=== PATIENT | male | born 1930 | race Asian ===

== ENCOUNTER 2016-09-06 10:06 | Emergency (ER) | payer OTHER ==
[2016-09-06 10:11] VITALS: TEMP 98.5; BMI 25.4
[2016-09-06] MEDS ORDERED: FAMOTIDINE 20 MG/50 ML IVPB 20 MG in PREMIX 50 IVPB ONE (11:30)
--- NOTE | 2016-09-06 11:37 | PDOC ---
History of Present Illness - General Chief Complaint: Pain Stated Complaint: STOMACH PAIN Time Seen by Provider: 09/06/16 10:47 History Source: Patient Exam Limitations: No Limitations - History of Present Illness Travel History: No Initial Comments: 09/06/16 11:35 85-year-old male presents the ED with intermittent right upper quadrant pain he describes as an aching sensation with cramping worsened after meals and relieved with time. Patient states has taken Pepto-Bismol minutes minimal relief and has seen his PCP who stated if pain continues to go to the nearest emergency room. Patient denies history of gallstones, GERD, abdominal distention , diarrhea, fever, chest pain, shortness of breath, dysuria, or radiation of pain. Patient does have history of diabetes, dyslipidemia and hypertension and is followed by Dr. Hirsch Timing/Duration: reports: intermittent Quality: reports: mild, cramping Abdominal Pain Onset Location: reports: RUQ Pain Radiation: reports: no radiation Activities at Onset: reports: eating Aggravating Factors: improves with: Eating Alleviating Factors: improves with: None Past History - Past Medical History Allergies/Adverse Reactions: Allergies Allergy/AdvReac Type Severity Reaction Status Date / Time No Known Allergies Allergy Verified 09/06/16 10:11 Home Medications: Ambulatory Orders Unobtainable [Unobtainable] 09/06/16 Diabetes: Yes HTN: Yes Hypercholesterolemia: Yes - Psycho/Social/Smoking Cessation Hx Suicidal Ideation: No Smoking History: Never smoked Information on smoking cessation initiated: No Hx Alcohol Use: No Drug/Substance Use Hx: No Patient Lives Alone: No Lives with/in: son Abd/GI Specific PMHX - Complaint Specific PMHX Gall Bladder Disease: No GERD: No Review of Systems - Review of Systems Able to Perform ROS?: Yes Constitutional: No: Symptoms Reported HEENTM: No: Symptoms Reported Respiratory: No: Symptoms reported Cardiac (ROS): No: Symptoms Reported ABD/GI: Yes: Abdominal cramping : No: Symptoms Reported Musculoskeletal: No: Symptoms Reported Integumentary: No: Symptoms Reported Neurological: No: Symptoms reported Endocrine: No: Symptoms Reported *Physical Exam - Vital Signs Last Vital Signs Temp Pulse Resp BP Pulse Ox 98.5 F 94 H 18 153/70 97 09/06/16 10:08 09/06/16 10:08 09/06/16 10:08 09/06/16 10:08 09/06/16 10:08 - Physical Exam General Appearance: Yes: Nourished, Appropriately Dressed. No: Apparent Distress Neck: positive: Supple Respiratory/Chest: positive: Lungs Clear, Normal Breath Sounds. negative: Respiratory Distress, Accessory Muscle Use Cardiovascular: positive: Regular Rhythm, Regular Rate. negative: Murmur Gastrointestinal/Abdominal: positive: Normal Bowel Sounds, Soft, Tenderness ( ruq rt epigastric, mild epigastric). negative: Distended, Guarding, Rebound, Hernia, Mass Musculoskeletal: negative: CVA Tenderness Integumentary: positive: Normal Color, Dry, Warm Neurologic: positive: Motor Strength 5/5 (ambulatory) ED Treatment Course - LABORATORY CBC & Chemistry Diagram: 09/06/16 12:00 09/06/16 12:00 - RADIOLOGY Radiology Studies Ordered: Category Date Time Status CHEST X-RAY PORTABLE* [RAD] Stat Radiology 09/06/16 11:30 Ordered GALLBLADDER US [US] Stat Ultrasound 09/06/16 11:30 Ordered Medical Decision Making - Medical Decision Making 09/06/16 11:36 Patient with right upper quadrant right epigastric pain for the past month intermittently worsened with meals. Patient had point tenderness to the right upper quadrant but negative for Carreon's. Patient also had tenderness in the right epigastric. Patient ordered for CBC, comp, lipase, urine urine culture, EKG, gallbladder ultrasound, chest x-ray, and we will reevaluate shortly 09/06/16 13:11 Laboratory Tests 09/06/16 09/06/16 09/06/16 12:00 12:00 12:08 WBC 9.1 Hgb 14.0 Hct 42.7 Plt Count 178 Neutrophils % 71.2 Sodium 130 L Potassium 4.9 Chloride 96 L Carbon Dioxide 27 Anion Gap 7 L BUN 32 H Creatinine 2.6 H Creat Clearance w eGFR 23.69 Random Glucose 449 H* Calcium 9.9 Total Bilirubin 0.5 AST 11 L ALT 21 Albumin 3.3 L Lipase 930 H Urine Glucose (UA) 3+ H Urine Nitrite Negative Ur Leukocyte Esterase Negative Laboratory Tests 09/06/16 12:59 Acetone, Qual Negative Patient ordered for second bag of IV fluid. Patient with elevated lipase. Patient currently in ultrasound for gallbladder. If ultrasound is negative will send for CT to rule out pancreatitis which is very likely secondary to elevated glucose. 09/06/16 14:33 Gallbladder ultrasound shows adequately distended gallbladder without intraluminal stones or thickening of its wall. There is no pericholecystic fluid seen. There is no ensure extrahepatic bile duct dilatation. The right kidney measures 7.5 with a couple cysts in the largest measuring 3 cm without evidence of hydronephrosis. Visualized portion of the pancreas is within normal limits in size with normal dilatation of the pancreatic duct measuring 3 mm. due to patient's elevated glucose and lipase patient will be added for CT of the abdomen to rule out pancreatic etiology. 09/06/16 16:44 CT shows no evidence of pancreatic masses no evidence of peripancreatic inflammatory changes or fluid collection suggesting acute or chronic pancreatitis. The liver spleen and adrenal glands and left kidney demonstrate no significant abnormality right kidney is moderately atrophic this present in few small calcifications. There is no evidence of hydronephrosis there is no evidence of intra-abdominal retroperitoneal lymphadenopathy or fluid collections. There is no evidence of acute appendicitis or diverticulitis. Patient will be discharged home for follow-up with Dr. Hirsch. awaiting repeat BGM. courtesy call placed to Dr. Hirsch. 09/06/16 16:51 *DC/Admit/Observation/Transfer Diagnosis at time of Disposition: Elevated lipase, Right upper quadrant abdominal pain - Discharge Dispostion Disposition: HOME Condition at time of disposition: Good - Referrals Referrals: Boris Hirsch MD [Primary Care Provider] - - Patient Instructions Printed Discharge Instructions: DI for Abdominal Pain-Adult Additional Instructions: At this point, I see no acute findings for admission or further workup. I do want to follow-up with your PCP Dr. Hirsch to discuss today's visit and take copies of the ultrasound and CAT scan with you. Please also take blood work with you.
[2016-09-06] MEDS ORDERED: FAMOTIDINE 20 MG/50 ML IVPB 50 ML IVPB ONE (12:12)
[2016-09-06 12:13] LABS: BASOPHIL 0.7 % (0-2.0); EOSINOPHIL 6.9 % (0-4.5); MCH 25.1 pg (25.7-33.7); MCHC 32.8 g/dl (32.0-35.9); MEAN CELL VOLUME 76.5 fl (80-96); MEAN PLT VOLUME 7.8 fl (7.5-11.1); NEUTROPHILS 71.2 % (42.8-82.8); PLATELET COUNT 178 K/MM3 (134-434); RDW 14.8 % (11.9-15.9); WHITE BLOOD COUNT 9.1 K/mm3 (4.0-10.0)
[2016-09-06 12:32] LABS: URINE APPEARANCE CLEAR; URINE BILIRUBIN NEGATIVE (NEGATIVE); URINE BLOOD NEGATIVE (NEGATIVE); URINE COLOR STRAW; URINE GLUCOSE (UA) 3+ (NEGATIVE); URINE KETONE NEGATIVE (NEGATIVE); URINE LEUK ESTERASE NEGATIVE (NEGATIVE); URINE NITRITE NEGATIVE (NEGATIVE); URINE PROTEIN 2+ (NEGATIVE); URINE UROBILINOGEN NEGATIVE E.U./dl (0.2-1.0)
[2016-09-06 12:43] LABS: ALBUMIN 3.3 g/dl (3.4-5.0); BILIRUBIN,TOTAL 0.5 mg/dL (0.2-1.0); CALCIUM 9.9 mg/dL (8.5-10.1); CREATININE 2.6 mg/dL (0.7-1.3); TOT PROT 7.8 g/dl (6.4-8.2)
[2016-09-06] MEDS ORDERED: SODIUM CHLORIDE 1,000 ML IV STA (12:59)
--- NOTE | 2016-09-06 16:37 | EKG ---
Test Reason : Blood Pressure : / mmHG Vent. Rate : 078 BPM Atrial Rate : 078 BPM P-R Int : 144 ms QRS Dur : 076 ms QT Int : 378 ms P-R-T Axes : 053 012 105 degrees QTc Int : 430 ms POOR DATA QUALITY, INTERPRETATION MAY BE ADVERSELY AFFECTED NORMAL SINUS RHYTHM NONSPECIFIC T WAVE ABNORMALITY ABNORMAL ECG NO PREVIOUS ECGS AVAILABLE Confirmed by MARCELLA VILCHIS MD ([id number]) on 09/06/2016 4:37:05 PM Referred By: Confirmed By:MARCELLA VILCHIS MD
--- NOTE | 2016-09-06 16:44 | PDOC ---
*Physical Exam - Vital Signs Last Vital Signs Temp Pulse Resp BP Pulse Ox 98.5 F 94 H 18 153/70 97 09/06/16 10:08 09/06/16 10:08 09/06/16 10:08 09/06/16 10:08 09/06/16 10:08 ED Treatment Course - LABORATORY CBC & Chemistry Diagram: 09/06/16 12:00 09/06/16 12:00 - ADDITIONAL ORDERS Additional order review: Laboratory Results 09/06/16 09/06/16 09/06/16 12:59 12:08 12:00 Sodium 130 L Potassium 4.9 Chloride 96 L Carbon Dioxide 27 Anion Gap 7 L BUN 32 H Creatinine 2.6 H Creat Clearance w eGFR 23.69 Random Glucose 449 H* Calcium 9.9 Total Bilirubin 0.5 AST 11 L ALT 21 Alkaline Phosphatase 85 Total Protein 7.8 Albumin 3.3 L Lipase 930 H Urine Color Straw Urine Appearance Clear Urine pH 7.0 Ur Specific [place] 1.020 Urine Protein 2+ H Urine Glucose (UA) 3+ H Urine Ketones Negative Urine Blood Negative Urine Nitrite Negative Urine Bilirubin Negative Urine Urobilinogen Negative Ur Leukocyte Esterase Negative Urine RBC None Urine WBC None Acetone, Qual Negative 09/06/16 12:00 RBC 5.58 MCV 76.5 L MCHC 32.8 RDW 14.8 MPV 7.8 Neutrophils % 71.2 Lymphocytes % 14.9 Monocytes % 6.3 Eosinophils % 6.9 H Basophils % 0.7 - Medications Given in the ED: ED Medications Discontinued Medications Generic Name Dose Route Start Last Admin Trade Name Freq PRN Reason Stop Dose Admin Famotidine/Sodium Chloride 20 50 mls @ 100 mls/hr 09/06/16 11:30 09/06/16 12:22 mg/ Miscellaneous IVPB 09/06/16 11:59 100 mls/hr ONCE ONE Administration Sodium Chloride 1,000 mls @ 1,000 mls/hr 09/06/16 12:59 09/06/16 13:30 Normal Saline - IV 09/06/16 13:58 1,000 mls/hr ASDIR STA Administration Medical Decision Making - Medical Decision Making 09/06/16 16:43 Pt seen by Midlevel Provider under my direct supervision Ancillary studies reviewed I agree with plan as outlined by Midlevel Provider 09/07/16 09:52 *DC/Admit/Observation/Transfer Diagnosis at time of Disposition: Elevated lipase, Right upper quadrant abdominal pain - Discharge Dispostion Disposition: HOME Condition at time of disposition: Good - Referrals Referrals: Boris Hirsch MD [Primary Care Provider] - - Patient Instructions Printed Discharge Instructions: DI for Abdominal Pain-Adult Additional Instructions: At this point, I see no acute findings for admission or further workup. I do want to follow-up with your PCP Dr. Hirsch to discuss today's visit and take copies of the ultrasound and CAT scan with you. Please also take blood work with you.
[2016-09-06 17:16] VITALS: BP 141/78; PULSE 72
== END 2016-09-06 17:22 | disposition home or self-care (01) ==
LOC: JER 10:06
PROC: 3E0337Z Introduction of Electrolytic and Water Balance Substance into Peripheral Vein, Percutaneous Approach (ICD-10-PCS; principal; 2016-09-06)
PROC: 3E033GC Introduction of Other Therapeutic Substance into Peripheral Vein, Percutaneous Approach (ICD-10-PCS; 2016-09-06)
DX: R10.11 Right upper quadrant pain (principal); R74.8 Abnormal levels of other serum enzymes; E11.9 Type 2 diabetes mellitus without complications; I10 Essential (primary) hypertension; E78.5 Hyperlipidemia, unspecified
CPT/HCPCS: 36415; 71010-TC; 74176-TC; 76705-TC; 80053; 81003; 81015; 82009; 83690; 85025; 87086; 93005; 93010; 99284-25

== ENCOUNTER 2017-08-09 01:05 | Inpatient (IN) | payer OTHER ==
--- NOTE | 2017-08-09 01:31 | PDOC ---
History of Present Illness - General Exam Limitations: No Limitations - History of Present Illness Initial Comments: 08/09/17 02:04 Patient is a 86 year old male with a significant past medical history of HTN, Diabetes (diet controlled), Hypercholesterolemia who presents to the ED with complaints of abdominal pain that began yesterday morning. Patient reports abdominal pain began yesterday morning after having breakfast. He reports last meal was yesterday afternoon to which he states was only a small amount. Patient reports forcing himself to vomiting tno high level of discomfort from abdominal pain. Denies chest pain, SOB. Denies fever, chills. Denies sweating, coughing. Denies contact with sick individuals, out of state travel. Allergies: None Social history: No smoking. No alcohol. No illicit drugs. Surgical history: None PMD: Dr. Boris Hirsch <Aayush Lynch - Last Filed: 08/09/17 02:43> - General History Source: Patient, Family <Jluis Martin - Last Filed: 08/09/17 05:36> - General Stated Complaint: ABD PAIN Time Seen by Provider: 08/09/17 01:25 Past History <Aayush Lynch - Last Filed: 08/09/17 02:43> - Past Medical History Diabetes: Yes HTN: Yes Hypercholesterolemia: Yes - Suicide/Smoking/Psychosocial Hx Smoking History: Never smoked Hx Alcohol Use: No Drug/Substance Use Hx: No <Jluis Martin - Last Filed: 08/09/17 05:36> - Past Medical History Allergies/Adverse Reactions: Allergies Allergy/AdvReac Type Severity Reaction Status Date / Time No Known Allergies Allergy Verified 09/06/16 10:11 Home Medications: Ambulatory Orders Unobtainable [Unobtainable] 09/06/16 Review of Systems - Review of Systems Able to Perform ROS?: Yes Comments:: 08/09/17 02:04 CONSTITUTIONAL: Absent: fever, chills, diaphoresis, generalized weakness, malaise, loss of appetite HEENT: Absent: rhinorrhea, nasal congestion, throat pain, throat swelling, difficulty swallowing, mouth swelling, ear pain, eye pain, visual Changes CARDIOVASCULAR: Absent: chest pain, syncope, palpitations, irregular heart rate, lightheadedness , peripheral edema RESPIRATORY: Absent: cough, shortness of breath, dyspnea with exertion, orthopnea, wheezing, stridor, hemoptysis GASTROINTESTINAL: +Abdominal pain. +vomiting. Absent: abdominal distension, nausea, diarrhea, constipation, melena, hematochezia GENITOURINARY: Absent: dysuria, frequency, urgency, hesitancy, hematuria, flank pain, genital pain MUSCULOSKELETAL: Absent: myalgia, arthralgia, joint swelling SKIN: Absent: rash, itching, pallor HEMATOLOGIC/IMMUNOLOGIC: Absent: easy bleeding, easy bruising, lymphadenopathy, frequent infections ENDOCRINE: Absent: unexplained weight gain, unexplained weight loss, heat intolerance, cold intolerance NEUROLOGIC: Absent: headache, focal weakness or paresthesias, dizziness, unsteady gait, seizure, mental status changes, bladder or bowel incontinence PSYCHIATRIC: Absent: anxiety, depression, suicidal or homicidal ideation, hallucinations. All Other Systems: Reviewed and Negative <Aayush Lynch - Last Filed: 08/09/17 02:43> *Physical Exam - Vital Signs Last Vital Signs Temp Pulse Resp BP Pulse Ox 98.7 F 100 H 18 135/59 100 08/09/17 01:25 08/09/17 01:25 08/09/17 01:25 08/09/17 01:25 08/09/17 01:25 - Physical Exam Comments: 08/09/17 02:04 GENERAL: +Mild stressed. Well developed, well nourished. Awake and alert. In no acute distress. HEENT: Normocephalic, atraumatic. PERRLA, EOMI. No conjunctival pallor. Sclerae are non -icteric. Moist mucous membranes. Oropharynx is clear. NECK: Supple. Full ROM. No JVD. Carotid pulses 2+ and symmetric, without bruits. No thyromegaly. No lymphadenopathy. CARDIOVASCULAR: Regular rate and rhythm. No murmurs, rubs, or gallops. Distal pulses are 2+ and symmetric. PULMONARY: No evidence of respiratory distress. Lungs clear to auscultation bilaterally. No wheezing, rales or rhonchi. ABDOMINAL: +Appears to be distended. +Moderate RUQ tenderness. +Carreon sign Soft. No rebound or guarding. No organomegaly. Normoactive bowel sounds. MUSCULOSKELETAL Normal range of motion at all joints. No bony deformities or tenderness. No CVA tenderness. EXTREMITIES: No cyanosis. No clubbing. No edema. No calf tenderness. SKIN: Warm and dry. Normal capillary refill. No rashes. No jaundice. NEUROLOGICAL: Alert, awake, appropriate. Cranial nerves 2-12 intact. No deficits to light touch and temperature in face, upper extremities and lower extremities. No motor deficits in the in face, upper extremities and lower extremities. Normoreflexic in the upper and lower extremities. Normal speech. Toes are downgoing bilaterally. Gait is normal without ataxia. PSYCHIATRIC: Cooperative. Good eye contact. Appropriate mood and affect. <Aayush Lynch - Last Filed: 08/09/17 02:43> ED Treatment Course - RADIOLOGY Radiograph Interpretation: 08/09/17 02:43 Exam: US Abdomen Limited, right upper quadrant and limited abdominal DUPLEX Impression: No evidence of acute pathology <Aayush Lynch - Last Filed: 08/09/17 02:43> - LABORATORY CBC & Chemistry Diagram: 08/09/17 01:51 08/09/17 01:51 <Jluis Martin - Last Filed: 08/09/17 05:36> *DC/Admit/Observation/Transfer - Attestations Scribe Attestion: 08/09/17 02:04 Documentation prepared by Aayush Lynch, acting as veterinary medical officer for Jluis Martin MD/DO. <Aayush Lynch - Last Filed: 08/09/17 02:43> - Discharge Dispostion Admit: Yes <Jluis Martin - Last Filed: 08/09/17 05:36> Diagnosis at time of Disposition: Anemia, Electrolyte abnormality - Discharge Dispostion Condition at time of disposition: Stable - Referrals Referrals: Boris Hirsch MD [Primary Care Provider] - - Patient Instructions - Post Discharge Activity
[2017-08-09 01:39] VITALS: BMI 25.5
[2017-08-09 02:50] LABS: BASOPHIL 0.4 % (0-2.0); MCHC 31.1 g/dl (32.0-35.9); MEAN CELL VOLUME 70.8 fl (80-96); MEAN PLT VOLUME 8.9 fl (7.5-11.1); NEUTROPHILS 85.6 % (42.8-82.8); PLATELET COUNT 182 K/MM3 (134-434); RDW 18.5 % (11.9-15.9); WHITE BLOOD COUNT 14.3 K/mm3 (4.0-10.0)
[2017-08-09 03:07] LABS: URINE APPEARANCE CLEAR; URINE BILIRUBIN NEGATIVE (NEGATIVE); URINE BLOOD NEGATIVE (NEGATIVE); URINE COLOR STRAW; URINE GLUCOSE (UA) 3+ (NEGATIVE); URINE KETONE NEGATIVE (NEGATIVE); URINE LEUK ESTERASE NEGATIVE (NEGATIVE); URINE NITRITE NEGATIVE (NEGATIVE); URINE UROBILINOGEN NEGATIVE mg/dL (0.2-1.0)
[2017-08-09 03:10] LABS: URINE PROTEIN 2+ (NEGATIVE)
[2017-08-09 03:13] LABS: URINE RBC <1 /hpf (0-3); URINE WBC <1 /hpf (3-5)
[2017-08-09 03:15] LABS: ANION GAP 16 (8-16); BILIRUBIN,TOTAL 0.2 mg/dL (0.2-1.0); CALCIUM 9.4 mg/dL (8.5-10.1); CO2 25 mmol/L (21-32); CREATININE 5.8 mg/dL (0.7-1.3); SGOT/AST 7 U/L (15-37); SGPT/ALT 15 U/L (12-78); TOT PROT 6.8 g/dl (6.4-8.2)
[2017-08-09] MEDS ORDERED: morphine CARPU-JECT 2 MG/1 ML DISP.SYRIN IVPUSH ONE (03:16)
[2017-08-09] MEDS ORDERED: ONDANSETRON 4 MG/2 ML VIAL IVPUSH STA (03:16)
[2017-08-09 03:18] LABS: ALK PHOS 50 U/L (45-117); CPK 64 IU/L (39-308); TROPONIN I 0.02 ng/ml (0.00-0.05)
[2017-08-09] MEDS ORDERED: ONDANSETRON 4 MG/2 ML VIAL ONE (03:21)
[2017-08-09] MEDS ORDERED: morphine SULFATE 4 MG/ML VIAL ONE (03:21)
[2017-08-09 03:35] LABS: GLUCOSE,RANDOM 588 mg/dL (74-106)
[2017-08-09] MEDS ORDERED: INSULIN REGULAR HUMAN 100 UNITS/ML *VIAL SQ ONE (03:45)
[2017-08-09] MEDS ORDERED: INSULIN REGULAR HUMAN 100 UNITS/ML *VIAL ONE (04:11)
[2017-08-09] MEDS: SODIUM CHLORIDE 1,000 ML IV SCH (04:15)
[2017-08-09] MEDS ORDERED: PANTOPRAZOLE 40 MG TABLET (FP) PO ONE (05:31)
--- NOTE | 2017-08-09 06:53 | HP ---
CHIEF COMPLAINT: Epigastric pain PCP: Dr. Hirsch HISTORY OF PRESENT ILLNESS: 86yo M with history of DM (only diet controlled), HTN, HLD and diverticulosis who presented to the ED due to burning epigastric pain rated at a 6 in intensity without any radiation. Pt speaks only Malayalam and translation provided by nurse who speaks fluently. Pt states he ate breakfast yesterday and developed his pain afterwards. Pt reports he ate dinner last night , however experienced nonbilious/nonbloody vomiting x1 and only ate a small amount compared to his normal. He reports how his pain decreased as soon as he vomited. Pt also reports a BM yesterday without any bloody or black tarry colour to it. Pt denies any constipation/diarrhea/n, weight changes, CP/ discomfort, SOB, fever/chills, and sick contacts. Allergies: None Social history: No smoking. No alcohol. No illicit drugs. Surgical history: None PMD: Dr. Boris Hirsch ER course was notable for: (1) Abdominal U/S reported as normal (2) Oral contrast only CT (no IV due to CATARINA) which was only reported as "esophagitis" (3) CMP showing glucose 566, Cr increased to 5.6 (BUN 118) (4) CBC showing Hgb 6.7 with most recent lab showing 14 (5) Insulin 6 units administered (6) Morphine given for pain control, Zofran administered for nausea control Recent Travel: Denies PAST MEDICAL HISTORY: DM (diet only; uncontrolled) HTN HLD Diverticulosis PAST SURGICAL HISTORY: None Social History: Smoking: Denies Alcohol: Denies Drugs: Denies Family History: Deferred Allergies No Known Allergies Allergy (Verified 09/06/16 10:11) HOME MEDICATIONS: Home Medications Medication Instructions Recorded Unobtainable [Unobtainable] 09/06/16 REVIEW OF SYSTEMS CONSTITUTIONAL: Absent: fever, chills, diaphoresis, generalized weakness, no weight changes HEENT: Absent: rhinorrhea, nasal congestion, throat pain, CARDIOVASCULAR: Absent: chest pain, syncope, palpitations, lightheadedness, peripheral edema RESPIRATORY: Absent: cough, shortness of breath, dyspnea with exertion, orthopnea, wheezing, stridor, hemoptysis GASTROINTESTINAL: Present: Abd pain, vomiting Absent: abdominal distension, nausea, diarrhea, constipation, melena, hematochezia GENITOURINARY: Absent: dysuria, frequency, urgency, hesitancy, hematuria, flank pain, genital pain HEMATOLOGIC/IMMUNOLOGIC: Absent: easy bleeding, easy bruising ENDOCRINE: Absent: unexplained weight gain, unexplained weight loss PSYCHIATRIC: Absent: anxiety, depression PHYSICAL EXAMINATION Vital Signs - 24 hr 08/09/17 08/09/17 08/09/17 01:25 04:20 05:50 Temperature 98.7 F 98.7 F Pulse Rate 100 H Pulse Rate [ 104 H 92 H Left Radial] Respiratory 18 18 Rate Blood Pressure 135/59 Blood Pressure 173/78 148/68 [Left Arm] O2 Sat by Pulse 100 98 Oximetry (%) GENERAL: NAD lying comfortably in bed, alert HEENT: EOMI, HOW[place], No JVD appreciated, ROM intact LUNGS: CTA bilaterally. No wheezes, rhonchi, rales. No accessory muscle use. HEART: RRR, normal S1 and S2 without murmur ABDOMEN: Soft, nontender, not distended, normoactive bowel sounds, no guarding, no rebound, mass palpated around 9-10cm palpated in the R periumbilical area cystic in consistency nontender to palpation and appearing to be intrabdominal. No scars/rashes/lesions appreciated. MUSCULOSKELETAL: No CVA tenderness. EXTREMITIES: 2+ DP pulses, no edema appreciated in lower extremities. NEUROLOGICAL: nonfocal, normal speech, gait not observed PSYCHIATRIC: Cooperative. Good eye contact. Appropriate mood and affect. SKIN: Warm, no rashes or lesions noted, <2sec cap refill Laboratory Results - last 24 hr 08/09/17 08/09/17 08/09/17 01:51 01:51 01:51 WBC 14.3 H D RBC 2.83 L D Hgb 6.2 L* D Hct 20.0 L D MCV 70.8 L MCH 22.0 L MCHC 31.1 L RDW 18.5 H D Plt Count 182 MPV 8.9 D Neutrophils % 85.6 H D Lymphocytes % 9.4 D Monocytes % 3.6 L Eosinophils % 1.0 D Basophils % 0.4 Sodium 129 L Potassium 4.6 Chloride 88 L Carbon Dioxide 25 Anion Gap 16 BUN 116 H* D Creatinine 5.8 H D Creat Clearance w eGFR 9.36 Random Glucose 588 H* D Calcium 9.4 Magnesium 2.0 Total Bilirubin 0.2 D AST 7 L D ALT 15 D Alkaline Phosphatase 50 D Creatine Kinase 64 Troponin I 0.02 Total Protein 6.8 Albumin 3.0 L Lipase 491 H Urine Color Urine Appearance Urine pH Ur Specific [place] Urine Protein Urine Glucose (UA) Urine Ketones Urine Blood Urine Nitrite Urine Bilirubin Urine Urobilinogen Urine WBC (Auto) Urine RBC (Auto) Blood Type B POSITIVE Antibody Screen Negative Crossmatch 08/09/17 08/09/17 02:51 05:15 WBC RBC Hgb Hct MCV MCH MCHC RDW Plt Count MPV Neutrophils % Lymphocytes % Monocytes % Eosinophils % Basophils % Sodium Potassium Chloride Carbon Dioxide Anion Gap BUN Creatinine Creat Clearance w eGFR Random Glucose Calcium Magnesium Total Bilirubin AST ALT Alkaline Phosphatase Creatine Kinase Troponin I Total Protein Albumin Lipase Urine Color Straw Urine Appearance Clear Urine pH 8.0 Ur Specific [place] 1.012 Urine Protein 2+ H Urine Glucose (UA) 3+ H Urine Ketones Negative Urine Blood Negative Urine Nitrite Negative Urine Bilirubin Negative Urine Urobilinogen Negative Urine WBC (Auto) <1 Urine RBC (Auto) <1 Blood Type B POSITIVE Antibody Screen Crossmatch See Detail ASSESSMENT/PLAN: 86yo M with history of DM (only diet controlled), HTN, HLD and diverticulosis who presented to the ED due to burning epigastric pain noted to hvae decrease in Hgb down to 6.8, CATARINA on CMP, and hyperglycemia to 566. Abdominal US and CT scan performed 1) Epigastric pain --esophagitis vs. gastritis vs. PUD --Lipase noted to be 486 --Zantac 150mg BID --Zofran for nausea to continue --NS@100cc/hr --Morphine 2mg q8h for pain control --Dr. Valdes consulted 2) Hyperglycemia --BGM ACHS --ISS --Hgb A1c ordered --Insulin 6 U given in ED -Recheck fingerstick 3) CATARINA --Most likely intrinsic, however cannot r/o post-obstructive --Renal US --Renal lytes, osm and cr ordered --Dr. Looney consulted --Bladder scan performed after noticing CT scan --125cc per scan 4) Abdominal lump --Mass palpated around 9-10cm in the R periumbilical area cystic in consistency nontender to palpation and appearing to be intrabdominal --Upon CT image review, massively distended bladder shown; unknown if cystic vs. urinary retention --Bladder scan showing 125cc --blackmon catheter inserted to differentiate between cystic mass/lump vs. bladder distention --If unable to catheterize will consult urology due to obstructive process 5) Anemia --Microcytic in nature --2UPRBC ordered to be transfused --Maintain transfusion threshold as 7 --Stool occult ordered --GI consult as above 6) HTN --currently controlled --Monitor BP --Will need to reconcile medications 7) HLD --Lipid panel ordered --Need for medication reconcilation FEN: Fluids: NS@100c/hr Electrolyte abnormalities: Hyponatremia; when corrected for glucose level Na is NORMAL Nutrition: NPO for now PPX: DVT - SCDs applied both legs; no heparin given to acute blood loss GI - Zantac 150mg BID Dispo: Admit to inpatient services; specific placement to be discussed with Dr. Good Case to be discussed with Dr. Florentino Dumont, DO - Internal Medicine PGY-1 Visit type - Emergency Visit Emergency Visit: No - New Patient This patient is new to me today: Yes Date on this admission: 08/09/17 - Critical Care Critical Care patient: No
[2017-08-09] MEDS ORDERED: INSULIN SLIDING SCALE (NOVOLOG) 1 VIAL SQ SCH (07:00)
[2017-08-09] MEDS ORDERED: morphine SULFATE 4 MG/ML VIAL IVPUSH PRN (07:25)
[2017-08-09] MEDS ORDERED: ONDANSETRON 4 MG/2 ML VIAL IVPUSH PRN (07:25)
--- NOTE | 2017-08-09 08:06 | PN ---
Teaching Attending Note Name of Resident: Sang Valle ATTENDING PHYSICIAN STATEMENT I saw and evaluated the patient. I reviewed the resident's note and discussed the case with the resident. I agree with the resident's findings and plan as documented. SUBJECTIVE: RR was called for patient having high blood sugar of 588. Patient was found to have difficulty urinating. OBJECTIVE: Vital Signs Temperature 98.7 F 08/09/17 04:20 Pulse Rate 92 H 08/09/17 05:50 Respiratory Rate 18 08/09/17 04:20 Blood Pressure 148/68 08/09/17 05:50 O2 Sat by Pulse Oximetry (%) 98 08/09/17 04:20 CBCD WBC 14.3 K/mm3 (4.0-10.0) H D 08/09/17 01:51 RBC 2.83 M/mm3 (4.00-5.60) L D 08/09/17 01:51 Hgb 6.2 GM/dL (11.7-16.9) L* D 08/09/17 01:51 Hct 20.0 % (35.4-49) L D 08/09/17 01:51 MCV 70.8 fl (80-96) L 08/09/17 01:51 MCHC 31.1 g/dl (32.0-35.9) L 08/09/17 01:51 RDW 18.5 % (11.9-15.9) H D 08/09/17 01:51 Plt Count 182 K/MM3 (134-434) 08/09/17 01:51 MPV 8.9 fl (7.5-11.1) D 08/09/17 01:51 CMP Sodium 129 mmol/L (136-145) L 08/09/17 01:51 Potassium 4.6 mmol/L (3.5-5.1) 08/09/17 01:51 Chloride 88 mmol/L (98-107) L 08/09/17 01:51 Carbon Dioxide 25 mmol/L (21-32) 08/09/17 01:51 Anion Gap 16 (8-16) 08/09/17 01:51 BUN 116 mg/dL (7-18) H* D 08/09/17 01:51 Creatinine 5.8 mg/dL (0.7-1.3) H D 08/09/17 01:51 Creat Clearance w eGFR 9.36 (>60) 08/09/17 01:51 Random Glucose 588 mg/dL (74-106) H* D 08/09/17 01:51 Calcium 9.4 mg/dL (8.5-10.1) 08/09/17 01:51 Total Bilirubin 0.2 mg/dL (0.2-1.0) D 08/09/17 01:51 AST 7 U/L (15-37) L D 08/09/17 01:51 ALT 15 U/L (12-78) D 08/09/17 01:51 Alkaline Phosphatase 50 U/L (45-117) D 08/09/17 01:51 Total Protein 6.8 g/dl (6.4-8.2) 08/09/17 01:51 Albumin 3.0 g/dl (3.4-5.0) L 08/09/17 01:51 CARDIAC ENZYMES Creatine Kinase 64 IU/L (39-308) 08/09/17 01:51 Troponin I 0.02 ng/ml (0.00-0.05) 08/09/17 01:51 Current Medications Generic Name Dose Route Start Last Admin Trade Name Freq PRN Reason Stop Dose Admin Sodium Chloride 1,000 mls @ 75 mls/hr 08/09/17 03:45 08/09/17 04:15 Normal Saline - IV 75 mls/hr ASDIR REHANA Administration Insulin Aspart 1 vial 08/09/17 07:00 Novolog Vial Sliding Scale - SQ ACHS [facility] Protocol Morphine Sulfate 2 mg 08/09/17 07:25 Morphine Injection - IVPUSH Q8H PRN PAIN Ondansetron HCl 4 mg 08/09/17 07:25 Zofran Injection IVPUSH Q6H PRN NAUSEA AND/OR VOMITING Ranitidine HCl 150 mg 08/09/17 10:00 Zantac - PO BID [facility] Home Medications Medication Instructions Recorded Unobtainable [Unobtainable] 09/06/16 CT - dilated PD ASSESSMENT AND PLAN: Patient is an 86 yo male with uncontrolled DM, urinary retention, significant anemia, mildly elevated lipse, epigastric pain with dark stools. No reports of melena, hematochezia, hematemesis. # Acute obstructive uropathy urology and surgery was consulted , will Tx patient to telemetry. #Acute renal failure due to Obstructive uropathy. Sen catheter to be placed by urologist /surgery. # Severe Anemia h/h , transfuse 2 units ,keep Hemoblobin above 8.0, PPI IVP BID , GI consult possible EGD per GI. Iron profile. EGD to evaluate for upper GI sources of blood loss, MRCP. # DM control on SS with coverage #acute psuedohyponatremia will repeat in am dvt px: Hemoglobin of 6.0 will hold of anticoagulation for now.
[2017-08-09] MEDS ORDERED: INSULIN (NOVOLOG) ASPART 100 UNITS/ML 10ML VIAL ONE ×2 (08:41→20:33)
[2017-08-09] MEDS: INSULIN SLIDING SCALE (NOVOLOG) 1 VIAL SQ SCH ×4 (08:46→20:34)
--- NOTE | 2017-08-09 08:55 | RAPID ---
Physical Examination Vital Signs: Vital Signs Temperature 98 F 08/09/17 08:29 Pulse Rate 94 H 08/09/17 08:29 Respiratory Rate 20 08/09/17 08:29 Blood Pressure 122/60 08/09/17 08:29 O2 Sat by Pulse Oximetry (%) 98 08/09/17 04:20 Constitutional: Yes: Calm, Thin Eyes: Yes: WNL, Conjunctiva Clear HENT: Yes: Atraumatic, Normocephalic Neck: Yes: Supple Cardiovascular: Yes: Regular Rate and Rhythm Respiratory: Yes: Other (Decreased lung sounds at bases) Gastrointestinal: Yes: Normal Bowel Sounds, Palpable Mass (Large abdominal herniated mass palpable in RLQ. Dull to percussion. Non-tender. Normal overlying skin. Likely bladder), Other (Mild hepatosplenomegaly) ...Rectal Exam: Yes: Deferred Renal/: Yes: WNL Peripheral Pulses: Left Radial: 2+, Right Radial: 2+, Left Doralis Pedis: 2+, Right Dorsalis Pedis: 2+, Left Femoral: 2+, Right Femoral: 2+ Integumentary: Yes: WNL, Jaundice (Mild jaundice noted) Neurological: Yes: Alert, Oriented, Cran Nerves II-XII Intact ...Motor Strength: WNL Labs: CBC, BMP 08/09/17 01:51 08/09/17 01:51 Rapid Response - Rapid Response Assessment: RR called by nurse for elevated BG 588 and increased somnolence per nursing staff. Pt lying in bed in NAD, A&Ox3. Vitals 122/61, RR 20, Pulse 93, satting 99 %. BG 559. Pt responsive, conversant, appears slightly lethargic. Non-spanish speaking. Nurse at bedside translating. Endorses mild abdominal pain, no change since admission, mild lightheadness/fatigue. Denies dizziness, CP, SOB, palpitations, CASTILLO, diplopia, focal neurologic symptoms. Denies any hematemesis, hemoptysis, hematochezia, melena, hematuria or any other bleeding sources. No LOC, seziure active or traumatic fall noted. PE as noted in template, notable for large abdominal herniated mass in RLQ. Pt appears mildly jaundiced. Cor, pulm exams normal. 5/5 strength in all extremities. Sensation to light touch preserved globally. CN II-XII intact. 2+ radial, DP, PT pulses BL. CBC, BMP 08/09/17 01:51 08/09/17 01:51 Recommendations: BGM q4h Insulin Sliding Scale Renal consult Consider Vascular consult for access Type and Screen CBC, BMP Transfer to telemetry
--- NOTE | 2017-08-09 09:16 | MSN ---
Progress Note (short form) - Note Progress Note: CBC, BMP Last Vital Signs Temp Pulse Resp BP Pulse Ox 98 F 94 H 20 122/60 99 08/09/17 08:29 08/09/17 08:29 08/09/17 08:29 08/09/17 08:29 08/09/17 09:05 08/09/17 01:51 08/09/17 01:51 Abnormal Lab Results 08/09/17 08/09/17 08/09/17 01:51 01:51 02:51 WBC 14.3 H D RBC 2.83 L D Hgb 6.2 L* D Hct 20.0 L D MCV 70.8 L MCH 22.0 L MCHC 31.1 L RDW 18.5 H D Neutrophils % 85.6 H D Monocytes % 3.6 L Sodium 129 L Chloride 88 L BUN 116 H* D Creatinine 5.8 H D Random Glucose 588 H* D AST 7 L D Albumin 3.0 L Triglycerides HDL Cholesterol Lipase 491 H Urine Protein 2+ H Urine Glucose (UA) 3+ H Crossmatch 08/09/17 08/09/17 05:15 07:50 WBC RBC Hgb Hct MCV MCH MCHC RDW Neutrophils % Monocytes % Sodium Chloride BUN Creatinine Random Glucose AST Albumin Triglycerides 235 H HDL Cholesterol 25 L Lipase Urine Protein Urine Glucose (UA) Crossmatch See Detail Urine Test Results Urine Color Straw 08/09/17 02:51 Urine Appearance Clear 08/09/17 02:51 Urine pH 8.0 (5.0-8.0) 08/09/17 02:51 Ur Specific [place] 1.012 (1.001-1.035) 08/09/17 02:51 Urine Protein 2+ (NEGATIVE) H 08/09/17 02:51 Urine Glucose (UA) 3+ (NEGATIVE) H 08/09/17 02:51 Urine Ketones Negative (NEGATIVE) 08/09/17 02:51 Urine Blood Negative (NEGATIVE) 08/09/17 02:51 Urine Nitrite Negative (NEGATIVE) 08/09/17 02:51 Urine Bilirubin Negative (NEGATIVE) 08/09/17 02:51
[2017-08-09] MEDS ORDERED: RANITIDINE HCL 150 MG TABLET (FP) PO SCH (10:00)
--- NOTE | 2017-08-09 10:21 | EKG ---
Test Reason : Blood Pressure : / mmHG Vent. Rate : 101 BPM Atrial Rate : 101 BPM P-R Int : 164 ms QRS Dur : 078 ms QT Int : 346 ms P-R-T Axes : 050 014 090 degrees QTc Int : 448 ms SINUS TACHYCARDIA OTHERWISE NORMAL ECG WHEN COMPARED WITH ECG OF 06-SEP-2016 12:37, NO SIGNIFICANT CHANGE WAS FOUND Confirmed by MD QUINTON, JAXON ([id number]) on 08/09/2017 10:21:14 AM Referred By: Confirmed By:JAXON ALCANTARA MD
--- NOTE | 2017-08-09 10:46 | CON.NEP ---
Consult Consult Specialty:: Nephrology Referred by:: Dr. Good Reason for Consultation:: Acute on Chronic renal insuffiency - History of Present Illness Chief Complaint: ABd pain History of Present Illness: This is a 86 year old gentleman with PMhx of Hypertension, DM Type 2 (diet controlled), Hyperlipidemia, CKD (? baseline), ABd hernia who presented to the ED with 1 day history of abdominal pain and found to have large hiatial hernia and CATARINA with BUN/Cr of 116/5.8. History obtained from the son who was at the bedside. He reported that he has been told that his renal function was not normal as of yet. Pt reports that he could not urinate and continues to have abd /pelvic pain. No fever, chills, N/V/D. NO sob, chest pain. + periodic nsaid use. No recent Abx use. Pt was unable to have blackmon passed on the medical floor by the nursing staff. - History Source History Provided By: Patient, Family Member Limitations to Obtaining History: Language Barrier - Alcohol/Substance Use Hx Alcohol Use: No - Smoking History Smoking history: Never smoked Have you smoked in the past 12 months: No Home Medications - Allergies Allergies/Adverse Reactions: Allergies Allergy/AdvReac Type Severity Reaction Status Date / Time No Known Allergies Allergy Verified 09/06/16 10:11 - Home Medications Home Medications: Ambulatory Orders Unobtainable [Unobtainable] 09/06/16 Family Disease History - Family Disease History Family History: Unremarkable Review of Systems - Review of Systems Constitutional: reports: Loss of Appetite. denies: Chills, Diaphoresis, Fever, Lethargy Eyes: reports: No Symptoms HENT: reports: No Symptoms Neck: reports: No Symptoms Cardiovascular: denies: Chest Pain, Edema, Palpitations, Shortness of Breath Respiratory: denies: Cough, Hemoptysis, Orthopnea, PND, SOB, SOB on Exertion Gastrointestinal: reports: Abdominal Pain. denies: Diarrhea, Nausea, Vomiting Genitourinary: reports: Pain. denies: Burning, Discharge, Dysuria, Flank Pain Musculoskeletal: reports: No Symptoms Integumentary: reports: No Symptoms Neurological: reports: No Symptoms Nephrology Consult - Height Height: 5 ft 7 in - Weight Weight: 73.936 kg - BMI Body Mass Index (BMI): 25.5 - Lab Results CBC,BMP: CBC, BMP 08/09/17 01:51 08/09/17 01:51 Anion Gap: Anion Gap Anion Gap 16 (8-16) 08/09/17 01:51 - Imaging Chest X-ray: Report Reviewed Cat Scan: Report Reviewed - Physical Examination Vital Signs: Vital Signs Temperature 98 F 08/09/17 08:29 Pulse Rate 94 H 08/09/17 08:29 Respiratory Rate 20 08/09/17 08:29 Blood Pressure 122/60 08/09/17 08:29 O2 Sat by Pulse Oximetry (%) 99 08/09/17 09:05 Constitutional: Yes: No Distress, Calm Eyes: Yes: Conjunctiva Clear HENT: Yes: Atraumatic, Normocephalic Neck: Yes: Supple Cardiovascular: Yes: Regular Rate and Rhythm, S1, S2. No: Murmur, Rub Respiratory: Yes: Regular, CTA Bilaterally. No: Rales, Rhonchi, Wheezes Gastrointestinal: Yes: Distention, Tenderness Renal/: Yes: Bladder Distention. No: CVA Tenderness - Left, CVA Tenderness - Right, Blackmon Present Edema: No Neurological: Yes: Alert, Oriented Assessment/Plan 86 year old gentleman with PMhx of Hypertension, DM Type 2 (diet controlled), Hyperlipidemia, CKD (? baseline), ABd hernia who presented to the ED with 1 day history of abdominal pain and found to have large hiatial hernia and CATARINA with BUN/Cr of 116/5.8. 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 Blackmon unable to be passed by nursing staff Urology consult for Blackmon placement and management of enlarged prostate Start Flomax 0.4mg Daily Check urine studies when urine is aviliable continue isotonic saline as pt with signs of mild volume depletion no acute indication for [employer] (no acidosis, hyperkalemia, uremia, volume overload) expect renal function to improve s/p Blackmon placement Dose all meds for CrCl less then 10 no KATELYNN/ARB/NSAIDs/IV contrast Strict I and O #Large Abd Hernia Surgical Eval #Hypertension obtain home meds records goal BP < 150/90 no KATELYNN/ARB given renal failure start Amlodipine 5mg Daily #Acute Anemia Transfuse PRBC as needed for goal Hgb > 8 check iron studies Thank you Steven Carvajal DO
[2017-08-09] MEDS: TAMSULOSIN HCL 0.4 MG CAP.ER.24H (FP) PO SCH (11:17)
[2017-08-09] MEDS: PANTOPRAZOLE SODIUM 40 MG VIAL IVPUSH SCH ×2 (11:17→22:11)
--- NOTE | 2017-08-09 11:34 | PN ---
Progress Note (short form) - Note Progress Note: General surgery called for umbilical hernia and found the patient to have distended bladder. 18 persian coude catheter placed after injecting 1cc of lidocaine sterile lubrication from the blackmon kit. The blackmon was inserted using a sterile technique. 1500 ml clear yellow urine returned and the blackmon was clamped. Ordered written to unclamp the catheter at 12:30 and let the bladder fully drain and record the outpt. Prior to blackmon his abd was disended with a right/firm mas periumbilical. Post blackmon abd soft and non-ditended. Consult to be completed by the urology service. The patient has been started on flomax. His son is at bedside but unaware if he has seen a urologist in the past. D/w Dr. Lee.
[2017-08-09 12:26] LABS: MCH 21.9 pg (25.7-33.7); MCHC 31.4 g/dl (32.0-35.9); MEAN CELL VOLUME 69.7 fl (80-96); MEAN PLT VOLUME 8.1 fl (7.5-11.1); PLATELET COUNT 179 K/MM3 (134-434); RDW 18.4 % (11.9-15.9); WHITE BLOOD COUNT 13.7 K/mm3 (4.0-10.0)
[2017-08-09 12:54] LABS: ANION GAP 11 (8-16); CALCIUM 8.3 mg/dL (8.5-10.1); CO2 26 mmol/L (21-32); CREATININE 5.6 mg/dL (0.7-1.3); GLUCOSE,RANDOM 198 mg/dL (74-106)
--- NOTE | 2017-08-09 12:59 | CON.GI ---
Consult Consult Specialty:: GI - History of Present Illness History of Present Illness: History from medical records and with help of pt's nurse who speaks his language. See on 4w. 86yo M with history of DM, HTN, HLD and diverticulosis who presented to the ED with burning epigastric pain 02/09 without any radiation. Pt states he ate breakfast yesterday and developed the afterwards. Pt reports he ate dinner last night, however experienced nonbilious/nonbloody vomiting x1 and only ate a small amount compared to his normal. He reports how his pain decreased as soon as he vomited. Pt also reports a BM yesterday without any bloody or black tarry colour to it. Pt denies any constipation/diarrhea/n, weight changes, CP/discomfort, SOB, fever/chills, and sick contacts. - History Source History Provided By: Patient, Medical Record, Caregiver - Alcohol/Substance Use Hx Alcohol Use: No - Smoking History Smoking history: Never smoked Have you smoked in the past 12 months: No Home Medications - Allergies Allergies/Adverse Reactions: Allergies Allergy/AdvReac Type Severity Reaction Status Date / Time No Known Allergies Allergy Verified 09/06/16 10:11 - Home Medications Home Medications: Ambulatory Orders Unobtainable [Unobtainable] 09/06/16 Family Disease History - Family Disease History Family History: Unremarkable Review of Systems Findings/Remarks: please refer to H&P Physical Exam-GI Vital Signs: Vital Signs Temperature 98 F 08/09/17 08:29 Pulse Rate 94 H 08/09/17 08:29 Respiratory Rate 20 08/09/17 08:29 Blood Pressure 122/60 08/09/17 08:29 O2 Sat by Pulse Oximetry (%) 99 08/09/17 09:05 Constitutional: Yes: No Distress, Calm Eyes: Yes: Conjunctiva Clear HENT: Yes: Atraumatic Neck: Yes: Supple Cardiovascular: Yes: Regular Rate and Rhythm Respiratory: Yes: Regular ...Palpate: Yes: Soft. No: Tenderness, Tenderness, Epigastium, Tenderness, Rebound ...Rectal Exam: Yes: Sphincter Tone Normal, Other (dark stools). No: Hemorrhoids/External, Inflammation, Mass Neurological: Yes: Alert Labs: CBC, BMP 08/09/17 12:10 08/09/17 12:10 Abnormal Lab Results 1208/09/17 08/09/17 01:51 01:51 02:51 WBC 14.3 H D RBC 2.83 L D Hgb 6.2 L* D Hct 20.0 L D MCV 70.8 L MCH 22.0 L MCHC 31.1 L RDW 18.5 H D Neutrophils % 85.6 H D Monocytes % 3.6 L Sodium 129 L Chloride 88 L BUN 116 H* D Creatinine 5.8 H D Random Glucose 588 H* D Hemoglobin A1c % Serum Osmolality AST 7 L D Albumin 3.0 L Triglycerides HDL Cholesterol Lipase 491 H Urine Protein 2+ H Urine Glucose (UA) 3+ H Crossmatch 08/09/17 08/09/17 08/09/17 05:15 07:50 07:50 WBC RBC Hgb Hct MCV MCH MCHC RDW Neutrophils % Monocytes % Sodium Chloride BUN Creatinine Random Glucose Hemoglobin A1c % 14.0 H Serum Osmolality 332 H AST Albumin Triglycerides HDL Cholesterol Lipase Urine Protein Urine Glucose (UA) Crossmatch See Detail 08/09/17 08/09/17 08/09/17 07:50 12:10 12:10 WBC 13.7 H RBC 2.48 L Hgb 5.4 L* D Hct 17.3 L MCV 69.7 L MCH 21.9 L MCHC 31.4 L RDW 18.4 H Neutrophils % Monocytes % Sodium 134 L Chloride 97 L D BUN Creatinine Random Glucose Hemoglobin A1c % Serum Osmolality AST Albumin Triglycerides 235 H HDL Cholesterol 25 L Lipase Urine Protein Urine Glucose (UA) Crossmatch Imaging - Results Cat Scan: Report Reviewed (Prominent PD) Ultrasound: Report Reviewed (normal biliary tree, GB) Problem List - Problems (1) Anemia Code(s): D64.9 - ANEMIA, UNSPECIFIED (2) Elevated lipase Code(s): R74.8 - ABNORMAL LEVELS OF OTHER SERUM ENZYMES Assessment/Plan An 86 yom with uncontrolled DM, urinary retention, significant anemia, mildly elevated lipse, epigastric pain with dark stools. No reports of melena, hematochezia, hematemesis. CT - dilated PD DM control and urinary retention as per primary team Transfuse to Hgb >8 g/dl Iron profile PPI IVP BID NPO/IVF EGD to evaluate for upper GI sources of blood loss. Monitor VS, for signs of bleeding MRCP
[2017-08-09 13:53] LABS: FERRITIN 16.789 ng/ml (16.4-293.9)
[2017-08-09 14:46] LABS: URINE LEUK ESTERASE Negative (NEGATIVE)
[2017-08-09] MEDS ORDERED: PROPOFOL 20 ML ONE ×2 (15:47)
[2017-08-09] MEDS ORDERED: LIDOCAINE HCL 2% 100 MG/5 ML DISP.SYRIN ONE (15:48)
--- NOTE | 2017-08-09 16:18 | PROC ---
Endoscopy Procedure Endoscopy procedure completed. Please see scanned procedure report. s/p EGD Duodenitis, gastritis, esophagitis. Duodenal, gastric, esophageal biopsies taken 1 cm gastric ulcer with visible vessel was found in antrum. It was biopsied, injected with epinephrine and clipped with 2 resolution clips. PPI, Carafate Clear liquid diet
--- NOTE | 2017-08-09 16:38 | PN ---
Progress Note (short form) - Note Progress Note: MRCP cancelled due to newly placed clips in the gastric body. Problem List - Problems (1) Anemia Code(s): D64.9 - ANEMIA, UNSPECIFIED (2) Elevated lipase Code(s): R74.8 - ABNORMAL LEVELS OF OTHER SERUM ENZYMES
[2017-08-09] MEDS: SUCRALFATE 1 GM/10 ML UNIT DOSE CUPS PO SCH ×2 (17:49→22:10)
[2017-08-09 23:54] LABS: MCH 26.1 pg (25.7-33.7); MCHC 33.9 g/dl (32.0-35.9); MEAN CELL VOLUME 76.9 fl (80-96); MEAN PLT VOLUME 8.2 fl (7.5-11.1); PLATELET COUNT 141 K/MM3 (134-434); RDW 20.9 % (11.9-15.9); WHITE BLOOD COUNT 12.2 K/mm3 (4.0-10.0)
[2017-08-10] MEDS: INSULIN SLIDING SCALE (NOVOLOG) 1 VIAL SQ SCH ×6 (00:09→21:10)
[2017-08-10] MEDS: SODIUM CHLORIDE 1,000 ML IV SCH (03:45)
[2017-08-10 07:53] LABS: BASOPHIL 0.3 % (0-2.0); EOSINOPHIL 5.9 % (0-4.5); MCH 25.9 pg (25.7-33.7); MEAN CELL VOLUME 76.1 fl (80-96); NEUTROPHILS 72.7 % (42.8-82.8); PLATELET COUNT 128 K/MM3 (134-434); RDW 19.8 % (11.9-15.9); WHITE BLOOD COUNT 9.3 K/mm3 (4.0-10.0)
[2017-08-10 08:10] LABS: SERUM IRON 21 ug/dL (38-169); TOTAL IRON BINDING CAPACITY 300 ug/dL (250-450); UIBC 279 ug/dL (111-343)
--- NOTE | 2017-08-10 08:30 | CON.GU ---
Consult - History of Present Illness History of Present Illness: 86 yo male admitted with abdominal pain, distended bladder, elevated creatinine and difficulty voiding. CT shows distended bladder and enlarged prostate. Sen inserted by surgical PA and approx 1500cc urine retrieved. No prior h/o BPH - Alcohol/Substance Use Hx Alcohol Use: No - Smoking History Smoking history: Never smoked Have you smoked in the past 12 months: No Home Medications - Allergies Allergies/Adverse Reactions: Allergies Allergy/AdvReac Type Severity Reaction Status Date / Time No Known Allergies Allergy Verified 09/06/16 10:11 - Home Medications Home Medications: Ambulatory Orders Amlodipine Besylate [Norvasc -] 2.5 mg PO DAILY 08/09/17 Glipizide 5 mg PO DAILY 08/09/17 Glipizide 10 mg PO DAILY 08/09/17 Losartan Potassium [Cozaar -] 50 mg PO DAILY 08/09/17 Metoprolol Tartrate [Lopressor -] 50 mg PO DAILY 08/09/17 Simvastatin [Zocor -] 20 mg PO DAILY 08/09/17 Physical Exam- Vital Signs: Vital Signs Temperature 98.1 F 08/10/17 05:38 Pulse Rate 85 08/10/17 05:38 Respiratory Rate 20 08/10/17 05:38 Blood Pressure 135/65 08/10/17 05:38 O2 Sat by Pulse Oximetry (%) 100 08/09/17 21:00 Renal/: Yes: Sen Present Labs: CBC, BMP 08/10/17 05:45 Imaging - Results Cat Scan: Report Reviewed Problem List - Problems (1) Urinary retention due to benign prostatic hyperplasia Assessment/Plan: agree with starting flomax. may give voiding trial once creatinine has stabilized Code(s): N40.1 - BENIGN PROSTATIC HYPERPLASIA WITH LOWER URINARY TRACT SYMP; R33.8 - OTHER RETENTION OF URINE
[2017-08-10] MEDS ORDERED: oxyCODONE HCL 5 MG TABLET PO PRN (08:35)
[2017-08-10 08:50] LABS: ALBUMIN 2.6 g/dl (3.4-5.0); ALK PHOS 43 U/L (45-117); ANION GAP 11 (8-16); BILIRUBIN,TOTAL 0.4 mg/dL (0.2-1.0); CALCIUM 8.5 mg/dL (8.5-10.1); CO2 25 mmol/L (21-32); CREATININE 5.5 mg/dL (0.7-1.3); GLUCOSE,RANDOM 124 mg/dL (74-106); MAGNESIUM 2.2 mg/dL (1.8-2.4); PHOSPHOROUS 3.6 mg/dL (2.5-4.9); SGOT/AST 12 U/L (15-37); SGPT/ALT 13 U/L (12-78); TOT PROT 5.6 g/dl (6.4-8.2)
[2017-08-10] MEDS ORDERED: INSULIN (NOVOLOG) ASPART 100 UNITS/ML 10ML VIAL ONE (09:07)
[2017-08-10] MEDS: SUCRALFATE 1 GM/10 ML UNIT DOSE CUPS PO SCH ×4 (09:12→21:10)
[2017-08-10] MEDS: TAMSULOSIN HCL 0.4 MG CAP.ER.24H (FP) PO SCH (09:12)
[2017-08-10] MEDS: PANTOPRAZOLE SODIUM 40 MG VIAL IVPUSH SCH (09:12)
[2017-08-10] MEDS: ACETAMINOPHEN 325 MG TABLET (FP) PO PRN ×3 (09:58→21:58)
--- NOTE | 2017-08-10 10:36 | PN ---
Physical Exam: SUBJECTIVE: Patient seen and examined Patient is feeling better with no acute distress, no shortness of breath. OBJECTIVE: Vital Signs Temperature 98.1 F 08/10/17 05:38 Pulse Rate 85 08/10/17 05:38 Respiratory Rate 20 08/10/17 05:38 Blood Pressure 135/65 08/10/17 05:38 O2 Sat by Pulse Oximetry (%) 100 08/09/17 21:00 GENERAL: The patient is awake, alert, and fully oriented, in no acute distress. HEAD: Normal with no signs of trauma. EYES: PERRL, extraocular movements intact, sclera anicteric, conjunctiva clear. ENT: Ears normal, oropharynx clear without exudates, moist mucous membranes. NECK: Trachea midline, full range of motion, supple. LUNGS: Breath sounds equal, clear to auscultation bilaterally, no wheezes, no crackles, no accessory muscle use. HEART: Regular rate and rhythm, S1, S2 without murmur, rub or gallop. ABDOMEN: Soft, nontender, nondistended now post blackmon catheter, normoactive bowel sounds, no guarding, no rebound, no hepatosplenomegaly, no masses appreciated. EXTREMITIES: 2+ pulses, warm, well-perfused, no edema. NEUROLOGICAL: Cranial nerves II through XII grossly intact. Normal speech, gait not observed. PSYCH: Normal mood, normal affect. SKIN: Warm, dry, normal turgor, no rashes or lesions noted : positive for blackmon CBCD WBC 9.3 K/mm3 (4.0-10.0) 08/10/17 05:45 RBC 3.59 M/mm3 (4.00-5.60) L 08/10/17 05:45 Hgb 9.3 GM/dL (11.7-16.9) L 08/10/17 05:45 Hct 27.3 % (35.4-49) L 08/10/17 05:45 MCV 76.1 fl (80-96) L 08/10/17 05:45 MCHC 34.0 g/dl (32.0-35.9) 08/10/17 05:45 RDW 19.8 % (11.9-15.9) H 08/10/17 05:45 Plt Count 128 K/MM3 (134-434) L 08/10/17 05:45 MPV 8.0 fl (7.5-11.1) 08/10/17 05:45 CMP Sodium 141 mmol/L (136-145) 08/10/17 05:45 Potassium 4.7 mmol/L (3.5-5.1) D 08/10/17 05:45 Chloride 105 mmol/L (98-107) 08/10/17 05:45 Carbon Dioxide 25 mmol/L (21-32) 08/10/17 05:45 Anion Gap 11 (8-16) 08/10/17 05:45 BUN 107 mg/dL (7-18) H* 08/10/17 05:45 Creatinine 5.5 mg/dL (0.7-1.3) H 08/10/17 05:45 Creat Clearance w eGFR 9.95 (>60) 08/10/17 05:45 Random Glucose 124 mg/dL (74-106) H D 08/10/17 05:45 Calcium 8.5 mg/dL (8.5-10.1) 08/10/17 05:45 Total Bilirubin 0.4 mg/dL (0.2-1.0) D 08/10/17 05:45 AST 12 U/L (15-37) L D 08/10/17 05:45 ALT 13 U/L (12-78) 08/10/17 05:45 Alkaline Phosphatase 43 U/L (45-117) L 08/10/17 05:45 Total Protein 5.6 g/dl (6.4-8.2) L 08/10/17 05:45 Albumin 2.6 g/dl (3.4-5.0) L 08/10/17 05:45 CARDIAC ENZYMES Creatine Kinase 64 IU/L (39-308) 08/09/17 01:51 Troponin I 0.02 ng/ml (0.00-0.05) 08/09/17 01:51 Active Medications Generic Name Dose Route Start Last Admin Trade Name Freq PRN Reason Stop Dose Admin Acetaminophen 650 mg 08/10/17 08:35 08/10/17 09:58 Tylenol - PO 650 mg Q4H PRN Administration FEVER OR PAIN Sodium Chloride 1,000 mls @ 75 mls/hr 08/09/17 03:45 08/10/17 03:45 Normal Saline - IV Not Given ASDIR REHANA Insulin Aspart 1 vial 08/09/17 08:15 08/10/17 09:12 Novolog Vial Sliding Scale - SQ 2 units Q4H REHANA Administration Protocol Ondansetron HCl 4 mg 08/09/17 07:25 Zofran Injection IVPUSH Q6H PRN NAUSEA AND/OR VOMITING Oxycodone HCl 5 mg 08/10/17 08:35 Roxicodone - PO Q6H PRN PAIN Pantoprazole Sodium 40 mg 08/09/17 10:00 08/10/17 09:12 Protonix Iv IVPUSH 40 mg BID REHANA Administration Sucralfate 1 gm 08/09/17 18:00 08/10/17 09:12 Carafate Oral Suspension - PO 1 gm QID REHANA Administration Tamsulosin HCl 0.4 mg 08/09/17 10:45 08/10/17 09:12 Flomax - PO 0.4 mg DAILY@0830 REHANA Administration Home Medications Medication Instructions Recorded Amlodipine Besylate [Norvasc -] 2.5 mg PO DAILY 08/09/17 Glipizide 5 mg PO DAILY 08/09/17 Glipizide 10 mg PO DAILY 08/09/17 Losartan Potassium [Cozaar -] 50 mg PO DAILY 08/09/17 Metoprolol Tartrate [Lopressor -] 50 mg PO DAILY 08/09/17 Simvastatin [Zocor -] 20 mg PO DAILY 08/09/17 ASSESSMENT AND PLAN: Patient is an 86 yo male with uncontrolled DM, urinary retention, significant anemia, mildly elevated lipse, epigastric pain with dark stools. No reports of melena, hematochezia, hematemesis. # Acute obstructive uropathy continue blackmon catheter which was placed by surgery drained around 1500ml urine . On Flomax continue , IVF continue. #Acute renal failure due to Obstructive uropathy. on IVF continue; ordered 1/2 NS at 75cc/hr. improving. BUN/CR 107/5.5. trend bun/cr, Nephro on the case. # Severe Anemia s/p 2 units of transfusion. on Protonix 40mg IV BID continue, GI consult , Iron profile. EGD to evaluate for upper GI sources of blood loss as per GI. hemoglobin 9.3 now, will monitor. # DM control on SS with coverage #s/p psuedohyponatremia improved now. dvt px: Ac is on hold since low Hemoglobin s/p transfusions of 2 units . Visit type - Emergency Visit Emergency Visit: Yes ED Registration Date: 08/09/17 Care time: The patient presented to the Emergency Department on the above date and was hospitalized for further evaluation of their emergent condition. - New Patient This patient is new to me today: No - Critical Care Critical Care patient: No
--- NOTE | 2017-08-10 10:58 | PN ---
Progress Note (short form) - Note Progress Note: Renal follow up for CATARINA on CKD Pt seen and examined at the bedside reports pain in bladder blackmon in place with good urine output no hematuria no flank pain no sob, chest pain N/V/D Vital Signs Temperature 98.1 F 08/10/17 05:38 Pulse Rate 85 08/10/17 05:38 Respiratory Rate 20 08/10/17 05:38 Blood Pressure 135/65 08/10/17 05:38 O2 Sat by Pulse Oximetry (%) 100 08/09/17 21:00 Intake & Output 08/07/17 08/08/17 08/09/17 08/10/17 23:59 23:59 23:59 23:59 Intake Total 900 600 Output Total 3600 700 Balance -2700 -100 Weight 73.936 kg NAD RRR CTA soft NT/ND Blackmon in place with yellow urine No LE edema CBC, BMP 08/10/17 05:45 08/10/17 05:45 Current Medications Acetaminophen (Tylenol -) 650 mg PO Q4H PRN PRN Reason: FEVER OR PAIN Last Admin: 08/10/17 09:58 Dose: 650 mg Sodium Chloride (Normal Saline -) 1,000 mls @ 75 mls/hr IV ASDIR [facility] Last Admin: 08/10/17 03:45 Dose: Not Given Insulin Aspart (Novolog Vial Sliding Scale -) 1 vial SQ Q4H [facility] PRN Reason: Protocol Last Admin: 08/10/17 09:12 Dose: 2 units Ondansetron HCl (Zofran Injection) 4 mg IVPUSH Q6H PRN PRN Reason: NAUSEA AND/OR VOMITING Oxycodone HCl (Roxicodone -) 5 mg PO Q6H PRN PRN Reason: PAIN Pantoprazole Sodium (Protonix Iv) 40 mg IVPUSH BID [facility] Last Admin: 08/10/17 09:12 Dose: 40 mg Sucralfate (Carafate Oral Suspension -) 1 gm PO QID [facility] Last Admin: 08/10/17 09:12 Dose: 1 gm Tamsulosin HCl (Flomax -) 0.4 mg PO DAILY@0830 [facility] Last Admin: 08/10/17 09:12 Dose: 0.4 mg 86 year old gentleman with PMhx of Hypertension, DM Type 2 (diet controlled), Hyperlipidemia, CKD (? baseline), ABd hernia who presented to the ED with 1 day history of abdominal pain and found to have large hiatial hernia and CATARINA with BUN/Cr of 116/5.8. 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
--- NOTE | 2017-08-10 14:19 | PN ---
GI Progress Note Subjective: GI NOte ( covering Dr Valdes): Tolerating liquids. No vomiting. Hungry for solid food. Had small volume melena but Hb stable . Sons at bedside served as interpreters - Objective Vital Signs: Vital Signs Temperature 97.5 F L 08/10/17 10:00 Pulse Rate 74 08/10/17 10:00 Respiratory Rate 20 08/10/17 10:00 Blood Pressure 137/64 08/10/17 10:00 O2 Sat by Pulse Oximetry (%) 98 08/10/17 09:00 Laboratory Tests 08/09/17 08/09/17 08/09/17 01:51 12:10 23:40 Hgb 6.2 L* D 5.4 L* D 9.5 L D 08/10/17 05:45 Hgb 9.3 L Constitutional: Calm ...Auscultate: Yes: Normoactive Bowel Sounds ...Palpate: Yes: Soft, Other (nontender) Labs: CBC, BMP 08/10/17 05:45 08/10/17 05:45 Problem List - Problems (1) Gastric ulcer with hemorrhage Assessment/Plan: Resolved gastric ulcer bleed following endoscopic intervention by Dr. Valdes with clips and epinephrine injection. Will advance diet. Code(s): K25.4 - CHRONIC OR UNSPECIFIED GASTRIC ULCER WITH HEMORRHAGE
[2017-08-10] MEDS: PANTOPRAZOLE 40 MG TABLET (FP) PO SCH (21:09)
[2017-08-10] MEDS ORDERED: INSULIN SLIDING SCALE (NOVOLOG) 1 VIAL SQ SCH (23:30)
[2017-08-11] MEDS: INSULIN SLIDING SCALE (NOVOLOG) 1 VIAL SQ SCH ×4 (06:37→22:30)
--- NOTE | 2017-08-11 07:14 | PN ---
Physical Exam: SUBJECTIVE: Patient seen and examined by me this AM - No major overnight events. Pt only complaining of mild dysuria. Good UOP yesterday 2149. No hematuria noted. - Pt hemodynamically stable, afebrile. Hgb 9.2 today. - Denies any CASTILLO, fevers, cough, CP, abdominal pain, N/V - PSA elevated 6.00 OBJECTIVE: Vital Signs Intake & Output 08/08/17 08/09/17 08/10/17 08/11/17 23:59 23:59 23:59 23:59 Intake Total 900 1400 20 Output Total 3600 2150 700 Balance -2700 -750 -680 Weight 73.936 kg Period Temp Pulse Resp BP Sys/Bernstein Pulse Ox Last 24 Hr 97.5 F-98.8 F 72-96 20-20 134-161/64-89 96-98 GENERAL: The patient is A&Ox3, in no acute distress. HEAD: Normal with no signs of trauma. EYES: PERRL, extraocular movements intact, sclera anicteric, conjunctiva clear. No ptosis. ENT: Ears normal, nares patent, oropharynx clear without exudates, moist mucous membranes. Poor dentition. No oral lesions. NECK: Trachea midline, full range of motion, supple. No JVD noted. LUNGS: Breath sounds equal, clear to auscultation bilaterally, no wheezes, no crackles, no accessory muscle use. HEART: Regular rate and rhythm, S1, S2 without murmur, rub or gallop. ABDOMEN: Soft, nontender, nondistended, hypoactive bowel sounds, no guarding, no rebound, no hepatosplenomegaly. RLQ abdominal mass is no longer present to palpation. Negative murphys. Negative cullens sign Upper EXTREMITIES: 2+ pulses, warm, well-perfused, no edema. 2+ biceps reflex BL. 5/5 motor strength grossly, sensation to light touch intact Upper EXTREMITIES: 2+ pulses, wwp, no edema. 1+ patellar reflex BL. 5/5 motor strength grossly, sensation to light touch intact NEUROLOGICAL: Cranial nerves II through XII grossly intact. Normal speech, gait not observed. PSYCH: Normal mood, normal affect. SKIN: Warm, dry, normal turgor, no rashes or lesions noted. <2 second capillary refill. Laboratory Results - last 24 hr CBC, BMP CBC, BMP 08/11/17 05:48 08/10/17 05:45 08/10/17 05:45 08/09/17 08/10/17 08/10/17 07:50 05:45 05:45 WBC 9.3 RBC 3.59 L Hgb 9.3 L Hct 27.3 L MCV 76.1 L MCH 25.9 MCHC 34.0 RDW 19.8 H Plt Count 128 L MPV 8.0 Neutrophils % 72.7 Lymphocytes % 14.4 D Monocytes % 6.7 D Eosinophils % 5.9 H D Basophils % 0.3 Sodium Potassium Chloride Carbon Dioxide Anion Gap BUN Creatinine Creat Clearance w eGFR POC Glucometer Random Glucose Calcium Phosphorus Magnesium Iron 21 L TIBC 300 Iron Saturation 7 L Total Bilirubin AST ALT Alkaline Phosphatase Total Protein Albumin Prostate Specific Ag 6.00 H 08/10/17 08/10/17 08/10/17 05:45 08:50 12:27 WBC RBC Hgb Hct MCV MCH MCHC RDW Plt Count MPV Neutrophils % Lymphocytes % Monocytes % Eosinophils % Basophils % Sodium 141 Potassium 4.7 D Chloride 105 Carbon Dioxide 25 Anion Gap 11 BUN 107 H* Creatinine 5.5 H Creat Clearance w eGFR 9.95 POC Glucometer 184 258 Random Glucose 124 H D Calcium 8.5 Phosphorus 3.6 Magnesium 2.2 Iron TIBC Iron Saturation Total Bilirubin 0.4 D AST 12 L D ALT 13 Alkaline Phosphatase 43 L Total Protein 5.6 L Albumin 2.6 L Prostate Specific Ag 08/10/17 08/10/17 08/11/17 17:09 20:56 06:35 WBC RBC Hgb Hct MCV MCH MCHC RDW Plt Count MPV Neutrophils % Lymphocytes % Monocytes % Eosinophils % Basophils % Sodium Potassium Chloride Carbon Dioxide Anion Gap BUN Creatinine Creat Clearance w eGFR POC Glucometer 105 229 128 Random Glucose Calcium Phosphorus Magnesium Iron TIBC Iron Saturation Total Bilirubin AST ALT Alkaline Phosphatase Total Protein Albumin Prostate Specific Ag Active Medications Generic Name Dose Route Start Last Admin Trade Name Freq PRN Reason Stop Dose Admin Acetaminophen 650 mg 08/10/17 08:35 08/10/17 21:58 Tylenol - PO 650 mg Q4H PRN Administration FEVER OR PAIN Insulin Aspart 1 vial 08/11/17 07:00 08/11/17 06:37 Novolog Vial Sliding Scale - SQ Not Given ACHS [facility] Protocol Ondansetron HCl 4 mg 08/09/17 07:25 Zofran Injection IVPUSH Q6H PRN NAUSEA AND/OR VOMITING Oxycodone HCl 5 mg 08/10/17 08:35 Roxicodone - PO Q6H PRN PAIN Pantoprazole Sodium 40 mg 08/10/17 22:00 08/10/17 21:09 Protonix - PO 40 mg BID [facility] Administration Sucralfate 1 gm 08/09/17 18:00 08/10/17 21:10 Carafate Oral Suspension - PO 1 gm QID [facility] Administration Tamsulosin HCl 0.4 mg 08/09/17 10:45 08/10/17 09:12 Flomax - PO 0.4 mg DAILY@0830 [facility] Administration No recent micro EKG 08/09 - Sinus tachy rate 100s, NAD, QTc 448, no twi or st abnormalities. Imaging: RUQ US 08/09 - 1. Normal gallbladder and biliary tree. 2. Probable diffuse fatty infiltration of the liver. 3. Suspected chronic medical renal disease with no evidence of hydronephrosis or acute pathology. cXR 08/09 - No evidence of active pulmonary disease. Hiatal hernia. Ab/pelvis CT 08/09 - 1. Paraesophageal hiatal hernia. 2. Prominent main pancreatic duct. MRCP follow-up recommended. 3. Distended urinary bladder with mild prostatic enlargement. 4. No evidence of bowel obstruction or acute pathology within the abdomen or pelvis. Recent above discussion. Renal U/S 08/10 - No hydronephrosis is seen. Bilateral renal atrophy. There is possible mildly altered right renal cortical echogenicity suggestive of medical renal disease. ASSESSMENT/PLAN: 86 yo man w/ pmh of DM, HTN, diverticulosis, chronic urinary retension secondary to BPH who presented in the setting of burning epigastric pain, elevated lipase/glucose and anemia, now s/p GI clips for bleeding gastric ulcer. Pt is hemodynamically stable with no change in Hgb overnight, still with elevated BUN/cr (78/5.2). Pt with copious urinary production after blackmon placed , draining 1500ml on 08/09. Now with 2150ml UOP overnight. Much improved with no major complaints. Will f/u with urology as outpt for BPH management #Obstructive uropathy - Drained 1500ml after placement w/ coude cath 08/09. 2150 overnight. No hematuria. PSA 6 - Maintain blackmon - Urology following. Recs appreciated - Monitor UOP - Will require outpt f/u -Continue flomax 0.4 mg - Tylenol 650 for pain/fever q4h prn #ARF - BUN Cr 107-> 78, 5.5 -> 5.2 (08/11), renal u/s notable for atrophic kidneys, no hydro. FeNa 5%. Cr 2.6 on 09/2016 - Renal consulted. Recs appreciated - Trend BUN/Cr - IVFs - F/u with outpt PCP for baseline Cr. #Anemia/GI bleed - Hgb stable 9.3 -> 9.2. - Gastric ulcer clipped. One small BM w/ melena yesterday - Monitor for hematochezia, melena - Trend H/H - Tranfuse at <7 - H. pylori stool AG - Iron sucrose injections - GI following. Recs appreciated - Protonix 40 mg BID #DM - BG well controlled now. A1C 14.0 on 08/09 - BGM q4h - ISS - A1C 14 - Will require outpt f/u for insulin regimen. Aggressive counseling regarding diet, blood sugar control #FEN Fluids: 75cc 1/2ns Electrolytes: Daily BMP, Monitor Cr Nutrition: Soft diet PPX: DVT - SCDs PPI Plan discussed with attending, Dr. Florentino Valle, PGY1 Visit type - Emergency Visit Emergency Visit: Yes ED Registration Date: 08/09/17 Care time: The patient presented to the Emergency Department on the above date and was hospitalized for further evaluation of their emergent condition. - New Patient This patient is new to me today: No - Critical Care Critical Care patient: No
[2017-08-11 07:38] LABS: BASOPHIL 0.7 % (0-2.0); EOSINOPHIL 7.4 % (0-4.5); MCH 25.8 pg (25.7-33.7); MCHC 33.6 g/dl (32.0-35.9); MEAN CELL VOLUME 76.6 fl (80-96); MEAN PLT VOLUME 7.8 fl (7.5-11.1); NEUTROPHILS 70.8 % (42.8-82.8); PLATELET COUNT 130 K/MM3 (134-434); RDW 20.4 % (11.9-15.9); WHITE BLOOD COUNT 7.2 K/mm3 (4.0-10.0)
[2017-08-11 08:20] LABS: ALBUMIN 2.4 g/dl (3.4-5.0); ALK PHOS 49 U/L (45-117); ANION GAP 9 (8-16); BILIRUBIN,TOTAL 0.4 mg/dL (0.2-1.0); CALCIUM 7.4 mg/dL (8.5-10.1); CO2 23 mmol/L (21-32); CREATININE 5.2 mg/dL (0.7-1.3); GLUCOSE,RANDOM 105 mg/dL (74-106); MAGNESIUM 2.1 mg/dL (1.8-2.4); PHOSPHOROUS 3.6 mg/dL (2.5-4.9); SGOT/AST 11 U/L (15-37); SGPT/ALT 12 U/L (12-78); TOT PROT 5.8 g/dl (6.4-8.2)
[2017-08-11] MEDS: PANTOPRAZOLE 40 MG TABLET (FP) PO SCH ×2 (09:10→22:28)
[2017-08-11] MEDS: SUCRALFATE 1 GM/10 ML UNIT DOSE CUPS PO SCH ×4 (09:10→22:28)
[2017-08-11] MEDS: TAMSULOSIN HCL 0.4 MG CAP.ER.24H (FP) PO SCH (09:10)
--- NOTE | 2017-08-11 10:34 | PN ---
Progress Note (short form) - Note Progress Note: Renal follow up for CATARINA on CKD Pt seen and examined at the bedside awake and alert reports feeling much better no pain today good urine output via blackmon no sob, chest pain, fever, chills Vital Signs Temperature 98.8 F 08/11/17 06:00 Pulse Rate 96 H 08/11/17 06:00 Respiratory Rate 20 08/11/17 06:00 Blood Pressure 161/83 08/11/17 06:00 O2 Sat by Pulse Oximetry (%) 96 08/10/17 21:00 Intake & Output 08/08/17 08/09/17 08/10/17 08/11/17 23:59 23:59 23:59 23:59 Intake Total 900 1400 20 Output Total 3600 2150 700 Balance -2700 -750 -680 Weight 73.936 kg NAD RRR CTA soft NT/ND Blackmon in place with yellow urine No LE edema CBC, BMP 08/11/17 05:48 08/11/17 05:48 Current Medications Acetaminophen (Tylenol -) 650 mg PO Q4H PRN PRN Reason: FEVER OR PAIN Last Admin: 08/10/17 21:58 Dose: 650 mg Sodium Chloride (1/2 Normal Saline) 1,000 mls @ 60 mls/hr IV ASDIR [facility] Insulin Aspart (Novolog Vial Sliding Scale -) 1 vial SQ ACHS [facility] PRN Reason: Protocol Last Admin: 08/11/17 06:37 Dose: Not Given Ondansetron HCl (Zofran Injection) 4 mg IVPUSH Q6H PRN PRN Reason: NAUSEA AND/OR VOMITING Oxycodone HCl (Roxicodone -) 5 mg PO Q6H PRN PRN Reason: PAIN Pantoprazole Sodium (Protonix -) 40 mg PO BID [facility] Last Admin: 08/11/17 09:10 Dose: 40 mg Sucralfate (Carafate Oral Suspension -) 1 gm PO QID [facility] Last Admin: 08/11/17 09:10 Dose: 1 gm Tamsulosin HCl (Flomax -) 0.4 mg PO DAILY@0830 [facility] Last Admin: 08/11/17 09:10 Dose: 0.4 mg 86 year old gentleman with PMhx of Hypertension, DM Type 2 (diet controlled), Hyperlipidemia, CKD (? baseline), ABd hernia who presented to the ED with 1 day history of abdominal pain and found to have large hiatial hernia and CATARINA with BUN/Cr of 116/5.8. 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 Pt with good urine output via blackmon BUN/Cr with mild improvement, rate of improvement may be slowed by duration of obstruction and existence of signficant CKD prior to injury start 1/2 ns at 60cc per hour as to prevent volume depletion in setting of post obstructive diuresis trend bun/cr and electrolytes daily dose all meds for CrCl less then 15 continue flomax #Hypertension trend BP no KATELYNN/ARB #Acute Anemia/GI bleed s/p PRBC transfusion iron saturation 7% and ferritin low will given Venofer 100mg iv x 1 will need to be on oral iron on discharge s/p endoscopic intervention by GI Thank you Steven Carvajal DO
[2017-08-11] MEDS ORDERED: IRON SUCROSE INJECTION 100 MG in SODIUM CHLORIDE 95 ML IVPB ONE (10:35)
[2017-08-11] MEDS ORDERED: INSULIN (NOVOLOG) ASPART 100 UNITS/ML 10ML VIAL ONE (11:52)
[2017-08-11] MEDS: SODIUM CHLORIDE 0.45% 1,000 ML IV SCH (12:23)
--- NOTE | 2017-08-11 13:45 | PN ---
Teaching Attending Note Name of Resident: Sang Valle ATTENDING PHYSICIAN STATEMENT I saw and evaluated the patient. I reviewed the resident's note and discussed the case with the resident. I agree with the resident's findings and plan as documented. SUBJECTIVE: Patient is feeling better, with no acute distress, no nausea or vomiting, no headache. no chest pain. OBJECTIVE: Vital Signs Temperature 98.8 F 08/11/17 06:00 Pulse Rate 96 H 08/11/17 06:00 Respiratory Rate 20 08/11/17 06:00 Blood Pressure 161/83 08/11/17 06:00 O2 Sat by Pulse Oximetry (%) 96 08/10/17 21:00 CBCD WBC 7.2 K/mm3 (4.0-10.0) 08/11/17 05:48 RBC 3.58 M/mm3 (4.00-5.60) L 08/11/17 05:48 Hgb 9.2 GM/dL (11.7-16.9) L 08/11/17 05:48 Hct 27.4 % (35.4-49) L 08/11/17 05:48 MCV 76.6 fl (80-96) L 08/11/17 05:48 MCHC 33.6 g/dl (32.0-35.9) 08/11/17 05:48 RDW 20.4 % (11.9-15.9) H 08/11/17 05:48 Plt Count 130 K/MM3 (134-434) L 08/11/17 05:48 MPV 7.8 fl (7.5-11.1) 08/11/17 05:48 CMP Sodium 140 mmol/L (136-145) 08/11/17 05:48 Potassium 3.8 mmol/L (3.5-5.1) 08/11/17 05:48 Chloride 108 mmol/L (98-107) H 08/11/17 05:48 Carbon Dioxide 23 mmol/L (21-32) 08/11/17 05:48 Anion Gap 9 (8-16) 08/11/17 05:48 BUN 78 mg/dL (7-18) H D 08/11/17 05:48 Creatinine 5.2 mg/dL (0.7-1.3) H 08/11/17 05:48 Creat Clearance w eGFR 10.62 (>60) 08/11/17 05:48 Random Glucose 105 mg/dL (74-106) 08/11/17 05:48 Calcium 7.4 mg/dL (8.5-10.1) L 08/11/17 05:48 Total Bilirubin 0.4 mg/dL (0.2-1.0) 08/11/17 05:48 AST 11 U/L (15-37) L 08/11/17 05:48 ALT 12 U/L (12-78) 08/11/17 05:48 Alkaline Phosphatase 49 U/L (45-117) 08/11/17 05:48 Total Protein 5.8 g/dl (6.4-8.2) L 08/11/17 05:48 Albumin 2.4 g/dl (3.4-5.0) L 08/11/17 05:48 CARDIAC ENZYMES Creatine Kinase 64 IU/L (39-308) 08/09/17 01:51 Troponin I 0.02 ng/ml (0.00-0.05) 08/09/17 01:51 Current Medications Generic Name Dose Route Start Last Admin Trade Name Freq PRN Reason Stop Dose Admin Acetaminophen 650 mg 08/10/17 08:35 08/10/17 21:58 Tylenol - PO 650 mg Q4H PRN Administration FEVER OR PAIN Sodium Chloride 1,000 mls @ 60 mls/hr 08/11/17 10:30 08/11/17 12:23 1/2 Normal Saline IV 60 mls/hr ASDIR [facility] Administration Insulin Aspart 1 vial 08/11/17 07:00 08/11/17 12:23 Novolog Vial Sliding Scale - SQ 12 units ACHS [facility] Administration Protocol Ondansetron HCl 4 mg 08/09/17 07:25 Zofran Injection IVPUSH Q6H PRN NAUSEA AND/OR VOMITING Oxycodone HCl 5 mg 08/10/17 08:35 Roxicodone - PO Q6H PRN PAIN Pantoprazole Sodium 40 mg 08/10/17 22:00 08/11/17 09:10 Protonix - PO 40 mg BID [facility] Administration Sucralfate 1 gm 08/09/17 18:00 08/11/17 09:10 Carafate Oral Suspension - PO 1 gm QID [facility] Administration Tamsulosin HCl 0.4 mg 08/09/17 10:45 08/11/17 09:10 Flomax - PO 0.4 mg DAILY@0830 [facility] Administration Home Medications Medication Instructions Recorded Amlodipine Besylate [Norvasc -] 2.5 mg PO DAILY 08/09/17 Glipizide 5 mg PO DAILY 08/09/17 Glipizide 10 mg PO DAILY 08/09/17 Losartan Potassium [Cozaar -] 50 mg PO DAILY 08/09/17 Metoprolol Tartrate [Lopressor -] 50 mg PO DAILY 08/09/17 Simvastatin [Zocor -] 20 mg PO DAILY 08/09/17 PE: per resident's note ASSESSMENT AND PLAN: Patient is an 86 yo male with uncontrolled DM, urinary retention, significant anemia, mildly elevated lipase, epigastric pain with dark stools. No reports of melena, hematochezia, hematemesis. # Acute obstructive uropathy continue blackmon catheter in place continue which was placed by surgery (drained around 1500ml urine) . On Flomax continue , IVF continue. Urology consult appreciated. PSA level 6.0, as per urologist; voiding trial once creatinine has stabilized #Acute renal failure due to Obstructive uropathy. on IVF continue; ordered 1/2 NS at 75cc/hr. improving. BUN/CR 107/5.5. trend bun/cr, Nephro on the case. # Severe Anemia s/p 2 units of transfusion. on Protonix 40mg IV BID continue, GI consult , Iron profile. EGD to evaluate for upper GI sources of blood loss as per GI. hemoglobin 9.3 now, will monitor. # DM control on SS with coverage #s/p psuedohyponatremia improved now. dvt px: Ac is on hold since low Hemoglobin s/p transfusions of 2 units .
[2017-08-11] MEDS: amLODIPine BESYLATE 5 MG TABLET (FP) PO SCH (14:58)
--- NOTE | 2017-08-11 17:34 | PN ---
GI Progress Note Subjective: GI Note ( covering Dr Valdes) : No pain. Hb stable. Tolerating diet. Has dysuria - Objective Vital Signs: Vital Signs Temperature 98.6 F 08/11/17 14:10 Pulse Rate 102 H 08/11/17 14:10 Respiratory Rate 20 08/11/17 14:10 Blood Pressure 166/87 08/11/17 14:10 O2 Sat by Pulse Oximetry (%) 96 08/11/17 09:00 Laboratory Tests 08/09/17 08/10/17 08/11/17 23:40 05:45 05:48 Hgb 9.5 L D 9.3 L 9.2 L Constitutional: No Distress ...Auscultate: Yes: Normoactive Bowel Sounds ...Palpate: Yes: Other (nontender) Labs: CBC, BMP 08/11/17 05:48 08/11/17 05:48 Problem List - Problems (1) Gastric ulcer with hemorrhage Assessment/Plan: Resolved gastric ulcer bleed. Will advance diet. Code(s): K25.4 - CHRONIC OR UNSPECIFIED GASTRIC ULCER WITH HEMORRHAGE
[2017-08-11] MEDS: ACETAMINOPHEN 325 MG TABLET (FP) PO PRN (17:53)
--- NOTE | 2017-08-11 18:50 | HOSP ---
Subjective - Review of Symptoms Events since last encounter: Notified by nursing, pt with tachycardia to 102, BP 166/87. Pt has not been given his home Metoprolol 50mg daily since admission. Home dose restarted and pt ordered for evening dose Per nursing, pt with pink-tinge to urine this PM. Examined pt at bedside. Pt complaining of mild pain with urination w/ no significant change since this AM. Sen bag with very mild pink-tinged urine, no brit blood or clots. Informed nursing staff to monitor for any brit hematuria or worsening of dysuria and notify covering team overnight. Physical Examination Vital Signs: Vital Signs Temperature 98.6 F 08/11/17 14:10 Pulse Rate 102 H 08/11/17 14:10 Respiratory Rate 20 08/11/17 14:10 Blood Pressure 166/87 08/11/17 14:10 O2 Sat by Pulse Oximetry (%) 96 08/11/17 09:00 Labs: CBC, BMP 08/11/17 05:48 08/11/17 05:48
[2017-08-11] MEDS: METOPROLOL TARTRATE 50 MG TABLET (FP) PO SCH (22:28)
[2017-08-12] MEDS: INSULIN SLIDING SCALE (NOVOLOG) 1 VIAL SQ SCH ×4 (06:28→22:02)
[2017-08-12 07:15] LABS: MCH 26.1 pg (25.7-33.7); MCHC 33.9 g/dl (32.0-35.9); MEAN CELL VOLUME 76.9 fl (80-96); MEAN PLT VOLUME 7.9 fl (7.5-11.1); PLATELET COUNT 132 K/MM3 (134-434); RDW 21.2 % (11.9-15.9); WHITE BLOOD COUNT 6.7 K/mm3 (4.0-10.0)
[2017-08-12 08:09] LABS: ALBUMIN 2.5 g/dl (3.4-5.0); ALK PHOS 53 U/L (45-117); ANION GAP 10 (8-16); BILIRUBIN,TOTAL 0.3 mg/dL (0.2-1.0); CALCIUM 7.7 mg/dL (8.5-10.1); CO2 22 mmol/L (21-32); GLUCOSE,RANDOM 147 mg/dL (74-106); SGOT/AST 12 U/L (15-37); SGPT/ALT 14 U/L (12-78)
--- NOTE | 2017-08-12 08:30 | PN ---
Teaching Attending Note Name of Resident: Sang Valle ATTENDING PHYSICIAN STATEMENT I saw and evaluated the patient. I reviewed the resident's note and discussed the case with the resident. I agree with the resident's findings and plan as documented. SUBJECTIVE: OBJECTIVE: Vital Signs Temperature 97.8 F 08/12/17 06:00 Pulse Rate 90 08/12/17 06:00 Respiratory Rate 20 08/12/17 06:00 Blood Pressure 160/78 08/12/17 06:00 O2 Sat by Pulse Oximetry (%) 96 08/11/17 20:49 Home Medication List Medication Instructions Recorded Confirmed Type Amlodipine Besylate [Norvasc -] 2.5 mg PO DAILY 08/09/17 08/09/17 History Glipizide 5 mg PO DAILY 08/09/17 08/09/17 History Glipizide 10 mg PO DAILY 08/09/17 08/09/17 History Losartan Potassium [Cozaar -] 50 mg PO DAILY 08/09/17 08/09/17 History Metoprolol Tartrate [Lopressor -] 50 mg PO DAILY 08/09/17 08/09/17 History Simvastatin [Zocor -] 20 mg PO DAILY 08/09/17 08/09/17 History Active Medications Generic Name Dose Route Start Last Admin Trade Name Freq PRN Reason Stop Dose Admin Acetaminophen 650 mg 08/10/17 08:35 08/11/17 17:53 Tylenol - PO 650 mg Q4H PRN Administration FEVER OR PAIN Amlodipine Besylate 5 mg 08/11/17 13:45 08/11/17 14:58 Norvasc - PO 5 mg DAILY [facility] Administration Sodium Chloride 1,000 mls @ 60 mls/hr 08/11/17 10:30 08/11/17 12:23 1/2 Normal Saline IV 60 mls/hr ASDIR [facility] Administration Insulin Aspart 1 vial 08/11/17 07:00 08/12/17 06:28 Novolog Vial Sliding Scale - SQ 2 units ACHS [facility] Administration Protocol Metoprolol Tartrate 50 mg 08/11/17 18:30 08/11/17 22:28 Lopressor - PO 50 mg DAILY [facility] Administration Ondansetron HCl 4 mg 08/09/17 07:25 Zofran Injection IVPUSH Q6H PRN NAUSEA AND/OR VOMITING Pantoprazole Sodium 40 mg 08/10/17 22:00 08/11/17 22:28 Protonix - PO 40 mg BID [facility] Administration Sucralfate 1 gm 08/09/17 18:00 08/11/17 22:28 Carafate Oral Suspension - PO 1 gm QID [facility] Administration Tamsulosin HCl 0.4 mg 08/09/17 10:45 08/11/17 09:10 Flomax - PO 0.4 mg DAILY@0830 [facility] Administration CBCD WBC 6.7 K/mm3 (4.0-10.0) 08/12/17 05:28 RBC 3.53 M/mm3 (4.00-5.60) L 08/12/17 05:28 Hgb 9.2 GM/dL (11.7-16.9) L 08/12/17 05:28 Hct 27.1 % (35.4-49) L 08/12/17 05:28 MCV 76.9 fl (80-96) L 08/12/17 05:28 MCHC 33.9 g/dl (32.0-35.9) 08/12/17 05:28 RDW 21.2 % (11.9-15.9) H 08/12/17 05:28 Plt Count 132 K/MM3 (134-434) L 08/12/17 05:28 MPV 7.9 fl (7.5-11.1) 08/12/17 05:28 CMP Sodium 140 mmol/L (136-145) 08/12/17 05:28 Potassium 3.7 mmol/L (3.5-5.1) 08/12/17 05:28 Chloride 108 mmol/L (98-107) H 08/12/17 05:28 Carbon Dioxide 22 mmol/L (21-32) 08/12/17 05:28 Anion Gap 10 (8-16) 08/12/17 05:28 BUN 67 mg/dL (7-18) H 08/12/17 05:28 Creatinine 5.0 mg/dL (0.7-1.3) H 08/12/17 05:28 Creat Clearance w eGFR 11.11 (>60) 08/12/17 05:28 Random Glucose 147 mg/dL (74-106) H D 08/12/17 05:28 Calcium 7.7 mg/dL (8.5-10.1) L 08/12/17 05:28 Total Bilirubin 0.3 mg/dL (0.2-1.0) D 08/12/17 05:28 AST 12 U/L (15-37) L 08/12/17 05:28 ALT 14 U/L (12-78) 08/12/17 05:28 Alkaline Phosphatase 53 U/L (45-117) 08/12/17 05:28 Total Protein 6.0 g/dl (6.4-8.2) L 08/12/17 05:28 Albumin 2.5 g/dl (3.4-5.0) L 08/12/17 05:28 CARDIAC ENZYMES Creatine Kinase 64 IU/L (39-308) 08/09/17 01:51 Troponin I 0.02 ng/ml (0.00-0.05) 08/09/17 01:51 PE: per resident's note ASSESSMENT AND PLAN: Patient is an 86 yo male with uncontrolled DM, urinary retention, significant anemia, mildly elevated lipase, epigastric pain with dark stools. No reports of melena, hematochezia, hematemesis. # Acute obstructive uropathy continue blackmon catheter which was placed by surgery (drained around 1500ml urine) . On Flomax increased the dose continue , IVF continue. Urology consult appreciated. PSA level 6.0, as per urologist; voiding trial once creatinine has stabilized. #Acute renal failure due to Obstructive uropathy. on IVF continue; ordered 1/2 NS at 75cc/hr. improving. BUN/CR 107/5.5-->67/5.0 trend bun/cr, Nephro on the case. # Severe Anemia s/p 2 units of transfusion. on Protonix 40mg IV BID continue, GI consult , Iron profile. EGD to evaluate for upper GI sources of blood loss as per GI. hemoglobin 9.2now, will monitor. # DM control on SS with coverage #s/p psuedohyponatremia improved now. dvt px: Ac is on hold since low Hemoglobin s/p transfusions of 2 units .
[2017-08-12] MEDS: TAMSULOSIN HCL 0.4 MG CAP.ER.24H (FP) PO SCH (09:14)
[2017-08-12] MEDS: SUCRALFATE 1 GM/10 ML UNIT DOSE CUPS PO SCH ×4 (09:14→22:02)
[2017-08-12] MEDS: METOPROLOL TARTRATE 50 MG TABLET (FP) PO SCH (09:14)
[2017-08-12] MEDS: PANTOPRAZOLE 40 MG TABLET (FP) PO SCH ×2 (09:15→22:03)
[2017-08-12] MEDS: amLODIPine BESYLATE 5 MG TABLET (FP) PO SCH (09:16)
[2017-08-12] MEDS ORDERED: METOPROLOL TARTRATE 50 MG TABLET (FP) PO SCH (10:09)
--- NOTE | 2017-08-12 10:11 | PN ---
Physical Exam: SUBJECTIVE: Patient seen and examined by me this AM - No major overnight events. Complaining only of mild dysuria, blackmon still in place. Still with pinkish-tinged urine this AM, light-colored. No brit blood or clots noted. Denies any fever/chills, CASTILLO/dizziness, CP, sob, cough, n/v, abdominal pain, new neuro symptoms. - Pt defecated in bed, requiring change of sheets. Possibly unable to alert nursing for assistance to bathroom either due to language barrier or mild CD. - Hgb stable at 9.2. No other active bleeds. OBJECTIVE: Vital Signs Intake & Output 08/09/17 08/10/17 08/11/17 08/12/17 23:59 23:59 23:59 23:59 Intake Total 900 1400 220 720 Output Total 3600 2150 3000 1300 Balance -2700 -750 -2780 -580 Weight 73.936 kg Period Temp Pulse Resp BP Sys/Bernstein Pulse Ox Last 24 Hr 97.8 F-98.6 F 84-102 18-20 131-178/70-87 96 GENERAL: The patient is A&Ox3, in no acute distress. HEAD: Normal with no signs of trauma. EYES: PERRL, extraocular movements intact, sclera anicteric, conjunctiva clear. No ptosis. ENT: Ears normal, nares patent, oropharynx clear without exudates, moist mucous membranes. Poor dentition. No oral lesions. NECK: Trachea midline, supple. No JVD noted. LUNGS: Trace bibasilar crackles. No wheezes, no accessory muscle use. HEART: Regular rate and rhythm, S1, S2 without murmur, rub or gallop. ABDOMEN: Soft, nontender, nondistended, hypoactive bowel sounds, no guarding, no rebound, no hepatosplenomegaly. No masses palpable. Negative murphys. Negative cullens sign Upper EXTREMITIES: 2+ pulses, warm, well-perfused, no edema. 2+ biceps reflex BL. 5/5 motor strength grossly, sensation to light touch intact Upper EXTREMITIES: 2+ pulses, wwp, no edema. 1+ patellar reflex BL. 5/5 motor strength grossly, sensation to light touch intact NEUROLOGICAL: Cranial nerves II through XII grossly intact. Normal speech, gait not observed. PSYCH: Normal mood, normal affect. SKIN: Warm, dry, normal turgor, no rashes or lesions noted. <2 second capillary refill. Laboratory Results - last 24 hr CBC, BMP 08/12/17 05:28 08/12/17 05:28 08/11/17 08/11/17 08/11/17 11:42 16:38 22:29 WBC RBC Hgb Hct MCV MCH MCHC RDW Plt Count MPV Sodium Potassium Chloride Carbon Dioxide Anion Gap BUN Creatinine Creat Clearance w eGFR POC Glucometer 412 188 192 Random Glucose Calcium Total Bilirubin AST ALT Alkaline Phosphatase Total Protein Albumin 08/12/17 08/12/17 08/12/17 05:28 05:28 05:41 WBC 6.7 RBC 3.53 L Hgb 9.2 L Hct 27.1 L MCV 76.9 L MCH 26.1 MCHC 33.9 RDW 21.2 H Plt Count 132 L MPV 7.9 Sodium 140 Potassium 3.7 Chloride 108 H Carbon Dioxide 22 Anion Gap 10 BUN 67 H Creatinine 5.0 H Creat Clearance w eGFR 11.11 POC Glucometer 176 Random Glucose 147 H D Calcium 7.7 L Total Bilirubin 0.3 D AST 12 L ALT 14 Alkaline Phosphatase 53 Total Protein 6.0 L Albumin 2.5 L Active Medications Generic Name Dose Route Start Last Admin Trade Name Freq PRN Reason Stop Dose Admin Acetaminophen 650 mg 08/10/17 08:35 08/11/17 17:53 Tylenol - PO 650 mg Q4H PRN Administration FEVER OR PAIN Amlodipine Besylate 5 mg 08/11/17 13:45 08/12/17 09:16 Norvasc - PO 5 mg DAILY REHANA Administration Sodium Chloride 1,000 mls @ 60 mls/hr 08/11/17 10:30 08/11/17 12:23 1/2 Normal Saline IV 60 mls/hr ASDIR REHANA Administration Insulin Aspart 1 vial 08/11/17 07:00 08/12/17 06:28 Novolog Vial Sliding Scale - SQ 2 units ACHS REHANA Administration Protocol Metoprolol Tartrate 50 mg 08/11/17 18:30 08/12/17 09:14 Lopressor - PO 50 mg DAILY REHANA Administration Ondansetron HCl 4 mg 08/09/17 07:25 Zofran Injection IVPUSH Q6H PRN NAUSEA AND/OR VOMITING Pantoprazole Sodium 40 mg 08/10/17 22:00 08/12/17 09:15 Protonix - PO 40 mg BID REHANA Administration Sucralfate 1 gm 08/09/17 18:00 08/12/17 09:14 Carafate Oral Suspension - PO 1 gm QID REHANA Administration Tamsulosin HCl 0.4 mg 08/09/17 10:45 08/12/17 09:14 Flomax - PO 0.4 mg DAILY@0830 REHANA Administration No recent micro EKG 08/09 - Sinus tachy rate 100s, NAD, QTc 448, no twi or st abnormalities. Imaging: RUQ US 08/09 - 1. Normal gallbladder and biliary tree. 2. Probable diffuse fatty infiltration of the liver. 3. Suspected chronic medical renal disease with no evidence of hydronephrosis or acute pathology. cXR 08/09 - No evidence of active pulmonary disease. Hiatal hernia. Ab/pelvis CT 08/09 - 1. Paraesophageal hiatal hernia. 2. Prominent main pancreatic duct. MRCP follow-up recommended. 3. Distended urinary bladder with mild prostatic enlargement. 4. No evidence of bowel obstruction or acute pathology within the abdomen or pelvis. Recent above discussion. Renal U/S 08/10 - No hydronephrosis is seen. Bilateral renal atrophy. There is possible mildly altered right renal cortical echogenicity suggestive of medical renal disease. ASSESSMENT/PLAN: 86 yo man w/ pmh of DM, HTN, diverticulosis, chronic urinary retension secondary to BPH who presented in the setting of burning epigastric pain, elevated lipase/glucose and anemia, now s/p GI clips for bleeding gastric ulcer. Pt remains hemodynamically stable (Hgb 9.2 - 9.2), mildly hypertensive overnight requiring increase in Lopressor. [place]-tinged urine overnight and mild dysuria still, however urine still light and good UOP (3L). Will require outpt follow-up. #Obstructive uropathy - Drained 1500ml after placement w/ coude cath 08/09. UOP 3L overnight. Mild pink hue to urine overnight as well. PSA 6 - Maintain blackmon. Monitor for hematuria, clots or continued pink urine. - Urology following. Recs appreciated - Monitor UOP - Will require outpt f/u - Continue flomax 0.4 mg - Tylenol 650 for pain/fever q4h prn #ARF - BUN Cr 78-> 67 , 5.2 -> 5.0 (08/12), renal u/s notable for atrophic kidneys, no hydro. FeNa 5%. Cr 2.6 on 09/2016 - Renal consulted. Recs appreciated - Trend BUN/Cr - IVFs #Anemia/GI bleed - Hgb stable 9.2-> 9.2 - Gastric ulcer clipped 08/09. - Monitor for hematochezia, melena - Trend H/H - Tranfuse at <7 - H. pylori stool AG - Iron sucrose injections - GI following. Recs appreciated - Protonix 40 mg BID #HTN - Systolics up to 170s overnight. - Metroprolol increased to 75mg daily - Monitor BP #DM - BG well controlled now. A1C 14.0 on 08/09 - BGM q4h - ISS - A1C 14 - Will require outpt f/u for insulin regimen. Aggressive counseling regarding diet, blood sugar control #FEN Fluids: 60cc 1/2ns Electrolytes: Daily BMP, Monitor Cr Nutrition: Soft diet PPX: DVT - SCDs PPI Plan discussed with attending, Dr. Florentino Valle, PGY1 Visit type - Emergency Visit Emergency Visit: Yes ED Registration Date: 08/09/17 Care time: The patient presented to the Emergency Department on the above date and was hospitalized for further evaluation of their emergent condition. - New Patient This patient is new to me today: No - Critical Care Critical Care patient: No
--- NOTE | 2017-08-12 11:13 | PN ---
Progress Note, Physician History of Present Illness: No events. Appears comfortable. - Current Medication List Current Medications: Active Medications Acetaminophen (Tylenol -) 650 mg PO Q4H PRN PRN Reason: FEVER OR PAIN Last Admin: 08/11/17 17:53 Dose: 650 mg Amlodipine Besylate (Norvasc -) 5 mg PO DAILY [facility] Last Admin: 08/12/17 09:16 Dose: 5 mg Sodium Chloride (1/2 Normal Saline) 1,000 mls @ 60 mls/hr IV ASDIR [facility] Last Admin: 08/11/17 12:23 Dose: 60 mls/hr Insulin Aspart (Novolog Vial Sliding Scale -) 1 vial SQ ACHS [facility] PRN Reason: Protocol Last Admin: 08/12/17 06:28 Dose: 2 units Metoprolol Tartrate (Lopressor -) 75 mg PO DAILY [facility] Ondansetron HCl (Zofran Injection) 4 mg IVPUSH Q6H PRN PRN Reason: NAUSEA AND/OR VOMITING Pantoprazole Sodium (Protonix -) 40 mg PO BID [facility] Last Admin: 08/12/17 09:15 Dose: 40 mg Sucralfate (Carafate Oral Suspension -) 1 gm PO QID [facility] Last Admin: 08/12/17 09:14 Dose: 1 gm Tamsulosin HCl (Flomax -) 0.4 mg PO DAILY@0830 [facility] Last Admin: 08/12/17 09:14 Dose: 0.4 mg - Objective Vital Signs: Vital Signs Temperature 98 F 08/12/17 09:57 Pulse Rate 98 H 08/12/17 09:57 Respiratory Rate 18 08/12/17 09:57 Blood Pressure 178/80 08/12/17 09:57 O2 Sat by Pulse Oximetry (%) 96 08/11/17 20:49 Constitutional: Yes: No Distress, Calm Eyes: Yes: Conjunctiva Clear Cardiovascular: Yes: Regular Rate and Rhythm Respiratory: Yes: Regular Gastrointestinal: Yes: Soft. No: Melena, Rectal Bleeding, Tenderness Labs: CBC, BMP 08/12/17 05:28 08/12/17 05:28 Laboratory Results - last 24 hr 08/11/17 08/11/17 08/11/17 11:42 16:38 22:29 WBC RBC Hgb Hct MCV MCH MCHC RDW Plt Count MPV Sodium Potassium Chloride Carbon Dioxide Anion Gap BUN Creatinine Creat Clearance w eGFR POC Glucometer 412 188 192 Random Glucose Calcium Total Bilirubin AST ALT Alkaline Phosphatase Total Protein Albumin 08/12/17 08/12/17 08/12/17 05:28 05:28 05:41 WBC 6.7 RBC 3.53 L Hgb 9.2 L Hct 27.1 L MCV 76.9 L MCH 26.1 MCHC 33.9 RDW 21.2 H Plt Count 132 L MPV 7.9 Sodium 140 Potassium 3.7 Chloride 108 H Carbon Dioxide 22 Anion Gap 10 BUN 67 H Creatinine 5.0 H Creat Clearance w eGFR 11.11 POC Glucometer 176 Random Glucose 147 H D Calcium 7.7 L Total Bilirubin 0.3 D AST 12 L ALT 14 Alkaline Phosphatase 53 Total Protein 6.0 L Albumin 2.5 L Problem List - Problems (1) Anemia Code(s): D64.9 - ANEMIA, UNSPECIFIED (2) Elevated lipase Code(s): R74.8 - ABNORMAL LEVELS OF OTHER SERUM ENZYMES Assessment/Plan No signs of bleeding. No pain. change PPI to PO BID Carafe Diet as tolerated No NSAIDs Follow biopsy results
[2017-08-12] MEDS: SODIUM CHLORIDE 0.45% 1,000 ML IV SCH (11:59)
--- NOTE | 2017-08-12 17:45 | PN ---
Progress Note (short form) - Note Progress Note: Renal follow up for CATARINA on CKD Pt seen and examined at the bedside no acute complaints Vital Signs Temperature 98.2 F 08/12/17 14:25 Pulse Rate 89 08/12/17 14:25 Respiratory Rate 18 08/12/17 14:25 Blood Pressure 147/71 08/12/17 14:25 O2 Sat by Pulse Oximetry (%) 98 08/12/17 09:00 Intake & Output 08/09/17 08/10/17 08/11/17 08/12/17 23:59 23:59 23:59 23:59 Intake Total 900 1400 220 720 Output Total 3600 2150 3000 2000 Balance -8919 -212 -9979 -1280 Weight 73.936 kg NAD RRR CTA soft NT/ND Sen in place with yellow urine No LE edema CBC, BMP 08/12/17 05:28 08/12/17 05:28 Current Medications Acetaminophen (Tylenol -) 650 mg PO Q4H PRN PRN Reason: FEVER OR PAIN Last Admin: 08/11/17 17:53 Dose: 650 mg Amlodipine Besylate (Norvasc -) 5 mg PO DAILY [facility] Last Admin: 08/12/17 09:16 Dose: 5 mg Sodium Chloride (1/2 Normal Saline) 1,000 mls @ 60 mls/hr IV ASDIR [facility] Last Admin: 08/12/17 11:59 Dose: 60 mls/hr Insulin Aspart (Novolog Vial Sliding Scale -) 1 vial SQ ACHS REHANA PRN Reason: Protocol Last Admin: 08/12/17 16:58 Dose: 6 units Metoprolol Tartrate (Lopressor -) 75 mg PO DAILY [facility] Ondansetron HCl (Zofran Injection) 4 mg IVPUSH Q6H PRN PRN Reason: NAUSEA AND/OR VOMITING Pantoprazole Sodium (Protonix -) 40 mg PO BID [facility] Last Admin: 08/12/17 09:15 Dose: 40 mg Sucralfate (Carafate Oral Suspension -) 1 gm PO QID [facility] Last Admin: 08/12/17 17:00 Dose: 1 gm Tamsulosin HCl (Flomax -) 0.4 mg PO DAILY@0830 [facility] Last Admin: 08/12/17 09:14 Dose: 0.4 mg 86 year old gentleman with PMhx of Hypertension, DM Type 2 (diet controlled), Hyperlipidemia, CKD (? baseline), ABd hernia who presented to the ED with 1 day history of abdominal pain and found to have large hiatial hernia and CATARINA with BUN/Cr of 116/5.8. 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
[2017-08-12 23:22] LABS: MCH 27.2 pg (25.7-33.7); MCHC 34.8 g/dl (32.0-35.9); MEAN CELL VOLUME 78.1 fl (80-96); MEAN PLT VOLUME 8.6 fl (7.5-11.1); PLATELET COUNT 139 K/MM3 (134-434); RDW 21.6 % (11.9-15.9); WHITE BLOOD COUNT 7.1 K/mm3 (4.0-10.0)
[2017-08-13] MEDS ORDERED: INSULIN (NOVOLOG) ASPART 100 UNITS/ML 10ML VIAL ONE ×2 (06:21→21:33)
[2017-08-13] MEDS: INSULIN SLIDING SCALE (NOVOLOG) 1 VIAL SQ SCH ×4 (06:22→21:34)
--- NOTE | 2017-08-13 06:31 | PN ---
Physical Exam: SUBJECTIVE: Patient seen and examined by me this AM - Trace hematuria noted overnight. Yesterday PM Hgb 9.2 -> 8.7. No change today (8.7). Pt with no complaints overnight. More somnolent today. Still w/ blackmon. No hematuria noted on rounds this AM - Denies any CASTILLO/lightheadness, fever/chills, CP, sob, N/V, abdominal pena, dysuria, diarrhea/constipation, new neuro symptoms. - Cr continues to downtrend 5.-> 4.6 OBJECTIVE: Vital Signs Intake & Output 08/10/17 08/11/17 08/12/17 08/13/17 23:59 23:59 23:59 23:59 Intake Total 1400 220 720 480 Output Total 2150 3000 2850 Balance -750 -2780 -2130 480 Period Temp Pulse Resp BP Sys/Bernstein Pulse Ox Last 24 Hr 97.9 F-98.2 F 86-98 18-20 138-178/69-83 96-98 GENERAL: The patient is A&Ox3, in no acute distress. HEAD: Normal with no signs of trauma. EYES: PERRL, extraocular movements intact, sclera anicteric, conjunctiva clear. No ptosis. ENT: Ears normal, nares patent, oropharynx clear without exudates, moist mucous membranes. Poor dentition. No oral lesions. NECK: Trachea midline, supple. No JVD noted. LUNGS: Trace bibasilar crackles. No wheezes, no accessory muscle use. HEART: Regular rate and rhythm, S1, S2 without murmur, rub or gallop. ABDOMEN: Soft, nontender, nondistended, normoactive bowel sounds, no guarding, no rebound, no hepatosplenomegaly. No masses palpable. Negative murphys. Negative rodriguez, davis sykes sign Upper EXTREMITIES: 2+ pulses, warm, well-perfused, no edema. 2+ biceps reflex BL. 5/5 motor strength grossly, sensation to light touch intact Upper EXTREMITIES: 2+ pulses DP, PT pulses. No LE edema. 1+ patellar reflex BL. 5/5 motor strength grossly, sensation to light touch intact NEUROLOGICAL: Cranial nerves II through XII grossly intact. Normal speech, gait not observed. PSYCH: Normal mood, normal affect. SKIN: Warm, dry, normal turgor, no rashes or lesions noted Laboratory Results - last 24 hr CBC, BMP 08/13/17 08:00 08/13/17 08:00 08/09/17 08/11/17 08/12/17 05:15 11:42 05:28 WBC 6.7 RBC 3.53 L Hgb 9.2 L Hct 27.1 L MCV 76.9 L MCH 26.1 MCHC 33.9 RDW 21.2 H Plt Count 132 L MPV 7.9 Sodium Potassium Chloride Carbon Dioxide Anion Gap BUN Creatinine Creat Clearance w eGFR POC Glucometer 412 Random Glucose Calcium Total Bilirubin AST ALT Alkaline Phosphatase Total Protein Albumin Blood Type B POSITIVE Crossmatch See Detail 08/12/17 08/12/17 08/12/17 05:28 11:44 16:51 WBC RBC Hgb Hct MCV MCH MCHC RDW Plt Count MPV Sodium 140 Potassium 3.7 Chloride 108 H Carbon Dioxide 22 Anion Gap 10 BUN 67 H Creatinine 5.0 H Creat Clearance w eGFR 11.11 POC Glucometer 235 274 Random Glucose 147 H D Calcium 7.7 L Total Bilirubin 0.3 D AST 12 L ALT 14 Alkaline Phosphatase 53 Total Protein 6.0 L Albumin 2.5 L Blood Type Crossmatch 08/12/17 08/12/17 08/13/17 21:59 23:10 05:31 WBC 7.1 RBC 3.19 L Hgb 8.7 L Hct 24.9 L MCV 78.1 L MCH 27.2 MCHC 34.8 RDW 21.6 H Plt Count 139 MPV 8.6 Sodium Potassium Chloride Carbon Dioxide Anion Gap BUN Creatinine Creat Clearance w eGFR POC Glucometer 331 225 Random Glucose Calcium Total Bilirubin AST ALT Alkaline Phosphatase Total Protein Albumin Blood Type Crossmatch Active Medications Generic Name Dose Route Start Last Admin Trade Name Freq PRN Reason Stop Dose Admin Acetaminophen 650 mg 08/10/17 08:35 08/11/17 17:53 Tylenol - PO 650 mg Q4H PRN Administration FEVER OR PAIN Amlodipine Besylate 5 mg 08/11/17 13:45 08/12/17 09:16 Norvasc - PO 5 mg DAILY REHANA Administration Sodium Chloride 1,000 mls @ 60 mls/hr 08/11/17 10:30 08/12/17 11:59 1/2 Normal Saline IV 60 mls/hr ASDIR REHANA Administration Insulin Aspart 1 vial 08/11/17 07:00 08/13/17 06:22 Novolog Vial Sliding Scale - SQ 4 units ACHS REHANA Administration Protocol Metoprolol Tartrate 75 mg 08/12/17 10:09 Lopressor - PO DAILY REHANA Ondansetron HCl 4 mg 08/09/17 07:25 Zofran Injection IVPUSH Q6H PRN NAUSEA AND/OR VOMITING Pantoprazole Sodium 40 mg 08/10/17 22:00 08/12/17 22:03 Protonix - PO 40 mg BID REHANA Administration Sucralfate 1 gm 08/09/17 18:00 08/12/17 22:02 Carafate Oral Suspension - PO 1 gm QID REHANA Administration Tamsulosin HCl 0.4 mg 08/09/17 10:45 08/12/17 09:14 Flomax - PO 0.4 mg DAILY@0830 REHANA Administration No micro EKG 08/09 - Sinus tachy rate 100s, NAD, QTc 448, no twi or st abnormalities. Imaging: RUQ US 08/09 - 1. Normal gallbladder and biliary tree. 2. Probable diffuse fatty infiltration of the liver. 3. Suspected chronic medical renal disease with no evidence of hydronephrosis or acute pathology. CXR 08/09 - No evidence of active pulmonary disease. Hiatal hernia. Ab/pelvis CT 08/09 - 1. Paraesophageal hiatal hernia. 2. Prominent main pancreatic duct. MRCP follow-up recommended. 3. Distended urinary bladder with mild prostatic enlargement. 4. No evidence of bowel obstruction or acute pathology within the abdomen or pelvis. Recent above discussion. Renal U/S 08/10 - No hydronephrosis is seen. Bilateral renal atrophy. There is possible mildly altered right renal cortical echogenicity suggestive of medical renal disease. ASSESSMENT/PLAN: 86 yo man w/ pmh of DM, HTN, diverticulosis, chronic urinary retension secondary to BPH who presented in the setting of burning epigastric pain, elevated lipase/glucose and anemia, now s/p GI clips for bleeding gastric ulcer. Pt remains hemodynamically stable (Hgb 8.7), started on Toprol XL 75mg for tachycardia/hypertension. Still w/ trace hematuria overnight, no brit blood or clots. Good UOP overnight 2850ml. Will require outpt follow-up for further management of urinary retension. #Obstructive uropathy - Drained 1500ml after placement w/ coude cath 08/09. UOP 2.85L overnight. Still with trace hematuria overnight. PSA 6 - Maintain blackmon. Monitor for hematuria, clots or continued pink urine. - Urology following. Recs appreciated - Monitor UOP - Will require outpt f/u - Increased flomax 0.4-> 0.8 mg - Tylenol 650 for pain/fever q4h prn #ARF - BUN/Cr continue downtrending 53/4.6 today. Renal u/s notable for atrophic kidneys, no hydro. FeNa 5%. Cr 2.6 on 09/2016 - Renal consulted. Recs appreciated - Trend BUN/Cr - Can D/C IVF fluids per renal as patient tolerating PO - K 3.3 today. Replete 40mg PO #Anemia/GI bleed - Hgb stable, 8.7 today - Gastric ulcer clipped 08/09. - Monitor for hematochezia, melena - Trend H/H - Tranfuse at <7 - Iron sucrose injections - GI following. Recs appreciated - Protonix 40 mg BID #HTN - Systolics up to 140s overnight. Better controlled - Toprol XL 75mg daily - Monitor BP #DM - BG well controlled now. A1C 14.0 on 08/09 - BGM q4h - ISS - A1C 14 - Will require outpt f/u for insulin regimen. Aggressive counseling regarding diet, blood sugar control #FEN Fluids: 60cc 1/2ns. D/c tomorrow. Electrolytes: Daily BMP, Monitor Cr Nutrition: Soft diet PPX: DVT - SCDs PPI Plan discussed with attending, Dr. Florentino Valle, PGY1 Visit type - Emergency Visit Emergency Visit: Yes ED Registration Date: 08/09/17 Care time: The patient presented to the Emergency Department on the above date and was hospitalized for further evaluation of their emergent condition. - New Patient This patient is new to me today: No - Critical Care Critical Care patient: No
[2017-08-13] MEDS ORDERED: ACETAMINOPHEN 325 MG TABLET (FP) PO PRN (07:18)
[2017-08-13] MEDS ORDERED: ONDANSETRON 4 MG/2 ML VIAL IVPUSH PRN (07:18)
[2017-08-13] MEDS ORDERED: TAMSULOSIN HCL 0.4 MG CAP.ER.24H (FP) PO SCH (08:30)
[2017-08-13 08:37] LABS: MCH 25.7 pg (25.7-33.7); MEAN CELL VOLUME 77.8 fl (80-96); MEAN PLT VOLUME 7.9 fl (7.5-11.1); PLATELET COUNT 150 K/MM3 (134-434); RDW 21.9 % (11.9-15.9); WHITE BLOOD COUNT 7.1 K/mm3 (4.0-10.0)
[2017-08-13 09:05] LABS: ALBUMIN 2.4 g/dl (3.4-5.0); ANION GAP 8 (8-16); CO2 23 mmol/L (21-32); CREATININE 4.6 mg/dL (0.7-1.3); GLUCOSE,RANDOM 154 mg/dL (74-106); SGOT/AST 11 U/L (15-37); SGPT/ALT 14 U/L (12-78)
[2017-08-13 09:06] LABS: ALK PHOS 53 U/L (45-117); BILIRUBIN,TOTAL 0.3 mg/dL (0.2-1.0)
[2017-08-13 09:20] LABS: CALCIUM 6.8 mg/dL (8.5-10.1)
[2017-08-13] MEDS ORDERED: METOPROLOL TARTRATE 50 MG TABLET (FP) PO SCH (10:00)
[2017-08-13] MEDS ORDERED: METOPROLOL SUCCINATE 50 MG TAB.SR.24H (FP) PO ONE (10:00)
[2017-08-13] MEDS: SUCRALFATE 1 GM/10 ML UNIT DOSE CUPS PO SCH ×3 (10:02→21:34)
[2017-08-13] MEDS: PANTOPRAZOLE 40 MG TABLET (FP) PO SCH ×2 (10:03→21:38)
[2017-08-13] MEDS: amLODIPine BESYLATE 5 MG TABLET (FP) PO SCH (10:03)
[2017-08-13] MEDS: POTASSIUM CHLORIDE TABS 20 MEQ TABLET.ER (FP) PO SCH (10:03)
[2017-08-13] MEDS: SODIUM CHLORIDE 0.45% 1,000 ML IV SCH ×2 (10:04→21:12)
--- NOTE | 2017-08-13 13:03 | PN ---
Progress Note (short form) - Note Progress Note: Renal follow up for CATARINA on CKD Pt seen and examined at the bedside no complaints feels well denies any pain blackmon in place with light pink urine Vital Signs Temperature 98 F 08/13/17 09:00 Pulse Rate 90 08/13/17 09:00 Respiratory Rate 20 08/13/17 09:00 Blood Pressure 140/72 08/13/17 09:00 O2 Sat by Pulse Oximetry (%) 96 08/13/17 05:00 Intake & Output 08/10/17 08/11/17 08/12/17 08/13/17 23:59 23:59 23:59 23:59 Intake Total 1400 220 720 480 Output Total 2150 3000 2850 1600 Balance -750 -2780 -2130 -1120 NAD RRR CTA soft NT/ND Blackmon in place with yellow urine No LE edema CBC, BMP 08/13/17 08:00 08/13/17 08:00 Current Medications Acetaminophen (Tylenol -) 650 mg PO Q4H PRN PRN Reason: FEVER OR PAIN Amlodipine Besylate (Norvasc -) 5 mg PO DAILY [facility] Last Admin: 08/13/17 10:03 Dose: 5 mg Sodium Chloride (1/2 Normal Saline) 1,000 mls @ 60 mls/hr IV ASDIR [facility] Last Admin: 08/13/17 10:04 Dose: 60 mls/hr Insulin Aspart (Novolog Vial Sliding Scale -) 1 vial SQ ACHS [facility] PRN Reason: Protocol Last Admin: 08/13/17 12:44 Dose: 2 units Ondansetron HCl (Zofran Injection) 4 mg IVPUSH Q6H PRN PRN Reason: NAUSEA AND/OR VOMITING Pantoprazole Sodium (Protonix -) 40 mg PO BID [facility] Last Admin: 08/13/17 10:03 Dose: 40 mg Potassium Chloride (K-Dur -) 40 meq PO DAILY [facility] Stop: 08/16/17 10:01 Last Admin: 08/13/17 10:03 Dose: 40 meq Sucralfate (Carafate Oral Suspension -) 1 gm PO QID [facility] Last Admin: 08/13/17 10:02 Dose: 1 gm Tamsulosin HCl (Flomax -) 0.8 mg PO DAILY@0830 [facility] 86 year old gentleman with PMhx of Hypertension, DM Type 2 (diet controlled), Hyperlipidemia, CKD (? baseline), ABd hernia who presented to the ED with 1 day history of abdominal pain and found to have large hiatial hernia and CATARINA with BUN/Cr of 116/5.8. 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
--- NOTE | 2017-08-13 15:46 | PN ---
Progress Note, Physician History of Present Illness: No events. Appears comfortable. - Current Medication List Current Medications: Active Medications Acetaminophen (Tylenol -) 650 mg PO Q4H PRN PRN Reason: FEVER OR PAIN Amlodipine Besylate (Norvasc -) 5 mg PO DAILY [facility] Last Admin: 08/13/17 10:03 Dose: 5 mg Sodium Chloride (1/2 Normal Saline) 1,000 mls @ 60 mls/hr IV ASDIR [facility] Last Admin: 08/13/17 10:04 Dose: 60 mls/hr Insulin Aspart (Novolog Vial Sliding Scale -) 1 vial SQ ACHS [facility] PRN Reason: Protocol Last Admin: 08/13/17 12:44 Dose: 2 units Metoprolol Succinate (Toprol Xl -) 75 mg PO DAILY [facility] Ondansetron HCl (Zofran Injection) 4 mg IVPUSH Q6H PRN PRN Reason: NAUSEA AND/OR VOMITING Pantoprazole Sodium (Protonix -) 40 mg PO BID [facility] Last Admin: 08/13/17 10:03 Dose: 40 mg Potassium Chloride (K-Dur -) 40 meq PO DAILY [facility] Stop: 08/16/17 10:01 Last Admin: 08/13/17 10:03 Dose: 40 meq Sucralfate (Carafate Oral Suspension -) 1 gm PO QID [facility] Last Admin: 08/13/17 15:02 Dose: 1 gm Tamsulosin HCl (Flomax -) 0.8 mg PO DAILY@0830 [facility] - Objective Vital Signs: Vital Signs Temperature 97.9 F 08/13/17 14:00 Pulse Rate 72 08/13/17 14:00 Respiratory Rate 18 08/13/17 14:00 Blood Pressure 98/59 08/13/17 14:00 O2 Sat by Pulse Oximetry (%) 96 08/13/17 09:00 Constitutional: Yes: Well Nourished, No Distress, Calm Gastrointestinal: Yes: Soft. No: Distention, Melena, Rectal Bleeding, Tenderness, Vomiting Neurological: Yes: Alert Labs: CBC, BMP 08/13/17 08:00 08/13/17 08:00 Laboratory Results - last 24 hr 08/09/17 08/12/17 08/12/17 05:15 16:51 21:59 WBC RBC Hgb Hct MCV MCH MCHC RDW Plt Count MPV Sodium Potassium Chloride Carbon Dioxide Anion Gap BUN Creatinine Creat Clearance w eGFR POC Glucometer 274 331 Random Glucose Calcium Total Bilirubin AST ALT Alkaline Phosphatase Total Protein Albumin Blood Type B POSITIVE Crossmatch See Detail 08/12/17 08/13/17 08/13/17 23:10 05:31 08:00 WBC 7.1 7.1 RBC 3.19 L 3.39 L Hgb 8.7 L 8.7 L Hct 24.9 L 26.3 L MCV 78.1 L 77.8 L MCH 27.2 25.7 MCHC 34.8 33.0 RDW 21.6 H 21.9 H Plt Count 139 150 MPV 8.6 7.9 Sodium Potassium Chloride Carbon Dioxide Anion Gap BUN Creatinine Creat Clearance w eGFR POC Glucometer 225 Random Glucose Calcium Total Bilirubin AST ALT Alkaline Phosphatase Total Protein Albumin Blood Type Crossmatch 08/13/17 08/13/17 08:00 12:27 WBC RBC Hgb Hct MCV MCH MCHC RDW Plt Count MPV Sodium 140 Potassium 3.3 L Chloride 109 H Carbon Dioxide 23 Anion Gap 8 BUN 53 H D Creatinine 4.6 H Creat Clearance w eGFR 12.23 POC Glucometer 185 Random Glucose 154 H Calcium 6.8 L* Total Bilirubin 0.3 AST 11 L ALT 14 Alkaline Phosphatase 53 Total Protein 6.0 L Albumin 2.4 L Blood Type Crossmatch Problem List - Problems (1) Anemia Code(s): D64.9 - ANEMIA, UNSPECIFIED (2) Elevated lipase Code(s): R74.8 - ABNORMAL LEVELS OF OTHER SERUM ENZYMES Assessment/Plan No signs of bleeding. No pain. PPI to PO BID Carafe Diet as tolerated No NSAIDs Follow biopsy results
--- NOTE | 2017-08-13 18:37 | PATH ---
Surgical Pathology Report Patient Name: SARI STOUT [facility]. Rec. #: [id number] /Age/Gender: 1930 (Age: 86) / M Account: [id number] Location: [address] [id number] [address] Taken: 08/12/2017 Received: 08/12/2017 Reported: 08/13/2017 Physicians: Adal Armijo M.D. Specimen(s) Received A: BX DUODENAL BULB B: BX ANTRUM C: BX ESOPHAGUS Clinical History Preoperative diagnosis: GI bleeding Postoperative diagnosis: Gastric ulcer, esophagitis, gastritis Final Diagnosis A. DUODENUM, BIOPSY: DUODENAL MUCOSA WITHOUT SIGNIFICANT PATHOLOGIC FINDINGS. B. STOMACH, ANTRUM, BIOPSY: GASTRIC ANTRAL MUCOSA WITH SEVERE CHRONIC ACTIVE GASTRITIS. IMMUNOHISTOCHEMICAL STAIN FOR H. PYLORI IS POSITIVE (FEW). C. DISTAL ESOPHAGUS, BIOPSY: GASTRIC CARDIA/OXYNTIC MUCOSA WITH SEVERE CHRONIC ACTIVE GASTRITIS. NO ESOPHAGEAL SQUAMOUS MUCOSA OR INTESTINAL METAPLASIA IDENTIFIED. H. PYLORI ORGANISMS ARE PRESENT (MANY). Electronically Signed Michelle Hernández M.D. Gross Description A. Received in formalin, labeled "duodenal biopsy" are 2 jeffers, irregular portions of soft tissue averaging 0.3 cm. in greatest dimension. The specimens are submitted in toto in one cassette. B. Received in formalin, labeled "antral biopsy" are 2 jeffers, irregular portions of soft tissue averaging 0.5 cm. in greatest dimension. The specimens are submitted in toto in one cassette. C. Received in formalin, labeled "biopsy distal esophagus" are 2 jeffers, irregular portions of soft tissue averaging 0.2 cm. in greatest dimension. The specimens are submitted in toto in one cassette. 08/12/201708/12/2017
--- NOTE | 2017-08-13 23:57 | PN ---
Teaching Attending Note Name of Resident: Sang Valle ATTENDING PHYSICIAN STATEMENT I saw and evaluated the patient. I reviewed the resident's note and discussed the case with the resident. I agree with the resident's findings and plan as documented. SUBJECTIVE: patient is feeling better with no acute distress. OBJECTIVE: Vital Signs Temperature 98.1 F 08/13/17 18:00 Pulse Rate 126 H 08/13/17 18:00 Respiratory Rate 21 08/13/17 18:00 Blood Pressure 126/65 08/13/17 18:00 O2 Sat by Pulse Oximetry (%) 96 08/13/17 21:00 CBCD WBC 7.1 K/mm3 (4.0-10.0) 08/13/17 08:00 RBC 3.39 M/mm3 (4.00-5.60) L 08/13/17 08:00 Hgb 8.7 GM/dL (11.7-16.9) L 08/13/17 08:00 Hct 26.3 % (35.4-49) L 08/13/17 08:00 MCV 77.8 fl (80-96) L 08/13/17 08:00 MCHC 33.0 g/dl (32.0-35.9) 08/13/17 08:00 RDW 21.9 % (11.9-15.9) H 08/13/17 08:00 Plt Count 150 K/MM3 (134-434) 08/13/17 08:00 MPV 7.9 fl (7.5-11.1) 08/13/17 08:00 CMP Sodium 140 mmol/L (136-145) 08/13/17 08:00 Potassium 3.3 mmol/L (3.5-5.1) L 08/13/17 08:00 Chloride 109 mmol/L (98-107) H 08/13/17 08:00 Carbon Dioxide 23 mmol/L (21-32) 08/13/17 08:00 Anion Gap 8 (8-16) 08/13/17 08:00 BUN 53 mg/dL (7-18) H D 08/13/17 08:00 Creatinine 4.6 mg/dL (0.7-1.3) H 08/13/17 08:00 Creat Clearance w eGFR 12.23 (>60) 08/13/17 08:00 Random Glucose 154 mg/dL (74-106) H 08/13/17 08:00 Calcium 6.8 mg/dL (8.5-10.1) L* 08/13/17 08:00 Total Bilirubin 0.3 mg/dL (0.2-1.0) 08/13/17 08:00 AST 11 U/L (15-37) L 08/13/17 08:00 ALT 14 U/L (12-78) 08/13/17 08:00 Alkaline Phosphatase 53 U/L (45-117) 08/13/17 08:00 Total Protein 6.0 g/dl (6.4-8.2) L 08/13/17 08:00 Albumin 2.4 g/dl (3.4-5.0) L 08/13/17 08:00 CARDIAC ENZYMES Creatine Kinase 64 IU/L (39-308) 08/09/17 01:51 Troponin I 0.02 ng/ml (0.00-0.05) 08/09/17 01:51 Current Medications Generic Name Dose Route Start Last Admin Trade Name Freq PRN Reason Stop Dose Admin Acetaminophen 650 mg 08/13/17 07:18 Tylenol - PO Q4H PRN FEVER OR PAIN Amlodipine Besylate 5 mg 08/13/17 10:00 08/13/17 10:03 Norvasc - PO 5 mg DAILY [facility] Administration Sodium Chloride 1,000 mls @ 60 mls/hr 08/13/17 07:18 08/13/17 21:12 1/2 Normal Saline IV 60 mls/hr ASDIR [facility] Administration Insulin Aspart 1 vial 08/13/17 11:00 08/13/17 21:34 Novolog Vial Sliding Scale - SQ 2 units ACHS [facility] Administration Protocol Metoprolol Succinate 75 mg 08/14/17 10:00 Toprol Xl - PO DAILY [facility] Ondansetron HCl 4 mg 08/13/17 07:18 Zofran Injection IVPUSH Q6H PRN NAUSEA AND/OR VOMITING Pantoprazole Sodium 40 mg 08/13/17 10:00 08/13/17 21:38 Protonix - PO 40 mg BID [facility] Administration Potassium Chloride 40 meq 08/13/17 10:00 08/13/17 10:03 K-Dur - PO 08/16/17 10:01 40 meq DAILY [facility] Administration Sucralfate 1 gm 08/13/17 10:00 08/13/17 21:34 Carafate Oral Suspension - PO 1 gm QID [facility] Administration Tamsulosin HCl 0.8 mg 08/13/17 09:35 Flomax - PO DAILY@0830 [facility] Home Medications Medication Instructions Recorded Amlodipine Besylate [Norvasc -] 2.5 mg PO DAILY 08/09/17 Glipizide 5 mg PO DAILY 08/09/17 Glipizide 10 mg PO DAILY 08/09/17 Losartan Potassium [Cozaar -] 50 mg PO DAILY 08/09/17 Metoprolol Tartrate [Lopressor -] 50 mg PO DAILY 08/09/17 Simvastatin [Zocor -] 20 mg PO DAILY 08/09/17 PE: per resident's note ASSESSMENT AND PLAN: Patient is an 86 yo male with uncontrolled DM, urinary retention, significant anemia, mildly elevated lipase, epigastric pain with dark stools. No reports of melena, hematochezia, hematemesis. # Acute obstructive uropathy continue blackmon catheter which was placed by surgery (drained around 1500ml urine) . On Flomax increased the dose to 0.8mcg continue , IVF continue. Urology consult appreciated. PSA level 6.0, as per urologist; voiding trial once creatinine has stabilized. #Acute renal failure due to Obstructive uropathy. on IVF continue; ordered 1/2 NS at 75cc/hr. improving. BUN/CR 107/5.5-->67/5.0-->53/4.6 trend bun/cr, Nephro on the case. # Severe Anemia s/p 2 units of transfusion. on Protonix 40mg IV BID continue, GI consult , Iron profile. EGD to evaluate for upper GI sources of blood loss as per GI. hemoglobin 9.2now, will monitor. # DM control on SS with coverage #s/p psuedohyponatremia improved now. dvt px: Ac is on hold since low Hemoglobin s/p transfusions of 2 units .
[2017-08-14] MEDS ORDERED: PT OWN MED DRAWER 7, Y5N ONE ×2 (05:49→22:37)
--- NOTE | 2017-08-14 05:54 | PN ---
Physical Exam: SUBJECTIVE: Patient seen and examined by this AM - No major overnight events. Pt w/ no complaints. Still w/ good UOP. No hematuria, pink-colored urine noted in bag on exam. No dysuria today. - Denies any fever/chills, CASTILLO/lightheadness, CP, palps, SOB, cough, N/V, abdominal pain, dysuria, diarrhea, or new neuro symptoms. No hemaochezia or melena. - Per Urology, plan to keep blackmon in place until cr further normalizes. Cr improving still 4.6 -> 4.3 - Walked with PT yesterday. Able to ambulate with minimal assistance. OBJECTIVE: Vital Signs Intake & Output 08/11/17 08/12/17 08/13/17 08/14/17 23:59 23:59 23:59 23:59 Intake Total 220 720 730 Output Total 3000 2850 3200 Balance -2780 -2130 -2470 Period Temp Pulse Resp BP Sys/Bernstein Pulse Ox Last 24 Hr 97.9 F-98.1 F 72-126 18-21 98-140/59-72 96-96 GENERAL: The patient is A&Ox3, in no acute distress. HEAD: Normal with no signs of trauma. EYES: PERRL, extraocular movements intact, sclera anicteric, conjunctiva clear. No ptosis. ENT: Ears normal, nares patent, oropharynx clear without exudates, moist mucous membranes. Poor dentition. No oral lesions. NECK: Trachea midline, supple. No JVD noted. LUNGS: CTABL. No wheezes, no accessory muscle use. HEART: Regular rate and rhythm, S1, S2 without murmur, rub or gallop. ABDOMEN: Soft, nontender, nondistended, normoactive bowel sounds, no guarding, no rebound, no hepatosplenomegaly. No masses palpable. Negative murphys. Negative rodriguez, davis sykes sign Upper EXTREMITIES: 2+ pulses, warm, well-perfused, no edema. 2+ biceps reflex BL. 5/5 motor strength grossly, sensation to light touch intact Lower EXTREMITIES: 2+ pulses DP, PT pulses. No LE edema. 1+ patellar reflex BL. 5/5 motor strength grossly, sensation to light touch intact across all dermatomes. NEUROLOGICAL: Cranial nerves II through XII grossly intact. Normal speech, gait not observed. PSYCH: Normal mood, normal affect. SKIN: Warm, dry, normal turgor, no rashes or lesions noted Laboratory Results - last 24 hr CBC, BMP CBC, BMP 08/14/17 06:30 08/14/17 06:30 08/13/17 08:00 08/13/17 08:00 08/13/17 08/13/17 08/13/17 05:31 08:00 08:00 WBC 7.1 RBC 3.39 L Hgb 8.7 L Hct 26.3 L MCV 77.8 L MCH 25.7 MCHC 33.0 RDW 21.9 H Plt Count 150 MPV 7.9 Sodium 140 Potassium 3.3 L Chloride 109 H Carbon Dioxide 23 Anion Gap 8 BUN 53 H D Creatinine 4.6 H Creat Clearance w eGFR 12.23 POC Glucometer 225 Random Glucose 154 H Calcium 6.8 L* Total Bilirubin 0.3 AST 11 L ALT 14 Alkaline Phosphatase 53 Total Protein 6.0 L Albumin 2.4 L 08/13/17 08/13/17 08/13/17 12:27 16:57 21:11 WBC RBC Hgb Hct MCV MCH MCHC RDW Plt Count MPV Sodium Potassium Chloride Carbon Dioxide Anion Gap BUN Creatinine Creat Clearance w eGFR POC Glucometer 185 316 165 Random Glucose Calcium Total Bilirubin AST ALT Alkaline Phosphatase Total Protein Albumin 08/14/17 05:29 WBC RBC Hgb Hct MCV MCH MCHC RDW Plt Count MPV Sodium Potassium Chloride Carbon Dioxide Anion Gap BUN Creatinine Creat Clearance w eGFR POC Glucometer 203 Random Glucose Calcium Total Bilirubin AST ALT Alkaline Phosphatase Total Protein Albumin Active Medications Generic Name Dose Route Start Last Admin Trade Name Andrey PRN Reason Stop Dose Admin Acetaminophen 650 mg 08/13/17 07:18 Tylenol - PO Q4H PRN FEVER OR PAIN Amlodipine Besylate 5 mg 08/13/17 10:00 08/13/17 10:03 Norvasc - PO 5 mg DAILY [facility] Administration Sodium Chloride 1,000 mls @ 60 mls/hr 08/13/17 07:18 08/13/17 21:12 1/2 Normal Saline IV 60 mls/hr ASDIR [facility] Administration Insulin Aspart 1 vial 08/13/17 11:00 08/13/17 21:34 Novolog Vial Sliding Scale - SQ 2 units ACHS [facility] Administration Protocol Metoprolol Succinate 75 mg 08/14/17 10:00 Toprol Xl - PO DAILY [facility] Ondansetron HCl 4 mg 08/13/17 07:18 Zofran Injection IVPUSH Q6H PRN NAUSEA AND/OR VOMITING Pantoprazole Sodium 40 mg 08/13/17 10:00 08/13/17 21:38 Protonix - PO 40 mg BID [facility] Administration Potassium Chloride 40 meq 08/13/17 10:00 08/13/17 10:03 K-Dur - PO 08/16/17 10:01 40 meq DAILY [facility] Administration Sucralfate 1 gm 08/13/17 10:00 08/13/17 21:34 Carafate Oral Suspension - PO 1 gm QID [facility] Administration Tamsulosin HCl 0.8 mg 08/13/17 09:35 Flomax - PO DAILY@0830 [facility] No micro EKG 08/09 - Sinus tachy rate 100s, NAD, QTc 448, no twi or st abnormalities. Imaging: RUQ US 08/09 - 1. Normal gallbladder and biliary tree. 2. Probable diffuse fatty infiltration of the liver. 3. Suspected chronic medical renal disease with no evidence of hydronephrosis or acute pathology. CXR 08/09 - No evidence of active pulmonary disease. Hiatal hernia. Ab/pelvis CT 08/09 - 1. Paraesophageal hiatal hernia. 2. Prominent main pancreatic duct. MRCP follow-up recommended. 3. Distended urinary bladder with mild prostatic enlargement. 4. No evidence of bowel obstruction or acute pathology within the abdomen or pelvis. Recent above discussion. Renal U/S 08/10 - No hydronephrosis is seen. Bilateral renal atrophy. There is possible mildly altered right renal cortical echogenicity suggestive of medical renal disease. ASSESSMENT/PLAN: 86 yo man w/ pmh of DM, HTN, diverticulosis, chronic urinary retension secondary to BPH who presented in the setting of burning epigastric pain, elevated lipase/glucose and anemia, now s/p GI clips for bleeding gastric ulcer. Pt continues to remain hemodynamically stable (Hgb 8.7). No hematuria noted today. Still w/ good UOP. per urology, keep blackmon in until cr improves further. Will require outpt follow-up for further management of urinary retention. #Anemia/GI bleed - Hgb stable, 8.7 today. Bx w/ chronic inflammation of stomach and duodenum, + H. Pylori. Gastric ulcer clipped 08/09. - Started on Clarithromycin, amoxicin for 14 day course - Trend H/H - Tranfuse at <7 - start on oral iron - GI following. Recs appreciated - Protonix 40 mg BID #Obstructive uropathy - Drained 1500ml after placement w/ coude cath 08/09. UOP 3.2L overnight. No hematuria noted in AM. PSA 6 - Maintain blackmon per urology. Continue to trend Cr. - Monitor for hematuria, clots or continued pink urine. - Urology following. Recs appreciated - Monitor UOP - Will require outpt f/u - flomax 0.8 mg - Tylenol 650 for pain/fever q4h prn #ARF - Cr continue downtrending again 4.6 -> 4.3 today. Renal u/s notable for atrophic kidneys, no hydro. FeNa 5%. Cr 2.6 on 09/2016 - Renal consulted. Recs appreciated - Trend BUN/Cr - PO hydration #HTN - Systolics up to 150s. Better controlled - Toprol XL 75mg daily - Monitor BP #DM - BG well controlled now. A1C 14.0 on 08/09. On glipizide at home. - BGM q4h - ISS - A1C 14 - Will require outpt f/u for insulin regimen. Aggressive counseling regarding diet, blood sugar control #Dilated pancreatic duct - will require outpt MRCP for further evaluation. #FEN Fluids: PO hydration Electrolytes: Daily BMP, Monitor Cr Nutrition: Soft diet PPX: DVT - SCDs PPI Plan discussed with attending, Dr. Patricia Valle, PGY1 Visit type - Emergency Visit Emergency Visit: Yes ED Registration Date: 08/09/17 Care time: The patient presented to the Emergency Department on the above date and was hospitalized for further evaluation of their emergent condition. - New Patient This patient is new to me today: No - Critical Care Critical Care patient: No
[2017-08-14] MEDS: INSULIN SLIDING SCALE (NOVOLOG) 1 VIAL SQ SCH ×3 (06:24→21:02)
[2017-08-14] MEDS ORDERED: INSULIN (NOVOLOG) ASPART 100 UNITS/ML 10ML VIAL ONE ×2 (06:26→20:58)
[2017-08-14 08:02] LABS: BASOPHIL 0.6 % (0-2.0); EOSINOPHIL 10.8 % (0-4.5); MCH 26.2 pg (25.7-33.7); MCHC 33.8 g/dl (32.0-35.9); MEAN CELL VOLUME 77.5 fl (80-96); MEAN PLT VOLUME 7.9 fl (7.5-11.1); NEUTROPHILS 65.6 % (42.8-82.8); PLATELET COUNT 150 K/MM3 (134-434); RDW 21.8 % (11.9-15.9); WHITE BLOOD COUNT 6.7 K/mm3 (4.0-10.0)
[2017-08-14 08:46] LABS: ANION GAP 10 (8-16); CO2 19 mmol/L (21-32); CREATININE 4.3 mg/dL (0.7-1.3); GLUCOSE,RANDOM 122 mg/dL (74-106); MAGNESIUM 1.8 mg/dL (1.8-2.4); PHOSPHOROUS 1.9 mg/dL (2.5-4.9)
[2017-08-14] MEDS: METOPROLOL SUCCINATE 50 MG TAB.SR.24H (FP) PO SCH ×2 (09:22→09:27)
[2017-08-14] MEDS: SUCRALFATE 1 GM/10 ML UNIT DOSE CUPS PO SCH ×4 (09:22→21:02)
[2017-08-14] MEDS: TAMSULOSIN HCL 0.4 MG CAP.ER.24H (FP) PO SCH (09:22)
[2017-08-14] MEDS: PANTOPRAZOLE 40 MG TABLET (FP) PO SCH ×2 (09:27→21:02)
[2017-08-14] MEDS: POTASSIUM CHLORIDE TABS 20 MEQ TABLET.ER (FP) PO SCH (09:28)
[2017-08-14] MEDS: amLODIPine BESYLATE 5 MG TABLET (FP) PO SCH (09:29)
[2017-08-14 10:18] LABS: ANISOCYTOSIS 3+; HYPOCHROMIA 0; MACROCYTOSIS 0; MICROCYTOSIS 3+; PLATELET ESTIMATE NORMAL; POIKILOCYTOSIS 0; POLYCHROMASIA 1+
[2017-08-14] MEDS: SODIUM CHLORIDE 0.45% 1,000 ML IV SCH (13:22)
--- NOTE | 2017-08-14 17:35 | PN ---
Progress Note (short form) - Note Progress Note: H. pylori positive bx tipple rx x 14 days prescribed Problem List - Problems (1) Anemia Code(s): D64.9 - ANEMIA, UNSPECIFIED (2) Elevated lipase Code(s): R74.8 - ABNORMAL LEVELS OF OTHER SERUM ENZYMES
--- NOTE | 2017-08-14 17:36 | PN ---
Progress Note (short form) - Note Progress Note: Renal follow up for CATARINA on CKD Pt seen and examined at the bedside no complaints Vital Signs Temperature 98.3 F 08/14/17 11:00 Pulse Rate 88 08/14/17 11:00 Respiratory Rate 18 08/14/17 11:00 Blood Pressure 152/68 08/14/17 11:00 O2 Sat by Pulse Oximetry (%) 96 08/13/17 21:00 Intake & Output 08/11/17 08/12/17 08/13/17 08/14/17 23:59 23:59 23:59 23:59 Intake Total 220 720 730 970 Output Total 3000 2850 3200 400 Balance -2780 -2130 -2470 570 NAD RRR CTA soft NT/ND Sen in place with yellow urine No LE edema CBC, BMP 08/14/17 06:30 08/14/17 06:30 Current Medications Acetaminophen (Tylenol -) 650 mg PO Q4H PRN PRN Reason: FEVER OR PAIN Amlodipine Besylate (Norvasc -) 5 mg PO DAILY [facility] Last Admin: 08/14/17 09:29 Dose: 5 mg Sodium Chloride (1/2 Normal Saline) 1,000 mls @ 60 mls/hr IV ASDIR [facility] Last Admin: 08/14/17 13:22 Dose: 60 mls/hr Insulin Aspart (Novolog Vial Sliding Scale -) 1 vial SQ ACHS [facility] PRN Reason: Protocol Last Admin: 08/14/17 06:24 Dose: 4 units Metoprolol Succinate (Toprol Xl -) 75 mg PO DAILY [facility] Last Admin: 08/14/17 09:27 Dose: 75 mg Ondansetron HCl (Zofran Injection) 4 mg IVPUSH Q6H PRN PRN Reason: NAUSEA AND/OR VOMITING Pantoprazole Sodium (Protonix -) 40 mg PO BID [facility] Last Admin: 08/14/17 09:27 Dose: 40 mg Potassium Chloride (K-Dur -) 40 meq PO DAILY [facility] Stop: 08/16/17 10:01 Last Admin: 08/14/17 09:28 Dose: 40 meq Sucralfate (Carafate Oral Suspension -) 1 gm PO QID [facility] Last Admin: 08/14/17 09:22 Dose: 1 gm Tamsulosin HCl (Flomax -) 0.8 mg PO DAILY@0830 [facility] Last Admin: 08/14/17 09:22 Dose: 0.8 mg 86 year old gentleman with PMhx of Hypertension, DM Type 2 (diet controlled), Hyperlipidemia, CKD (? baseline), ABd hernia who presented to the ED with 1 day history of abdominal pain and found to have large hiatial hernia and CATARINA with BUN/Cr of 116/5.8. 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 renal function continues to improve d/c IVF and trend BUN/cr and electrolytes expect it may take some time to get to baseline Cr levels #Hypertension trend BP no KATELYNN/ARB fpr now #Acute Anemia/GI bleed s/p PRBC transfusion, venofer will need to be on oral iron on discharge s/p endoscopic intervention by GI Thank you Steven Carvajal DO
[2017-08-14] MEDS ORDERED: NAPH,MB-DB/K PH,MBDB POWDER PACKET PO ONE (19:55)
--- NOTE | 2017-08-14 20:03 | PN ---
Teaching Attending Note Name of Resident: Sang Valle ATTENDING PHYSICIAN STATEMENT I saw and evaluated the patient. I reviewed the resident's note and discussed the case with the resident. I agree with the resident's findings and plan as documented. SUBJECTIVE: No fever or chills. has no abd pain , no OSB OBJECTIVE: NAD Cv : RRr Lungs : CTAB ext : nichol sandrita Abd: soft, NT< ND , NL BS Blackmon in place with pinkish urine in bag ASSESSMENT AND PLAN: 86 y/o man with h/o DM, anemia and CKD and other medical problems who presented with Abd pain and was found to have urinary retention , CATARINA , and Acute blood loss anemia 1- Acute blood loss anemia : from Upper GI bleed . - EGD with gastritis , lower esophagitis and gastric ulcer . Bx with sevre chronci inflammation in duodenuma nd stomach with + HP - clarithro and amoxi started - cont PPI - avoid NSAIDs - f/u with GI 2- CATARINA , 2/2 obstructive uropathy. - cr improved - cont blackmon per d/w Uro - dc IVF - monitor cr. - renal US reviewed. 3- DM: cont SSI . takes glipizide at home 4- Prominant pancreatic duct on CT. - need follow up MRCP as out pt . no urgency DVT PX: SCDS
[2017-08-14] MEDS ORDERED: AMOXICILLIN 500 MG CAPSULE (FP) PO SCH ×2 (22:00)
[2017-08-14] MEDS ORDERED: CLARITHROMYCIN 500 MG TABLET (UD) PO SCH (22:00)
[2017-08-14] MEDS: AMOXICILLIN 500 MG CAPSULE (FP) PO SCH (22:32)
[2017-08-14] MEDS: CLARITHROMYCIN 250 MG TABLET PO SCH (22:32)
[2017-08-15] MEDS: INSULIN SLIDING SCALE (NOVOLOG) 1 VIAL SQ SCH ×3 (06:14→17:37)
--- NOTE | 2017-08-15 08:12 | PN ---
Physical Exam: SUBJECTIVE: Patient seen and examined by me this AM - No overnight events. Blackmon still in place, draining pinkish urine w/ no clots or brit blood. Pt inquired about how long he will need blackmon; informed of plan. No other symptoms. OBJECTIVE: Vital Signs Intake & Output 08/12/17 08/13/17 08/14/17 08/15/17 23:59 23:59 23:59 23:59 Intake Total 483 618 2812 Output Total 2850 3200 700 1500 Balance -2130 -2470 570 -1500 Period Temp Pulse Resp BP Sys/Bernstein Pulse Ox Last 24 Hr 97.7 F-98.3 F 84-90 18-20 136-152/68-76 96 GENERAL: The patient is A&Ox3, in no acute distress. HEAD: Normal with no signs of trauma. EYES: PERRL, extraocular movements intact, sclera anicteric, conjunctiva clear. No ptosis. ENT: Ears normal, nares patent, oropharynx clear without exudates, moist mucous membranes. Poor dentition. No oral lesions. NECK: Trachea midline, supple. No JVD noted. LUNGS: CTABL. No wheezes, no accessory muscle use. HEART: Regular rate and rhythm, S1, S2 without murmur, rub or gallop. ABDOMEN: Soft, nontender, nondistended, normoactive bowel sounds, no guarding, no rebound, no hepatosplenomegaly. No masses palpable. Negative murphys. Negative rodriguez, davis sykes sign Upper EXTREMITIES: 2+ pulses, warm, well-perfused, no edema. 2+ biceps reflex BL. 5/5 motor strength grossly, sensation to light touch intact Lower EXTREMITIES: 2+ pulses DP, PT pulses. No LE edema. 1+ patellar reflex BL. 5/5 motor strength grossly, sensation to light touch intact across all dermatomes. NEUROLOGICAL: Cranial nerves II through XII grossly intact. Normal speech, gait not observed. PSYCH: Normal mood, normal affect. SKIN: Warm, dry, normal turgor, no rashes or lesions noted Laboratory Results - last 24 hr CBC, BMP 08/14/17 06:30 08/14/17 06:30 08/14/17 08/14/17 08/14/17 06:30 06:30 17:53 WBC 6.7 RBC 3.33 L Hgb 8.7 L Hct 25.8 L MCV 77.5 L MCH 26.2 MCHC 33.8 RDW 21.8 H Plt Count 150 MPV 7.9 Neutrophils % 65.6 Lymphocytes % 15.1 Monocytes % 7.9 Eosinophils % 10.8 H Basophils % 0.6 Hypochromia 0 Platelet Estimate Normal Polychromasia 1+ Poikilocytosis 0 Anisocytosis 3+ Microcytosis 3+ Macrocytosis 0 Sodium 140 Potassium 3.7 Chloride 111 H Carbon Dioxide 19 L Anion Gap 10 BUN 43 H Creatinine 4.3 H POC Glucometer 269 Random Glucose 122 H D Calcium 7.0 L Phosphorus 1.9 L D Magnesium 1.8 08/14/17 08/15/17 08/15/17 20:55 00:51 01:21 WBC RBC Hgb Hct MCV MCH MCHC RDW Plt Count MPV Neutrophils % Lymphocytes % Monocytes % Eosinophils % Basophils % Hypochromia Platelet Estimate Polychromasia Poikilocytosis Anisocytosis Microcytosis Macrocytosis Sodium Potassium Chloride Carbon Dioxide Anion Gap BUN Creatinine POC Glucometer 334 55 160 Random Glucose Calcium Phosphorus Magnesium 08/15/17 05:53 WBC RBC Hgb Hct MCV MCH MCHC RDW Plt Count MPV Neutrophils % Lymphocytes % Monocytes % Eosinophils % Basophils % Hypochromia Platelet Estimate Polychromasia Poikilocytosis Anisocytosis Microcytosis Macrocytosis Sodium Potassium Chloride Carbon Dioxide Anion Gap BUN Creatinine POC Glucometer 160 Random Glucose Calcium Phosphorus Magnesium Active Medications Generic Name Dose Route Start Last Admin Trade Name Freq PRN Reason Stop Dose Admin Acetaminophen 650 mg 08/13/17 07:18 Tylenol - PO Q4H PRN FEVER OR PAIN Amlodipine Besylate 5 mg 08/13/17 10:00 08/14/17 09:29 Norvasc - PO 5 mg DAILY REHANA Administration Amoxicillin 500 mg 08/14/17 22:00 08/14/17 22:32 Amoxicillin - PO 500 mg BID REHANA Administration Clarithromycin 250 mg 08/14/17 22:00 08/14/17 22:32 Biaxin - PO 08/21/17 21:59 250 mg BID REHANA Administration Insulin Aspart 1 vial 08/13/17 11:00 08/15/17 06:14 Novolog Vial Sliding Scale - SQ 2 units ACHS REHANA Administration Protocol Metoprolol Succinate 75 mg 08/14/17 10:00 08/14/17 09:27 Toprol Xl - PO 75 mg DAILY REHANA Administration Ondansetron HCl 4 mg 08/13/17 07:18 Zofran Injection IVPUSH Q6H PRN NAUSEA AND/OR VOMITING Pantoprazole Sodium 40 mg 08/13/17 10:00 08/14/17 21:02 Protonix - PO 40 mg BID REHANA Administration Potassium Chloride 40 meq 08/13/17 10:00 08/14/17 09:28 K-Dur - PO 08/16/17 10:01 40 meq DAILY REHANA Administration Sucralfate 1 gm 08/13/17 10:00 08/14/17 21:02 Carafate Oral Suspension - PO 1 gm QID REHANA Administration Tamsulosin HCl 0.8 mg 08/13/17 09:35 08/14/17 09:22 Flomax - PO 0.8 mg DAILY@0830 REHANA Administration No micro EKG 08/09 - Sinus tachy rate 100s, NAD, QTc 448, no twi or st abnormalities. Imaging: RUQ US 08/09 - 1. Normal gallbladder and biliary tree. 2. Probable diffuse fatty infiltration of the liver. 3. Suspected chronic medical renal disease with no evidence of hydronephrosis or acute pathology. CXR 08/09 - No evidence of active pulmonary disease. Hiatal hernia. Ab/pelvis CT 08/09 - 1. Paraesophageal hiatal hernia. 2. Prominent main pancreatic duct. MRCP follow-up recommended. 3. Distended urinary bladder with mild prostatic enlargement. 4. No evidence of bowel obstruction or acute pathology within the abdomen or pelvis. Recent above discussion. Renal U/S 08/10 - No hydronephrosis is seen. Bilateral renal atrophy. There is possible mildly altered right renal cortical echogenicity suggestive of medical renal disease. ASSESSMENT/PLAN: 86 yo man w/ pmh of DM, HTN, diverticulosis, chronic urinary retension secondary to BPH who presented in the setting of burning epigastric pain, elevated lipase/glucose and anemia, now s/p GI clips for bleeding gastric ulcer. Pt stable w/ pinkish urine today, good UOP. Gastric bx w/ chronic inflammation, + H. Pylori, started on triple tx per Dr. Valdes. Will discharge today with blackmon in place per Dr. Lee. Starting on home levemer + Novolog SS for poor BG control. Discharge home today. #Anemia/GI bleed - Hgb stable, 8.6 today. Bx w/ chronic inflammation of stomach and duodenum, + H. Pylori. Gastric ulcer clipped 08/09. - Continue Clarithromycin, amoxicin for 14 day course at home. F/u w/ dr. valdes as outpt for repeat EGD possibly - Protonix 40 mg BID - Sucralfate QID - Monitor for further signs of occult/overt GI bleed #Obstructive uropathy - Pinkish urine again this AM, no hematuria or clots. D/c with blackmon per urology with outpt appointment next week. PSA 6 - Maintain blakcmon per urology at home. Monitor for gross heamaturia at home. Family counseled. - Outpt f/u early next week w/ dr. lee for d/c blackmon and continued tx plan. - flomax 0.8 mg - Tylenol 650 for pain/fever q4h prn #CATARINA - Cr continue downtrending still 4.3 -> 4.2 today. Renal u/s notable for atrophic kidneys, no hydro. FeNa 5%. Cr 2.6 on 09/2016 - outpt f/u w/ Dr. Carvajal in one week. - Provided rx for outpt BMP and CBC as outpt - Instructed family to hold losartan in setting of CATARINA - Cr. expected to improve over next few weeks. #HTN - - Toprol XL 75mg daily - Monitor BP #DM - A1C 14.0 on 08/09. On glipizide at home. - Started on 7units levemir qHS and novolog SS at home for poor BG control. Extensive counseling provided by MD and nurse on using glucometer, taking levemir and novolog and protocol for SS. - Counseled family about importance of keeping BG records before and after every meal and the signs of hypoglycemia. - Instructed for continued f/u as outpt with PCP for further management. Told to no longer take home glipizide. - A1C 14 #Dilated pancreatic duct - outpt MRCP for further evaluation. Dispo: Home today. Family counseled at length on outpt medical plan. Plan discussed with attending, Dr. Patricia Valle, PGY1 Visit type - Emergency Visit Emergency Visit: Yes ED Registration Date: 08/09/17 Care time: The patient presented to the Emergency Department on the above date and was hospitalized for further evaluation of their emergent condition. - New Patient This patient is new to me today: No - Critical Care Critical Care patient: No
[2017-08-15 08:17] LABS: BASOPHIL 0.6 % (0-2.0); EOSINOPHIL 8.7 % (0-4.5); MCH 25.3 pg (25.7-33.7); MCHC 32.1 g/dl (32.0-35.9); MEAN CELL VOLUME 78.9 fl (80-96); NEUTROPHILS 69.5 % (42.8-82.8); PLATELET COUNT 176 K/MM3 (134-434); RDW 21.8 % (11.9-15.9); WHITE BLOOD COUNT 6.8 K/mm3 (4.0-10.0)
[2017-08-15] MEDS: TAMSULOSIN HCL 0.4 MG CAP.ER.24H (FP) PO SCH (08:35)
[2017-08-15 08:43] LABS: ANION GAP 7 (8-16); CO2 22 mmol/L (21-32); CREATININE 4.2 mg/dL (0.7-1.3); GLUCOSE,RANDOM 99 mg/dL (74-106)
[2017-08-15] MEDS: CLARITHROMYCIN 250 MG TABLET PO SCH (09:48)
[2017-08-15] MEDS: SUCRALFATE 1 GM/10 ML UNIT DOSE CUPS PO SCH ×3 (09:49→17:36)
[2017-08-15] MEDS: PANTOPRAZOLE 40 MG TABLET (FP) PO SCH (09:49)
[2017-08-15] MEDS: AMOXICILLIN 500 MG CAPSULE (FP) PO SCH (09:49)
[2017-08-15] MEDS: POTASSIUM CHLORIDE TABS 20 MEQ TABLET.ER (FP) PO SCH (09:49)
[2017-08-15] MEDS: amLODIPine BESYLATE 5 MG TABLET (FP) PO SCH (09:49)
[2017-08-15] MEDS: METOPROLOL SUCCINATE 50 MG TAB.SR.24H (FP) PO SCH (09:49)
[2017-08-15] MEDS ORDERED: INSULIN DETEMIR 100 UNITS/ML MDV SQ ONE (11:15)
[2017-08-15] MEDS ORDERED: INSULIN (NOVOLOG) ASPART 100 UNITS/ML 10ML VIAL ONE (11:26)
--- NOTE | 2017-08-15 14:20 | PN ---
Progress Note (short form) - Note Progress Note: Renal follow up for CATARINA on CKD Pt seen and examined at the bedside no complaints blackmon in place with some blood tinged urine Vital Signs Temperature 97.7 F 08/15/17 05:58 Pulse Rate 83 08/15/17 09:00 Respiratory Rate 20 08/15/17 09:00 Blood Pressure 140/71 08/15/17 09:00 O2 Sat by Pulse Oximetry (%) 96 08/14/17 21:00 Intake & Output 08/12/17 08/13/17 08/14/17 08/15/17 23:59 23:59 23:59 23:59 Intake Total 480 131 1487 400 Output Total 2850 3200 700 1500 Balance -2130 -2470 570 -1100 NAD RRR CTA soft NT/ND Blackmon in place with yellow urine No LE edema CBC, BMP 08/15/17 07:15 08/15/17 07:15 Current Medications Acetaminophen (Tylenol -) 650 mg PO Q4H PRN PRN Reason: FEVER OR PAIN Last Admin: 08/15/17 13:52 Dose: 650 mg Amlodipine Besylate (Norvasc -) 5 mg PO DAILY [facility] Last Admin: 08/15/17 09:49 Dose: 5 mg Amoxicillin (Amoxicillin -) 500 mg PO BID [facility] Last Admin: 08/15/17 09:49 Dose: 500 mg Clarithromycin (Biaxin -) 250 mg PO BID [facility] Stop: 08/21/17 21:59 Last Admin: 08/15/17 09:48 Dose: 250 mg Insulin Aspart (Novolog Vial Sliding Scale -) 1 vial SQ ACHS [facility] PRN Reason: Protocol Last Admin: 08/15/17 11:32 Dose: 2 units Insulin Detemir (Levemir Vial) 7 units SQ ONCE ONE Stop: 08/16/17 06:31 Metoprolol Succinate (Toprol Xl -) 75 mg PO DAILY [facility] Last Admin: 08/15/17 09:49 Dose: 75 mg Ondansetron HCl (Zofran Injection) 4 mg IVPUSH Q6H PRN PRN Reason: NAUSEA AND/OR VOMITING Pantoprazole Sodium (Protonix -) 40 mg PO BID [facility] Last Admin: 08/15/17 09:49 Dose: 40 mg Potassium Chloride (K-Dur -) 40 meq PO DAILY [facility] Stop: 08/16/17 10:01 Last Admin: 08/15/17 09:49 Dose: 40 meq Sucralfate (Carafate Oral Suspension -) 1 gm PO QID [facility] Last Admin: 08/15/17 13:50 Dose: 1 gm Tamsulosin HCl (Flomax -) 0.8 mg PO DAILY@0830 [facility] Last Admin: 08/15/17 08:35 Dose: 0.8 mg 86 year old gentleman with PMhx of Hypertension, DM Type 2 (diet controlled), Hyperlipidemia, CKD (? baseline), ABd hernia who presented to the ED with 1 day history of abdominal pain and found to have large hiatial hernia and CATARINA with BUN/Cr of 116/5.8. 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 renal function slowly improving d/c blackmon when ok with urology continue flomax off IVF oral intake as tolerated no nsaids, IV contrast will need outpatient renal follow up #Hypertension trend BP no KATELYNN/ARB fpr now #Acute Anemia/GI bleed s/p PRBC transfusion, venofer will need to be on oral iron on discharge s/p endoscopic intervention by GI Thank you Steven Carvajal DO
[2017-08-15 14:52] VITALS: PULSE 80
--- NOTE | 2017-08-15 15:20 | PN ---
Teaching Attending Note Name of Resident: Sang Valle ATTENDING PHYSICIAN STATEMENT I saw and evaluated the patient. I reviewed the resident's note and discussed the case with the resident. I agree with the resident's findings and plan as documented. SUBJECTIVE: No fever or chills, No abd pain OBJECTIVE: NAD Cv : RRr Lungs : CTAB ext : no edema Abd: soft, NT, ND , NL BS Blackmon in place with pinkish urine in bag ASSESSMENT AND PLAN: 86 y/o man with h/o DM, anemia and CKD and other medical problems who presented with Abd pain and was found to have urinary retention , CATRAINA , and Acute blood loss anemia 1- Acute blood loss anemia : from Upper GI bleed . - EGD with gastritis , lower esophagitis and gastric ulcer . Bx with severe chroni inflammation in duodenum and stomach with + HP - clarithro and amoxi for Hpylori - cont PPI - f/u with GI as outpt for possible repeat EGD 2- CATARINA , 2/2 obstructive uropathy. - stable cr , expected to improve over a period of weeks - d/w Uro, dc home with blackmon and f/u with -give prescription for BMP and CBC as outpt 3- DM: cont glipizide at home 4- Prominant pancreatic duct on CT. - need follow up MRCP as out pt . no urgency dc home ,f/u with uro and GI .
[2017-08-15 19:19] VITALS: BP 138/78; TEMP 98.7
--- NOTE | 2017-08-15 23:33 | DS ---
Physical Exam: SUBJECTIVE: Patient seen and examined by me this AM - No overnight events. Blackmon still in place, draining pinkish urine w/ no clots or brit blood. Pt inquired about how long he will need blackmon; informed of plan. No other symptoms. OBJECTIVE: Vital Signs Intake & Output 08/12/17 08/13/17 08/14/17 08/15/17 23:59 23:59 23:59 23:59 Intake Total 937 114 2245 710 Output Total 2850 3200 700 2300 Balance -2130 -2470 570 -1590 Period Temp Pulse Resp BP Sys/Bernstein Pulse Ox Last 24 Hr 97.7 F-98.7 F 80-84 20-20 138-151/68-78 PHYSICAL EXAM GENERAL: The patient is A&Ox3, in no acute distress. HEAD: Normal with no signs of trauma. EYES: PERRL, extraocular movements intact, sclera anicteric, conjunctiva clear. No ptosis. ENT: Ears normal, nares patent, oropharynx clear without exudates, moist mucous membranes. Poor dentition. No oral lesions. NECK: Trachea midline, supple. No JVD noted. LUNGS: CTABL. No wheezes, no accessory muscle use. HEART: Regular rate and rhythm, S1, S2 without murmur, rub or gallop. ABDOMEN: Soft, nontender, nondistended, normoactive bowel sounds, no guarding, no rebound, no hepatosplenomegaly. No masses palpable. Negative murphys. Negative rodriguez, davis sykes sign Upper EXTREMITIES: 2+ pulses, warm, well-perfused, no edema. 2+ biceps reflex BL. 5/5 motor strength grossly, sensation to light touch intact Lower EXTREMITIES: 2+ pulses DP, PT pulses. No LE edema. 1+ patellar reflex BL. 5/5 motor strength grossly, sensation to light touch intact across all dermatomes. NEUROLOGICAL: Cranial nerves II through XII grossly intact. Normal speech, gait not observed. PSYCH: Normal mood, normal affect. SKIN: Warm, dry, normal turgor, no rashes or lesions noted LABS Laboratory Results - last 24 hr CBC, BMP 08/15/17 07:15 08/15/17 07:15 08/15/17 08/15/17 08/15/17 00:51 01:21 05:53 WBC RBC Hgb Hct MCV MCH MCHC RDW Plt Count MPV Neutrophils % Lymphocytes % Monocytes % Eosinophils % Basophils % Sodium Potassium Chloride Carbon Dioxide Anion Gap BUN Creatinine POC Glucometer 55 160 160 Random Glucose Calcium 08/15/17 08/15/17 08/15/17 07:15 07:15 10:54 WBC 6.8 RBC 3.40 L Hgb 8.6 L Hct 26.9 L MCV 78.9 L MCH 25.3 L MCHC 32.1 RDW 21.8 H Plt Count 176 MPV 8.0 Neutrophils % 69.5 Lymphocytes % 13.1 Monocytes % 8.1 Eosinophils % 8.7 H Basophils % 0.6 Sodium 139 Potassium 4.6 D Chloride 110 H Carbon Dioxide 22 Anion Gap 7 L BUN 38 H Creatinine 4.2 H POC Glucometer 191 Random Glucose 99 Calcium 7.0 L 08/15/17 16:35 WBC RBC Hgb Hct MCV MCH MCHC RDW Plt Count MPV Neutrophils % Lymphocytes % Monocytes % Eosinophils % Basophils % Sodium Potassium Chloride Carbon Dioxide Anion Gap BUN Creatinine POC Glucometer 159 Random Glucose Calcium No micro EKG 08/09 - Sinus tachy rate 100s, NAD, QTc 448, no twi or st abnormalities. Imaging: RUQ US 08/09 - 1. Normal gallbladder and biliary tree. 2. Probable diffuse fatty infiltration of the liver. 3. Suspected chronic medical renal disease with no evidence of hydronephrosis or acute pathology. CXR 08/09 - No evidence of active pulmonary disease. Hiatal hernia. Ab/pelvis CT 08/09 - 1. Paraesophageal hiatal hernia. 2. Prominent main pancreatic duct. MRCP follow-up recommended. 3. Distended urinary bladder with mild prostatic enlargement. 4. No evidence of bowel obstruction or acute pathology within the abdomen or pelvis. Recent above discussion. Renal U/S 08/10 - No hydronephrosis is seen. Bilateral renal atrophy. There is possible mildly altered right renal cortical echogenicity suggestive of medical renal disease. 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 Hgb in ED 6.2, Glucose 588, Lipase 491, BUN 116, Cr 5.8. Abdominal US normal. On admission, RR called by nursing due to elevated glucose and suspected AMS. Pt evaluated, found to have large umbilical herniated mass. Pt given insulin and fluids; AB/pelvis CT + for massively enlarged bladder, no other evidence of bowel pathology. F/u labs 08/09 notable for decreased Hgb 5.4, correction of glucose to 198. FOBT +. GI consulted. Pt transfused prbcs w/ f/u Hgb of 9.5, started on PPI per GI recs. Pt scoped 08/[address] Valdes, found with bleeding antral ulcer 1cm; clipped, biopsy taken and hemostasis acheived. Pt found w/ urinary retention likely causing obstructive uropathy; staff unable to place blackmon. Urology consulted, placed blackmon with coude catheter, drained approx 1.5 L urine. PSA found to be elevated at 6.0; severe BPH on imaging. Renal consulted. Course also notable for Hb A1C of 14. Pt stable for remainder of admission, with downtrending BUN/Cr (38/4.2 on 08/15 discharge) and no change in Hgb, no melena or hematochezia. Blackmon left in place during admission; notable for trace hematuria, likely due to trauma placement. Excellent UOP during stay. Ulcer bx found to be + for H. Pylori. Patient started on Amoxicillin, clarithromycin, and PPI for 14 day course per GI recs. Per urology (Dr. Lee), pt advised for discharge with blackmon and f/ u in office the following week. Pt discharged 08/[address], stable Hgb and improving BUN/Cr. Pt started on levemir 7units at night and Novolog SS at home, counseled on how to administer insulin, blood sugar journal. Scheduled for f/u w/ Dr. Carvajal (renal), Dr. Lee (urology), Dr. Valdes (GI) and Dr. Hirsch (PCP). Consults: Renal: Plan on discharge- 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 renal function slowly improving d/c blackmon when ok with urology continue flomax off IVF oral intake as tolerated no nsaids, IV contrast will need outpatient renal follow up #Hypertension trend BP no KATELYNN/ARB fpr now #Acute Anemia/GI bleed s/p PRBC transfusion, venofer will need to be on oral iron on discharge s/p endoscopic intervention by GI Gastroenterology: plan on discharge - PPI to PO BID Carafe Diet as tolerated No NSAIDs Follow biopsy results Urology Pt medically cleared for discharge with outpatient follow-up with Dr. Lee (urology), Dr. Carvajal (renal), Dr. Valdes (GI) and Dr. Hirsch (PCP). Minutes to complete discharge: 35 Discharge Summary Reason For Visit: ANEMIA DISORDER OF ELECTROLYTES Condition: Stable - Instructions Diet, Activity, Other Instructions: You were treated for urinary retention and for a bleeding ulcer in your stomach. During you stay with us, you were found to have a bacterial infection in your stomach by the organism H. Pylori. Chronic infections with this organism can predispose you to forming ulcers. As such, we have prescribed antibiotics to treat the infection (Amoxicilin, Clarithromycin). Please take these antibiotics for the next 13 days. The doses are listed below. Additionally, your hemoglobin A1C, a marker of senior care blood sugar control, was elevated (14.0) during your stay with us. Because of this, our providers have started you on a new home insulin therapy. You are being given a prescription for two forms of insulin, a Levemir FlexPen and a Novolog sliding scale. Please take the Levemir Flexpen at 7 units every night. For your Novolog sliding scale, please check your sugar levels 5-10 minutes before every meal and administer a dose of insulin according to chart provided below: 0 - 150 - 0 units 150 - 200 - 2 units 200 - 250 - 4 units 250 - 300 - 6 units 300 - 350 - 8 units 350 - 400 - 10 units 400+ -> please call your primary care provider or return to the hospital. You have been provided with test strips, gauze pads and a glucometer for measuring your blood glucose levels before meals. Please keep an accurate measure of your blood sugar levels before each meal, 3x a day, and before you go to bed. If at any point you feel weak, sweaty, lightheaded or your heart beat becomes fast, please call 911 and attempt to drink some juice. Please follow up with you primary care provider, Dr. Hirsch, for further modifications of this insulin regimen. Medications: Please STOP taking the following medications, as they will worsen your kidney function: Cozaar 50mg Glipizide 15mg Please take the following medications at the specified doses/schedules: Amoxicillin 500 mg (one pill) twice a day by mouth from 08/16 - 08/28 Clarithromycin 250 mg (one pill) twice a day by mouth from 08/16 - 08/28 Tamsulosin 0.8 mg (one pill) once a day in the morning Metoprolol succinate (Toprol Xl) 75mg (one pill) once a day Norvasc 5mg (one pill) once a day Sucralfate 1gm four times a day by mouth Pantoprazole 40mg twice a day by mouth Levemir 7units at night by pen. is a new medication for your diabetes. Novolog (insulin aspartate) sliding scale. Instructions as stated above. Please continue taking your following home medications as they were previously prescribed: Zocor Lopressor You are being given a prescription for outpatient lab work (CBC, BMP). Please follow-up with a lab within one week and bring the results to your primary care provider, Dr. Hirsch. Please follow-up with the following doctors as an outpatient. Their contact information has been provided in this packet. Please call the numbers provided to schedule an appointment: Dr. Hirsch, your primary care doctor, in one week for post-hospital evaluation Dr. Valdes, GI doctor, to follow-up with results of your biopsy and further evaluation of GI bleed. Dr. Carvajal, kidney doctor, for repeat labs to monitor your kidney function Dr. Colvin, urology doctor, regarding your prostate, urinary retention and to potentially remove your Blackmon catheter. Special instructions: Do not take any NSAIDS, such as aspirin, aleve, or ibuprofen, as these can increase the risk of a bleeding ulcer. Please refrain from hot/spicy/acidic foods for the next two weeks to allow time for your stomach to heal. You are being discharged with a blackmon catheter to help you urinate due to an enlarged prostate and urinary retention. Provided below are instructions for caring for your blackmon catheter. Please follow-up with Dr. Colvin early next week for further evaluation of your urination and to remove your blackmon catheter Blackmon care instructions: To care for your urinary catheter at home: Make sure that urine is flowing out of the catheter into the drainage bag Check the area around the urethra for inflammation or signs of infection, such as irritated, swollen, red or tender skin at the insertion site or drainage around the catheter. Keep the urinary drainage bag below the level of the bladder. Make sure that the urinary drainage bag does not drag and pull on the catheter. Caring for your catheter If your doctor or nurse has given you specific instructions on caring for your urinary catheter, be sure to follow them. Always wash your hands before and after caring for your catheter. Clean the area around the drainage tube twice each day. Use soap and water to carefully wash around the drainage tube. Rinse well and dry with a clean towel. Do not tug or pull on the drainage tube Unless you pull or tug on your catheter. Draining the urine collection bag The bag that collects urine may be strapped to your thigh and you will be provided with a larger bedside bag for night time. You will need to empty the bag at regular intervals, whenever it is half-full, and at bedtime. Be sure to wash your hands before and after emptying urine from your collection bag. Wash your hands with soap and water. If you are emptying another persons collection bag you may wish to wear disposable gloves. Wash your hands before you put on the gloves and after you remove them. Unfasten the tube from the drainage bag. Fasten the tubing clamp and remove the drainage cap. Drain the urine into the toilet. You may also drain the urine into another container and then empty it into the toilet. Avoid touching the tubing or drainage cap on the toilet, the collection container, or the floor. Replace the drainage cap, close the clamp, and refasten the collection tube to the drainage bag. Refasten the collection tube to the drainage bag. Wash your hands with soap and water. -You have prominent pancreatic duct on CT scan . You need to obtain MRI calld MRCP of your abdomen to evaluate this,. please follow with your PCP to order it Referrals: Boris Hirsch MD [Primary Care Provider] - 1 Week Sergio Lee MD [Staff Physician] - 1 Week Skyler Valdes MD [Staff Physician] - 1 Week Steven Carvajal MD [Staff Physician] - 1 Week Disposition: VNS/HOME HEALTH CARE - Home Medications Comprehensive Discharge Medication List: Ambulatory Orders Simvastatin [Zocor -] 20 mg PO DAILY 08/09/17 Amlodipine Besylate [Norvasc -] 5 mg PO DAILY #30 tablet 12/14/17 Amoxicillin - [Amoxicillin 500mg Capsule -] 500 mg PO BID #26 capsule 08/15/17 Blood Sugar Diagnostic [Test Strips] 1 box 1XPACU #120 strip 08/15/17 Blood Sugar Diagnostic [Test Strips] 1 box ONCE #1 strip 08/15/17 Clarithromycin [Biaxin -] 250 mg PO BID #26 tablet 08/15/17 Gauze Bandage [Gauze Pads] 1 box 1XPACU #1 bandage 08/15/17 Insulin (Levemir) [Levemir Flexpen -] 7 units SQ DAILY #1 pen 08/15/17 Lancets/Blood Glucose Strips [Fora [id number] Strp-Lnct] 1 box PRN #120 combo..pkg 08/15/17 Metoprolol Succinate [Toprol XL -] 75 mg PO DAILY #30 tab.sr.24h 08/15/17 Miscellaneous Drug Not In Syst [Outpatient Lab Test] 1 each ASDIR #1 misc Miscellaneous Drug Not in Syst 1 unit .ROUTE PRN #1 each 08/15/17 Pantoprazole Sodium [Protonix -] 40 mg PO BID #60 tablet.ec 08/15/17 Sucralfate Oral Suspension [Carafate Oral Suspension -] 1 gm PO QID #1 bottle Tamsulosin HCl [Flomax -] 0.8 mg PO DAILY@0830 #30 cap.er.24h 08/15/17 This patient is new to me today: No Emergency Visit: Yes ED Registration Date: 08/09/17 Care time: The patient presented to the Emergency Department on the above date and was hospitalized for further evaluation of their emergent condition. Critical Care patient: No - Discharge Referral Referred to [facility] No
[2017-08-16] MEDS ORDERED: INSULIN DETEMIR 100 UNITS/ML MDV SQ ONE (06:30)
== END 2017-08-15 21:27 | disposition home health service (06) | DRG 682 ==
LOC: JER 01:05 → JERBED 05:36 → UNDOADMIN 05:42 → J6S 07:08 → J4W 10:51 → J6S 08-12 23:49
PROVIDERS: ADMIT Internal Medicine; ATTEND Internal Medicine
PROC: 3E0G8GC Introduction of Other Therapeutic Substance into Upper GI, Via Natural or Artificial Opening Endoscopic (ICD-10-PCS; 2017-08-09)
PROC: 30233N1 Transfusion of Nonautologous Red Blood Cells into Peripheral Vein, Percutaneous Approach (ICD-10-PCS; 2017-08-09)
PROC: 0W3P8ZZ Control Bleeding in Gastrointestinal Tract, Via Natural or Artificial Opening Endoscopic (ICD-10-PCS; principal; 2017-08-09 15:30)
PROC: 0DD98ZX Extraction of Duodenum, Via Natural or Artificial Opening Endoscopic, Diagnostic (ICD-10-PCS; 2017-08-12)
PROC: 0DD68ZX Extraction of Stomach, Via Natural or Artificial Opening Endoscopic, Diagnostic (ICD-10-PCS; 2017-08-12)
DX: N17.9 Acute kidney failure, unspecified (principal); K25.4 Chronic or unspecified gastric ulcer with hemorrhage; D62 Acute posthemorrhagic anemia; E87.1 Hypo-osmolality and hyponatremia; E11.9 Type 2 diabetes mellitus without complications; E78.5 Hyperlipidemia, unspecified; D64.9 Anemia, unspecified; I10 Essential (primary) hypertension; R33.9 Retention of urine, unspecified; I12.9 Hypertensive chronic kidney disease with stage 1 through stage 4 chronic kidney disease, or unspecified chronic kidney disease; E11.22 Type 2 diabetes mellitus with diabetic chronic kidney disease; N18.9 Chronic kidney disease, unspecified; N13.9 Obstructive and reflux uropathy, unspecified; K86.89 Other specified diseases of pancreas; N40.1 Benign prostatic hyperplasia with lower urinary tract symptoms; K44.9 Diaphragmatic hernia without obstruction or gangrene; K20.9 Esophagitis, unspecified; K29.50 Unspecified chronic gastritis without bleeding; B96.81 Helicobacter pylori [H. pylori] as the cause of diseases classified elsewhere
CPT/HCPCS: 36415; 36430; 71010-TC; 74176-TC; 76705-TC; 76775-TC; 80048; 80053; 80061; 81003; 81015; 82272; 82436; 82550; 82570; 82728; 83036; 83540; 83550; 83690; 83721; 83735; 83930; 83935; 84100; 84133; 84153; 84156; 84300; 84484; 85025; 85027; 86850; 86900; 86901; 86922; 88305-TC; 93005; 93010; 97116-GP; 97161-GP; 99283-25; J1756; P9038; P9058

== ENCOUNTER 2017-11-28 19:24 | Emergency (ER) | payer OTHER ==
[2017-11-28 19:54] VITALS: BP 153/74; PULSE 82; TEMP 98.1; BMI 20.7
--- NOTE | 2017-11-28 19:55 | PDOC ---
Rapid Medical Evaluation Time Seen by Provider: 11/28/17 19:51 Medical Evaluation: Allergies Allergy/AdvReac Type Severity Reaction Status Date / Time No Known Allergies Allergy Verified 09/06/16 10:11 11/28/17 19:51 The patient presents with a chief complaint of: itching since this morning. Pt. has redness to L forearm, back and L leg. I have performed a brief in-person evaluation of this patient; Pertinent physical exam findings: ambulatory, in no respiratory distress. Red patch to L fore arm I have ordered the following: nothing The patient will proceed to the ED for further evaluation.
[2017-11-28] MEDS ORDERED: diphenhydrAMINE HCL 25 MG CAPSULE (FP) PO ONE ×2 (22:20→22:24)
--- NOTE | 2017-11-28 22:26 | PDOC ---
History of Present Illness - General Chief Complaint: Rash Stated Complaint: RASH Time Seen by Provider: 11/28/17 19:51 History Source: Patient Exam Limitations: No Limitations - History of Present Illness Initial Comments: CHIEF COMPLAINT: 87 y/o male with IDDM c/o itchy rash since yesterday. HISTORY OF PRESENT ILLNESS: Patient's doctor gave him some cream a while ago for a rash but it flared up yesterday and he doesn't have any more cream. He denies exposure to new food/dye/soap/detergent/medications, cough, SOB, lip/face /tongue swelling. Vital signs on arrival are within normal limits. REVIEW OF SYSTEMS: GENERAL/CONSTITUTIONAL: No fever/chills. No weakness. No weight change. RESPIRATORY: No cough, wheezing, or hemoptysis. MUSCULOSKELETAL: No joint or muscle swelling or pain. No neck or back pain. SKIN: No rash or easy bruising. NEUROLOGIC: No headache, vertigo, loss of consciousness, or loss of sensation. PHYSICAL EXAM: VITAL_SIGNS: within normal limits GENERAL_APPEARANCE: alert, cooperative, mild obvious discomfort. No angioedema MENTAL_STATUS: speech clear, oriented X 3, responds appropriately to questions. NEURO: motor intact and sensory intact in injured extremity. EXTREMITIES: good pulse in injured extremity, affected area on extremity has mild erythema, mild swelling, mild tenderness and no abrasions\lacerations. SKIN: erythematous hives on b/l arms, back, chest and b/l legs. Past History - Past Medical History Allergies/Adverse Reactions: Allergies Allergy/AdvReac Type Severity Reaction Status Date / Time No Known Allergies Allergy Verified 11/28/17 19:52 Home Medications: Ambulatory Orders Simvastatin [Zocor -] 20 mg PO DAILY 08/09/17 Amlodipine Besylate [Norvasc -] 5 mg PO DAILY #30 tablet 08/15/17 Blood Sugar Diagnostic [Test Strips] 1 box MC 1XPACU #120 strip 08/15/17 Blood Sugar Diagnostic [Test Strips] 1 box MC ONCE #1 strip 08/15/17 Clarithromycin [Biaxin -] 250 mg PO BID #26 tablet 08/15/17 Gauze Bandage [Gauze Pads] 1 box TP 1XPACU #1 bandage 08/15/17 Insulin (Levemir) [Levemir Flexpen -] 7 units SQ DAILY #1 pen 08/15/17 Lancets/Blood Glucose Strips [Fora [id number] Strp-Lnct] 1 [facility] PRN #120 combo..pkg 08/15/17 Metoprolol Succinate [Toprol XL -] 75 mg PO DAILY #30 tab.sr.24h 08/15/17 Miscellaneous Drug Not In Syst [Outpatient Lab Test] 1 each ASDIR #1 misc Miscellaneous Drug Not in Syst 1 unit .ROUTE PRN #1 each 08/15/17 Pantoprazole Sodium [Protonix -] 40 mg PO BID #60 tablet.ec 08/15/17 Sucralfate Oral Suspension [Carafate Oral Suspension -] 1 gm PO QID #1 bottle Tamsulosin HCl [Flomax -] 0.8 mg PO DAILY@0830 #30 cap.er.24h 08/15/17 Insulin Aspart [Novolog Flexpen] 100 unit SQ PRN #1 insuln.pen 08/16/17 Pen Needle, Diabetic [1St Tier Unifine Pentips Plus] 1 [facility] PRN #120 dis.needle 08/16/17 Syringe and Needle,Insulin,1Ml [Advocate Syringes] 1 [facility] PRN #120 disp.syrin 08/16/17 Anemia: No Asthma: No Cancer: No CVA: No COPD: No CHF: No Diabetes: Yes GI Disorders: Yes (diverticulosis) Disorders: Yes (bph) HTN: Yes Hypercholesterolemia: Yes Liver Disease: No Seizures: No Thyroid Disease: No - Surgical History Abdominal Surgery: No Appendectomy: No Cardiac Surgery: No Cholecystectomy: No Lung Surgery: No Neurologic Surgery: No Orthopedic Surgery: No - Suicide/Smoking/Psychosocial Hx Smoking History: Never smoked Have you smoked in the past 12 months: No Hx Alcohol Use: No Drug/Substance Use Hx: No Substance Use Type: None Hx Substance Use Treatment: No *Physical Exam - Vital Signs Last Vital Signs Temp Pulse Resp BP Pulse Ox 98.1 F 82 18 153/74 97 11/28/17 19:52 11/28/17 19:52 11/28/17 19:52 11/28/17 19:52 11/28/17 19:52 Medical Decision Making - Medical Decision Making A/P: 87 y/o male with hives. Will give PO benadryl and suggest taking benadryl by mouth and using benadryl cream at home for rash. Will not give steroids because of his diabetes. Suggested f/u with PMD within 1 week and return to the ER with any worsening or concerning symptoms. The patient verbalizes understanding of all instructions, has no further questions and is awaiting discharge. *DC/Admit/Observation/Transfer Diagnosis at time of Disposition: Rash and nonspecific skin eruption - Discharge Dispostion Disposition: HOME Condition at time of disposition: Good - Referrals Referrals: John Calix MD [Primary Care Provider] - - Patient Instructions Printed Discharge Instructions: DI for Rash Additional Instructions: Discharge Instructions: -Take over the counter benadryl as prescribed for itching -Use over the counter benadryl cream to help with rash -Follow up with your doctor within 1 week -Return to the ER with any worsening or concerning symptoms - Post Discharge Activity
== END 2017-11-28 22:32 | disposition home or self-care (01) ==
LOC: JERFT 19:24
DX: L50.9 Urticaria, unspecified (principal); I10 Essential (primary) hypertension; E11.9 Type 2 diabetes mellitus without complications; Z79.4 Long term (current) use of insulin; E78.00 Pure hypercholesterolemia, unspecified; N40.0 Benign prostatic hyperplasia without lower urinary tract symptoms; K57.90 Diverticulosis of intestine, part unspecified, without perforation or abscess without bleeding
CPT/HCPCS: 99281-25

== ENCOUNTER 2018-08-15 16:57 | Inpatient (IN) | payer OTHER ==
--- NOTE | 2018-08-15 17:08 | PDOC ---
History of Present Illness - General Chief Complaint: Shortness of Breath Stated Complaint: SOB History Source: Patient Exam Limitations: Language Barrier (used sons) - History of Present Illness Initial Comments: 08/15/18 19:53 87 yo M with a hx of DM, CKD, HTN, and HLD presents to the emergency department with SOB for 2 weeks. The sons at bedside contributed to the history taking given patient's language barrier. Per the patient, he states he has been SOB for the past 2 weeks that would occur with exertion and cease with rest. Over the last 3 days, he has acute worsening of SOB with associative bilateral LE and pedal edema. Denies a hx of COPD, asthma, CHF, and home O2. The patient lives at home with his . Denies the following: fever, chills, nausea, vomiting, chest pain, abdominal pain, dysuria, hematuria, diarrhea, hematochezia , and melena. Pmhx: Refer to above Shx: None Meds: Son's did not have medication list but state he takes insulin and denies he uses anti-coagulation Allergies: NKDA Social: Denies tobacco, alcohol, and substance abuse. Past History - Past Medical History Allergies/Adverse Reactions: Allergies Allergy/AdvReac Type Severity Reaction Status Date / Time No Known Allergies Allergy Verified 08/15/18 17:05 Home Medications: Ambulatory Orders Amlodipine Besylate [Norvasc -] 5 mg PO DAILY #30 tablet 08/15/17 Insulin (Levemir) [Levemir Flexpen -] 7 units SQ DAILY #1 pen 08/15/17 Metoprolol Succinate [Toprol XL -] 75 mg PO DAILY #30 tab.sr.24h 08/15/17 Tamsulosin HCl [Flomax -] 0.8 mg PO DAILY@0830 #30 cap.er.24h 08/15/17 Insulin Aspart [Novolog Flexpen] 100 unit SQ PRN #1 insuln.pen 08/16/17 Anemia: No Asthma: No Cancer: No CVA: No COPD: No CHF: No Diabetes: Yes GI Disorders: Yes (diverticulosis) Disorders: Yes (bph) HTN: Yes Hypercholesterolemia: Yes Liver Disease: No Seizures: No Thyroid Disease: No - Surgical History Abdominal Surgery: No Appendectomy: No Cardiac Surgery: No Cholecystectomy: No Lung Surgery: No Neurologic Surgery: No Orthopedic Surgery: No - Suicide/Smoking/Psychosocial Hx Smoking History: Never smoked Have you smoked in the past 12 months: No Hx Alcohol Use: No Drug/Substance Use Hx: No Substance Use Type: None Hx Substance Use Treatment: No Review of Systems - Review of Systems Able to Perform ROS?: Yes Is the patient limited Georgian proficient: No Constitutional: No: Chills, Diaphoresis, Fever HEENTM: No: Recent change in vision, Ear Pain, Nose Pain, Throat Pain, Mouth Pain Respiratory: Yes: Shortness of Breath, SOB with Exertion, SOB at Rest, Wheezing. No: Cough, Productive cough, Hemoptysis Cardiac (ROS): Yes: Edema (LE bilaterally). No: Chest Pain, Lightheadedness, Palpitations, Syncope, Chest Tightness ABD/GI: No: Constipated, Diarrhea, Nausea, Poor Appetite, Poor Fluid Intake, Rectal Bleeding, Vomiting, Tarry Stools : No: Burning, Dysuria, Hematuria, Urgency Musculoskeletal: No: Back Pain, Joint Pain, Neck Pain Integumentary: No: Bruising, Erythema, Rash Neurological: No: Headache, Numbness, Tremors, Weakness, Unsteady Gait, Ataxia Psychiatric: No: Stressors Endocrine: No: Unexplained Weight Gain Hematologic/Lymphatic: No: Anemia, Blood Clots *Physical Exam - Physical Exam General Appearance: Yes: Nourished, Appropriately Dressed, Apparent Distress, Thin. No: Intoxicated HEENT: positive: EOMI, PÉREZ, Normal Voice, Symmetrical, Pharynx Normal, Hearing Grossly Normal. negative: Pale Conjunctivae, Scleral Icterus (R), Scleral Icterus (L), Muffled/Hoarse voice, Pharyngeal Erythema, Tonsillar Exudate, Excessive drooling Neck: positive: Trachea midline. negative: Tender, Lymphadenopathy (R), Lymphadenopathy (L), Tender lateral, Tender midline Respiratory/Chest: positive: Respiratory Distress, Accessory Muscle Use, Labored Respiration, Rapid RR, Rales, Wheezing. negative: Chest Tender, Lungs Clear, Normal Breath Sounds Cardiovascular: positive: Regular Rhythm, Regular Rate, S1, S2. negative: Systolic Murmur Gastrointestinal/Abdominal: positive: Normal Bowel Sounds. negative: Tender, Increased Bowel Sounds, Tenderness, Hepatomegaly, Spleenomegaly Lymphatic: negative: Adenopathy Musculoskeletal: positive: Normal Inspection. negative: CVA Tenderness, Vertebral Tenderness Extremity: positive: Normal Capillary Refill, Normal Range of Motion, Pedal Edema (bilaterally), Swelling (bilaterally). negative: Normal Inspection, Tender, Calf Tenderness Integumentary: positive: Normal Color, Dry, Warm Neurologic: positive: account group supervisor II-XII NML intact, Fully Oriented, Alert, Normal Mood/ Affect, Normal Response, Motor Strength 01/04 ED Treatment Course - LABORATORY CBC & Chemistry Diagram: 08/15/18 18:00 08/15/18 18:00 *DC/Admit/Observation/Transfer Diagnosis at time of Disposition: Acute on chronic renal failure Qualifiers: Acute renal failure type: unspecified Chronic kidney disease stage: unspecified stage Qualified Code(s): N17.9 - Acute kidney failure, unspecified; N18.9 - Chronic kidney disease, unspecified CHF (congestive heart failure) Qualifiers: Heart failure type: unspecified Heart failure chronicity: unspecified Qualified Code(s): I50.9 - Heart failure, unspecified - Referrals - Patient Instructions - Post Discharge Activity
[2018-08-15] MEDS ORDERED: ALBUTEROL SO4 2.5/IPRATROPIUM 0.5 INH SOL 3 ML VIAL.NEB. NEB ONE ×2 (17:13→18:15)
--- NOTE | 2018-08-15 17:58 | PDOC ---
Attending Attestation - HPI HPI: 87 yo M with a hx of DM, CKD, HTN, and HLD presents to the emergency department with SOB for 2 weeks. The sons at bedside contributed to the history taking given patient's language barrier. Per the patient, he states he has been SOB for the past 2 weeks that would occur with exertion and cease with rest. Over the last 3 days, he has acute worsening of SOB with associative bilateral LE and pedal edema. Denies a hx of COPD, asthma, CHF, and home O2. The patient lives at home with his . Denies fever, chills, nausea, vomiting, chest pain, abdominal pain, dysuria, hematuria, diarrhea, hematochezia, and melena. 08/15/18 23:57 <Leti Hamilton - Last Filed: 08/15/18 23:57> - Resident Resident Name: RosieCurtis - ED Attending Attestation I have performed the following: I have examined & evaluated the patient, The case was reviewed & discussed with the resident, I agree w/resident's findings & plan, Exceptions are as noted - HPI HPI: 1 - Physicial Exam PE: 08/15/18 18:17 General: no acute distress, pt on bipap Pulm: scattered wheezing, rales at bases b/l Card: rrr, no mrg ab: soft nontender ext: pitting edema b/l, no calf tenderness, neg homans - Critical Care Time Total Critical Care Time: 45 Critical Care Statement: The care of this patient involved high complexity decision making to prevent further life threatening deterioration of the patient 's condition and/or to evaluate & treat vital organ system(s) failure or risk of failure. - Medical Decision Making 08/15/18 17:59 87y M hx of DM, HL, htn, CKD, presents with sob x 2 weeks but worsening acutely over the past 2 days. Endorses ECHEVERRIA, improves with rest.notes bl LE edema and endorses orthopnea. Denies any prior history, f/c, nv, cp, cough, hemoptysis. ddx = chf, ckd, pna will ck labs cxr, pt placed on bipap with improvement of his RR and WOB anticipate admission for further manageemnt A portion of this note was documented by scribe services under my direction. I have reviewed the details of the note, within reason, and agree with the documentation with the following case summary and management plan written by me 08/15/18 18:48 The patient's lab work noted for K of 5.9, treated with hyperkalemia regiment. The patient's creatinine elevated his shortness of breath, fluid retention likely secondary to acute on chronic kidney failure. Will make the patient for further management, stable on BiPAP <Hernesto Mirza - Last Filed: 08/16/18 08:49> Heart Score/ECG Review - ECG Impressions Comment:: 08/15/18 18:44 Twelve-lead EKG was performed and reviewed by me. There is normal sinus rhythm with a normal rate. rate of 78 nonspecifi TW abnormalitie qtc interval of 462 <Hernesto Mirza - Last Filed: 08/16/18 08:49>
[2018-08-15 18:10] LABS: BASO % 0.9 % (0-2.0); EOS % 7.4 % (0-4.5); HEMATOCRIT 27.8 % (35.4-49); HEMOGLOBIN 9.5 GM/dL (11.7-16.9); LYMPH % 15.8 % (8-40); MCH 27.6 pg (25.7-33.7); MCHC 34.4 g/dl (32.0-35.9); MEAN CELL VOLUME 80.3 fl (80-96); MEAN PLT VOLUME 8.3 fl (7.5-11.1); NEUT % 64.9 % (42.8-82.8); PLATELET COUNT 165 K/MM3 (134-434); RBC 3.46 M/mm3 (4.00-5.60); RDW 16.9 % (11.9-15.9); WHITE BLOOD COUNT 7.7 K/mm3 (4.0-10.0)
[2018-08-15 18:21] LABS: INR 1.04 (0.83-1.09); PROTHROMBIN TIME (PATIENT) 12.3 SEC (9.7-13.0)
[2018-08-15 18:23] LABS: ACTIVATED PTT 32.9 SECONDS (25.2-36.5)
[2018-08-15 19:01] LABS: ALBUMIN 2.3 g/dl (3.4-5.0); ALK PHOS 66 U/L (45-117); ANION GAP 16 MMOL/L (8-16); BILIRUBIN,TOTAL 0.4 mg/dL (0.2-1); CALCIUM 7.8 mg/dL (8.5-10.1); CHLORIDE 106 mmol/L (98-107); CO2 13 mmol/L (21-32); GLUCOSE,RANDOM 146 mg/dL (74-106); N-TERMINAL BNP 59353.8 pg/ml (5-450); POTASSIUM 5.9 mmol/L (3.5-5.1); SGOT/AST 34 U/L (15-37); SGPT/ALT 21 U/L (13-61); SODIUM 134 mmol/L (136-145); TOT PROT 6.7 g/dl (6.4-8.2)
[2018-08-15 19:02] LABS: BLOOD UREA NITROGEN 116 mg/dL (7-18); CREATININE 13.5 mg/dL (0.55-1.3)
[2018-08-15] MEDS ORDERED: INSULIN REGULAR HUMAN 100 UNITS/ML *VIAL SQ ONE (19:08)
[2018-08-15] MEDS ORDERED: DEXTROSE 50%-WATER - 25 GM/50 ML VIAL IVPUSH ONE (19:08)
[2018-08-15] MEDS ORDERED: SODIUM POLYSTYRENE SULFONATE 15 GM/60 ML BOTTLE PO ONE (19:08)
[2018-08-15] MEDS ORDERED: DEXTROSE 50%-WATER 25 GM/50 ML DISP.SYRIN ONE (19:45)
[2018-08-15] MEDS ORDERED: SODIUM POLYSTYRENE SULFONATE 15 GM/60 ML BOTTLE ONE (19:46)
[2018-08-15] MEDS ORDERED: INSULIN REGULAR HUMAN 100 UNITS/ML *VIAL ONE (19:47)
[2018-08-15] MEDS ORDERED: ALBUTEROL SO4 2.5/IPRATROPIUM 0.5 INH SOL 3 ML VIAL.NEB. NEB SCH (20:00)
[2018-08-15] MEDS ORDERED: FUROSEMIDE 40 MG/4 ML INJECTABLE VIAL IVPUSH ONE (20:45)
--- NOTE | 2018-08-15 21:38 | CONSULT ---
Consultation: REQUESTING PROVIDER: CONSULT REQUEST: We have been asked to medically evaluate this patient for respiratory distress and renal failure. HISTORY OF PRESENT ILLNESS: 87 year old man with history of DM, CKD, HTN and HLD came into ED for shortness of breath for 2 weeks and pedal edema for 3-4 days. Family provided history due to patient on bipap. Patient with shortness of breath worsening over 1-2 weeks, worse on exertion and after urinating. No history of CHF, COPD, asthma, fever, abd pain, N/V/D/C, hematuria, dysuria. Ranjan Simon (son): [phone] REVIEW OF SYSTEMS: CONSTITUTIONAL: Absent: fever, chills, diaphoresis, generalized weakness, malaise, loss of appetite, weight change HEENT: Absent: rhinorrhea, nasal congestion, throat pain, throat swelling, difficulty swallowing, mouth swelling, ear pain, eye pain, visual changes CARDIOVASCULAR: Absent: chest pain, syncope, palpitations, irregular heart rate, lightheadedness , peripheral edema RESPIRATORY: Absent: cough, shortness of breath, dyspnea with exertion, orthopnea, wheezing, stridor, hemoptysis GASTROINTESTINAL: Absent: abdominal pain, abdominal distension, nausea, vomiting, diarrhea, constipation, melena, hematochezia GENITOURINARY: Absent: dysuria, frequency, urgency, hesitancy, hematuria, flank pain, genital pain MUSCULOSKELETAL: Absent: myalgia, arthralgia, joint swelling, back pain, neck pain SKIN: Absent: rash, itching, pallor HEMATOLOGIC/IMMUNOLOGIC: Absent: easy bleeding, easy bruising, lymphadenopathy, frequent infections ENDOCRINE: Absent: unexplained weight gain, unexplained weight loss, heat intolerance, cold intolerance NEUROLOGIC: Absent: headache, focal weakness or paresthesias, dizziness, unsteady gait, seizure, mental status changes, bladder or bowel incontinence PSYCHIATRIC: Absent: anxiety, depression, suicidal or homicidal ideation, hallucinations. PHYSICAL EXAMINATION Vital Signs - 24 hr 08/15/18 08/15/18 08/15/18 17:35 17:36 17:59 Temperature 97.7 F 97.7 F Pulse Rate 77 Pulse Rate [ 77 Left Apical] Respiratory 20 20 Rate Blood Pressure 186/75 H Blood Pressure 186/75 H [Left Arm] O2 Sat by Pulse 100 100 100 Oximetry (%) 08/15/18 18:11 Temperature Pulse Rate Pulse Rate [ Left Apical] Respiratory Rate Blood Pressure Blood Pressure [Left Arm] O2 Sat by Pulse 100 Oximetry (%) GENERAL: alert, oriented, tired appearing, on Bipap HEAD: Normal with no signs of trauma. EYES: Pupils equal, round and reactive to light, extraocular movements intact, sclera anicteric, conjunctiva clear. No lid lag. EARS, NOSE, THROAT: Ears normal, nares patent, oropharynx clear without exudates. Moist mucous membranes. NECK: Normal range of motion, supple without lymphadenopathy, JVD, or masses. LUNGS: + coarse breath bilaterally upper lobe slight expiratory wheeze. + significant abdominal muscle use HEART: Tachycardic rate and rhythm, normal S1 and S2 without murmur, rub or gallop. ABDOMEN: Soft, nontender, distended abd, normoactive bowel sounds, no guarding, no rebound, no masses. No hepatomegaly or splenomegaly. MUSCULOSKELETAL: Normal range of motion at all joints. No bony deformities or tenderness. No CVA tenderness. UPPER EXTREMITIES: 2+ pulses, warm, well-perfused. No cyanosis. No clubbing. Cap refill <2 seconds. LOWER EXTREMITIES: 2+ pulses, warm, well-perfused. No calf tenderness. 1+ pitting edema on feet and ankles bilaterally NEUROLOGICAL: AOx3, tired appearing, gait not observed SKIN: Warm, dry, normal turgor, no rashes or lesions noted. Laboratory Results - last 24 hr 08/15/18 08/15/18 08/15/18 18:00 18:00 18:00 WBC 7.7 RBC 3.46 L Hgb 9.5 L Hct 27.8 L MCV 80.3 MCH 27.6 MCHC 34.4 RDW 16.9 H Plt Count 165 MPV 8.3 Absolute Neuts (auto) 5.0 Neutrophils % 64.9 Lymphocytes % 15.8 D Monocytes % 11.0 H Eosinophils % 7.4 H Basophils % 0.9 Nucleated RBC % 0 PT with INR 12.30 INR 1.04 PTT (Actin FS) 32.9 Sodium 134 L Potassium 5.9 H Chloride 106 Carbon Dioxide 13 L Anion Gap 16 BUN 116 H* Creatinine 13.5 H* Creat Clearance w eGFR 3.52 Random Glucose 146 H Calcium 7.8 L Total Bilirubin 0.4 AST 34 ALT 21 Alkaline Phosphatase 66 Creatine Kinase 263 Creatine Kinase Index 5.3 H CK-MB (CK-2) 14.0 H Troponin I 0.13 H B-Natriuretic Peptide 27520.8 H Total Protein 6.7 Albumin 2.3 L Blood Type Antibody Screen 08/15/18 18:00 WBC RBC Hgb Hct MCV MCH MCHC RDW Plt Count MPV Absolute Neuts (auto) Neutrophils % Lymphocytes % Monocytes % Eosinophils % Basophils % Nucleated RBC % PT with INR INR PTT (Actin FS) Sodium Potassium Chloride Carbon Dioxide Anion Gap BUN Creatinine Creat Clearance w eGFR Random Glucose Calcium Total Bilirubin AST ALT Alkaline Phosphatase Creatine Kinase Creatine Kinase Index CK-MB (CK-2) Troponin I B-Natriuretic Peptide Total Protein Albumin Blood Type B POSITIVE Antibody Screen Negative Active Medications Generic Name Dose Route Start Last Admin Trade Name Freq PRN Reason Stop Dose Admin Chlorhexidine Gluconate 1 applic 08/15/18 22:00 Hibiclens For Decolonization - TP HS [facility] Mupirocin 1 applic 08/15/18 22:00 Bactroban Ointment (For Decolonization) - NS 08/20/18 21:59 BID [facility] ASSESSMENT/PLAN:] 87 year old man with history of DM, CKD, HTN and HLD came into ED for shortness of breath for 2 weeks and pedal edema for 3-4 days. Family provided history due to patient on bipap. Patient with shortness of breath worsening over 1-2 weeks, worse on exertion and after urinating. No history of CHF, COPD, asthma, fever, abd pain, N/V/D/C, hematuria, dysuria. ED Course - significant abdominal breathing on bipap - bedside BP 168/103, HR 110 - K 5.9 - BUN/Cr: 116/13.5 - BNP 09405 - lasix 80 Home meds: metoprolol 75mg daily amlodipine 5mg po daily insulin aspart 100 units SQ PRN levemir 7 units SQ daily flomax .8mg po daily Cardiac HTN, HLD, DM, troponinemia, CHF - EKG: normal sinus with rate of 78, nonspecific T wave changes - BNP: 15271 - Trop: 0.13, repeat trop, likely demand, trend - SBP 160s --> 218, dose of 10mg hydralazine - ECHO pending - case discussed with Dr. Husain, will start cardene and lasix gtt Pulm Respiratory distress - Bipap settings: 06/06 FiO2 40 --> weaned off to 6L NRB - will diurese w/ lasix 80 bolus, then lasix gtt - ABG pending - CXR daily Renal Acute on chronic renal failure - BUN/Cr: 116/13.5 (past labs 08/15/17: BUN 38, Cr 4.2) - Renal following: plan for lasix 80 tonight and dialysis in AM - pending renal US - strict I/Os - daily weight - blackmon placed F/E/N Hypokalemia - K 5.9, albuterol neb, insulin, k-exylate - trend electrolytes - NPO DVT ppx: SCDs GI ppx: pepcid Code Status: Full Dispo: We will continue to follow the patient. Thank you for this consultative opportunity. Visit type - Emergency Visit Emergency Visit: Yes ED Registration Date: 08/15/18 Care time: The patient presented to the Emergency Department on the above date and was hospitalized for further evaluation of their emergent condition. - New Patient This patient is new to me today: Yes Date on this admission: 08/16/18 - Critical Care Critical Care patient: Yes Total Critical Care Time (in minutes): 35 Critical Care Statement: The care of this patient involved high complexity decision making to prevent further life threatening deterioration of the patient 's condition and/or to evaluate & treat vital organ system(s) failure or risk of failure.
[2018-08-15] MEDS ORDERED: hydrALAZINE HCL 20 MG/ML VIAL IVPUSH ONE (21:44)
--- NOTE | 2018-08-15 22:16 | PN ---
Teaching Attending Note Name of Resident: Mert Spence ATTENDING PHYSICIAN STATEMENT I saw and evaluated the patient. I reviewed the resident's note and discussed the case with the resident. I agree with the resident's findings and plan as documented. SUBJECTIVE: Seen and examined; please see resident note for further details. Please refer to resident note for further historical information. Briefly, this is a patient with a PMH significant for IDDM, CKD-IV-V, BPH (DCd last time with blackmon ), H Pylori (treated, bx confirmed), HTN. He presents with several weeks of worsening exertional SOB, LE swelling. He was known to have bad CKD and I am told there is some concern about him progressing to need HD. He follows with Dr. Carvajal and Dr. Lee (uro). Bedside US showed hydronephrosis that was difficult to quantify on the bedside machine; official study pending. Blackmon was placed in ER and >500cc urine out. Nephrology was consulted and ICU was consulted from the ER and additional lab studies were ordered and lasix drip recommended which will be done at 10cc/hr. He was initially on BiPap but was found to not be hypercarbic on ABG by our team so he was moved to NRB. He was accepted to the unit. He is on flomax 0.4 at home for his BPH. 10 sys ROS done and negative aside from HPI PMH and PSH reviewed in chart Social history without any EtOh or drug abusse FH asked and noncontributory Medication list reviewed OBJECTIVE: VS, labs, imaging reviewed On NRB, no current dstress but I am told he was mildly distressed on presentation, lying in bed RRR to sinus tachy with no mgr Lungs with crackles but good air movement and sym exp NT ND +BS CN2-12 wnl, no fnd Labs show elevated BUN/Cr of 116/13.5, CO2 13, K 5.9, Na 134. H/H 05/29. BNP massively elevated; mild troponemia, albumin 2.3 CXR reviewed; shows JAZLYN pending; bedside study showed hydronephrosis ASSESSMENT AND PLAN: Mr. Simon is presenting with CATARINA on CKD causing fluid overload leading to acute hypoxic respiratory failure and metabolic acidosis. 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 Blackmon inserted. Followup on JAZLYN to r/o hydronephrosis -Monitor UOP and BMP; deferring ultimate management to nephrology. Consented for Clarke; I will place it overnight if needed but likely can have sgy/IR do it in the AM -Lasix drip initiated per ICU 2) Severe metabolic acidosis -Secondary to #1; ABG reviewed. BMP slightly improved on repeat -Treat #1 and trend BMP -Can do PO HCO3 tabs but ultimately will need HD. Is not refractory at this juncture. 3) Fluid Overload -Likely due to renal; will check echo though as he does have risk factors -NRB to NC as tolerated; doing well now. No hypercarbia. -Plan lasix drip for now and ultimately HD for fluid management. 4) BPH with h/o urinary retention -Blackmon inserted; checking for hydro. Over 500 out so will consider a post- renal component to his disease as well. -Continue home flomax; consider increasing dose 5) Hypertensive Emergency -Multiple explanations for troponin leak, etc. but given elevated pressures on admission would meet definition. Nicardipine drip with goal BP 160-180 tonight to not bottom him out; restart home meds and titrate as needed per nephrology 6) Troponemia -Likely due to renal retention with demand, but still will trend troponin and monitor tele. He didn't C/O chest pain and SOB has compelling noncardiac explanation. Check for WMAs on echo and consider further outpatient workup as he does have risk factors. 7) DM -Continue home basal and cover with SSI; check A1c as was quite uncontrolled last year. 8) H/O GIB -2/2 H Pylori; no s/s now, monitor 9) HyperK -resolved; trend FENA -No IVF -PRN replete Full Code
[2018-08-15] MEDS ORDERED: FUROSEMIDE 40 MG/4 ML INJECTABLE VIAL ONE (22:17)
[2018-08-15 22:28] LABS: ARTERIAL BLOOD GAS PCO2 26.2 mmHg (35-45); ARTERIAL BLOOD GAS pH 7.31 (7.35-7.45); CARBOXYHEMOGLOBIN 1.1 gm% (0.5-2.0)
[2018-08-15 22:30] LABS: ALLENS TEST POSITIVE
[2018-08-15 22:31] LABS: URINE APPEARANCE CLEAR; URINE BILIRUBIN NEGATIVE (<2.0 mg/dL); URINE COLOR LTYELLOW; URINE GLUCOSE (UA) 2+ (NEGATIVE); URINE KETONE NEGATIVE (NEGATIVE)
[2018-08-15 22:32] LABS: URINE LEUK ESTERASE NEGATIVE (NEGATIVE); URINE NITRITE NEGATIVE (NEGATIVE); URINE PROTEIN 3+ (NEGATIVE); URINE UROBILINOGEN NEGATIVE mg/dL (0.2-1.0)
[2018-08-15 22:33] LABS: ARTERIAL BLD GAS O2 SATURATION 99.1 % (90-98.9)
[2018-08-15 22:34] LABS: ARTERIAL BLOOD GAS BASE EXCESS -11.9 meq/l (-2-2)
--- NOTE | 2018-08-15 22:55 | HP ---
CHIEF COMPLAINT:worsening shortness of breath, lower extremity edema PCP: HISTORY OF PRESENT ILLNESS: 85 y/o male with PMH of DM, CKD, HTN, HLD, BPH presenteed to the ED with worsening shortness of breath on exertion, including while urinating, orthopnea and lower extremity swelling for the past week and a half. History was provided by family and chart as patient is on BIPAP. ER course was notable for: (1)Cr was 13.5, K was 5.9 (2)given D50, kayxelate, insulin 6 units, IV lasix 80 x1, duonebs (3)placed on BIPAP; blackmon catheter placed draining light yellow urine (4)patients BP was very elevated on arrival with systolic nearing 200's- given hydralazine 10 Recent Travel: denies PAST MEDICAL HISTORY: see above PAST SURGICAL HISTORY: Social History: Smoking:denies Alcohol:denies Drugs: denies Family History: Allergies No Known Allergies Allergy (Verified 08/15/18 17:05) HOME MEDICATIONS: Home Medications Medication Instructions Recorded Amlodipine Besylate [Norvasc -] 5 mg PO DAILY #30 tablet 08/15/17 Insulin (Levemir) [Levemir Flexpen 7 units SQ DAILY #1 pen 08/15/17 -] Metoprolol Succinate [Toprol XL -] 75 mg PO DAILY #30 tab.sr.24h 08/15/17 Tamsulosin HCl [Flomax -] 0.8 mg PO DAILY@0830 #30 cap.er.24h 08/15/17 Insulin Aspart [Novolog Flexpen] 100 unit SQ PRN #1 insuln.pen 08/16/17 REVIEW OF SYSTEMS- unable to obtain given patient is currently on BIPAP CONSTITUTIONAL: Absent: fever, chills, diaphoresis, generalized weakness, malaise, loss of appetite, weight change HEENT: Absent: rhinorrhea, nasal congestion, throat pain, throat swelling, difficulty swallowing, mouth swelling, ear pain, eye pain, visual changes CARDIOVASCULAR: Absent: chest pain, syncope, palpitations, irregular heart rate, lightheadedness , peripheral edema RESPIRATORY: Absent: cough, shortness of breath, dyspnea with exertion, orthopnea, wheezing, stridor, hemoptysis GASTROINTESTINAL: Absent: abdominal pain, abdominal distension, nausea, vomiting, diarrhea, constipation, melena, hematochezia GENITOURINARY: Absent: dysuria, frequency, urgency, hesitancy, hematuria, flank pain, genital pain MUSCULOSKELETAL: Absent: myalgia, arthralgia, joint swelling, back pain, neck pain SKIN: Absent: rash, itching, pallor HEMATOLOGIC/IMMUNOLOGIC: Absent: easy bleeding, easy bruising, lymphadenopathy, frequent infections ENDOCRINE: Absent: unexplained weight gain, unexplained weight loss, heat intolerance, cold intolerance NEUROLOGIC: Absent: headache, focal weakness or paresthesias, dizziness, unsteady gait, seizure, mental status changes, bladder or bowel incontinence PSYCHIATRIC: Absent: anxiety, depression, suicidal or homicidal ideation, hallucinations. PHYSICAL EXAMINATION Vital Signs - 24 hr 08/15/18 08/15/18 08/15/18 17:35 17:36 17:59 Temperature 97.7 F 97.7 F Pulse Rate 77 Pulse Rate [ 77 Left Apical] Respiratory 20 20 Rate Blood Pressure 186/75 H Blood Pressure 186/75 H [Left Arm] O2 Sat by Pulse 100 100 100 Oximetry (%) 08/15/18 18:11 Temperature Pulse Rate Pulse Rate [ Left Apical] Respiratory Rate Blood Pressure Blood Pressure [Left Arm] O2 Sat by Pulse 100 Oximetry (%) GENERAL: Awake, alert, on BIPAP EYES: no scleral icterus. EARS, NOSE, THROAT: Ears normal, nares patent, oropharynx clear without exudates. Moist mucous membranes. NECK:no JVD, no lymphadenopathy. LUNGS: coarse breath sounds, rales, B/L, on BIPAP, abdominal muscle use HEART: Regular rate and rhythm, normal S1 and S2 without murmur, rub or gallop. ABDOMEN: Soft, nontender, not distended, normoactive bowel sounds, no guarding, no rebound, no masses. No hepatomegaly or splenomegaly. MUSCULOSKELETAL: Normal range of motion at all joints. No bony deformities or tenderness. No CVA tenderness. EXTREMITIES:,warm; well-perfused, no clubbing/cyanosis , 1+ pitting edema B/L mainly at the ankles PSYCHIATRIC: Cooperative. Good eye contact. Appropriate mood and affect. SKIN: Warm, dry, normal turgor, no rashes or lesions noted, normal capillary refill. Laboratory Results - last 24 hr 08/15/18 08/15/18 08/15/18 18:00 18:00 18:00 WBC 7.7 RBC 3.46 L Hgb 9.5 L Hct 27.8 L MCV 80.3 MCH 27.6 MCHC 34.4 RDW 16.9 H Plt Count 165 MPV 8.3 Absolute Neuts (auto) 5.0 Neutrophils % 64.9 Lymphocytes % 15.8 D Monocytes % 11.0 H Eosinophils % 7.4 H Basophils % 0.9 Nucleated RBC % 0 PT with INR 12.30 INR 1.04 PTT (Actin FS) 32.9 Anticoagulation Therapy Puncture Site ABG pH ABG pCO2 at Pt Temp ABG pO2 at Pt Temp ABG HCO3 ABG O2 Sat (Measured) ABG O2 Content ABG Base Excess Davian Test Carboxyhemoglobin Methemoglobin O2 Delivery Device Oxygen Flow Rate Vent Mode Vent Rate Mechanical Rate Pressure Support Vent Sodium 134 L Potassium 5.9 H Chloride 106 Carbon Dioxide 13 L Anion Gap 16 BUN 116 H* Creatinine 13.5 H* Creat Clearance w eGFR 3.52 Random Glucose 146 H Calcium 7.8 L Total Bilirubin 0.4 AST 34 ALT 21 Alkaline Phosphatase 66 Creatine Kinase 263 Creatine Kinase Index 5.3 H CK-MB (CK-2) 14.0 H Troponin I 0.13 H B-Natriuretic Peptide 77717.8 H Total Protein 6.7 Albumin 2.3 L Urine Color Urine Appearance Urine pH Ur Specific [place] Urine Protein Urine Glucose (UA) Urine Ketones Urine Blood Urine Nitrite Urine Bilirubin Urine Urobilinogen Ur Leukocyte Esterase Urine WBC (Auto) Urine RBC (Auto) Ur Random Sodium Ur Random Potassium Ur Random Chloride Ur Random Urea Nitrogn Blood Type Antibody Screen 08/15/18 08/15/18 08/15/18 18:00 22:10 22:10 WBC RBC Hgb Hct MCV MCH MCHC RDW Plt Count MPV Absolute Neuts (auto) Neutrophils % Lymphocytes % Monocytes % Eosinophils % Basophils % Nucleated RBC % PT with INR INR PTT (Actin FS) Anticoagulation Therapy Puncture Site ABG pH ABG pCO2 at Pt Temp ABG pO2 at Pt Temp ABG HCO3 ABG O2 Sat (Measured) ABG O2 Content ABG Base Excess Davian Test Carboxyhemoglobin Methemoglobin O2 Delivery Device Oxygen Flow Rate Vent Mode Vent Rate Mechanical Rate Pressure Support Vent Sodium Potassium Chloride Carbon Dioxide Anion Gap BUN Creatinine Creat Clearance w eGFR Random Glucose Calcium Total Bilirubin AST ALT Alkaline Phosphatase Creatine Kinase Creatine Kinase Index CK-MB (CK-2) Troponin I B-Natriuretic Peptide Total Protein Albumin Urine Color Ltyellow Urine Appearance Clear Urine pH 5.0 D Ur Specific [place] 1.015 Urine Protein 3+ H Urine Glucose (UA) 2+ H Urine Ketones Negative Urine Blood 2+ H Urine Nitrite Negative Urine Bilirubin Negative Urine Urobilinogen Negative Ur Leukocyte Esterase Negative Urine WBC (Auto) 12 Urine RBC (Auto) 8 Ur Random Sodium 52 Ur Random Potassium 34.0 Ur Random Chloride 54 L Ur Random Urea Nitrogn 451 Blood Type B POSITIVE Antibody Screen Negative 08/15/18 22:20 WBC RBC Hgb Hct MCV MCH MCHC RDW Plt Count MPV Absolute Neuts (auto) Neutrophils % Lymphocytes % Monocytes % Eosinophils % Basophils % Nucleated RBC % PT with INR INR PTT (Actin FS) Anticoagulation Therapy No Result Required. Puncture Site Right radial ABG pH 7.31 L ABG pCO2 at Pt Temp 26.2 L ABG pO2 at Pt Temp 147.0 H ABG HCO3 12.8 L* ABG O2 Sat (Measured) 99.1 H ABG O2 Content 12.2 L ABG Base Excess -11.9 L* Davian Test Positive Carboxyhemoglobin 1.1 Methemoglobin 0.2 L O2 Delivery Device No Result Required. Oxygen Flow Rate No Result Required. Vent Mode No Result Required. Vent Rate 12 Mechanical Rate No Result Required. Pressure Support Vent No Result Required. Sodium Potassium Chloride Carbon Dioxide Anion Gap BUN Creatinine Creat Clearance w eGFR Random Glucose Calcium Total Bilirubin AST ALT Alkaline Phosphatase Creatine Kinase Creatine Kinase Index CK-MB (CK-2) Troponin I B-Natriuretic Peptide Total Protein Albumin Urine Color Urine Appearance Urine pH Ur Specific [place] Urine Protein Urine Glucose (UA) Urine Ketones Urine Blood Urine Nitrite Urine Bilirubin Urine Urobilinogen Ur Leukocyte Esterase Urine WBC (Auto) Urine RBC (Auto) Ur Random Sodium Ur Random Potassium Ur Random Chloride Ur Random Urea Nitrogn Blood Type Antibody Screen ASSESSMENT/PLAN: 87 y/o male with PMH of DM, CKD, HTN, HLD, BPH presents to the hospital with worsening dyspnea on exertion, orthopnea, B/L LE edema for the past one and a half weeks, found to have an elevated Cr of 13.5 upon admission. #Respiratory distress likely 2/2 to fluid overload -was on BIPAP on arrival to ED now on non-rebreather -ABG pending -monitor o2 saturations #CATARINA on CKD in review of [place], patients Cr on his last visit here (aug 2017) was 4.6 -likely 2/2 obstruction; given patients history of BPH in addition to his urine output post blackmon insertion -Dr Carvajal consulted from the ER -patient will likely need dialysis in the AM -renal/bladder U/S pending -repeat BMP post blackmon insertion -monitor I's and O's -monitor electrolytes #HTN patients BP on arrival was very elevated with systolics in the 200's and was given hydralazine 10 once -c.w home meds: amlodipine 5 daily and metoprolol 75 daily -monitor BP #DM -holding oral hypoglycemics -ISS -BGMS ACHS #BPH -blackmon catheter in place -c/w home meds F/E/N not on fluids monitor electrolytes: hyperkalemia on admission renal diet DVT PPX: SCDS GI PPX: protonix Problem List - Problem (1) Acute on chronic renal failure Code(s): N17.9 - ACUTE KIDNEY FAILURE, UNSPECIFIED; N18.9 - CHRONIC KIDNEY DISEASE, UNSPECIFIED Qualifiers: Acute renal failure type: unspecified Chronic kidney disease stage: unspecified stage Qualified Code(s): N17.9 - Acute kidney failure, unspecified ; N18.9 - Chronic kidney disease, unspecified (2) Anemia Code(s): D64.9 - ANEMIA, UNSPECIFIED (3) Electrolyte abnormality Code(s): E87.8 - OTH DISORDERS OF ELECTROLYTE AND FLUID BALANCE, NEC Visit type - Emergency Visit Emergency Visit: Yes ED Registration Date: 08/15/18 Care time: The patient presented to the Emergency Department on the above date and was hospitalized for further evaluation of their emergent condition. - New Patient This patient is new to me today: Yes Date on this admission: 08/16/18 - Critical Care Critical Care patient: No
[2018-08-15] MEDS ORDERED: FUROSEMIDE INJECTION 100 MG in DEXTROSE 5%-WATER - 40 ML IVPB SCH (23:15)
[2018-08-15] MEDS ORDERED: NICARDIPINE 25 MG in DEXTROSE 5%-WATER - 240 ML IVPB SCH (23:15)
[2018-08-16 00:39] LABS: ALBUMIN 2.5 g/dl (3.4-5.0); ALK PHOS 64 U/L (45-117); ANION GAP 16 MMOL/L (8-16); BILIRUBIN,TOTAL 0.2 mg/dL (0.2-1); CHLORIDE 106 mmol/L (98-107); CO2 14 mmol/L (21-32); GLUCOSE,RANDOM 167 mg/dL (74-106); POTASSIUM 4.2 mmol/L (3.5-5.1); SGOT/AST 17 U/L (15-37); SGPT/ALT 20 U/L (13-61); SODIUM 137 mmol/L (136-145); TOT PROT 6.8 g/dl (6.4-8.2)
[2018-08-16 00:42] LABS: BLOOD UREA NITROGEN 118 mg/dL (7-18)
[2018-08-16] MEDS ORDERED: FUROSEMIDE INJECTION 100 MG in DEXTROSE 5%-WATER - 40 ML IVPB SCH (00:45)
[2018-08-16] MEDS ORDERED: niCARdipine HCL 25 MG/10 ML AMPUL IVPB ONE (00:57)
[2018-08-16] MEDS ORDERED: FUROSEMIDE INJECTION 100 MG in DEXTROSE 5%-WATER - 90 ML IVPB SCH (01:00)
[2018-08-16] MEDS ORDERED: METOPROLOL SUCCINATE 50 MG, METOPROLOL SUCCINATE 25 MG PO SCH ×2 (01:08→10:00)
[2018-08-16] MEDS ORDERED: ACETAMINOPHEN 1000 MG/100 ML VIAL (NON FORMULARY) IVPB PRN (01:37)
[2018-08-16] MEDS ORDERED: ACETAMINOPHEN 325 MG TABLET (FP) PO PRN (01:40)
[2018-08-16] MEDS: FUROSEMIDE INJECTION 100 MG in DEXTROSE 5%-WATER - 40 ML IVPB SCH (01:46)
[2018-08-16] MEDS: NICARDIPINE 25 MG in DEXTROSE 5%-WATER - 240 ML IVPB SCH (01:46)
[2018-08-16] MEDS ORDERED: MORPHINE SULFATE 2 MG/ML VIAL IVPUSH PRN ×2 (03:12→06:34)
[2018-08-16 05:49] LABS: BASO % 0.6 % (0-2.0); EOS % 2.2 % (0-4.5); HEMATOCRIT 24.7 % (35.4-49); HEMOGLOBIN 7.9 GM/dL (11.7-16.9); LYMPH % 5.9 % (8-40); MCH 25.9 pg (25.7-33.7); MCHC 31.9 g/dl (32.0-35.9); MEAN CELL VOLUME 81.3 fl (80-96); MONO % 8.3 % (3.8-10.2); PLATELET COUNT 124 K/MM3 (134-434); RBC 3.04 M/mm3 (4.00-5.60); RDW 16.4 % (11.9-15.9); WHITE BLOOD COUNT 6.8 K/mm3 (4.0-10.0)
[2018-08-16] MEDS ORDERED: morphine CARPU-JECT 2 MG/1 ML DISP.SYRIN IVPUSH PRN (05:57)
[2018-08-16 06:00] LABS: INR 1.07 (0.83-1.09); PROTHROMBIN TIME (PATIENT) 12.6 SEC (9.7-13.0)
[2018-08-16] MEDS ORDERED: morphine SULFATE 4 MG/ML VIAL ONE (06:02)
[2018-08-16 06:09] LABS: ACTIVATED PTT 35.4 SECONDS (25.2-36.5)
[2018-08-16] MEDS ORDERED: ALBUTEROL SO4 0.083% IH SOL 2.5 MG/3 ML VIAL.NEB. NEB PRN (06:29)
[2018-08-16 06:44] LABS: ALBUMIN 2.2 g/dl (3.4-5.0); ALK PHOS 56 U/L (45-117); ANION GAP 17 MMOL/L (8-16); BILIRUBIN,TOTAL 0.2 mg/dL (0.2-1); CALCIUM 7.5 mg/dL (8.5-10.1); CHLORIDE 107 mmol/L (98-107); CO2 13 mmol/L (21-32); GLUCOSE,RANDOM 198 mg/dL (74-106); MAGNESIUM 2.7 mg/dL (1.8-2.4); N-TERMINAL BNP 61508.7 pg/ml (5-450); POTASSIUM 4.1 mmol/L (3.5-5.1); SGOT/AST 11 U/L (15-37); SGPT/ALT 17 U/L (13-61); SODIUM 138 mmol/L (136-145); TOT PROT 5.9 g/dl (6.4-8.2)
[2018-08-16 06:46] LABS: BLOOD UREA NITROGEN 117 mg/dL (7-18)
[2018-08-16 06:47] LABS: PHOSPHOROUS 10.2 mg/dL (2.5-4.9)
--- NOTE | 2018-08-16 06:56 | PN ---
Progress Note (short form) - Note Progress Note: Overnight patient complained of leg cramps was given 2 doses of morphine. Hematuria noted in the blackmon bag d/d SQ heparing Hb7.9 likely will need pRBC w/ dialysis Given albuterol neb for wheezing Pending stool for occult blood, TSH, Pending Abd CT for abd distention and hx umbilical hernia, duplex of legs for repeated complaints
[2018-08-16 07:32] LABS: ARTERIAL BLD GAS O2 SATURATION 98.6 % (90-98.9); ARTERIAL BLOOD GAS BASE EXCESS -13.1 meq/l (-2-2); ARTERIAL BLOOD GAS PCO2 31.1 mmHg (35-45); ARTERIAL BLOOD GAS pH 7.24 (7.35-7.45)
--- NOTE | 2018-08-16 07:53 | CONSULT ---
Consult Consult Specialty:: PULM/CCM Referred by:: Dr. Rick Bell Reason for Consultation:: SOB - History of Present Illness Chief Complaint: SOB History of Present Illness: Mr. Simon is an 87 y/o man w/ HTN, HLD, DM, BPH, & CKD-IV-V, (baseline Cr unclear, had CATARINA last year with peak Cr ~5 & was dc'ed back home w/ blackmon & Cr ~ 4). Pt's family presents pt to the ED on 08/15 from home w/ worsening ECHEVERRIA, orthopnea, and lower extremity swelling for the past week and a half ( complicated also by poor PO intake). Pt is confused and not able to provide any history. (Family provided history). No reported NSAID use. Pt presents w/ gross V/O requiring Bi-Level support in the setting of A on C Renal Fail. 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 Cardio/Vascular: Yes: HTN Pulmonary: No: COPD Gastrointestinal: Yes: Hiatal Hernia Hepatobiliary: No: Cirrhosis Renal/: Yes: Renal Failure, Renal Inusuff, BPH Heme/Onc: Yes: Anemia, Thrombocytopenia Endocrine: Yes: Diabetes Mellitus - Alcohol/Substance Use Hx Alcohol Use: No - Smoking History Smoking history: Never smoked Have you smoked in the past 12 months: No - Social History Usual Living Arrangement: With Child Place of : Other History of Recent Travel: No Home Medications - Allergies Allergies/Adverse Reactions: Allergies Allergy/AdvReac Type Severity Reaction Status Date / Time No Known Allergies Allergy Verified 08/15/18 17:05 - Home Medications Home Medications: Ambulatory Orders Amlodipine Besylate [Norvasc -] 5 mg PO DAILY #30 tablet 08/15/17 Insulin (Levemir) [Levemir Flexpen -] 7 units SQ DAILY #1 pen 08/15/17 Metoprolol Succinate [Toprol XL -] 75 mg PO DAILY #30 tab.sr.24h 08/15/17 Tamsulosin HCl [Flomax -] 0.8 mg PO DAILY@0830 #30 cap.er.24h 08/15/17 Insulin Aspart [Novolog Flexpen] 100 unit SQ PRN #1 insuln.pen 08/16/17 Family Disease History - Family Disease History Family History: Unable to Obtain (Confused) Review of Systems Unable to obtain ROS, reason: Confused Physical Exam Vital Signs: Vital Signs Temperature 97.5 F L 08/16/18 03:00 Pulse Rate 92 H 08/16/18 05:43 Respiratory Rate 18 08/16/18 05:00 Blood Pressure 144/61 08/16/18 05:00 O2 Sat by Pulse Oximetry (%) 100 08/16/18 06:08 Constitutional: Yes: Cachectic, Thin Eyes: Yes: WNL, Conjunctiva Clear, EOM Intact HENT: Yes: WNL, Atraumatic, Normocephalic Neck: Yes: WNL, Supple, Trachea Midline Cardiovascular: Yes: WNL, Regular Rate and Rhythm Respiratory: Yes: WNL, Regular, CTA Bilaterally Gastrointestinal: Yes: WNL, Normal Bowel Sounds ...Rectal Exam: Yes: Deferred Renal/: Yes: Blackmon Present Breast(s): Yes: WNL Musculoskeletal: Yes: WNL Extremities: Yes: WNL Edema: Yes Edema: LUE: Trace, RUE: Trace, LLE: Trace, RLE: Trace Peripheral Pulses WNL: Yes Neurological: Yes: Confusion ...Motor Strength: WNL Labs: CBC, BMP 08/16/18 05:30 08/16/18 05:30 Imaging - Results Chest X-ray: Image Reviewed (CXR 08/16: A single AP view the chest is been submitted. Since 08/15/2018 at 1833 hours, there are progressive congestive changes with progressive bilateral effusions and questionable infiltrates at the bases. Follow-up recommended. Impression : Worse. Progressive bilateral pulmonary and pleural findings.) Ultrasound: Report Reviewed (RENAL US 08/16: Both kidneys are atrophic and echogenic consistent with chronic medical renal disease without evidence of hydronephrosis or gross renal stones. Simple cyst in the right kidney measuring 2.5 cm and a simple cyst in the left kidney measuring 1 cm. Note is made of right pleural effusion) EKG: Image Reviewed (08/15: RSR @ 78 w/o ect, L atrial enlargement, T-wave flattening in the lateral leads but non-specific, NO Peaked T's, QTc = 462, no acute process (My Read).) Problem List - Problems (1) Acute on chronic renal failure Code(s): N17.9 - ACUTE KIDNEY FAILURE, UNSPECIFIED; N18.9 - CHRONIC KIDNEY DISEASE, UNSPECIFIED Qualifiers: Acute renal failure type: unspecified Chronic kidney disease stage: unspecified stage Qualified Code(s): N17.9 - Acute kidney failure, unspecified ; N18.9 - Chronic kidney disease, unspecified (2) CHF (congestive heart failure) Code(s): I50.9 - HEART FAILURE, UNSPECIFIED Qualifiers: Heart failure type: unspecified Heart failure chronicity: unspecified Qualified Code(s): I50.9 - Heart failure, unspecified (3) Anemia Code(s): D64.9 - ANEMIA, UNSPECIFIED (4) Electrolyte abnormality Code(s): E87.8 - OTH DISORDERS OF ELECTROLYTE AND FLUID BALANCE, NEC (5) Urinary retention due to benign prostatic hyperplasia Code(s): N40.1 - BENIGN PROSTATIC HYPERPLASIA WITH LOWER URINARY TRACT SYMP; R33.8 - OTHER RETENTION OF URINE (6) Diabetes mellitus Code(s): E11.9 - TYPE 2 DIABETES MELLITUS WITHOUT COMPLICATIONS Assessment/Plan ASSESS: This is an 87 y/o man w/ HTN, HL, DM, Stage IV/V CKD, & BPH who presents now w/ A on C renal fail. PLAN: -FiO2 for an SpO2 > 92% -Nebs -IS -CPT -Strict I's & O's -Trend BUN/Cr -Replete e-lytes prn -Trialysis Cath -HD -F/u CTAP -Check ANCA, NICK -Check iron profile -RENAL -Cont Home anti-HTN meds -FS -SSI prn -Check Hgb A1C -DVT PPX -GI PPX (Renal Fail) -D/c to Med Surg Thank You for this interesting Consult DGL, ACNP-BC [facility] ICU PULM/CCM [id number]
--- NOTE | 2018-08-16 08:46 | CONSULT ---
Consult - text type - Consultation Consultation Note: Renal Consult for CATARINA on CKD This is a 87 year old [place] gentleman with hx of CKD (baseline Cr unclear, had CATARINA last year with peak Cr ~5 was discharged with Cr ~4), DM, Hypertension, Hiatial Hernia who presented from home with complaints of SOB and leg swelling. Pt is confused and not able to provide any history. Family provided history. Reports decreased oral intake but reports he was urinating. No NSAID use. No N/V /D. No fever or chills. ROS limited by clinical status. PMhx: as above Allergies: NKDA Family Hx: NC Social hx: unknown ROS: as per HPI, limited by Home Medications Medication Instructions Recorded Amlodipine Besylate [Norvasc -] 5 mg PO DAILY #30 tablet 08/15/17 Insulin (Levemir) [Levemir Flexpen 7 units SQ DAILY #1 pen 08/15/17 -] Metoprolol Succinate [Toprol XL -] 75 mg PO DAILY #30 tab.sr.24h 08/15/17 Tamsulosin HCl [Flomax -] 0.8 mg PO DAILY@0830 #30 cap.er.24h 08/15/17 Insulin Aspart [Novolog Flexpen] 100 unit SQ PRN #1 insuln.pen 08/16/17 Vital Signs Temperature 97.8 F 08/16/18 08:40 Pulse Rate 79 08/16/18 08:20 Respiratory Rate 16 08/16/18 07:00 Blood Pressure 122/65 08/16/18 08:12 O2 Sat by Pulse Oximetry (%) 100 08/16/18 08:20 Intake & Output 08/13/18 08/14/18 08/15/18 08/16/18 23:59 23:59 23:59 23:59 Intake Total 242.5 Output Total 300 350 Balance -300 -107.5 Weight 49.895 kg 49.895 kg CBC, BMP 08/16/18 05:30 08/16/18 05:30 Current Medications Acetaminophen (Tylenol -) 650 mg PO Q6H PRN PRN Reason: PAIN Last Admin: 08/16/18 01:49 Dose: 650 mg Albuterol Sulfate (Ventolin 0.083% Nebulizer Soln -) 1 amp NEB Q4H PRN PRN Reason: SHORT OF BREATH/WHEEZING Chlorhexidine Gluconate (Hibiclens For Decolonization -) 1 applic TP HS REHANA Famotidine/Sodium Chloride (Pepcid 20 Mg Premixed Ivpb -) 20 mg in 50 mls @ 100 mls/hr IVPB BID REHANA Nicardipine HCl 25 mg/ (Dextrose) 250 mls @ 25 mls/hr IVPB TITR REHANA; Protocol Last Titration: 08/16/18 08:12 Dose: 0 mg/hr, 0 mls/hr Furosemide 100 mg/ Dextrose 50 mls @ 5 mls/hr IVPB TITR REHANA; Protocol Last Titration: 08/16/18 03:00 Dose: 5 mg/hr, 2.5 mls/hr Influenza Virus Vaccine Quadrival (Flulaval Quad [id number]) 60 mcg IM .ONCE ONE Stop: 08/16/18 10:01 Morphine Sulfate (Morphine Sulfate) 2 mg IVPUSH Q4H PRN PRN Reason: PAIN LEVEL 7 - 10 Mupirocin (Bactroban Ointment (For Decolonization) -) 1 applic NS BID REHANA Stop: 08/21/18 09:59 87 year old [place] gentleman with hx of CKD (baseline Cr unclear, had CATARINA last year with peak Cr ~5 was discharged with Cr ~4), DM, Hypertension, Hiatial Hernia who presented from home with complaints of SOB and leg swelling. #Acute Renal Failure (R/o ATN vs. Bladder outlet obstruction vs. thrombotic microangiopathy vs. acute GN) #Hyperkalemia #Mild Volume overlaod #Hypertensive urgency vs. emergency #Acute on Chronic Anemia #Anion gap metabolic acidosis #Thrombocytopenia give degree of uremia and metabolic acidosis w/o improvement in the last 24 hours will warrant acute dialysis risk and benefits from dialysis discussed with daughter who is agreeable will plan for dialysis today and tomorrow Urine studies consistent with ATN and pt noted to have UPCR ~9 will check ANCA, NICK and Hgb A1C Check iron profile keep MAP > [address] of the lung and Abd, if chest shows infiltrate may need Abx off Cardne gtt as BP is improved Check LDH and Haptoglobin give low plt count to access for TMA Thank you Steven Carvajal DO
[2018-08-16] MEDS ORDERED: SODIUM CHLORIDE 250 ML IV PRN ×2 (09:32→17:00)
[2018-08-16] MEDS ORDERED: amLODIPine BESYLATE 5 MG TABLET (FP) PO ONE ×2 (10:00)
[2018-08-16] MEDS ORDERED: FLU VACCINE QUAD 60 MCG/0.5 ML (MDV 18-19) IM ONE (10:00)
[2018-08-16] MEDS: FAMOTIDINE 20 MG/50 ML IVPB 20 MG/50 ML MG IVPB SCH ×2 (10:20→21:30)
[2018-08-16] MEDS: MUPIROCIN 2% TOPICAL OINTMENT FOR DECOLONIZATION NS SCH ×2 (10:20→21:31)
--- NOTE | 2018-08-16 11:22 | PROC ---
Central Line Insertion Indication: Other Risks and Benefits Explained: Yes Consent on Chart: Yes Central Line: Dialysis Cath, Tri Lumen Anesthesia: 1% Lidocaine Sterile Technique: Yes Ultrasound Guided Assistance: Yes Position: Right Femoral Sterile Dressing Applied: Yes
--- NOTE | 2018-08-16 13:28 | PN ---
Progress Note (short form) - Note Progress Note: 87 year old male with BPH, CKD 4, HTN, HLD, DM 2, presented with 2 week history of increasing shortness of breath, worse on exertion, with associated LE edema for the past 3 days. No history of CHF/COPD/Asthma. He was found to have BUN of 117, Creatinine elevated to 14, Bicarb 13, [place] 17[place] [address] with K 5.9. Admitted to ICU and started on Lasix drip. Mild hematuria overnight in blackmon - DVT Px/Heparin SQ discontinued. Feeling less SOB. No fever/cough/sputum. No chest pain/palpitations. PHYSICAL EXAMINATION Afebrile, Hemodynamically stable Last Vital Signs Temp Pulse Resp BP Pulse Ox 97.0 F L 84 10 170/91 100 08/16/18 12:00 08/16/18 12:00 08/16/18 12:27 08/16/18 12:27 08/16/18 09:00 Neuro - AAO x 3. HEENT - Atraumatic, Normocephalic. Heart - S1, S2, RRR Lungs - bibasal crackles Abdoemn - soft, non-tender - R Shiley in situ Extremities - Edema 1+ INVESTIGATIONS Laboratory Results - last 24 hr 08/15/18 08/15/18 08/15/18 11:40 18:00 18:00 WBC 7.7 RBC 3.46 L Hgb 9.5 L Hct 27.8 L MCV 80.3 MCH 27.6 MCHC 34.4 RDW 16.9 H Plt Count 165 MPV 8.3 Absolute Neuts (auto) 5.0 Neutrophils % 64.9 Lymphocytes % 15.8 D Monocytes % 11.0 H Eosinophils % 7.4 H Basophils % 0.9 Nucleated RBC % 0 PT with INR 12.30 INR 1.04 PTT (Actin FS) 32.9 Anticoagulation Therapy Puncture Site ABG pH ABG pCO2 at Pt Temp ABG pO2 at Pt Temp ABG HCO3 ABG O2 Sat (Measured) ABG O2 Content ABG Base Excess Davian Test Carboxyhemoglobin Methemoglobin O2 Delivery Device Oxygen Flow Rate Vent Mode Vent Rate Mechanical Rate Pressure Support Vent Sodium Potassium Chloride Carbon Dioxide Anion Gap BUN Creatinine Creat Clearance w eGFR POC Glucometer Random Glucose Hemoglobin A1c % Lactic Acid Calcium Phosphorus Magnesium Total Bilirubin AST ALT Alkaline Phosphatase Creatine Kinase Creatine Kinase Index CK-MB (CK-2) Troponin I B-Natriuretic Peptide Total Protein Albumin Prealbumin TSH Urine Color Urine Appearance Urine pH Ur Specific [place] Urine Protein Urine Glucose (UA) Urine Ketones Urine Blood Urine Nitrite Urine Bilirubin Urine Urobilinogen Ur Leukocyte Esterase Urine WBC (Auto) Urine RBC (Auto) U Random Total Protein Ur Random Sodium Ur Random Potassium Ur Random Chloride Ur Random Urea Nitrogn 271 L Urine Creatinine Blood Type Antibody Screen 08/15/18 08/15/18 08/15/18 18:00 18:00 22:10 WBC RBC Hgb Hct MCV MCH MCHC RDW Plt Count MPV Absolute Neuts (auto) Neutrophils % Lymphocytes % Monocytes % Eosinophils % Basophils % Nucleated RBC % PT with INR INR PTT (Actin FS) Anticoagulation Therapy Puncture Site ABG pH ABG pCO2 at Pt Temp ABG pO2 at Pt Temp ABG HCO3 ABG O2 Sat (Measured) ABG O2 Content ABG Base Excess Davian Test Carboxyhemoglobin Methemoglobin O2 Delivery Device Oxygen Flow Rate Vent Mode Vent Rate Mechanical Rate Pressure Support Vent Sodium 134 L Potassium 5.9 H Chloride 106 Carbon Dioxide 13 L Anion Gap 16 BUN 116 H* Creatinine 13.5 H* Creat Clearance w eGFR 3.52 POC Glucometer Random Glucose 146 H Hemoglobin A1c % Lactic Acid Calcium 7.8 L Phosphorus Magnesium Total Bilirubin 0.4 AST 34 ALT 21 Alkaline Phosphatase 66 Creatine Kinase 263 Creatine Kinase Index 5.3 H CK-MB (CK-2) 14.0 H Troponin I 0.13 H B-Natriuretic Peptide 20916.8 H Total Protein 6.7 Albumin 2.3 L Prealbumin TSH Urine Color Ltyellow Urine Appearance Clear Urine pH 5.0 D Ur Specific [place] 1.015 Urine Protein 3+ H Urine Glucose (UA) 2+ H Urine Ketones Negative Urine Blood 2+ H Urine Nitrite Negative Urine Bilirubin Negative Urine Urobilinogen Negative Ur Leukocyte Esterase Negative Urine WBC (Auto) 12 Urine RBC (Auto) 8 U Random Total Protein Ur Random Sodium Ur Random Potassium Ur Random Chloride Ur Random Urea Nitrogn Urine Creatinine Blood Type B POSITIVE Antibody Screen Negative 08/15/18 08/15/18 08/15/18 22:10 22:10 22:20 WBC RBC Hgb Hct MCV MCH MCHC RDW Plt Count MPV Absolute Neuts (auto) Neutrophils % Lymphocytes % Monocytes % Eosinophils % Basophils % Nucleated RBC % PT with INR INR PTT (Actin FS) Anticoagulation Therapy No Result Required. Puncture Site Right radial ABG pH 7.31 L ABG pCO2 at Pt Temp 26.2 L ABG pO2 at Pt Temp 147.0 H ABG HCO3 12.8 L* ABG O2 Sat (Measured) 99.1 H ABG O2 Content 12.2 L ABG Base Excess -11.9 L* Davian Test Positive Carboxyhemoglobin 1.1 Methemoglobin 0.2 L O2 Delivery Device No Result Required. Oxygen Flow Rate No Result Required. Vent Mode No Result Required. Vent Rate 12 Mechanical Rate No Result Required. Pressure Support Vent No Result Required. Sodium Potassium Chloride Carbon Dioxide Anion Gap BUN Creatinine Creat Clearance w eGFR POC Glucometer Random Glucose Hemoglobin A1c % Lactic Acid Calcium Phosphorus Magnesium Total Bilirubin AST ALT Alkaline Phosphatase Creatine Kinase Creatine Kinase Index CK-MB (CK-2) Troponin I B-Natriuretic Peptide Total Protein Albumin Prealbumin TSH Urine Color Urine Appearance Urine pH Ur Specific [place] Urine Protein Urine Glucose (UA) Urine Ketones Urine Blood Urine Nitrite Urine Bilirubin Urine Urobilinogen Ur Leukocyte Esterase Urine WBC (Auto) Urine RBC (Auto) U Random Total Protein 759 H Ur Random Sodium 53 52 Ur Random Potassium 34.0 34.0 Ur Random Chloride 54 L 54 L Ur Random Urea Nitrogn 451 Urine Creatinine 84.0 H Blood Type Antibody Screen 08/15/18 08/15/18 08/15/18 23:50 23:50 23:50 WBC RBC Hgb Hct MCV MCH MCHC RDW Plt Count MPV Absolute Neuts (auto) Neutrophils % Lymphocytes % Monocytes % Eosinophils % Basophils % Nucleated RBC % PT with INR INR PTT (Actin FS) Anticoagulation Therapy Puncture Site ABG pH ABG pCO2 at Pt Temp ABG pO2 at Pt Temp ABG HCO3 ABG O2 Sat (Measured) ABG O2 Content ABG Base Excess Davian Test Carboxyhemoglobin Methemoglobin O2 Delivery Device Oxygen Flow Rate Vent Mode Vent Rate Mechanical Rate Pressure Support Vent Sodium 137 Potassium 4.2 Chloride 106 Carbon Dioxide 14 L Anion Gap 16 BUN 118 H* Creatinine 14.0 H* Creat Clearance w eGFR 3.38 POC Glucometer Random Glucose 167 H Hemoglobin A1c % Lactic Acid 1.7 Calcium 8.0 L Phosphorus Magnesium 2.8 H Total Bilirubin 0.2 AST 17 ALT 20 Alkaline Phosphatase 64 Creatine Kinase Creatine Kinase Index CK-MB (CK-2) Troponin I B-Natriuretic Peptide Total Protein 6.8 Albumin 2.5 L Prealbumin TSH Urine Color Urine Appearance Urine pH Ur Specific [place] Urine Protein Urine Glucose (UA) Urine Ketones Urine Blood Urine Nitrite Urine Bilirubin Urine Urobilinogen Ur Leukocyte Esterase Urine WBC (Auto) Urine RBC (Auto) U Random Total Protein Ur Random Sodium Ur Random Potassium Ur Random Chloride Ur Random Urea Nitrogn Urine Creatinine Blood Type Antibody Screen 08/15/18 08/15/18 08/16/18 23:50 23:50 05:30 WBC 6.8 RBC 3.04 L Hgb 7.9 L Hct 24.7 L MCV 81.3 MCH 25.9 MCHC 31.9 L RDW 16.4 H Plt Count 124 L D MPV 8.0 Absolute Neuts (auto) 5.7 Neutrophils % 83.0 H D Lymphocytes % 5.9 L D Monocytes % 8.3 Eosinophils % 2.2 Basophils % 0.6 Nucleated RBC % 0 PT with INR INR PTT (Actin FS) Anticoagulation Therapy Puncture Site ABG pH ABG pCO2 at Pt Temp ABG pO2 at Pt Temp ABG HCO3 ABG O2 Sat (Measured) ABG O2 Content ABG Base Excess Davian Test Carboxyhemoglobin Methemoglobin O2 Delivery Device Oxygen Flow Rate Vent Mode Vent Rate Mechanical Rate Pressure Support Vent Sodium Potassium Chloride Carbon Dioxide Anion Gap BUN Creatinine Creat Clearance w eGFR POC Glucometer Random Glucose Hemoglobin A1c % Lactic Acid Calcium Phosphorus 9.8 H* Magnesium Total Bilirubin AST ALT Alkaline Phosphatase Creatine Kinase 187 Creatine Kinase Index 6.8 H* CK-MB (CK-2) 12.9 H Troponin I 0.16 H B-Natriuretic Peptide Total Protein Albumin Prealbumin TSH Urine Color Urine Appearance Urine pH Ur Specific [place] Urine Protein Urine Glucose (UA) Urine Ketones Urine Blood Urine Nitrite Urine Bilirubin Urine Urobilinogen Ur Leukocyte Esterase Urine WBC (Auto) Urine RBC (Auto) U Random Total Protein Ur Random Sodium Ur Random Potassium Ur Random Chloride Ur Random Urea Nitrogn Urine Creatinine Blood Type Antibody Screen 08/16/18 08/16/18 08/16/18 05:30 05:30 05:30 WBC RBC Hgb Hct MCV MCH MCHC RDW Plt Count MPV Absolute Neuts (auto) Neutrophils % Lymphocytes % Monocytes % Eosinophils % Basophils % Nucleated RBC % PT with INR 12.60 INR 1.07 PTT (Actin FS) 35.4 Anticoagulation Therapy Puncture Site ABG pH ABG pCO2 at Pt Temp ABG pO2 at Pt Temp ABG HCO3 ABG O2 Sat (Measured) ABG O2 Content ABG Base Excess Davian Test Carboxyhemoglobin Methemoglobin O2 Delivery Device Oxygen Flow Rate Vent Mode Vent Rate Mechanical Rate Pressure Support Vent Sodium 138 Potassium 4.1 Chloride 107 Carbon Dioxide 13 L Anion Gap 17 H BUN 117 H* Creatinine 14.0 H* Creat Clearance w eGFR 3.38 POC Glucometer Random Glucose 198 H Hemoglobin A1c % 6.3 Lactic Acid Calcium 7.5 L Phosphorus 10.2 H* Magnesium 2.7 H Total Bilirubin 0.2 AST 11 L ALT 17 Alkaline Phosphatase 56 Creatine Kinase Creatine Kinase Index CK-MB (CK-2) Troponin I B-Natriuretic Peptide 67267.7 H Total Protein 5.9 L Albumin 2.2 L Prealbumin TSH 4.66 H Urine Color Urine Appearance Urine pH Ur Specific [place] Urine Protein Urine Glucose (UA) Urine Ketones Urine Blood Urine Nitrite Urine Bilirubin Urine Urobilinogen Ur Leukocyte Esterase Urine WBC (Auto) Urine RBC (Auto) U Random Total Protein Ur Random Sodium Ur Random Potassium Ur Random Chloride Ur Random Urea Nitrogn Urine Creatinine Blood Type Antibody Screen 08/16/18 08/16/18 08/16/18 05:30 07:22 08:35 WBC RBC Hgb Hct MCV MCH MCHC RDW Plt Count MPV Absolute Neuts (auto) Neutrophils % Lymphocytes % Monocytes % Eosinophils % Basophils % Nucleated RBC % PT with INR INR PTT (Actin FS) Anticoagulation Therapy No Result Required. Puncture Site Right radial ABG pH 7.24 L* ABG pCO2 at Pt Temp 31.1 L ABG pO2 at Pt Temp 141.0 H ABG HCO3 12.9 L* ABG O2 Sat (Measured) 98.6 ABG O2 Content 16.4 ABG Base Excess -13.1 L* Davian Test No Result Required. Carboxyhemoglobin Methemoglobin O2 Delivery Device No Result Required. Oxygen Flow Rate Yes Vent Mode No Result Required. Vent Rate No Result Required. Mechanical Rate No Result Required. Pressure Support Vent No Result Required. Sodium Potassium Chloride Carbon Dioxide Anion Gap BUN Creatinine Creat Clearance w eGFR POC Glucometer [phone] Random Glucose Hemoglobin A1c % Lactic Acid Calcium Phosphorus Magnesium Total Bilirubin AST ALT Alkaline Phosphatase Creatine Kinase Creatine Kinase Index CK-MB (CK-2) Troponin I B-Natriuretic Peptide Total Protein Albumin Prealbumin 14.5 L TSH Urine Color Urine Appearance Urine pH Ur Specific [place] Urine Protein Urine Glucose (UA) Urine Ketones Urine Blood Urine Nitrite Urine Bilirubin Urine Urobilinogen Ur Leukocyte Esterase Urine WBC (Auto) Urine RBC (Auto) U Random Total Protein Ur Random Sodium Ur Random Potassium Ur Random Chloride Ur Random Urea Nitrogn Urine Creatinine Blood Type Antibody Screen 08/16/18 09:30 WBC RBC Hgb Hct MCV MCH MCHC RDW Plt Count MPV Absolute Neuts (auto) Neutrophils % Lymphocytes % Monocytes % Eosinophils % Basophils % Nucleated RBC % PT with INR INR PTT (Actin FS) Anticoagulation Therapy Puncture Site ABG pH ABG pCO2 at Pt Temp ABG pO2 at Pt Temp ABG HCO3 ABG O2 Sat (Measured) ABG O2 Content ABG Base Excess Davian Test Carboxyhemoglobin Methemoglobin O2 Delivery Device Oxygen Flow Rate Vent Mode Vent Rate Mechanical Rate Pressure Support Vent Sodium Potassium Chloride Carbon Dioxide Anion Gap BUN Creatinine Creat Clearance w eGFR POC Glucometer Random Glucose Hemoglobin A1c % Lactic Acid 0.6 Calcium Phosphorus Magnesium Total Bilirubin AST ALT Alkaline Phosphatase Creatine Kinase Creatine Kinase Index CK-MB (CK-2) Troponin I B-Natriuretic Peptide Total Protein Albumin Prealbumin TSH Urine Color Urine Appearance Urine pH Ur Specific [place] Urine Protein Urine Glucose (UA) Urine Ketones Urine Blood Urine Nitrite Urine Bilirubin Urine Urobilinogen Ur Leukocyte Esterase Urine WBC (Auto) Urine RBC (Auto) U Random Total Protein Ur Random Sodium Ur Random Potassium Ur Random Chloride Ur Random Urea Nitrogn Urine Creatinine Blood Type Antibody Screen CXR (reviewed by me) - bibasilar atelectasis with pleural fluid Renal US - Atrophic Kidneys consistent with chronic medical renal disease. l and R simple cysts with R pleural effusion. US LEs - no DVT. ASSESSMENT AND PLAN: 87 year old male with BPH, CKD 4, HTN, HLD, DM 2, presented with 2 week history of increasing shortness of breath, worse on exertion, with associated LE edema for the past 3 days, found to have CATARINA on CKD with acidosis and hyperkalemia. 1. Acute Kidney Injury atop Chronic Renal Disease, now CKD-V/ESRD Fluid overload, Metabolic Acidosis, Hyperkalemia secondary to above. Renal US - as above - no hydronephrosis. CT A/P pending report s/p R inguinal catheter - for HD today. Lasix drip ongoing until HD. Nephrology evaluated and following. Likely progression of medical renal disease, further work-up as per Nephrology. 2. Hyperkalemia sec to CATARINA K 4.1 s/p Albuterol nebs/Insulin/Kayexalate. 3. Fluid Overload secondary to CATARINA on CKD BNP 11048 Fluid overload unlikely cardiac in orgin - Echo pending. Mild troponin egression likely due to myocardial distension. Stress ischemia due to fluid overload and impaired clearance. 4. Metabolic acidosis sec to CATARINA PH 7.24 HD today. 5. Respiratory Distress - secondary to fluid overload and acidosis - resolving. SpO2 95% on RA on my exam. Supplemental O2 prn. 6. BPH with history of urinary retention Renal US - no hydronephrosis Blackmon in situ Continue Tamsulosin 7. Hypertensive Emergency Off nicardipine drip now. Will resume home anti-hypertensives Toprol and Norvasc. 8. DM 2 - Continue home basal with Levemir and cover with SSI 9. Hx GI Bleed sec to PUD - treated for Hpylori. Appears stable. GI Px with Famotidine. DVT Px - SCDs. Heparin held due to episode of Hematuria. Full Code Visit type - Emergency Visit Emergency Visit: Yes ED Registration Date: 08/15/18 Care time: The patient presented to the Emergency Department on the above date and was hospitalized for further evaluation of their emergent condition. - New Patient This patient is new to me today: Yes Date on this admission: 08/16/18 - Critical Care Critical Care patient: Yes Total Critical Care Time (in minutes): 30 Critical Care Statement: The care of this patient involved high complexity decision making to prevent further life threatening deterioration of the patient 's condition and/or to evaluate & treat vital organ system(s) failure or risk of failure. - Discharge Referral Referred to [facility] Med [facility].: No
[2018-08-16] MEDS ORDERED: INSULIN (NOVOLOG) ASPART 100 UNITS/ML 10ML VIAL SQ SCH (16:30)
[2018-08-16] MEDS ORDERED: EPOETIN ALFA 2,000 UNIT/1 ML VIAL IVPUSH ONE (17:00)
[2018-08-16] MEDS ORDERED: EPOETIN ALFA 10,000 UNIT/1 ML VIAL IVPUSH ONE (17:00)
[2018-08-16 17:51] LABS: LDH 215 U/L (87-246)
[2018-08-16] MEDS: CHLORHEXIDINE GLUCONATE 4% CLEANSER FOR DECOLONIZATION TP SCH (21:31)
[2018-08-16] MEDS ORDERED: INSULIN (LEVEMIR) 100 UNITS/ML UNITS SQ SCH (22:00)
[2018-08-17] MEDS: FUROSEMIDE INJECTION 100 MG in DEXTROSE 5%-WATER - 40 ML IVPB SCH (02:58)
[2018-08-17] MEDS: NICARDIPINE 25 MG in DEXTROSE 5%-WATER - 240 ML IVPB SCH (02:58)
[2018-08-17 05:27] LABS: BASO % 0.5 % (0-2.0); EOS % 6.8 % (0-4.5); HEMATOCRIT 23.7 % (35.4-49); HEMOGLOBIN 7.7 GM/dL (11.7-16.9); LYMPH % 9.8 % (8-40); MCH 26.1 pg (25.7-33.7); MCHC 32.4 g/dl (32.0-35.9); MEAN CELL VOLUME 80.3 fl (80-96); MEAN PLT VOLUME 7.9 fl (7.5-11.1); MONO % 9.7 % (3.8-10.2); NEUT % 73.2 % (42.8-82.8); PLATELET COUNT 136 K/MM3 (134-434); RBC 2.95 M/mm3 (4.00-5.60); RDW 16.7 % (11.9-15.9); WHITE BLOOD COUNT 7.8 K/mm3 (4.0-10.0)
[2018-08-17] MEDS ORDERED: DEXTROSE 50%-WATER 25 GM/50 ML DISP.SYRIN ONE (06:09)
[2018-08-17 06:11] LABS: ANION GAP 10 MMOL/L (8-16); BLOOD UREA NITROGEN 71 mg/dL (7-18); CALCIUM 7.2 mg/dL (8.5-10.1); CHLORIDE 107 mmol/L (98-107); CO2 25 mmol/L (21-32); POTASSIUM 3.3 mmol/L (3.5-5.1); SODIUM 141 mmol/L (136-145)
[2018-08-17 06:15] LABS: CREATININE 9.8 mg/dL (0.55-1.3)
[2018-08-17 06:16] LABS: GLUCOSE,RANDOM 26 mg/dL (74-106)
[2018-08-17] MEDS ORDERED: DEXTROSE 50%-WATER - 25 GM/50 ML VIAL IVPUSH ONE (07:28)
[2018-08-17] MEDS ORDERED: PT OWN MED DRAWER 7, Y5N ONE (07:59)
[2018-08-17] MEDS: TAMSULOSIN HCL 0.4 MG CAP PO SCH (08:14)
[2018-08-17 08:17] LABS: ALK PHOS 50 U/L (45-117); BILIRUBIN,TOTAL 0.2 mg/dL (0.2-1); SGOT/AST 17 U/L (15-37); SGPT/ALT 16 U/L (13-61); TOT PROT 5.5 g/dl (6.4-8.2)
--- NOTE | 2018-08-17 09:19 | PN ---
Progress Note (short form) - Note Progress Note: Renal follow up for CATARINA Pt seen and examined at the bedside more awake today but still groggy tolerated first session of dialysis yesterday w/o complication on Lasix gtt still making urine via blackmon Vital Signs Temperature 98.6 F 08/17/18 06:00 Pulse Rate 84 08/17/18 08:24 Respiratory Rate 21 H 08/17/18 08:00 Blood Pressure 156/74 08/17/18 08:00 O2 Sat by Pulse Oximetry (%) 95 08/17/18 08:24 Intake & Output 08/14/18 08/15/18 08/16/18 08/17/18 23:59 23:59 23:59 23:59 Intake Total 373.5 30 Output Total 300 575 500 Balance -300 -201.5 -470 Weight 49.895 kg 49.895 kg 48.534 kg NAD Neck supple soft NT/ND Abd no Le swelling blackmon in place CBC, BMP 08/17/18 05:00 08/17/18 05:00 Current Medications Acetaminophen (Tylenol -) 650 mg PO Q6H PRN PRN Reason: PAIN Last Admin: 08/16/18 01:49 Dose: 650 mg Albuterol Sulfate (Ventolin 0.083% Nebulizer Soln -) 1 amp NEB Q4H PRN PRN Reason: SHORT OF BREATH/WHEEZING Chlorhexidine Gluconate (Hibiclens For Decolonization -) 1 applic TP HS [facility] Last Admin: 08/16/18 21:31 Dose: 1 applic Famotidine/Sodium Chloride (Pepcid 20 Mg Premixed Ivpb -) 20 mg in 50 mls @ 100 mls/hr IVPB BID [facility]HA[facility] Last Admin: 08/16/18 21:30 Dose: 100 mls/hr Nicardipine HCl 25 mg/ (Dextrose) 250 mls @ 25 mls/hr IVPB TITR [facility]; Protocol Last Admin: 08/17/18 02:58 Dose: Not Given Furosemide 100 mg/ Dextrose 50 mls @ 5 mls/hr IVPB TITR [facility]; Protocol Last Admin: 08/17/18 02:58 Dose: Not Given Sodium Chloride (Normal Saline -) 250 mls @ 3,000 mls/hr IV PRN PRN PRN Reason: Hypotension during Dialysis Stop: 08/17/18 16:59 Sodium Chloride (Normal Saline -) 250 mls @ 3,000 mls/hr IV PRN PRN PRN Reason: Hypotension during Dialysis Stop: 08/17/18 17:00 Insulin Aspart (Novolog Vial Sliding Scale -) 1 vial SQ ACHS [facility]; Protocol Insulin Detemir (Levemir Vial) 7 units SQ HS REHANA Last Admin: 08/16/18 21:30 Dose: 7 units Metoprolol Succinate (Toprol Xl -) 75 mg PO DAILY [facility] Morphine Sulfate (Morphine Sulfate) 2 mg IVPUSH Q4H PRN PRN Reason: PAIN LEVEL 7 - 10 Mupirocin (Bactroban Ointment (For Decolonization) -) 1 applic NS BID [facility] Stop: 08/21/18 09:59 Last Admin: 08/16/18 21:31 Dose: 1 applic Tamsulosin HCl (Flomax -) 0.8 mg PO DAILY@0830 [facility] Last Admin: 08/17/18 08:14 Dose: 0.8 mg 87 year old [place] gentleman with hx of CKD (baseline Cr unclear, had CATARINA last year with peak Cr ~5 was discharged with Cr ~4), DM, Hypertension, Hiatial Hernia who presented from home with complaints of SOB and leg swelling. #Acute Renal Failure (R/o ATN vs acute GN) #Hyperkalemia (now improved s/p dialysis) #Mild Volume overlaod (now improved) #Hypertension #Acute on Chronic Anemia #Anion gap metabolic acidosis #Thrombocytopenia (improving) Tolerated first dialysis yesterday, will recieve second session today with mild UF Imaging studies showed no evidence of obstruction but did show inguinal hernia with some urinary bladder herniation would benifit from routine urology consult serologic work up for CATARINA pending Hgb stable, no acute need for transfusion at this time LDH is WNL, Haptoglobin pending (less likely TMA) Trend BP can consider addition of CCB (i.e. Nicardipine ER) if BP remains > 150/ 90 after dialysis today would not start KATELYNN or ARB at this time. would d/c Lasix gtt and start IVP Lasix once daily CT shows PNA vs. atelectasis, ? need for Abx Dose all med for CrCl less then 15 Thank you Steven Carvajal DO
[2018-08-17] MEDS: FAMOTIDINE 20 MG/50 ML IVPB 20 MG/50 ML MG IVPB SCH ×2 (09:43→21:06)
[2018-08-17] MEDS: MUPIROCIN 2% TOPICAL OINTMENT FOR DECOLONIZATION NS SCH ×2 (09:43→21:12)
[2018-08-17] MEDS ORDERED: metoPROLOL SUCCINATE 25 MG TAB.SR.24H (FP) PO SCH (10:00)
--- NOTE | 2018-08-17 10:42 | PN ---
Progress Note (short form) - Note Progress Note: PULM/CCM Pt Seen & Examined in ICU. Got HD Catheter --> R Groin yesterday --> then got HD for 1 L off. Marked improvement in Metal status s/p HD. Active Medications Acetaminophen (Tylenol -) 650 mg PO Q6H PRN PRN Reason: PAIN Last Admin: 08/16/18 01:49 Dose: 650 mg Albuterol Sulfate (Ventolin 0.083% Nebulizer Soln -) 1 amp NEB Q4H PRN PRN Reason: SHORT OF BREATH/WHEEZING Chlorhexidine Gluconate (Hibiclens For Decolonization -) 1 applic TP HS [facility] Last Admin: 08/16/18 21:31 Dose: 1 applic Famotidine/Sodium Chloride (Pepcid 20 Mg Premixed Ivpb -) 20 mg in 50 mls @ 100 mls/hr IVPB BID [facility] Last Admin: 08/17/18 09:43 Dose: 100 mls/hr Nicardipine HCl 25 mg/ (Dextrose) 250 mls @ 25 mls/hr IVPB TITR [facility]; Protocol Last Admin: 08/17/18 02:58 Dose: Not Given Furosemide 100 mg/ Dextrose 50 mls @ 5 mls/hr IVPB TITR [facility]; Protocol Last Admin: 08/17/18 02:58 Dose: Not Given Sodium Chloride (Normal Saline -) 250 mls @ 3,000 mls/hr IV PRN PRN PRN Reason: Hypotension during Dialysis Stop: 08/17/18 16:59 Sodium Chloride (Normal Saline -) 250 mls @ 3,000 mls/hr IV PRN PRN PRN Reason: Hypotension during Dialysis Stop: 08/17/18 17:00 Insulin Aspart (Novolog Vial Sliding Scale -) 1 vial SQ ACHS [facility]; Protocol Metoprolol Succinate (Toprol Xl -) 75 mg PO DAILY [facility] Last Admin: 08/17/18 09:42 Dose: 75 mg Morphine Sulfate (Morphine Sulfate) 2 mg IVPUSH Q4H PRN PRN Reason: PAIN LEVEL 7 - 10 Mupirocin (Bactroban Ointment (For Decolonization) -) 1 applic NS BID [facility] Stop: 08/21/18 09:59 Last Admin: 08/17/18 09:43 Dose: 1 applic Tamsulosin HCl (Flomax -) 0.8 mg PO DAILY@0830 [facility] Last Admin: 08/17/18 08:14 Dose: 0.8 mg Vital Signs Period Temp Pulse Resp BP Sys/Bernstein Pulse Ox Last 24 Hr 97.0 F-98.6 F 80-100 10-21 145-196/63-94 95-100 Intake & Output 08/14/18 08/15/18 08/16/18 08/17/18 23:59 23:59 23:59 23:59 Intake Total 373.5 30 Output Total 300 575 500 Balance -300 -201.5 -470 Weight 49.895 kg 49.895 kg 48.534 kg GEN: Groggy but NAD HEENT: PERRL, an-icteric, Dry MM PULM: CTAB CV: nml S1 S2, RR ABD: + BS S/S N/T N/D X4Q, blackmon EXT: + Pulses, [id number], (-) edema RECENT STUDIES TO NOTE: Chest X-ray: Image Reviewed (CXR 08/16: A single AP view the chest is been submitted. Since 08/15/2018 at 1833 hours, there are progressive congestive changes with progressive bilateral effusions and questionable infiltrates at the bases. Follow-up recommended. Impression : Worse. Progressive bilateral pulmonary and pleural findings.) Ultrasound: Report Reviewed (RENAL US 08/16: Both kidneys are atrophic and echogenic consistent with chronic medical renal disease without evidence of hydronephrosis or gross renal stones. Simple cyst in the right kidney measuring 2.5 cm and a simple cyst in the left kidney measuring 1 cm. Note is made of right pleural effusion) EKG: Image Reviewed (08/15: RSR @ 78 w/o ect, L atrial enlargement, T-wave flattening in the lateral leads but non-specific, NO Peaked T's, QTc = 462, no acute process (My Read).) ASSESS: This is an 87 y/o man w/ HTN, HL, DM, Stage IV/V CKD, & BPH who presents now w/ A on C renal fail. PLAN: -FiO2 for an SpO2 > 92% -Nebs -IS -CPT -Strict I's & O's -Trend BUN/Cr -Replete e-lytes prn -Trialysis Cath -HD -F/u CTAP -Check ANCA, NICK -Check iron profile -RENAL -Cont Home anti-HTN meds -FS -SSI prn -Check Hgb A1C -DVT PPX -GI PPX (Renal Fail) -D/c to Med Surg Thank You for this interesting Consult [facility], [facility] ICU PULM/CCM [id number] Critical Care Total Critical Care Time (in minutes): 38 Critical Care Statement: The care of this patient involved high complexity decision making to prevent further life threatening deterioration of the patient 's condition and/or to evaluate & treat vital organ system(s) failure or risk of failure. Problem List - Problems (1) Acute on chronic renal failure Code(s): N17.9 - ACUTE KIDNEY FAILURE, UNSPECIFIED; N18.9 - CHRONIC KIDNEY DISEASE, UNSPECIFIED Qualifiers: Acute renal failure type: unspecified Chronic kidney disease stage: unspecified stage Qualified Code(s): N17.9 - Acute kidney failure, unspecified ; N18.9 - Chronic kidney disease, unspecified (2) CHF (congestive heart failure) Code(s): I50.9 - HEART FAILURE, UNSPECIFIED Qualifiers: Heart failure type: unspecified Heart failure chronicity: unspecified Qualified Code(s): I50.9 - Heart failure, unspecified (3) Anemia Code(s): D64.9 - ANEMIA, UNSPECIFIED (4) Electrolyte abnormality Code(s): E87.8 - OTH DISORDERS OF ELECTROLYTE AND FLUID BALANCE, NEC (5) Urinary retention due to benign prostatic hyperplasia Code(s): N40.1 - BENIGN PROSTATIC HYPERPLASIA WITH LOWER URINARY TRACT SYMP; R33.8 - OTHER RETENTION OF URINE (6) Diabetes mellitus Code(s): E11.9 - TYPE 2 DIABETES MELLITUS WITHOUT COMPLICATIONS
[2018-08-17] MEDS: INSULIN SLIDING SCALE (NOVOLOG) 1 VIAL SQ SCH ×3 (11:23→21:06)
--- NOTE | 2018-08-17 12:26 | EKG ---
Test Reason : Blood Pressure : / mmHG Vent. Rate : 078 BPM Atrial Rate : 078 BPM P-R Int : 118 ms QRS Dur : 080 ms QT Int : 406 ms P-R-T Axes : 028 009 125 degrees QTc Int : 462 ms NORMAL SINUS RHYTHM POSSIBLE LEFT ATRIAL ENLARGEMENT NONSPECIFIC T WAVE ABNORMALITY PROLONGED QT ABNORMAL ECG WHEN COMPARED WITH ECG OF 09-AUG-2017 01:24, INVERTED T WAVES HAVE REPLACED NONSPECIFIC T WAVE ABNORMALITY IN LATERAL LEADS Confirmed by MOIZ STEWART MD ([id number]) on 08/17/2018 12:26:35 PM Referred By: Confirmed By:MOIZ STEWART MD
--- NOTE | 2018-08-17 14:13 | PN ---
Physical Exam: SUBJECTIVE: Patient seen and examined at bed side , S/P HD yesterday and will have another session today , seems lethargic and drowsy more awake after the nreakfast per nurse. had low sugar over night to 26 and was given D50 . OBJECTIVE: Vital Signs Period Temp Pulse Resp BP Sys/Bernstein Pulse Ox Last 24 Hr 97.8 F-98.6 F 80-100 12-21 145-196/63-94 95-100 GENERAL: in NAD . lethargic and drowsy HEAD: NC/AT EYES: EOMI, Conjunctiva clear, sclera anicteric ENT: dry mucous membrane NECK: Supple, no JVD LUNGS: CTA B/L, no crackles no wheezing no accessory muscle use. HEART: RRR, NSR, normal s1, s2, murmur no M/R/G ABDOMEN: Soft, ND, NT, +BS 4 Q, no CVA Tenderness LOWER EXTREMITIES: no edema, +2DP pulse, NEUROLOGICAL: No focal deficit. PSYCHIATRIC: lethargic SKIN: Warm, dry, Laboratory Results - last 24 hr 08/16/18 08/16/18 08/16/18 05:30 14:54 17:10 WBC RBC Hgb Hct MCV MCH MCHC RDW Plt Count MPV Absolute Neuts (auto) Neutrophils % Lymphocytes % Monocytes % Eosinophils % Basophils % Nucleated RBC % Sodium 138 Potassium 4.1 Chloride 107 Carbon Dioxide 13 L Anion Gap 17 H BUN 117 H* Creatinine 14.0 H* Creat Clearance w eGFR 3.38 POC Glucometer 113.17784 140.23640 Random Glucose 198 H Calcium 7.5 L Phosphorus 10.2 H* Magnesium 2.7 H Ferritin 70.8 Total Bilirubin 0.2 AST 11 L ALT 17 Alkaline Phosphatase 56 LD Total 215 B-Natriuretic Peptide 65958.7 H Total Protein 5.9 L Albumin 2.2 L TSH 4.66 H Free T4 08/16/18 08/17/18 08/17/18 21:29 05:00 05:00 WBC 7.8 RBC 2.95 L Hgb 7.7 L Hct 23.7 L MCV 80.3 MCH 26.1 MCHC 32.4 RDW 16.7 H Plt Count 136 MPV 7.9 Absolute Neuts (auto) 5.7 Neutrophils % 73.2 Lymphocytes % 9.8 D Monocytes % 9.7 Eosinophils % 6.8 H D Basophils % 0.5 Nucleated RBC % 0 Sodium 141 Potassium 3.3 L Chloride 107 Carbon Dioxide 25 Anion Gap 10 BUN 71 H Creatinine 9.8 H* Creat Clearance w eGFR 5.10 POC Glucometer 113.81450 Random Glucose 26 L* Calcium 7.2 L Phosphorus 8.0 H Magnesium Ferritin Total Bilirubin 0.2 AST 17 ALT 16 Alkaline Phosphatase 50 LD Total B-Natriuretic Peptide Total Protein 5.5 L Albumin 2.0 L TSH Free T4 0.89 08/17/18 08/17/18 08/17/18 05:00 08:06 11:17 WBC RBC Hgb Hct MCV MCH MCHC RDW Plt Count MPV Absolute Neuts (auto) Neutrophils % Lymphocytes % Monocytes % Eosinophils % Basophils % Nucleated RBC % Sodium Cancelled Potassium Cancelled Chloride Cancelled Carbon Dioxide Cancelled Anion Gap Cancelled BUN Cancelled Creatinine Cancelled Creat Clearance w eGFR Cancelled POC Glucometer 81.49219 103.54276 Random Glucose Cancelled Calcium Cancelled Phosphorus Cancelled Magnesium Ferritin Total Bilirubin Cancelled AST Cancelled ALT Cancelled Alkaline Phosphatase Cancelled LD Total B-Natriuretic Peptide Total Protein Cancelled Albumin Cancelled TSH Free T4 Active Medications Generic Name Dose Route Start Last Admin Trade Name Freq PRN Reason Stop Dose Admin Acetaminophen 650 mg 08/16/18 01:40 08/16/18 01:49 Tylenol - PO 650 mg Q6H PRN Administration PAIN Albuterol Sulfate 1 amp 08/16/18 06:29 Ventolin 0.083% Nebulizer Soln - NEB Q4H PRN SHORT OF BREATH/WHEEZING Chlorhexidine Gluconate 1 applic 08/16/18 22:00 08/16/18 21:31 Hibiclens For Decolonization - TP 1 applic HS REHANA Administration Guaifenesin 600 mg 08/17/18 22:00 Mucinex - PO BID REHANA Famotidine/Sodium Chloride 20 mg in 50 mls @ 100 mls/hr 08/16/18 10:00 09:43 Pepcid 20 Mg Premixed Ivpb - IVPB 100 mls/hr BID REHANA Administration Nicardipine HCl 25 mg/ 250 mls @ 25 mls/hr 08/16/18 00:45 08/17/18 02:58 Dextrose IVPB Not Given TITR REHANA Protocol 2.5 MG/HR Furosemide 100 mg/ Dextrose 50 mls @ 5 mls/hr 08/16/18 01:15 08/17/18 10:00 IVPB 0 mg/hr TITR REHANA 0 mls/hr Titration Protocol 10 MG/HR Sodium Chloride 250 mls @ 3,000 mls/hr 08/16/18 17:00 Normal Saline - IV 08/17/18 16:59 PRN PRN Hypotension during Dialysis Sodium Chloride 250 mls @ 3,000 mls/hr 08/16/18 09:32 Normal Saline - IV 08/17/18 17:00 PRN PRN Hypotension during Dialysis Insulin Aspart 1 vial 08/17/18 11:00 08/17/18 11:23 Novolog Vial Sliding Scale - SQ Not Given ACHS REHANA Protocol Metoprolol Succinate 75 mg 08/17/18 10:00 08/17/18 09:42 Toprol Xl - PO 75 mg DAILY REHANA Administration Morphine Sulfate 2 mg 08/16/18 06:34 Morphine Sulfate IVPUSH Q4H PRN PAIN LEVEL 7 - 10 Mupirocin 1 applic 08/16/18 10:00 08/17/18 09:43 Bactroban Ointment (For Decolonization) - NS 08/21/18 09:59 1 applic BID REHANA Administration Tamsulosin HCl 0.8 mg 08/17/18 08:30 08/17/18 08:14 Flomax - PO 0.8 mg DAILY@0830 REHANA Administration CBC, BMP 08/17/18 05:00 08/17/18 05:00 ASSESSMENT/PLAN: 87 y/o male with PMH of DM, CKD, HTN, HLD, BPH presents to the hospital with worsening dyspnea on exertion, orthopnea, B/L LE edema for the past one and a half weeks, found to have an elevated Cr of 13.5 upon admission. #Respiratory distress likely 2/2 to fluid overload -was on BIPAP on arrival to ED now on non-rebreather -ABG pending -monitor o2 saturations #CATARINA on CKD in review of Liztic, patients Cr on his last visit here (aug 2017) was 4.6 -likely 2/2 obstruction; given patients history of BPH in addition to his urine output post blackmon insertion -Dr Carvajal consulted from the ER -patient will likely need dialysis in the AM -renal/bladder U/S pending -repeat BMP post blackmon insertion -monitor I's and O's -monitor electrolytes #HTN patients BP on arrival was very elevated with systolics in the 200's and was given hydralazine 10 once -c.w home meds: amlodipine 5 daily and metoprolol 75 daily -monitor BP #DM -holding oral hypoglycemics -ISS -BGMS ACHS #BPH -blackmon catheter in place -c/w home meds F/E/N not on fluids monitor electrolytes: hyperkalemia on admission renal diet DVT PPX: SCDS GI PPX: protonix Visit type - Emergency Visit Emergency Visit: Yes ED Registration Date: 08/15/18 Care time: The patient presented to the Emergency Department on the above date and was hospitalized for further evaluation of their emergent condition. - New Patient This patient is new to me today: Yes Date on this admission: 08/18/18 - Critical Care Critical Care patient: Yes Total Critical Care Time (in minutes): 45 Critical Care Statement: The care of this patient involved high complexity decision making to prevent further life threatening deterioration of the patient 's condition and/or to evaluate & treat vital organ system(s) failure or risk of failure.
[2018-08-17] MEDS ORDERED: PNEUMOCOCCAL 23 VACCINE 0.5 ML VIAL IM ONE (16:00)
--- NOTE | 2018-08-17 16:49 | PN ---
Teaching Attending Note Name of Resident: Ryan Calix ATTENDING PHYSICIAN STATEMENT I saw and evaluated the patient. I reviewed the resident's note and discussed the case with the resident. I agree with the resident's findings and plan as documented. SUBJECTIVE: Feeling okay, less SOB. No further hematuria. No fever/chills/cough/ sputum. FS 29 this AM - improved s/p D50 OBJECTIVE: Afebrile, Hemodynamically Stable. HD ongoing. Last Vital Signs Temp Pulse Resp BP Pulse Ox 98.1 F 76 17 156/60 95 08/17/18 12:00 08/17/18 16:00 08/17/18 16:00 08/17/18 16:00 08/17/18 09:00 HEENT- Atraumatic/Normocephalic Heart - S1, S2, RRR Lungs - bibasal crackles Abdomen - soft, non-tender. Bowel Sounds normal. Extremities - Edema significantly improved. No calf tenderness - Sen - clear urine. Laboratory Results - last 24 hr 08/16/18 08/16/18 08/17/18 17:10 21:29 05:00 WBC 7.8 RBC 2.95 L Hgb 7.7 L Hct 23.7 L MCV 80.3 MCH 26.1 MCHC 32.4 RDW 16.7 H Plt Count 136 MPV 7.9 Absolute Neuts (auto) 5.7 Neutrophils % 73.2 Lymphocytes % 9.8 D Monocytes % 9.7 Eosinophils % 6.8 H D Basophils % 0.5 Nucleated RBC % 0 Sodium Potassium Chloride Carbon Dioxide Anion Gap BUN Creatinine Creat Clearance w eGFR POC Glucometer 140.77067 113.34384 Random Glucose Calcium Phosphorus Total Bilirubin AST ALT Alkaline Phosphatase Total Protein Albumin Free T4 08/17/18 08/17/18 08/17/18 05:00 05:00 08:06 WBC RBC Hgb Hct MCV MCH MCHC RDW Plt Count MPV Absolute Neuts (auto) Neutrophils % Lymphocytes % Monocytes % Eosinophils % Basophils % Nucleated RBC % Sodium 141 Cancelled Potassium 3.3 L Cancelled Chloride 107 Cancelled Carbon Dioxide 25 Cancelled Anion Gap 10 Cancelled BUN 71 H Cancelled Creatinine 9.8 H* Cancelled Creat Clearance w eGFR 5.10 Cancelled POC Glucometer 81.88875 Random Glucose 26 L* Cancelled Calcium 7.2 L Cancelled Phosphorus 8.0 H Cancelled Total Bilirubin 0.2 Cancelled AST 17 Cancelled ALT 16 Cancelled Alkaline Phosphatase 50 Cancelled Total Protein 5.5 L Cancelled Albumin 2.0 L Cancelled Free T4 0.89 08/17/18 08/17/18 11:17 17:03 WBC RBC Hgb Hct MCV MCH MCHC RDW Plt Count MPV Absolute Neuts (auto) Neutrophils % Lymphocytes % Monocytes % Eosinophils % Basophils % Nucleated RBC % Sodium Potassium Chloride Carbon Dioxide Anion Gap BUN Creatinine Creat Clearance w eGFR POC Glucometer 103.69975 152.82861 Random Glucose Calcium Phosphorus Total Bilirubin AST ALT Alkaline Phosphatase Total Protein Albumin Free T4 Current Medications Generic Name Dose Route Start Last Admin Trade Name Freq PRN Reason Stop Dose Admin Acetaminophen 650 mg 08/16/18 01:40 08/16/18 01:49 Tylenol - PO 650 mg Q6H PRN Administration PAIN Albuterol Sulfate 1 amp 08/16/18 06:29 Ventolin 0.083% Nebulizer Soln - NEB Q4H PRN SHORT OF BREATH/WHEEZING Chlorhexidine Gluconate 1 applic 08/16/18 22:00 08/16/18 21:31 Hibiclens For Decolonization - TP 1 applic HS REHANA Administration Guaifenesin 600 mg 08/17/18 22:00 Mucinex - PO BID REHANA Famotidine/Sodium Chloride 20 mg in 50 mls @ 100 mls/hr 08/16/18 10:00 09:43 Pepcid 20 Mg Premixed Ivpb - IVPB 100 mls/hr BID REHANA Administration Nicardipine HCl 25 mg/ 250 mls @ 25 mls/hr 08/16/18 00:45 08/17/18 02:58 Dextrose IVPB Not Given TITR REHANA Protocol 2.5 MG/HR Furosemide 100 mg/ Dextrose 50 mls @ 5 mls/hr 08/16/18 01:15 08/17/18 10:00 IVPB 0 mg/hr TITR REHANA 0 mls/hr Titration Protocol 10 MG/HR Insulin Aspart 1 vial 08/17/18 11:00 08/17/18 11:23 Novolog Vial Sliding Scale - SQ Not Given ACHS REHANA Protocol Metoprolol Succinate 75 mg 08/17/18 10:00 08/17/18 09:42 Toprol Xl - PO 75 mg DAILY REHANA Administration Morphine Sulfate 2 mg 08/16/18 06:34 Morphine Sulfate IVPUSH Q4H PRN PAIN LEVEL 7 - 10 Mupirocin 1 applic 08/16/18 10:00 08/17/18 09:43 Bactroban Ointment (For Decolonization) - NS 08/21/18 09:59 1 applic BID REHANA Administration Tamsulosin HCl 0.8 mg 08/17/18 08:30 08/17/18 08:14 Flomax - PO 0.8 mg DAILY@0830 REHANA Administration ASSESSMENT AND PLAN: 87 year old male with BPH, CKD 4, HTN, HLD, DM 2, presented with 2 week history of increasing shortness of breath, worse on exertion, with associated LE edema for the past 3 days, found to have CATARINA on CKD with acidosis and hyperkalemia. 1. Acute Kidney Injury atop Chronic Renal Disease, now CKD-V/ESRD Fluid overload, Metabolic Acidosis, Hyperkalemia secondary to above. Renal US - as above - no hydronephrosis. CT A/P pending report s/p R inguinal catheter - received HD yest and today. Lasix drip stopped. Nephrology evaluated and following. Likely progression of medical renal disease, further CKD work-up pending. 2. Hyperkalemia sec to CATARINA K 3.3 s/p Albuterol nebs/Insulin/Kayexalate/HD. 3. Fluid Overload secondary to CATARINA on CKD BNP 39627 on admission Fluid overload unlikely cardiac in origin - Echo pending. Mild troponin egression likely due to myocardial distension. Stress ischemia due to fluid overload and impaired clearance. 4. Metabolic acidosis sec to CATARINA - resolved s/p HD 5. Respiratory Distress - secondary to fluid overload and acidosis - resolving. SpO2 95% on RA on my exam. Supplemental O2 prn. 6. BPH with history of urinary retention Renal US - no hydronephrosis Sen in situ - clear urine. Continue Tamsulosin 7. Hypertensive Emergency Off nicardipine drip now. Resumed on home anti-hypertensives Toprol and Norvasc. 8. DM 2 - Episode of hypoglycemia this AM. Levemir discontinued. 9. Hx GI Bleed sec to PUD - treated for Hpylori. Appears stable. GI Px with Famotidine. 10. Acute on Chronic Anemia likely secondary to CKD H/H 7.03/24. MCV 80 Unlikely acute blood loss - Fecal Occult Blood requested. Hematuria resolved. Heparin SQ discontinued. Ferritin/LDH/Haptoglobin pending. Nephrology eval for Epoietin. May require transfusion if H/H continues to drop further 11. Hypoglycemia - asymptomatic - resolved s/p D50. Levemir discontinued. DVT Px - SCDs. Heparin held due to episode of Hematuria. Full Code ADDENDUM Rapid Response Called as patient became unresponsive while being cleaned by nursing staff. Patient apparently never lost pulse but became unresponsive while lying in bed. HR 48 on monitor. Episode lasted less than 2 minutes with spontaneous recovery of consciousness, now AAO x 3 and resolution of bradycardia with HR now 78. Denies CP/Palps/SOB. Rhythm strip shows bradycardia, now sinus rhythm, regular rate. ECG and labs including troponin requested. Likely vasovagal episode with spontaneous recovery. Vitals now within normal limits. FS 152. Discussed with Cardiology Dr. Shelby who agrees to evaluate the patient.
[2018-08-17 17:55] LABS: BASO % 0.3 % (0-2.0); HEMATOCRIT 24.8 % (35.4-49); HEMOGLOBIN 8.6 GM/dL (11.7-16.9); LYMPH % 6.7 % (8-40); MCH 27.5 pg (25.7-33.7); MCHC 34.8 g/dl (32.0-35.9); MEAN CELL VOLUME 79.1 fl (80-96); MEAN PLT VOLUME 8.1 fl (7.5-11.1); MONO % 8.5 % (3.8-10.2); NEUT % 80.5 % (42.8-82.8); PLATELET COUNT 141 K/MM3 (134-434); RBC 3.14 M/mm3 (4.00-5.60); RDW 16.7 % (11.9-15.9); WHITE BLOOD COUNT 7.2 K/mm3 (4.0-10.0)
--- NOTE | 2018-08-17 18:19 | RAPID ---
Physical Examination Vital Signs: Vital Signs Temperature 98.1 F 08/17/18 12:00 Pulse Rate 76 08/17/18 16:00 Respiratory Rate 17 08/17/18 16:00 Blood Pressure 156/60 08/17/18 16:00 O2 Sat by Pulse Oximetry (%) 95 08/17/18 09:00 rapid response was called for pt mentioned due to nain cardia 44-50 with junctional rhythm while nurses was changing pt gown , pt was drowsy and unresponsive for less than a min upon arrival pulse was palpated and pt vitals were as following HR 87 , BP 156/60, RR 16, o2 sat 95% RA PE: Head: drowsy lethargic , respond to verbal stimuli Head : NC, AT Lungs: CTA Heart : RRR Abdomen:soft, ND, NT , +BS Legs: no edema pt was suctioned and some food residual were removed from his mouth pt has a session of HD today with no complication pt return to his base line cbc, cmp , mg, phosporus , EKG,trop cxr , cardiology consult Dr sandra crane will follow up the lab and sign out to the night team. Labs: CBC, BMP 08/17/18 17:41
[2018-08-17 18:34] LABS: ANION GAP 9 MMOL/L (8-16); BLOOD UREA NITROGEN 33 mg/dL (7-18); CALCIUM 7.5 mg/dL (8.5-10.1); CHLORIDE 103 mmol/L (98-107); CO2 26 mmol/L (21-32); CREATININE 5.5 mg/dL (0.55-1.3); GLUCOSE,RANDOM 132 mg/dL (74-106); MAGNESIUM 1.8 mg/dL (1.8-2.4); PHOSPHOROUS 4.5 mg/dL (2.5-4.9); POTASSIUM 3.4 mmol/L (3.5-5.1); SODIUM 138 mmol/L (136-145)
[2018-08-17] MEDS ORDERED: ASPIRIN 325 MG ENTERIC COATED TABLET (FP) PO ONE (18:41)
[2018-08-17] MEDS: guaiFENesin 600 MG TABLET.ER (FP) PO SCH (21:06)
[2018-08-17] MEDS: CHLORHEXIDINE GLUCONATE 4% CLEANSER FOR DECOLONIZATION TP SCH (21:12)
[2018-08-17] MEDS ORDERED: LABETALOL HCL 5 MG/1 ML (100MG/20 ML VIAL) IVPUSH ONE (23:43)
[2018-08-17] MEDS ORDERED: LABETALOL HCL 5 MG/1 ML (100MG/20 ML VIAL) IVPUSH PRN (23:45)
[2018-08-17] MEDS ORDERED: diphenhydrAMINE HCL 25 MG CAPSULE (FP) PO ONE (23:45)
[2018-08-17] MEDS ORDERED: amLODIPine BESYLATE 5 MG TABLET (FP) PO ONE (23:49)
[2018-08-18] MEDS: NICARDIPINE 25 MG in DEXTROSE 5%-WATER - 240 ML IVPB SCH ×2 (00:25→04:30)
[2018-08-18] MEDS: FUROSEMIDE INJECTION 100 MG in DEXTROSE 5%-WATER - 40 ML IVPB SCH (00:28)
[2018-08-18 06:05] LABS: BASO % 0.6 % (0-2.0); EOS % 4.5 % (0-4.5); HEMATOCRIT 23.5 % (35.4-49); HEMOGLOBIN 7.6 GM/dL (11.7-16.9); LYMPH % 10.9 % (8-40); MCHC 32.4 g/dl (32.0-35.9); MEAN CELL VOLUME 80.4 fl (80-96); MONO % 8.8 % (3.8-10.2); NEUT % 75.2 % (42.8-82.8); PLATELET COUNT 109 K/MM3 (134-434); RBC 2.93 M/mm3 (4.00-5.60); RDW 16.7 % (11.9-15.9); WHITE BLOOD COUNT 5.8 K/mm3 (4.0-10.0)
[2018-08-18 06:31] LABS: ALBUMIN 1.9 g/dl (3.4-5.0); ALK PHOS 53 U/L (45-117); ANION GAP 9 MMOL/L (8-16); BILIRUBIN,TOTAL 0.3 mg/dL (0.2-1); BLOOD UREA NITROGEN 37 mg/dL (7-18); CALCIUM 7.4 mg/dL (8.5-10.1); CHLORIDE 101 mmol/L (98-107); CO2 28 mmol/L (21-32); CREATININE 6.6 mg/dL (0.55-1.3); GLUCOSE,RANDOM 136 mg/dL (74-106); MAGNESIUM 1.8 mg/dL (1.8-2.4); PHOSPHOROUS 6.5 mg/dL (2.5-4.9); POTASSIUM 3.6 mmol/L (3.5-5.1); SGOT/AST 20 U/L (15-37); SGPT/ALT 16 U/L (13-61); SODIUM 138 mmol/L (136-145); TOT PROT 5.5 g/dl (6.4-8.2)
[2018-08-18] MEDS: INSULIN SLIDING SCALE (NOVOLOG) 1 VIAL SQ SCH ×5 (06:51→21:31)
[2018-08-18] MEDS: TAMSULOSIN HCL 0.4 MG CAP PO SCH (08:43)
[2018-08-18] MEDS ORDERED: ONDANSETRON 4 MG/2 ML VIAL IVPB PRN ×2 (09:18→15:31)
--- NOTE | 2018-08-18 09:51 | EKG ---
Test Reason : Blood Pressure : / mmHG Vent. Rate : 082 BPM Atrial Rate : 082 BPM P-R Int : 138 ms QRS Dur : 084 ms QT Int : 404 ms P-R-T Axes : 051 006 090 degrees QTc Int : 472 ms NORMAL SINUS RHYTHM POSSIBLE LEFT ATRIAL ENLARGEMENT NONSPECIFIC ST AND T WAVE ABNORMALITY PROLONGED QT ABNORMAL ECG WHEN COMPARED WITH ECG OF 15-AUG-2018 17:22, NO SIGNIFICANT CHANGE WAS FOUND Confirmed by CARLOS RAINES, PRICE ([id number]) on 08/18/2018 9:50:43 AM Referred By: JOHN Confirmed By:PRICE GONZALEZ MD
[2018-08-18] MEDS: guaiFENesin 600 MG TABLET.ER (FP) PO SCH ×2 (10:17→21:33)
[2018-08-18] MEDS: MUPIROCIN 2% TOPICAL OINTMENT FOR DECOLONIZATION NS SCH (10:17)
[2018-08-18] MEDS: FAMOTIDINE 20 MG/50 ML IVPB 20 MG/50 ML MG IVPB SCH (10:17)
[2018-08-18] MEDS ORDERED: amLODIPine BESYLATE 5 MG TABLET (FP) PO ONE (11:45)
--- NOTE | 2018-08-18 12:03 | PN ---
Physical Exam: SUBJECTIVE: Patient seen and examined at bed side , had elevated bP over night to 180 was put on necardepin drip no hypoglycemia , regular rhythm , denies any fever, chills, SOB, chest pain . OBJECTIVE: Vital Signs Period Temp Pulse Resp BP Sys/Bernstein Pulse Ox Last 24 Hr 96.6 F-98.9 F 64-88 10-18 128-178/58-83 88-100 GENERAL: AAOx3 in NAD , catchetic HEAD: NC/AT EYES: EOMI, Conjunctiva clear, sclera anicteric ENT: dry mucous membrane NECK: Supple, no JVD LUNGS: CTA B/L, no crackles no wheezing no accessory muscle use. HEART: RRR, NSR, normal s1, s2, murmur no M/R/G ABDOMEN: Soft, ND, NT, +BS 4 Q, no CVA Tenderness LOWER EXTREMITIES: no edema, +2DP pulse,right inguinal shiley NEUROLOGICAL: No focal deficit. . gait not observed. PSYCHIATRIC: Cooperative. SKIN: Warm, dry, Laboratory Results - last 24 hr 08/16/18 08/17/18 08/17/18 10:20 05:00 06:18 WBC RBC Hgb Hct MCV MCH MCHC RDW Plt Count MPV Absolute Neuts (auto) Neutrophils % Lymphocytes % Monocytes % Eosinophils % Basophils % Nucleated RBC % Haptoglobin 150 Sodium Potassium Chloride Carbon Dioxide Anion Gap BUN Creatinine Creat Clearance w eGFR POC Glucometer 305.13438 Random Glucose Calcium Phosphorus Magnesium Total Bilirubin AST ALT Alkaline Phosphatase Troponin I Total Protein Albumin Free T4 0.89 08/17/18 08/17/18 08/17/18 06:18 11:17 17:03 WBC RBC Hgb Hct MCV MCH MCHC RDW Plt Count MPV Absolute Neuts (auto) Neutrophils % Lymphocytes % Monocytes % Eosinophils % Basophils % Nucleated RBC % Haptoglobin Sodium Potassium Chloride Carbon Dioxide Anion Gap BUN Creatinine Creat Clearance w eGFR POC Glucometer 306.24536 103.52257 152.44066 Random Glucose Calcium Phosphorus Magnesium Total Bilirubin AST ALT Alkaline Phosphatase Troponin I Total Protein Albumin Free T4 08/17/18 08/17/18 08/17/18 17:41 17:41 21:04 WBC 7.2 RBC 3.14 L Hgb 8.6 L Hct 24.8 L MCV 79.1 L MCH 27.5 MCHC 34.8 RDW 16.7 H Plt Count 141 MPV 8.1 Absolute Neuts (auto) 5.8 Neutrophils % 80.5 Lymphocytes % 6.7 L D Monocytes % 8.5 Eosinophils % 4.0 Basophils % 0.3 Nucleated RBC % 0 Haptoglobin Sodium 138 Potassium 3.4 L Chloride 103 Carbon Dioxide 26 Anion Gap 9 BUN 33 H Creatinine 5.5 H Creat Clearance w eGFR 9.93 POC Glucometer 167.68341 Random Glucose 132 H Calcium 7.5 L Phosphorus 4.5 Magnesium 1.8 Total Bilirubin AST ALT Alkaline Phosphatase Troponin I 0.71 H* Total Protein Albumin Free T4 08/17/18 08/18/18 08/18/18 22:40 05:00 05:00 WBC 5.8 RBC 2.93 L Hgb 7.6 L Hct 23.5 L MCV 80.4 MCH 26.0 MCHC 32.4 RDW 16.7 H Plt Count 109 L D MPV 8.0 Absolute Neuts (auto) 4.4 Neutrophils % 75.2 Lymphocytes % 10.9 D Monocytes % 8.8 Eosinophils % 4.5 Basophils % 0.6 Nucleated RBC % 0 Haptoglobin Sodium 138 Potassium 3.6 Chloride 101 Carbon Dioxide 28 Anion Gap 9 BUN 37 H Creatinine 6.6 H Creat Clearance w eGFR 8.05 POC Glucometer Random Glucose 136 H Calcium 7.4 L Phosphorus 6.5 H Magnesium 1.8 Total Bilirubin 0.3 AST 20 ALT 16 Alkaline Phosphatase 53 Troponin I 0.63 H* Total Protein 5.5 L Albumin 1.9 L Free T4 08/18/18 08/18/18 05:23 11:06 WBC RBC Hgb Hct MCV MCH MCHC RDW Plt Count MPV Absolute Neuts (auto) Neutrophils % Lymphocytes % Monocytes % Eosinophils % Basophils % Nucleated RBC % Haptoglobin Sodium Potassium Chloride Carbon Dioxide Anion Gap BUN Creatinine Creat Clearance w eGFR POC Glucometer 149.72102 206.17040 Random Glucose Calcium Phosphorus Magnesium Total Bilirubin AST ALT Alkaline Phosphatase Troponin I Total Protein Albumin Free T4 Active Medications Generic Name Dose Route Start Last Admin Trade Name Freq PRN Reason Stop Dose Admin Acetaminophen 650 mg 08/16/18 01:40 08/16/18 01:49 Tylenol - PO 650 mg Q6H PRN Administration PAIN Albuterol Sulfate 1 amp 08/16/18 06:29 Ventolin 0.083% Nebulizer Soln - NEB Q4H PRN SHORT OF BREATH/WHEEZING Amlodipine Besylate 10 mg 08/19/18 10:00 Norvasc - PO DAILY REHANA Atenolol 25 mg 08/19/18 10:00 Tenormin - PO DAILY REHANA Chlorhexidine Gluconate 1 applic 08/16/18 22:00 08/17/18 21:12 Hibiclens For Decolonization - TP 1 applic HS REHANA Administration Guaifenesin 600 mg 08/17/18 22:00 08/18/18 10:17 Mucinex - PO 600 mg BID REHANA Administration Heparin Sodium (Porcine) 5,000 unit 08/18/18 14:00 Heparin - SQ TID REHANA Famotidine/Sodium Chloride 20 mg in 50 mls @ 100 mls/hr 08/16/18 10:00 10:17 Pepcid 20 Mg Premixed Ivpb - IVPB 100 mls/hr BID REHANA Administration Nicardipine HCl 25 mg/ 250 mls @ 25 mls/hr 08/16/18 00:45 08/18/18 10:15 Dextrose IVPB 0 mg/hr TITR REHANA 0 mls/hr Titration Protocol 2.5 MG/HR Furosemide 100 mg/ Dextrose 50 mls @ 5 mls/hr 08/16/18 01:15 08/18/18 00:28 IVPB Not Given TITR REHANA Protocol 10 MG/HR Insulin Aspart 1 vial 08/18/18 06:51 08/18/18 11:09 Novolog Vial Sliding Scale - SQ 3 units ACHS REHANA Administration Protocol Labetalol HCl 10 mg 08/17/18 23:45 08/18/18 03:07 Normodyne Injection - IVPUSH 10 mg Q30M PRN Administration SBP > 160 or DBP>90 Morphine Sulfate 2 mg 08/16/18 06:34 08/18/18 04:45 Morphine Sulfate IVPUSH 2 mg Q4H PRN Administration PAIN LEVEL 7 - 10 Mupirocin 1 applic 08/16/18 10:00 08/18/18 10:17 Bactroban Ointment (For Decolonization) - NS 08/21/18 09:59 1 applic BID REHANA Administration Ondansetron HCl 4 mg 08/18/18 09:18 08/18/18 09:26 Zofran Injection IVPB 4 mg Q6H PRN Administration NAUSEA Tamsulosin HCl 0.8 mg 08/17/18 08:30 08/18/18 08:43 Flomax - PO 0.8 mg DAILY@0830 REHANA Administration CBC, BMP 08/18/18 05:00 08/18/18 05:00 ASSESSMENT/PLAN: 87 y/o male with PMH of DM, CKD, HTN, HLD, BPH presents to the hospital with worsening dyspnea on exertion, orthopnea, B/L LE edema for the past one and a half weeks, found to have an elevated Cr of 13.5 upon admission. #Respiratory Acute Respiratory distress, resolved * likely 2/2 to fluid overload * sat 95 % on RA * lasix * monitor of HD for next 3 days and re evaluate # Nephro CATARINA on CKD S/P 2 session HD * will monitor off HD for next 3 days and re evaluate * if need HD then perm cath , * Shiley and blackmon was removed * patients Cr on his last visit here (aug 2017) was 4.6 * likely 2/2 obstruction; given patients history of BPH in addition to his urine output post blackmon insertion * Dr Carvajal consulted * renal/bladder U/S with no hydronephrosis * monitor I's and O's * monitor electrolytes BPH * DC blackmon catheter * c/w home meds terazosin #Cardiovascular HTN emergency * had elevation last night to 180 started on Necardipin drip , off drip now * increased Norvasc to 10 daily , * switch toprol xl to Atenolol 25 po daily , if still elevated will add Hydralyzin * monitor BP Endo #DM * holding oral hypoglycemics * ISS adjusted , start cover after 150 * BGMS ACHS * no hypoglycemia over night # neuro * AAOx3 in NAD * some lethargic # Heme Anemia likely due to CKD Thrombocytopenia * H/H 7.7/23.5 * no active bleeding * monitor H/H * monitor PLT #FEN * not on fluids * monitor electrolytes: replinished as needed * renal diet #DVT PPX: Hep SQ TID #GI PPX: protonix # Dispo * transfer to med surg * Visit type - Emergency Visit Emergency Visit: Yes ED Registration Date: 08/15/18 Care time: The patient presented to the Emergency Department on the above date and was hospitalized for further evaluation of their emergent condition. - New Patient This patient is new to me today: No - Critical Care Critical Care patient: Yes Total Critical Care Time (in minutes): 45 Critical Care Statement: The care of this patient involved high complexity decision making to prevent further life threatening deterioration of the patient 's condition and/or to evaluate & treat vital organ system(s) failure or risk of failure.
--- NOTE | 2018-08-18 12:30 | PN ---
Progress Note (short form) - Note Progress Note: Renal follow up for CATARINA Pt seen and examined in the ICU sleeping family at the bedside s/p dialysis yesterday making urine via blackmon Vital Signs Temperature 97.8 F 08/18/18 10:00 Pulse Rate 81 08/18/18 10:15 Respiratory Rate 12 08/18/18 10:00 Blood Pressure 136/61 08/18/18 10:15 O2 Sat by Pulse Oximetry (%) 96 08/18/18 07:45 Intake & Output 08/15/18 08/16/18 08/17/18 08/18/18 23:59 23:59 23:59 23:59 Intake Total 373.5 740 425 Output Total 300 575 800 100 Balance -300 -201.5 -60 325 Weight 49.895 kg 49.895 kg 48.534 kg 46.833 kg NAD Neck supple soft NT/ND Abd no Le swelling blackmon in place CBC, BMP 08/18/18 05:00 08/18/18 05:00 Current Medications Acetaminophen (Tylenol -) 650 mg PO Q6H PRN PRN Reason: PAIN Last Admin: 08/16/18 01:49 Dose: 650 mg Albuterol Sulfate (Ventolin 0.083% Nebulizer Soln -) 1 amp NEB Q4H PRN PRN Reason: SHORT OF BREATH/WHEEZING Amlodipine Besylate (Norvasc -) 10 mg PO DAILY [facility] Atenolol (Tenormin -) 25 mg PO DAILY [facility] Chlorhexidine Gluconate (Hibiclens For Decolonization -) 1 applic TP HS [facility] Last Admin: 08/17/18 21:12 Dose: 1 applic Guaifenesin (Mucinex -) 600 mg PO BID [facility] Last Admin: 08/18/18 10:17 Dose: 600 mg Heparin Sodium (Porcine) (Heparin -) 5,000 unit SQ TID [facility] Famotidine/Sodium Chloride (Pepcid 20 Mg Premixed Ivpb -) 20 mg in 50 mls @ 100 mls/hr IVPB BID [facility] Last Admin: 08/18/18 10:17 Dose: 100 mls/hr Nicardipine HCl 25 mg/ (Dextrose) 250 mls @ 25 mls/hr IVPB TITR [facility]; Protocol Last Titration: 08/18/18 10:15 Dose: 0 mg/hr, 0 mls/hr Furosemide 100 mg/ Dextrose 50 mls @ 5 mls/hr IVPB TITR [facility]; Protocol Last Admin: 08/18/18 00:28 Dose: Not Given Insulin Aspart (Novolog Vial Sliding Scale -) 1 vial SQ ACHS [facility]; Protocol Last Admin: 08/18/18 11:09 Dose: 3 units Labetalol HCl (Normodyne Injection -) 10 mg IVPUSH Q30M PRN PRN Reason: SBP > 160 or DBP>90 Last Admin: 08/18/18 03:07 Dose: 10 mg Morphine Sulfate (Morphine Sulfate) 2 mg IVPUSH Q4H PRN PRN Reason: PAIN LEVEL 7 - 10 Last Admin: 08/18/18 04:45 Dose: 2 mg Mupirocin (Bactroban Ointment (For Decolonization) -) 1 applic NS BID [facility] Stop: 08/21/18 09:59 Last Admin: 08/18/18 10:17 Dose: 1 applic Ondansetron HCl (Zofran Injection) 4 mg IVPB Q6H PRN PRN Reason: NAUSEA Last Admin: 08/18/18 09:26 Dose: 4 mg Tamsulosin HCl (Flomax -) 0.8 mg PO DAILY@0830 [facility] Last Admin: 08/18/18 08:43 Dose: 0.8 mg 87 year old [place] gentleman with hx of CKD (baseline Cr unclear, had CATARINA last year with peak Cr ~5 was discharged with Cr ~4), DM, Hypertension, Hiatial Hernia who presented from home with complaints of SOB and leg swelling. #Acute Renal Failure (R/o ATN vs acute GN vs. progressive CKD ) #Hyperkalemia (now improved s/p dialysis) #Mild Volume overlaod (now improved) #Hypertension #Acute on Chronic Anemia #Anion gap metabolic acidosis #Thrombocytopenia (improving) Tolerating dialysis x 2 sessions, no planned dialysis today can remove temporary dialysis catheter today plan to trend renal function and urine output over the next 2 days Can d/c IV lasix as pt appears evolemic Continue renal diet Consider changing Metoprolol to atenolol or Labetalol and increasing amlodpine to 10mg for better BP control Trend H/H, no acute need for transfusion maintain lorri for now Discussed case with family and biomedical equipment specialist in ICU Thank you Steven Carvajal DO
--- NOTE | 2018-08-18 12:41 | PN ---
Teaching Attending Note Name of Resident: Ryan Calix ATTENDING PHYSICIAN STATEMENT I saw and evaluated the patient. I reviewed the resident's note and discussed the case with the resident. I agree with the resident's findings and plan as documented. SUBJECTIVE: Pt seen and examined in the ICU. Dialyzed yesterday. Urine output improving. Cardene gtt stopped this AM. OBJECTIVE: Vital Signs Period Temp Pulse Resp BP Sys/Bernstein Pulse Ox Last 24 Hr 96.6 F-98.9 F 64-88 10-18 128-178/58-80 88-100 Intake & Output 08/15/18 08/16/18 08/17/18 08/18/18 23:59 23:59 23:59 23:59 Intake Total 373.5 740 425 Output Total 300 575 800 100 Balance -300 -201.5 -60 325 Weight 49.895 kg 49.895 kg 48.534 kg 46.833 kg Gen: NAD at rest Heart: RRR Lung: decreased breath sounds at the bases Abd: soft, nontender Ext: no edema CBC, BMP 08/18/18 05:00 08/18/18 05:00 Active Medications Acetaminophen (Tylenol -) 650 mg PO Q6H PRN PRN Reason: PAIN Last Admin: 08/16/18 01:49 Dose: 650 mg Albuterol Sulfate (Ventolin 0.083% Nebulizer Soln -) 1 amp NEB Q4H PRN PRN Reason: SHORT OF BREATH/WHEEZING Amlodipine Besylate (Norvasc -) 10 mg PO DAILY [facility] Atenolol (Tenormin -) 25 mg PO DAILY [facility] Chlorhexidine Gluconate (Hibiclens For Decolonization -) 1 applic TP HS [facility] Last Admin: 08/17/18 21:12 Dose: 1 applic Guaifenesin (Mucinex -) 600 mg PO BID [facility] Last Admin: 08/18/18 10:17 Dose: 600 mg Heparin Sodium (Porcine) (Heparin -) 5,000 unit SQ TID [facility] Famotidine/Sodium Chloride (Pepcid 20 Mg Premixed Ivpb -) 20 mg in 50 mls @ 100 mls/hr IVPB BID [facility] Last Admin: 08/18/18 10:17 Dose: 100 mls/hr Nicardipine HCl 25 mg/ (Dextrose) 250 mls @ 25 mls/hr IVPB TITR [facility]; Protocol Last Titration: 08/18/18 10:15 Dose: 0 mg/hr, 0 mls/hr Furosemide 100 mg/ Dextrose 50 mls @ 5 mls/hr IVPB TITR [facility]; Protocol Last Admin: 08/18/18 00:28 Dose: Not Given Insulin Aspart (Novolog Vial Sliding Scale -) 1 vial SQ ACHS [facility]; Protocol Last Admin: 08/18/18 11:09 Dose: 3 units Labetalol HCl (Normodyne Injection -) 10 mg IVPUSH Q30M PRN PRN Reason: SBP > 160 or DBP>90 Last Admin: 08/18/18 03:07 Dose: 10 mg Morphine Sulfate (Morphine Sulfate) 2 mg IVPUSH Q4H PRN PRN Reason: PAIN LEVEL 7 - 10 Last Admin: 08/18/18 04:45 Dose: 2 mg Mupirocin (Bactroban Ointment (For Decolonization) -) 1 applic NS BID [facility] Stop: 08/21/18 09:59 Last Admin: 08/18/18 10:17 Dose: 1 applic Ondansetron HCl (Zofran Injection) 4 mg IVPB Q6H PRN PRN Reason: NAUSEA Last Admin: 08/18/18 09:26 Dose: 4 mg Tamsulosin HCl (Flomax -) 0.8 mg PO DAILY@0830 [facility] Last Admin: 08/18/18 08:43 Dose: 0.8 mg ASSESSMENT AND PLAN: Acute on Chronic Renal Failure Metabolic Acidosis Volume Overload HTN Anemia Thrombocytopenia - HD per renal - d/c femoral line if no HD today - monitor urine output, creatinine - BP control - monitor H/H - transfuse as needed - DVT prophylaxis - can monitor on floor
--- NOTE | 2018-08-18 13:31 | ECHO ---
Name: SARI STOUT Alejandrina Exam:Adult Echocardiogram Study Date: 08/18/2018 07:33 AM Age: 87 yrs Reason For Study: ef Height: 60 in Weight: 110 lb BSA: 1.4 m2 BP: 147/61 mmHg MMode/2D Measurements & Calculations IVSd: 1.0 cm Ao root diam: 3.1 cm LVIDd: 4.7 cm LA dimension: 3.1 cm LVIDs: 2.7 cm ACS: 1.5 cm LVPWd: 0.77 cm IVSs: 1.4 cm LVPWs: 1.1 cm EDV(Teich): 104.3 ml ESV(Williamich): 26.9 ml LVOT diam: 1.9 cm Doppler Measurements & Calculations MV E max richie: 148.1 cm/sec Ao V2 max: 189.4 cm/sec MV A max richie: 135.5 cm/sec Ao max P.4 mmHg MV E/A: 1.1 Ao V2 mean: 139.2 cm/sec Ao mean P.6 mmHg Ao V2 VTI: 44.5 cm BRENTON(I,D): 1.6 cm2 AI P1/2t: 281.4 msec BRENTON(V,D): 1.4 cm2 AI max richie: 254.5 cm/sec LV V1 max P.3 mmHg AI max P.9 mmHg LV V1 mean P.1 mmHg AI dec slope: 264.9 cm/sec2 LV V1 max: 91.0 cm/sec LV V1 mean: 69.3 cm/sec LV V1 VTI: 23.5 cm MR max richie: 526.9 cm/sec SV(LVOT): 69.4 ml MR max P.0 mmHg TR max richie: 260.4 cm/sec Med Peak E' Richie: 4.7 cm/sec TR max P.2 mmHg Med E/e': 31.4 Lat Peak E' Richie: 4.6 cm/sec Lat E/e': 32.2 Procedure A complete two-dimensional transthoracic echocardiogram was performed (2D, M-mode, Doppler and color flow Doppler). Technically limited study. Left Ventricle The left ventricle is normal in size. Left ventricular systolic function is normal. Ejection Fraction = 65- 70%. Diastolic dysfunction, Grade II, consistent with elevated left atrial pressure. No regional wall motion abnormalities noted. Right Ventricle The right ventricle is normal size. The right ventricular systolic function is normal. Atria The left atrial size is normal. Right atrial size is normal. Mitral Valve There is moderate mitral annular calcification. There is mild to moderate mitral regurgitation. Tricuspid Valve The tricuspid valve is normal in structure and function. There is mild tricuspid regurgitation. Pulmo nary artery systolic pressure is at least 35 mmHg assuming RA pressure of 3 mmHg. Aortic Valve There is mild aortic sclerosis.;. Mild to moderate aortic regurgitation. Pulmonic Valve The pulmonic valve is not well visualized. Great Vessels The aortic root is normal size. Pericardium/Pleura There is no pericardial effusion. Large pleural effusion. Interpretation Summary Technically limited study The left ventricle is normal in size. Left ventricular systolic function is normal. No regional wall motion abnormalities noted. Ejection Fraction = 65-70%. The right ventricular systolic function is normal. The left atrial size is normal. Right atrial size is normal. There is moderate mitral annular calcification. There is mild to moderate mitral regurgitation. There is mild tricuspid regurgitation. Pulmonary artery systolic pressure is at least 35 mmHg assuming RA pressure of 3 mmHg There is mild aortic sclerosis. Mild to moderate aortic regurgitation. There is no pericardial effusion. Large pleural effusion Previous study is not available for comparison Álvaro Crenshaw MD 08/18/2018 01:30 PM
[2018-08-18] MEDS ORDERED: HEPARIN NA (PORCINE) 5,000 UNITS/ML 1ML VIAL SQ SCH (14:00)
--- NOTE | 2018-08-18 14:16 | CON.CARD ---
Consult Consult Specialty:: Cardiology Referred by:: Hospitalist Medicine Reason for Consultation:: Syncope - History of Present Illness Chief Complaint: Dyspnea History of Present Illness: Mr. Simon is an 87 y/o man w/ HTN, HLD, DM, BPH, diastolic dysfunction & CKD-IV -V, (baseline Cr unclear, had CATARINA last year with peak Cr ~5 & was dc'ed back home w/ blackmon & Cr ~4). Pt's family presents pt to the ED on 08/15 from home w / worsening ECHEVERRIA, orthopnea, anorexia and lower extremity swelling for the past week and a half. Pt is confused and not able to provide any history. (Family provided history). No reported NSAID use. Pt presents w/ gross volume overload requiring Bi-Level support in the setting of A on C Renal Failure, responded with diuresis, bp control with nicardipene gtt and trial of HD with improvement of symptoms. Episode of near syncope, bradycardia and hypotension with spontaneous resolution. - History Source History Provided By: Patient, Medical Record Limitations to Obtaining History: Poor Historian - Past Medical History [employer]: Yes: Other Cardio/Vascular: Yes: HTN Pulmonary: No: COPD Gastrointestinal: Yes: Hiatal Hernia Hepatobiliary: No: Cirrhosis Renal/: Yes: Renal Failure, Renal Inusuff, BPH Endocrine: Yes: Diabetes Mellitus - Alcohol/Substance Use Hx Alcohol Use: No - Smoking History Smoking history: Never smoked Have you smoked in the past 12 months: No - Social History Usual Living Arrangement: With Child History of Recent Travel: No Home Medications - Allergies Allergies/Adverse Reactions: Allergies Allergy/AdvReac Type Severity Reaction Status Date / Time No Known Allergies Allergy Verified 08/15/18 17:05 - Home Medications Home Medications: Ambulatory Orders Amlodipine Besylate [Norvasc -] 5 mg PO DAILY #30 tablet 08/15/17 Insulin (Levemir) [Levemir Flexpen -] 7 units SQ DAILY #1 pen 08/15/17 Metoprolol Succinate [Toprol XL -] 75 mg PO DAILY #30 tab.sr.24h 08/15/17 Tamsulosin HCl [Flomax -] 0.8 mg PO DAILY@0830 #30 cap.er.24h 08/15/17 Insulin Aspart [Novolog Flexpen] 100 unit SQ PRN #1 insuln.pen 08/16/17 Review of Systems - Review of Systems Constitutional: reports: Loss of Appetite Cardiovascular: reports: Edema, Shortness of Breath Respiratory: reports: Exercise Intolerance, SOB, SOB on Exertion Vital Signs: Vital Signs Temperature 97.8 F 08/18/18 14:00 Pulse Rate 74 08/18/18 14:00 Respiratory Rate 14 08/18/18 14:00 Blood Pressure 146/69 08/18/18 14:00 O2 Sat by Pulse Oximetry (%) 96 08/18/18 07:45 Constitutional: Yes: No Distress, Calm Neck: Yes: Supple Respiratory: Yes: Regular, Diminished, On Nasal O2 Gastrointestinal: Yes: Soft, Hypoactive Bowel Sounds Cardiovascular: Yes: Regular Rate and Rhythm JVD: No Carotid Bruit: No Heart Sounds: Yes: S1, S2 Murmur: Yes: Systolic Murmur, Grade 2 Edema: No - Other Data Labs, Other Data: CBC, BMP 08/18/18 05:00 08/18/18 05:00 INR, PTT INR 1.07 (0.83-1.09) 08/16/18 05:30 Troponin, BNP 08/17/18 08/17/18 17:41 22:40 Troponin I 0.71 H* 0.63 H* Troponin, BNP 08/17/18 08/17/18 17:41 22:40 Troponin I 0.71 H* 0.63 H* NSR @ 82 LAE, LVH with nonspec ST-T changes Echo: Report Reviewed Imaging - Results Chest X-ray: Report Reviewed (Improved pum edema and effusions) Cat Scan: Report Reviewed (Moderate bilateral effusions, bilateral lower lobe pulm edema, diverticulosis) Problem List - Problems (1) Subendocardial ischemia Code(s): I24.8 - OTHER FORMS OF ACUTE ISCHEMIC HEART DISEASE (2) Pleural effusion due to CHF (congestive heart failure) Code(s): I50.9 - HEART FAILURE, UNSPECIFIED (3) Acute on chronic renal failure Code(s): N17.9 - ACUTE KIDNEY FAILURE, UNSPECIFIED; N18.9 - CHRONIC KIDNEY DISEASE, UNSPECIFIED Qualifiers: Acute renal failure type: unspecified Chronic kidney disease stage: unspecified stage Qualified Code(s): N17.9 - Acute kidney failure, unspecified ; N18.9 - Chronic kidney disease, unspecified (4) CHF (congestive heart failure) Code(s): I50.9 - HEART FAILURE, UNSPECIFIED Qualifiers: Heart failure type: diastolic Heart failure chronicity: acute on chronic Qualified Code(s): I50.33 - Acute on chronic diastolic (congestive) heart failure (5) Diabetes mellitus Code(s): E11.9 - TYPE 2 DIABETES MELLITUS WITHOUT COMPLICATIONS Qualifiers: Diabetes mellitus type: type 2 Diabetes mellitus longterm insulin use: with exterminator use (6) Anemia Code(s): D64.9 - ANEMIA, UNSPECIFIED Qualifiers: Anemia type: due to chronic kidney disease Chronic kidney disease stage: stage 5, not on chronic dialysis Qualified Code(s): N18.5 - Chronic kidney disease, stage 5; D63.1 - Anemia in chronic kidney disease (7) Hypertensive cardiomegaly with heart failure Code(s): I11.0 - HYPERTENSIVE HEART DISEASE WITH HEART FAILURE Assessment/Plan 08/18/2018 Echo: Normal LV and RV size and fxn, LVEF 65-70%, mild-mod MR, mild TR, RVSP 35 mmHg, mild-mod AR, large pleural effusion, Grade II diastolic dysfxn c/w elevated LA pressures. 1. Syncope suspect vasovagal, fluid shifts 2. Acute on chronic diastolic failure with pleural effusions and subendocardial ischemia 3. Acute on Chronic Renal Failure likely progressive CKD with hyperkalemia post HD 4. Metabolic Acidosis 5. HTN cardiomyopathy 6. Anemia of CKD 7. Thrombocytopenia improving 8. Insulin-dependent Type 2 DM 9. Extensive sigmoid diverticulosis w/o inflammation P: 1. HD and diuresis per renal with monitor urine output, renal function, trops decreasing 2. BP control with Norvasc 10 qd, Atenolol 25 qd (with caution), no KATELYNN-I/ARB pending renal fxn stabilization 3. Monitor H/H and transfuse as needed to maintain Hgb>8.0 4. DVT prophylaxis 5. Can monitor on floor 6. Thank you for consultative opportunity
--- NOTE | 2018-08-18 14:18 | PN ---
Physical Exam: SUBJECTIVE: Patient seen and examined at bedside. He denies acute complaints this morning. Denies shortness of breath, or difficulty breathing. Denies fevers , chills, chest pain, palpitations, abdominal pain, N/V/D. OBJECTIVE: Vital Signs Period Temp Pulse Resp BP Sys/Bernstein Pulse Ox Last 24 Hr 96.6 F-98.9 F 64-88 10-18 132-178/58-80 88-100 GENERAL: The patient is awake, alert, and fully oriented, in no acute distress. HEAD: Normal with no signs of trauma. EYES: PERRL, extraocular movements intact, sclera anicteric, conjunctiva clear. ENT: Ears normal, nares patent, oropharynx clear without exudates, moist mucous membranes. NECK: Supple, without lymphadenopathy LUNGS: Breath sounds equal, clear to auscultation bilaterally, no wheezes, no crackles, no accessory muscle use. HEART: Regular rate and rhythm, S1, S2 without murmur, rub or gallop. ABDOMEN: Soft, nontender, nondistended, normoactive bowel sounds, no guarding, no rebound, no hepatosplenomegaly, no masses. EXTREMITIES: 2+ pulses, warm, well-perfused, no edema. Right side venous femoral catheter noted without erythema, discharge, drainage. NEUROLOGICAL: Cranial nerves II through XII grossly intact. Normal speech. PSYCH: Normal mood, normal affect. SKIN: Warm, dry, normal turgor, no rashes or lesions noted Laboratory Results - last 24 hr 08/16/18 08/17/18 08/17/18 10:20 06:18 06:18 WBC RBC Hgb Hct MCV MCH MCHC RDW Plt Count MPV Absolute Neuts (auto) Neutrophils % Lymphocytes % Monocytes % Eosinophils % Basophils % Nucleated RBC % Haptoglobin 150 Sodium Potassium Chloride Carbon Dioxide Anion Gap BUN Creatinine Creat Clearance w eGFR POC Glucometer [phone] Random Glucose Calcium Phosphorus Magnesium Total Bilirubin AST ALT Alkaline Phosphatase Troponin I Total Protein Albumin 08/17/18 08/17/18 08/17/18 17:03 17:41 17:41 WBC 7.2 RBC 3.14 L Hgb 8.6 L Hct 24.8 L MCV 79.1 L MCH 27.5 MCHC 34.8 RDW 16.7 H Plt Count 141 MPV 8.1 Absolute Neuts (auto) 5.8 Neutrophils % 80.5 Lymphocytes % 6.7 L D Monocytes % 8.5 Eosinophils % 4.0 Basophils % 0.3 Nucleated RBC % 0 Haptoglobin Sodium 138 Potassium 3.4 L Chloride 103 Carbon Dioxide 26 Anion Gap 9 BUN 33 H Creatinine 5.5 H Creat Clearance w eGFR 9.93 POC Glucometer 152.71975 Random Glucose 132 H Calcium 7.5 L Phosphorus 4.5 Magnesium 1.8 Total Bilirubin AST ALT Alkaline Phosphatase Troponin I 0.71 H* Total Protein Albumin 08/17/18 08/17/18 08/18/18 21:04 22:40 05:00 WBC 5.8 RBC 2.93 L Hgb 7.6 L Hct 23.5 L MCV 80.4 MCH 26.0 MCHC 32.4 RDW 16.7 H Plt Count 109 L D MPV 8.0 Absolute Neuts (auto) 4.4 Neutrophils % 75.2 Lymphocytes % 10.9 D Monocytes % 8.8 Eosinophils % 4.5 Basophils % 0.6 Nucleated RBC % 0 Haptoglobin Sodium Potassium Chloride Carbon Dioxide Anion Gap BUN Creatinine Creat Clearance w eGFR POC Glucometer 167.63532 Random Glucose Calcium Phosphorus Magnesium Total Bilirubin AST ALT Alkaline Phosphatase Troponin I 0.63 H* Total Protein Albumin 08/18/18 08/18/18 08/18/18 05:00 05:23 11:06 WBC RBC Hgb Hct MCV MCH MCHC RDW Plt Count MPV Absolute Neuts (auto) Neutrophils % Lymphocytes % Monocytes % Eosinophils % Basophils % Nucleated RBC % Haptoglobin Sodium 138 Potassium 3.6 Chloride 101 Carbon Dioxide 28 Anion Gap 9 BUN 37 H Creatinine 6.6 H Creat Clearance w eGFR 8.05 POC Glucometer 149.89000 206.64548 Random Glucose 136 H Calcium 7.4 L Phosphorus 6.5 H Magnesium 1.8 Total Bilirubin 0.3 AST 20 ALT 16 Alkaline Phosphatase 53 Troponin I Total Protein 5.5 L Albumin 1.9 L Active Medications Generic Name Dose Route Start Last Admin Trade Name Freq PRN Reason Stop Dose Admin Acetaminophen 650 mg 08/16/18 01:40 08/16/18 01:49 Tylenol - PO 650 mg Q6H PRN Administration PAIN Albuterol Sulfate 1 amp 08/16/18 06:29 Ventolin 0.083% Nebulizer Soln - NEB Q4H PRN SHORT OF BREATH/WHEEZING Amlodipine Besylate 10 mg 08/19/18 10:00 Norvasc - PO DAILY [facility] Atenolol 25 mg 08/19/18 10:00 Tenormin - PO DAILY [facility] Chlorhexidine Gluconate 1 applic 08/16/18 22:00 08/17/18 21:12 Hibiclens For Decolonization - TP 1 applic HS [facility] Administration Guaifenesin 600 mg 08/17/18 22:00 08/18/18 10:17 Mucinex - PO 600 mg BID [facility] Administration Heparin Sodium (Porcine) 5,000 unit 08/18/18 14:00 08/18/18 13:33 Heparin - SQ 5,000 unit TID [facility] Administration Famotidine/Sodium Chloride 20 mg in 50 mls @ 100 mls/hr 08/16/18 10:00 10:17 Pepcid 20 Mg Premixed Ivpb - IVPB 100 mls/hr BID [facility] Administration Nicardipine HCl 25 mg/ 250 mls @ 25 mls/hr 08/16/18 00:45 08/18/18 10:15 Dextrose IVPB 0 mg/hr TITR [facility] 0 mls/hr Titration Protocol 2.5 MG/HR Furosemide 100 mg/ Dextrose 50 mls @ 5 mls/hr 08/16/18 01:15 08/18/18 00:28 IVPB Not Given TITR [facility] Protocol 10 MG/HR Insulin Aspart 1 vial 08/18/18 06:51 08/18/18 11:09 Novolog Vial Sliding Scale - SQ 3 units ACHS [facility] Administration Protocol Labetalol HCl 10 mg 08/17/18 23:45 08/18/18 03:07 Normodyne Injection - IVPUSH 10 mg Q30M PRN Administration SBP > 160 or DBP>90 Morphine Sulfate 2 mg 08/16/18 06:34 08/18/18 04:45 Morphine Sulfate IVPUSH 2 mg Q4H PRN Administration PAIN LEVEL 7 - 10 Mupirocin 1 applic 08/16/18 10:00 08/18/18 10:17 Bactroban Ointment (For Decolonization) - NS 08/21/18 09:59 1 applic BID [facility] Administration Ondansetron HCl 4 mg 08/18/18 09:18 08/18/18 09:26 Zofran Injection IVPB 4 mg Q6H PRN Administration NAUSEA Tamsulosin HCl 0.8 mg 08/17/18 08:30 08/18/18 08:43 Flomax - PO 0.8 mg DAILY@0830 [facility] Administration ASSESSMENT/PLAN: Patient is an 87 year old male with history of diabetes mellitus, chronic kidney disease stage V, hypertension, hyperlipidemia, presented with complaint of shorness of breath, and lower extremity edema for past 4 days prior to admission. CATARINA on CKD -Patient's Cr in prior admission (08/2017) 4.6 -Likely secondary to obstruction, given patient's history of BPH. -No hydronephrosis noted on renal ultrasound. -Patient has received two rounds of hemodialysis (last HD 08/17) -Nephrology recommendations (Dr. Carvajal) appreciated. -Removing shiley catheter today, and no hemodialysis planned for the next three days. Will follow renal function and urine output. Acute on chronic anemia -Hb7.6/ Hct 23.5 MCV 80 -No longer hematuria draining in blackmon catheter. Anemia likely secondary to chronic kidney disease -Epoietin one time dose given 08/16 Hypertension -No longer on Nicardipine drip. -Amlodipine increased to 10mg PO daily -Metoprolol changed to Atenolol 25mg PO daily -Closely follow vitals Diabetes Mellitus -Insulin sliding scale ACHS -BGM ACHS Benign Prostatic Hyperplasia -Tamsulosin 0.8mg PO daily -maintain blackmon catheter. currently draining clear yellow urine. Metabolic acidosis -Resolved with hemodialysis FEN -No IV fluids at this time -Follow CMP -Renal controlled diet Prophylaxis -Heparin 5000u subq TID -Famotidine 20mg IV daily Disposition Transfer to medical surgical floor Visit type - Emergency Visit Emergency Visit: Yes ED Registration Date: 08/15/18 Care time: The patient presented to the Emergency Department on the above date and was hospitalized for further evaluation of their emergent condition. - New Patient This patient is new to me today: Yes Date on this admission: 08/18/18 - Critical Care Critical Care patient: Yes Total Critical Care Time (in minutes): 35 Critical Care Statement: The care of this patient involved high complexity decision making to prevent further life threatening deterioration of the patient 's condition and/or to evaluate & treat vital organ system(s) failure or risk of failure. - Discharge Referral Referred to [facility] Med [facility] No
[2018-08-18] MEDS ORDERED: ACETAMINOPHEN 325 MG TABLET (FP) PO PRN (15:31)
[2018-08-18] MEDS ORDERED: LABETALOL HCL 5 MG/1 ML (100MG/20 ML VIAL) IVPUSH PRN (15:31)
[2018-08-18] MEDS ORDERED: MORPHINE SULFATE 2 MG/ML VIAL IVPUSH PRN (15:31)
[2018-08-18] MEDS ORDERED: EPOETIN ALFA 2,000 UNIT/1 ML VIAL IVPUSH ONE (15:31)
--- NOTE | 2018-08-18 19:18 | PN ---
Teaching Attending Note Name of Resident: Best Alvarado ATTENDING PHYSICIAN STATEMENT I saw and evaluated the patient. I reviewed the resident's note and discussed the case with the resident. I agree with the resident's findings and plan as documented. SUBJECTIVE: Feeling better today. No SOB. No chest pain/palpitations. No fever/ chills. No further episodes of syncope. OBJECTIVE: Afebrile, Hemodynamically stable Last Vital Signs Temp Pulse Resp BP Pulse Ox 97.7 F 68 20 142/67 96 08/18/18 18:00 08/18/18 18:00 08/18/18 18:00 08/18/18 18:00 08/18/18 07:45 Neuro - AAO x 3. Moving all 4 extremities. Heart - S1, S2, RRR Lungs - few basal crackles Abdomen - Soft, non-tender. Bowel Sounds normal. R femoral HD catheter site clean. Extremities - no edema. No calf tenderness. Laboratory Results - last 24 hr 08/16/18 08/17/18 08/17/18 10:20 06:18 06:18 WBC RBC Hgb Hct MCV MCH MCHC RDW Plt Count MPV Absolute Neuts (auto) Neutrophils % Lymphocytes % Monocytes % Eosinophils % Basophils % Nucleated RBC % Haptoglobin 150 Sodium Potassium Chloride Carbon Dioxide Anion Gap BUN Creatinine Creat Clearance w eGFR POC Glucometer [phone] Random Glucose Calcium Phosphorus Magnesium Total Bilirubin AST ALT Alkaline Phosphatase Troponin I Total Protein Albumin NICK Screen Positive H NICK Homogeneous Pattern TNP NICK Nucleolar Pattern TNP NICK Spindle Brandy Pattern TNP NICK Midbody Pattern TNP NICK Centriole Pattern TNP NICK Nuclear Dot Pattern TNP NICK PCNA Pattern TNP NICK Nuclear Membr Pat TNP NICK Speckled Pattern 1:320 H NICK Centromere Pattern TNP 08/17/18 08/17/18 08/18/18 21:04 22:40 05:00 WBC 5.8 RBC 2.93 L Hgb 7.6 L Hct 23.5 L MCV 80.4 MCH 26.0 MCHC 32.4 RDW 16.7 H Plt Count 109 L D MPV 8.0 Absolute Neuts (auto) 4.4 Neutrophils % 75.2 Lymphocytes % 10.9 D Monocytes % 8.8 Eosinophils % 4.5 Basophils % 0.6 Nucleated RBC % 0 Haptoglobin Sodium Potassium Chloride Carbon Dioxide Anion Gap BUN Creatinine Creat Clearance w eGFR POC Glucometer 167.94198 Random Glucose Calcium Phosphorus Magnesium Total Bilirubin AST ALT Alkaline Phosphatase Troponin I 0.63 H* Total Protein Albumin NICK Screen NICK Homogeneous Pattern NICK Nucleolar Pattern NICK Spindle Brandy Pattern NICK Midbody Pattern NICK Centriole Pattern NICK Nuclear Dot Pattern NICK PCNA Pattern NICK Nuclear Membr Pat NICK Speckled Pattern NICK Centromere Pattern 08/18/18 08/18/18 08/18/18 05:00 05:23 11:06 WBC RBC Hgb Hct MCV MCH MCHC RDW Plt Count MPV Absolute Neuts (auto) Neutrophils % Lymphocytes % Monocytes % Eosinophils % Basophils % Nucleated RBC % Haptoglobin Sodium 138 Potassium 3.6 Chloride 101 Carbon Dioxide 28 Anion Gap 9 BUN 37 H Creatinine 6.6 H Creat Clearance w eGFR 8.05 POC Glucometer [phone] Random Glucose 136 H Calcium 7.4 L Phosphorus 6.5 H Magnesium 1.8 Total Bilirubin 0.3 AST 20 ALT 16 Alkaline Phosphatase 53 Troponin I Total Protein 5.5 L Albumin 1.9 L NICK Screen NICK Homogeneous Pattern NICK Nucleolar Pattern NICK Spindle Brandy Pattern NICK Midbody Pattern NICK Centriole Pattern NICK Nuclear Dot Pattern NICK PCNA Pattern NICK Nuclear Membr Pat NICK Speckled Pattern NICK Centromere Pattern 08/18/18 17:07 WBC RBC Hgb Hct MCV MCH MCHC RDW Plt Count MPV Absolute Neuts (auto) Neutrophils % Lymphocytes % Monocytes % Eosinophils % Basophils % Nucleated RBC % Haptoglobin Sodium Potassium Chloride Carbon Dioxide Anion Gap BUN Creatinine Creat Clearance w eGFR POC Glucometer 114 Random Glucose Calcium Phosphorus Magnesium Total Bilirubin AST ALT Alkaline Phosphatase Troponin I Total Protein Albumin NICK Screen NICK Homogeneous Pattern NCIK Nucleolar Pattern NICK Spindle Brandy Pattern NICK Midbody Pattern NICK Centriole Pattern NICK Nuclear Dot Pattern NICK PCNA Pattern NICK Nuclear Membr Pat NICK Speckled Pattern NICK Centromere Pattern Current Medications Generic Name Dose Route Start Last Admin Trade Name Freq PRN Reason Stop Dose Admin Acetaminophen 650 mg 08/18/18 15:31 Tylenol - PO Q6H PRN PAIN Albuterol Sulfate 1 amp 08/18/18 15:31 Ventolin 0.083% Nebulizer Soln - NEB Q4H PRN SHORT OF BREATH/WHEEZING Amlodipine Besylate 10 mg 08/19/18 10:00 Norvasc - PO DAILY [facility] Atenolol 25 mg 08/19/18 10:00 Tenormin - PO DAILY [facility] Guaifenesin 600 mg 08/18/18 22:00 Mucinex - PO BID REHANA Heparin Sodium (Porcine) 5,000 unit 08/18/18 22:00 Heparin - SQ TID [facility] Famotidine/Sodium Chloride 20 mg in 50 mls @ 100 mls/hr 08/19/18 10:00 Pepcid 20 Mg Premixed Ivpb - IVPB Q2D [facility] Insulin Aspart 1 vial 08/18/18 16:30 08/18/18 17:17 Novolog Vial Sliding Scale - SQ Not Given ACHS [facility] Protocol Labetalol HCl 10 mg 08/18/18 15:31 Normodyne Injection - IVPUSH Q30M PRN SBP > 160 or DBP>90 Morphine Sulfate 2 mg 08/18/18 15:31 Morphine Sulfate IVPUSH Q4H PRN PAIN LEVEL 7 - 10 Ondansetron HCl 4 mg 08/18/18 15:31 Zofran Injection IVPB Q6H PRN NAUSEA Tamsulosin HCl 0.8 mg 08/19/18 08:30 Flomax - PO DAILY@0830 [facility] ASSESSMENT AND PLAN: 87 year old male with BPH, CKD 4, HTN, HLD, DM 2, presented with a 2 week history of increasing shortness of breath, worse on exertion, with associated LE edema for the 3 days prior to admission, found to have CATARINA on CKD with acidosis and hyperkalemia. 1. Acute Kidney Injury atop Chronic Renal Disease, now CKD-V/ESRD Fluid overload, Metabolic Acidosis, Hyperkalemia secondary to above - resolved s /p HD. Renal US - as above - no hydronephrosis. CT A/P - b/l pl effusions; Diverticulosis - extensive. R Renal cysts. Bladder wall thickening with some herniation of urinary bladder through R inguinal canal. s/p R inguinal catheter - received HD x 2. Lasix drip stopped. Nephrology evaluated and following. Likely progression of medical renal disease, further CKD work-up pending. Medically stable for transfer to medical floor. Further HD management incl catheter as per Nephrology. R femoral HD catheter may be removed today if no HD planned. 2. Hyperkalemia sec to CATARINA - s/p Albuterol nebs/Insulin/Kayexalate/HD. 3. Fluid Overload secondary to CATARINA on CKD BNP 21606 on admission Fluid overload unlikely cardiac in origin - Echo shows normal EF, grade II diastolic dysfunction with mild to moderate MR. Mild troponin egression likely due to myocardial distension. Stress ischemia due to fluid overload and impaired clearance. 4. Metabolic acidosis sec to CATARINA - resolved s/p HD 5. Respiratory Distress - secondary to fluid overload and acidosis - resolving. Supplemental O2 prn. 6. BPH with history of urinary retention Renal US - no hydronephrosis Sen in situ - clear urine. Continue Tamsulosin 7. Hypertensive Emergency Off nicardipine drip now. Resumed on home anti-hypertensives Toprol and Norvasc initially - now transitioned to Atenolol and Norvasc dose up-titrated. 8. DM 2 - Episode of hypoglycemia this AM. Levemir discontinued. 9. Hx GI Bleed sec to PUD - treated for Hpylori. Appears stable. GI Px with Famotidine. 10. Acute on Chronic Anemia likely secondary to CKD H/H 7.6/23.5. MCV 80 Unlikely acute blood loss - Fecal Occult Blood requested. Hematuria resolved. Heparin SQ discontinued. Nephrology eval for Epoietin. May require transfusion if H/H continues to drop further 11. Hypoglycemia - asymptomatic - resolved s/p D50. Levemir discontinued. 12. Syncopal episode while in bed yesterday, likely vasovagal sec to fluid mobilization s/p HD. Now hemodynamically stable with no further episodes. DVT Px - SCDs. Heparin held due to episode of Hematuria. Full Code
[2018-08-18] MEDS: HEPARIN NA (PORCINE) 5,000 UNITS/ML 1ML VIAL SQ SCH (21:34)
[2018-08-19 02:14] LABS: HBSAG SCREEN Negative (Negative); HEP A AB, IGM Negative (Negative); HEP B CORE AB, TOT Negative (Negative)
[2018-08-19 04:15] LABS: SERUM IRON SATURATION 6 % (15-55); TOTAL IRON BINDING CAPACITY 225 ug/dL (250-450); UIBC 211 ug/dL (111-343)
[2018-08-19] MEDS: ALBUTEROL SO4 0.083% IH SOL 2.5 MG/3 ML VIAL.NEB. NEB PRN ×2 (05:05→21:15)
[2018-08-19] MEDS: INSULIN SLIDING SCALE (NOVOLOG) 1 VIAL SQ SCH ×4 (06:25→21:44)
[2018-08-19] MEDS: HEPARIN NA (PORCINE) 5,000 UNITS/ML 1ML VIAL SQ SCH ×3 (06:26→21:42)
[2018-08-19 06:52] LABS: BASO % 0.2 % (0-2.0); EOS % 2.6 % (0-4.5); HEMATOCRIT 23.6 % (35.4-49); HEMOGLOBIN 8.1 GM/dL (11.7-16.9); MCH 27.6 pg (25.7-33.7); MCHC 34.6 g/dl (32.0-35.9); MEAN CELL VOLUME 79.9 fl (80-96); MEAN PLT VOLUME 8.5 fl (7.5-11.1); MONO % 7.6 % (3.8-10.2); NEUT % 84.6 % (42.8-82.8); PLATELET COUNT 145 K/MM3 (134-434); RBC 2.95 M/mm3 (4.00-5.60); RDW 17.1 % (11.9-15.9); WHITE BLOOD COUNT 7.8 K/mm3 (4.0-10.0)
[2018-08-19 07:08] LABS: ALBUMIN 2.2 g/dl (3.4-5.0); ALK PHOS 57 U/L (45-117); ANION GAP 11 MMOL/L (8-16); BILIRUBIN,TOTAL 0.6 mg/dL (0.2-1); BLOOD UREA NITROGEN 52 mg/dL (7-18); CALCIUM 7.4 mg/dL (8.5-10.1); CHLORIDE 101 mmol/L (98-107); CO2 25 mmol/L (21-32); GLUCOSE,RANDOM 87 mg/dL (74-106); MAGNESIUM 2.1 mg/dL (1.8-2.4); PHOSPHOROUS 8.2 mg/dL (2.5-4.9); POTASSIUM 4.2 mmol/L (3.5-5.1); SGOT/AST 24 U/L (15-37); SGPT/ALT 20 U/L (13-61); SODIUM 137 mmol/L (136-145); TOT PROT 6.2 g/dl (6.4-8.2)
[2018-08-19 07:16] LABS: CREATININE 7.9 mg/dL (0.55-1.3)
[2018-08-19] MEDS ORDERED: INSULIN (NOVOLOG) ASPART 100 UNITS/ML 10ML VIAL ONE (07:48)
[2018-08-19] MEDS ORDERED: PT OWN MED DRAWER 7, Y5N ONE ×2 (07:49→17:18)
--- NOTE | 2018-08-19 08:06 | PN ---
Physical Exam: SUBJECTIVE: Patient seen and examined at bedside. Patient is somewhat less alert today. Endorses nonproductive cough, and shortness of breath. Denies fevers, chills, chest pain, palpitations, abdominal pain. OBJECTIVE: Vital Signs Period Temp Pulse Resp BP Sys/Bernstein Pulse Ox Last 24 Hr 97.7 F-98.0 F 68-93 12-20 132-163/59-95 96-96 GENERAL: The patient is awake, and oriented to person and place, in some distress. HEAD: Normal with no signs of trauma. EYES: PERRL, extraocular movements intact, sclera anicteric, conjunctiva clear. ENT: Ears normal, nares patent, oropharynx clear without exudates, moist mucous membranes. NECK: Supple, without lymphadenopathy LUNGS: Poor inspiratory effort and air entry B/L. Diffuse crackles B/L with wheezing auscultated. No accessory muscle use. HEART: Regular rate and rhythm, S1, S2 without murmur, rub or gallop. ABDOMEN: Soft, nontender, nondistended, normoactive bowel sounds, no guarding, no rebound, no hepatosplenomegaly, no masses. EXTREMITIES: 2+ pulses, warm, well-perfused, no edema. NEUROLOGICAL: Cranial nerves II through XII grossly intact. SKIN: Warm, dry, normal turgor, no rashes or lesions noted Laboratory Results - last 24 hr 08/16/18 08/16/18 08/16/18 10:20 10:20 10:20 WBC RBC Hgb Hct MCV MCH MCHC RDW Plt Count MPV Absolute Neuts (auto) Neutrophils % Lymphocytes % Monocytes % Eosinophils % Basophils % Nucleated RBC % Sodium Potassium Chloride Carbon Dioxide Anion Gap BUN Creatinine Creat Clearance w eGFR POC Glucometer Random Glucose Calcium Phosphorus Magnesium Iron TIBC Iron Saturation Total Bilirubin AST ALT Alkaline Phosphatase Total Protein Albumin NICK Screen Positive H NICK Homogeneous Pattern TNP NICK Nucleolar Pattern TNP NICK Spindle Brandy Pattern TNP NICK Midbody Pattern TNP NICK Centriole Pattern TNP NICK Nuclear Dot Pattern TNP NICK PCNA Pattern TNP NICK Nuclear Membr Pat TNP NICK Speckled Pattern 1:320 H NICK Centromere Pattern TNP Hep A IgM Ab Confirm Negative Hepatitis A Ab Total Positive H Hep Bs Antigen Negative Hep Bs Antibody Non reactive Hep B Core Total Ab Negative Hep C Ab Diagnostic 0.2 08/16/18 08/17/18 08/17/18 10:20 06:18 06:18 WBC RBC Hgb Hct MCV MCH MCHC RDW Plt Count MPV Absolute Neuts (auto) Neutrophils % Lymphocytes % Monocytes % Eosinophils % Basophils % Nucleated RBC % Sodium Potassium Chloride Carbon Dioxide Anion Gap BUN Creatinine Creat Clearance w eGFR POC Glucometer 305.50087 306.18541 Random Glucose Calcium Phosphorus Magnesium Iron 14 L TIBC 225 L Iron Saturation 6 L Total Bilirubin AST ALT Alkaline Phosphatase Total Protein Albumin NICK Screen NICK Homogeneous Pattern NICK Nucleolar Pattern NICK Spindle Brandy Pattern NICK Midbody Pattern NICK Centriole Pattern NICK Nuclear Dot Pattern NICK PCNA Pattern NICK Nuclear Membr Pat NICK Speckled Pattern NICK Centromere Pattern Hep A IgM Ab Confirm Hepatitis A Ab Total Hep Bs Antigen Hep Bs Antibody Hep B Core Total Ab Hep C Ab Diagnostic 08/18/18 08/18/18 08/18/18 11:06 17:07 21:30 WBC RBC Hgb Hct MCV MCH MCHC RDW Plt Count MPV Absolute Neuts (auto) Neutrophils % Lymphocytes % Monocytes % Eosinophils % Basophils % Nucleated RBC % Sodium Potassium Chloride Carbon Dioxide Anion Gap BUN Creatinine Creat Clearance w eGFR POC Glucometer 206.95702 114 202 Random Glucose Calcium Phosphorus Magnesium Iron TIBC Iron Saturation Total Bilirubin AST ALT Alkaline Phosphatase Total Protein Albumin NICK Screen NICK Homogeneous Pattern NICK Nucleolar Pattern NICK Spindle Brandy Pattern NICK Midbody Pattern NICK Centriole Pattern NICK Nuclear Dot Pattern NICK PCNA Pattern NICK Nuclear Membr Pat NICK Speckled Pattern NICK Centromere Pattern Hep A IgM Ab Confirm Hepatitis A Ab Total Hep Bs Antigen Hep Bs Antibody Hep B Core Total Ab Hep C Ab Diagnostic 08/19/18 08/19/18 08/19/18 06:20 06:20 06:25 WBC 7.8 RBC 2.95 L Hgb 8.1 L Hct 23.6 L MCV 79.9 L MCH 27.6 MCHC 34.6 RDW 17.1 H Plt Count 145 D MPV 8.5 Absolute Neuts (auto) 6.6 Neutrophils % 84.6 H Lymphocytes % 5.0 L D Monocytes % 7.6 Eosinophils % 2.6 Basophils % 0.2 Nucleated RBC % 0 Sodium 137 Potassium 4.2 Chloride 101 Carbon Dioxide 25 Anion Gap 11 BUN 52 H Creatinine 7.9 H* Creat Clearance w eGFR 6.54 POC Glucometer 101 Random Glucose 87 Calcium 7.4 L Phosphorus 8.2 H Magnesium 2.1 Iron TIBC Iron Saturation Total Bilirubin 0.6 AST 24 ALT 20 Alkaline Phosphatase 57 Total Protein 6.2 L Albumin 2.2 L NICK Screen NICK Homogeneous Pattern NICK Nucleolar Pattern NICK Spindle Brandy Pattern NICK Midbody Pattern NICK Centriole Pattern NICK Nuclear Dot Pattern NICK PCNA Pattern NICK Nuclear Membr Pat NICK Speckled Pattern NICK Centromere Pattern Hep A IgM Ab Confirm Hepatitis A Ab Total Hep Bs Antigen Hep Bs Antibody Hep B Core Total Ab Hep C Ab Diagnostic Active Medications Generic Name Dose Route Start Last Admin Trade Name Freq PRN Reason Stop Dose Admin Acetaminophen 650 mg 08/18/18 15:31 Tylenol - PO Q6H PRN PAIN Albuterol Sulfate 1 amp 08/18/18 15:31 08/19/18 05:05 Ventolin 0.083% Nebulizer Soln - NEB 1 amp Q4H PRN Administration SHORT OF BREATH/WHEEZING Amlodipine Besylate 10 mg 08/19/18 10:00 Norvasc - PO DAILY [facility] Atenolol 25 mg 08/19/18 10:00 Tenormin - PO DAILY [facility] Guaifenesin 600 mg 08/18/18 22:00 08/18/18 21:33 Mucinex - PO 600 mg BID [facility] Administration Heparin Sodium (Porcine) 5,000 unit 08/18/18 22:00 08/19/18 06:26 Heparin - SQ 5,000 unit TID [facility] Administration Famotidine/Sodium Chloride 20 mg in 50 mls @ 100 mls/hr 08/19/18 10:00 Pepcid 20 Mg Premixed Ivpb - IVPB Q2D [facility] Insulin Aspart 1 vial 08/18/18 16:30 08/19/18 06:25 Novolog Vial Sliding Scale - SQ Not Given ACHS [facility] Protocol Labetalol HCl 10 mg 08/18/18 15:31 Normodyne Injection - IVPUSH Q30M PRN SBP > 160 or DBP>90 Morphine Sulfate 2 mg 08/18/18 15:31 08/18/18 21:33 Morphine Sulfate IVPUSH 2 mg Q4H PRN Administration PAIN LEVEL 7 - 10 Ondansetron HCl 4 mg 08/18/18 15:31 18 01:16 Zofran Injection IVPB 4 mg Q6H PRN Administration NAUSEA Tamsulosin HCl 0.8 mg 08/19/18 08:30 Flomax - PO DAILY@0830 [facility] IMAGING CT abdomen/ pelvis: B/L atelectasis/ consolidation, B/L effusions. Extensive diverticulosis, without diverticulitis Cardiac echocardiogram: LV systolic function normal. RV systolic function normal. EF 65-70%. Increased LV pressure with grade II diastolic dysfunction. Lower extremity doppler: Negative for DVT B/L lower extremities. Renal ultrasound: B/L atrophic echogenic kidneys, indicative of chronic disease. Simple renal cysts 2.5cm right, 1cm left. Chest Xray (08/19/2018): B/L pulmonary congestion, and pleural effusions. Left base atelectasis vs. congesiton, and atelectatic changes on right. ASSESSMENT/PLAN: Patient is an 87 year old male with history of diabetes mellitus, chronic kidney disease stage V, hypertension, hyperlipidemia, presented with complaint of shorness of breath, and lower extremity edema for past 4 days prior to admission. CATARINA on CKD -Patient's Cr in prior admission (08/2017) 4.6 -Likely secondary to obstruction, given patient's history of BPH. -No hydronephrosis noted on renal ultrasound. -Patient has received two rounds of hemodialysis (08/16, 08/17) -Nephrology recommendations (Dr. Carvajal) appreciated. -Patient will require urgent hemodialysis today. -Right internal jugular tunneled catheter placed today for HD. Volume overload -Likely secondary to acute on chronic renal failure. Receiving HD today. -Lasix 80mg IV one- time dose -Chest Xray shows: B/L pulmonary congestion, and pleural effusions. Left base atelectasis vs. congesiton, and atelectatic changes on right. -Venturi mask 40% oxygen, saturating at 96% Acute on chronic anemia -Hb8.1/ Hct 23.6 MCV 79.9 -Anemia likely secondary to chronic kidney disease -Epoietin one time dose given 08/16 Hypertension -No longer on Nicardipine drip. -[id number] PO daily -Atenolol 25mg PO daily -Closely follow vitals Diabetes Mellitus -Insulin sliding scale ACHS -BGM ACHS Benign Prostatic Hyperplasia -Tamsulosin 0.8mg PO daily -Sen catheter removed. Follow urinary voiding. Metabolic acidosis -Resolved with hemodialysis FEN -No IV fluids at this time -Follow CMP -Renal controlled diet Prophylaxis -Heparin 5000u subq TID -Famotidine 20mg IV daily Disposition -Continue care in medical-surgical floor. Visit type - Emergency Visit Emergency Visit: Yes ED Registration Date: 08/15/18 Care time: The patient presented to the Emergency Department on the above date and was hospitalized for further evaluation of their emergent condition. - New Patient This patient is new to me today: No - Critical Care Critical Care patient: Yes Total Critical Care Time (in minutes): 30 Critical Care Statement: The care of this patient involved high complexity decision making to prevent further life threatening deterioration of the patient 's condition and/or to evaluate & treat vital organ system(s) failure or risk of failure. - Discharge Referral Referred to [facility] Med [facility] No
[2018-08-19] MEDS: TAMSULOSIN HCL 0.4 MG CAP PO SCH (08:28)
--- NOTE | 2018-08-19 09:03 | PN ---
Teaching Attending Note Name of Resident: Best Alvarado ATTENDING PHYSICIAN STATEMENT I saw and evaluated the patient. I reviewed the resident's note and discussed the case with the resident. I agree with the resident's findings and plan as documented with exceptions below. SUBJECTIVE: Patient seen and examined. OBJECTIVE: Vital Signs Period Temp Pulse Resp BP Sys/Bernstein Pulse Ox Last 24 Hr 97.7 F-98.0 F 68-93 12-20 132-163/59-95 96-96 Intake & Output 08/16/18 08/17/18 08/18/18 08/19/18 23:59 23:59 23:59 23:59 Intake Total 373.5 740 1177 Output Total 575 800 275 Balance -201.5 -60 902 Weight 110 lb 107 lb 103 lb 4 oz General: Chest: Abdomen: Extremities: Home Medications Medication Instructions Recorded Amlodipine Besylate [Norvasc -] 5 mg PO DAILY #30 tablet 08/15/17 Insulin (Levemir) [Levemir Flexpen 7 units SQ DAILY #1 pen 08/15/17 -] Metoprolol Succinate [Toprol XL -] 75 mg PO DAILY #30 tab.sr.24h 08/15/17 Tamsulosin HCl [Flomax -] 0.8 mg PO DAILY@0830 #30 cap.er.24h 08/15/17 Insulin Aspart [Novolog Flexpen] 100 unit SQ PRN #1 insuln.pen 08/16/17 Active Medications Acetaminophen (Tylenol -) 650 mg PO Q6H PRN PRN Reason: PAIN Albuterol Sulfate (Ventolin 0.083% Nebulizer Soln -) 1 amp NEB Q4H PRN PRN Reason: SHORT OF BREATH/WHEEZING Last Admin: 08/19/18 05:05 Dose: 1 amp Amlodipine Besylate (Norvasc -) 10 mg PO DAILY REHANA Atenolol (Tenormin -) 25 mg PO DAILY [facility] Guaifenesin (Mucinex -) 600 mg PO BID REHANA Last Admin: 08/18/18 21:33 Dose: 600 mg Heparin Sodium (Porcine) (Heparin -) 5,000 unit SQ TID REHANA Last Admin: 08/19/18 06:26 Dose: 5,000 unit Famotidine/Sodium Chloride (Pepcid 20 Mg Premixed Ivpb -) 20 mg in 50 mls @ 100 mls/hr IVPB Q2D REHANA Insulin Aspart (Novolog Vial Sliding Scale -) 1 vial SQ ACHS REHANA; Protocol Last Admin: 08/19/18 06:25 Dose: Not Given Labetalol HCl (Normodyne Injection -) 10 mg IVPUSH Q30M PRN PRN Reason: SBP > 160 or DBP>90 Morphine Sulfate (Morphine Sulfate) 2 mg IVPUSH Q4H PRN PRN Reason: PAIN LEVEL 7 - 10 Last Admin: 08/18/18 21:33 Dose: 2 mg Ondansetron HCl (Zofran Injection) 4 mg IVPB Q6H PRN PRN Reason: NAUSEA Last Admin: 08/19/18 01:16 Dose: 4 mg Tamsulosin HCl (Flomax -) 0.8 mg PO DAILY@0830 REHANA Last Admin: 08/19/18 08:28 Dose: 0.8 mg Laboratory Results - last 24 hr 08/16/18 08/16/18 08/16/18 10:20 10:20 10:20 WBC RBC Hgb Hct MCV MCH MCHC RDW Plt Count MPV Absolute Neuts (auto) Neutrophils % Lymphocytes % Monocytes % Eosinophils % Basophils % Nucleated RBC % Sodium Potassium Chloride Carbon Dioxide Anion Gap BUN Creatinine Creat Clearance w eGFR POC Glucometer Random Glucose Calcium Phosphorus Magnesium Iron TIBC Iron Saturation Total Bilirubin AST ALT Alkaline Phosphatase Total Protein Albumin NICK Screen Positive H NICK Homogeneous Pattern TNP NICK Nucleolar Pattern TNP NICK Spindle Brandy Pattern TNP NICK Midbody Pattern TNP NICK Centriole Pattern TNP NICK Nuclear Dot Pattern TNP NICK PCNA Pattern TNP NICK Nuclear Membr Pat TNP NICK Speckled Pattern 1:320 H NICK Centromere Pattern TNP Hep A IgM Ab Confirm Negative Hepatitis A Ab Total Positive H Hep Bs Antigen Negative Hep Bs Antibody Non reactive Hep B Core Total Ab Negative Hep C Ab Diagnostic 0.2 08/16/18 08/18/18 08/18/18 10:20 11:06 17:07 WBC RBC Hgb Hct MCV MCH MCHC RDW Plt Count MPV Absolute Neuts (auto) Neutrophils % Lymphocytes % Monocytes % Eosinophils % Basophils % Nucleated RBC % Sodium Potassium Chloride Carbon Dioxide Anion Gap BUN Creatinine Creat Clearance w eGFR POC Glucometer 206.00206 114 Random Glucose Calcium Phosphorus Magnesium Iron 14 L TIBC 225 L Iron Saturation 6 L Total Bilirubin AST ALT Alkaline Phosphatase Total Protein Albumin NICK Screen NICK Homogeneous Pattern NICK Nucleolar Pattern NICK Spindle Brandy Pattern NICK Midbody Pattern NICK Centriole Pattern NICK Nuclear Dot Pattern NICK PCNA Pattern NICK Nuclear Membr Pat NICK Speckled Pattern NICK Centromere Pattern Hep A IgM Ab Confirm Hepatitis A Ab Total Hep Bs Antigen Hep Bs Antibody Hep B Core Total Ab Hep C Ab Diagnostic 08/18/18 08/19/18 08/19/18 21:30 06:20 06:20 WBC 7.8 RBC 2.95 L Hgb 8.1 L Hct 23.6 L MCV 79.9 L MCH 27.6 MCHC 34.6 RDW 17.1 H Plt Count 145 D MPV 8.5 Absolute Neuts (auto) 6.6 Neutrophils % 84.6 H Lymphocytes % 5.0 L D Monocytes % 7.6 Eosinophils % 2.6 Basophils % 0.2 Nucleated RBC % 0 Sodium 137 Potassium 4.2 Chloride 101 Carbon Dioxide 25 Anion Gap 11 BUN 52 H Creatinine 7.9 H* Creat Clearance w eGFR 6.54 POC Glucometer 202 Random Glucose 87 Calcium 7.4 L Phosphorus 8.2 H Magnesium 2.1 Iron TIBC Iron Saturation Total Bilirubin 0.6 AST 24 ALT 20 Alkaline Phosphatase 57 Total Protein 6.2 L Albumin 2.2 L NICK Screen NICK Homogeneous Pattern NICK Nucleolar Pattern NICK Spindle Brandy Pattern NICK Midbody Pattern NICK Centriole Pattern NICK Nuclear Dot Pattern NICK PCNA Pattern NICK Nuclear Membr Pat NICK Speckled Pattern NICK Centromere Pattern Hep A IgM Ab Confirm Hepatitis A Ab Total Hep Bs Antigen Hep Bs Antibody Hep B Core Total Ab Hep C Ab Diagnostic 08/19/18 06:25 WBC RBC Hgb Hct MCV MCH MCHC RDW Plt Count MPV Absolute Neuts (auto) Neutrophils % Lymphocytes % Monocytes % Eosinophils % Basophils % Nucleated RBC % Sodium Potassium Chloride Carbon Dioxide Anion Gap BUN Creatinine Creat Clearance w eGFR POC Glucometer 101 Random Glucose Calcium Phosphorus Magnesium Iron TIBC Iron Saturation Total Bilirubin AST ALT Alkaline Phosphatase Total Protein Albumin NICK Screen NICK Homogeneous Pattern NICK Nucleolar Pattern NICK Spindle Brandy Pattern NICK Midbody Pattern NICK Centriole Pattern NICK Nuclear Dot Pattern NICK PCNA Pattern NICK Nuclear Membr Pat NICK Speckled Pattern NICK Centromere Pattern Hep A IgM Ab Confirm Hepatitis A Ab Total Hep Bs Antigen Hep Bs Antibody Hep B Core Total Ab Hep C Ab Diagnostic Microbiology 08/15/18 23:50 Blood - Peripheral Venous Blood Culture - Preliminary NO GROWTH OBTAINED AFTER 72 HOURS, INCUBATION TO CONTINUE FOR 2 DAYS. 08/15/18 23:50 Blood - Peripheral Venous Blood Culture - Preliminary NO GROWTH OBTAINED AFTER 72 HOURS, INCUBATION TO CONTINUE FOR 2 DAYS. 08/15/18 22:10 Urine - Urine Sen Urine Culture - Final NO GROWTH OBTAINED 08/16/18 11:40 Urine For Antigen Detection Legionella Antigen - Final 08/16/18 11:40 Urine For Antigen Detection Streptococcus pneumoniae Antigen (M - Final CT A/P results reviewed ASSESSMENT AND PLAN: 87 year old male with BPH, CKD 4, HTN, HLD, DM 2, presented with a 2 week history of increasing shortness of breath, worse on exertion, with associated LE edema for the 3 days prior to admission, found to have CATARINA on CKD with acidosis and hyperkalemia. - Acute Kidney Injury on Chronic Renal Disease, now CKD-V/ESRD, started on HD -Hypertensive emergency, off nicardipine drip -Acute hypoxic respiratory distress, from volume overload -AMS, suspect toxic metabolic encephalopathy from uremia -Bilateral pleural effusions/Anasarca, from above -Hyperkalemia, resolved -Metabolic acidosis -Acute respiratory distress from above, improved -Acute on chronic anemia, suspect from CKD/hematuria -Mild troponin elevation,suspected from demand/renal dysfunction -IDDM/hypoglycemia -BPH, h/o urinary retention -h/o GI Bleed due to PUD/s/p H. pylori treatment -Vasovagal syncope on 08/17 (rapid response called) Plan: Short of breath/hypoxic and lethargic today. CXR reviewed. Lasix 80 mg IV x 1. Discussed with Dr. Carvajal, plan for HD today. Plan for permacath, anticipate terminal gauger HD. Off lasix drip. Right inguinal HD cath removed. Sen. Renal US no hydronephrosis. Continue flomax. Norvasc increased. Toprol changed to atenolol, monitor for now. Off levemir, resume as tolerated. ISS. Diabetic diet. Monitor h/h. Resume heparin in 24 hours if h/h stable. Dispo anticpate d/c later this week pending HD arrangements if clinically improved. Critically ill currently with hypoxia/respiratory distress, AMS and need for urgent HD. Total time spent in patient visit, discussion with RN, nephrology and co- ordination of care 25 min.
[2018-08-19] MEDS: amLODIPine BESYLATE 10 MG TABLET (FP) PO SCH (09:15)
[2018-08-19] MEDS: ATENOLOL 25 MG TABLET (FP) PO SCH (09:15)
[2018-08-19] MEDS: guaiFENesin 600 MG TABLET.ER (FP) PO SCH ×2 (09:15→21:42)
[2018-08-19] MEDS ORDERED: SODIUM CHLORIDE 250 ML IV PRN (09:45)
[2018-08-19] MEDS ORDERED: amLODIPine BESYLATE 10 MG TABLET (FP) PO SCH (10:00)
[2018-08-19] MEDS ORDERED: ATENOLOL 25 MG TABLET (FP) PO SCH (10:00)
[2018-08-19] MEDS ORDERED: FAMOTIDINE 20 MG/50 ML IVPB 20 MG/50 ML MG IVPB SCH (10:00)
[2018-08-19] MEDS ORDERED: FUROSEMIDE 40 MG/4 ML INJECTABLE VIAL IVPUSH ONE (10:00)
--- NOTE | 2018-08-19 10:38 | PN ---
Progress Note (short form) - Note Progress Note: Renal follow up for CATARINA Pt seen and examined at the bedside noted to be hypoxic thsi am more confused and groggy urinary catheter removed Vital Signs Temperature 98.6 F 08/19/18 09:15 Pulse Rate 95 H 08/19/18 09:15 Respiratory Rate 24 H 08/19/18 09:15 Blood Pressure 166/82 08/19/18 09:15 O2 Sat by Pulse Oximetry (%) 91 L 08/19/18 09:31 Intake & Output 08/16/18 08/17/18 08/18/18 08/19/18 23:59 23:59 23:59 23:59 Intake Total 373.5 740 1177 Output Total 575 800 275 Balance -201.5 -60 902 Weight 49.895 kg 48.534 kg 46.833 kg NAD Neck supple soft NT/ND Abd no Le swelling blackmon in place CBC, BMP 08/19/18 06:20 08/19/18 06:20 Current Medications Acetaminophen (Tylenol -) 650 mg PO Q6H PRN PRN Reason: PAIN Albuterol Sulfate (Ventolin 0.083% Nebulizer Soln -) 1 amp NEB Q4H PRN PRN Reason: SHORT OF BREATH/WHEEZING Last Admin: 08/19/18 05:05 Dose: 1 amp Amlodipine Besylate (Norvasc -) 10 mg PO DAILY [facility] Last Admin: 08/19/18 09:15 Dose: 10 mg Atenolol (Tenormin -) 25 mg PO DAILY [facility] Last Admin: 08/19/18 09:15 Dose: 25 mg Guaifenesin (Mucinex -) 600 mg PO BID [facility] Last Admin: 08/19/18 09:15 Dose: 600 mg Heparin Sodium (Porcine) (Heparin -) 5,000 unit SQ TID [facility] Last Admin: 08/19/18 06:26 Dose: 5,000 unit Sodium Chloride (Normal Saline -) 250 mls @ 3,000 mls/hr IV PRN PRN PRN Reason: Hypotension during Dialysis Stop: 08/20/18 09:45 Insulin Aspart (Novolog Vial Sliding Scale -) 1 vial SQ ACHS [facility]; Protocol Last Admin: 08/19/18 06:25 Dose: Not Given Labetalol HCl (Normodyne Injection -) 10 mg IVPUSH Q30M PRN PRN Reason: SBP > 160 or DBP>90 Morphine Sulfate (Morphine Sulfate) 2 mg IVPUSH Q4H PRN PRN Reason: PAIN LEVEL 7 - 10 Last Admin: 08/18/18 21:33 Dose: 2 mg Ondansetron HCl (Zofran Injection) 4 mg IVPB Q6H PRN PRN Reason: NAUSEA Last Admin: 08/19/18 01:16 Dose: 4 mg Ranitidine HCl (Zantac Oral Solution -) 50 mg PO DAILY [facility] Tamsulosin HCl (Flomax -) 0.8 mg PO DAILY@0830 REHANA Last Admin: 08/19/18 08:28 Dose: 0.8 mg 87 year old German gentleman with hx of CKD (baseline Cr unclear, had CATARINA last year with peak Cr ~5 was discharged with Cr ~4), DM, Hypertension, Hiatial Hernia who presented from home with complaints of SOB and leg swelling. #Acute Renal Failure (R/o ATN vs acute GN vs. 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
--- NOTE | 2018-08-19 11:08 | PROC ---
Central Line Insertion - Procedure Note TIME OUT performed prior to this procedure with verbal confirmation of correct patient identity, correct side, agreement of the procedure, correct patient position, availability of necessary equipment. The consent form is complete and accurate. Risk of possible infection, bleeding and pneumothorax have been discussed with the patient and family. Safety precautions based on patient history or medication use has been addressed. Indication: Other (renal failure) Consent on Chart: Yes Central Line: Dialysis Cath, Dual Lumen Area prepped with Chlorhexidine solution then draped using sterile barrier protection. Anesthesia: Lidocaine 1% Technique used: Seldinger Ultrasound Guided Assistance: Yes Site: Right Internal Jugular Dark venous non-pulsatile flow noted from hub of needle. The catheter was introduced. Guide wire removed intact. Each port aspirated then flushed with sterile normal saline and capped. Line secured to skin with silk suture. Biopatch placed around base of line. Sterile occlusive dressing applied. No complications. Patient tolerated the procedure well. STAT chest xray ordered to confirm position and rule out pneumothorax
[2018-08-19] MEDS: SEVELAMER CARBONATE 800 MG TAB (FP) PO SCH ×2 (11:28→17:46)
--- NOTE | 2018-08-19 15:02 | PN ---
Progress Note, Physician History of Present Illness: PULMONARY NOTED TO HAVE INCREASED SOB EARLIER CURRENTLY IMPROVED ON HD,COMFORTABLE,- RESP DISTRESS. - Current Medication List Current Medications: Active Medications Acetaminophen (Tylenol -) 650 mg PO Q6H PRN PRN Reason: PAIN Albuterol Sulfate (Ventolin 0.083% Nebulizer Soln -) 1 amp NEB Q4H PRN PRN Reason: SHORT OF BREATH/WHEEZING Last Admin: 08/19/18 05:05 Dose: 1 amp Amlodipine Besylate (Norvasc -) 10 mg PO DAILY [facility] Last Admin: 08/19/18 09:15 Dose: 10 mg Atenolol (Tenormin -) 25 mg PO DAILY [facility] Last Admin: 08/19/18 09:15 Dose: 25 mg Guaifenesin (Mucinex -) 600 mg PO BID [facility] Last Admin: 08/19/18 09:15 Dose: 600 mg Heparin Sodium (Porcine) (Heparin -) 5,000 unit SQ TID [facility] Last Admin: 08/19/18 13:34 Dose: Not Given Sodium Chloride (Normal Saline -) 250 mls @ 3,000 mls/hr IV PRN PRN PRN Reason: Hypotension during Dialysis Stop: 08/20/18 09:45 Insulin Aspart (Novolog Vial Sliding Scale -) 1 vial SQ ACHS [facility]; Protocol Last Admin: 08/19/18 11:28 Dose: Not Given Labetalol HCl (Normodyne Injection -) 10 mg IVPUSH Q30M PRN PRN Reason: SBP > 160 or DBP>90 Morphine Sulfate (Morphine Sulfate) 2 mg IVPUSH Q4H PRN PRN Reason: PAIN LEVEL 7 - 10 Last Admin: 08/18/18 21:33 Dose: 2 mg Ondansetron HCl (Zofran Injection) 4 mg IVPB Q6H PRN PRN Reason: NAUSEA Last Admin: 08/19/18 01:16 Dose: 4 mg Ranitidine HCl (Zantac Oral Solution -) 50 mg PO DAILY [facility] Sevelamer Carbonate (Renvela -) 800 mg PO TIDCM [facility] Last Admin: 08/19/18 11:28 Dose: Not Given Tamsulosin HCl (Flomax -) 0.8 mg PO DAILY@0830 [facility] Last Admin: 08/19/18 08:28 Dose: 0.8 mg - Objective Vital Signs: Vital Signs Temperature 98.4 F 08/19/18 11:15 Pulse Rate 81 08/19/18 14:50 Respiratory Rate 18 08/19/18 14:50 Blood Pressure 118/53 L 08/19/18 14:50 O2 Sat by Pulse Oximetry (%) 91 L 08/19/18 09:31 Constitutional: Yes: Calm, Thin Eyes: Yes: WNL HENT: Yes: WNL Neck: Yes: WNL Cardiovascular: Yes: Regular Rate and Rhythm, S1, S2 Respiratory: Yes: Diminished Gastrointestinal: Yes: Normal Bowel Sounds, Soft Extremities: Yes: WNL Edema: No Labs: CBC, BMP 08/19/18 06:20 08/19/18 06:20 INR, PTT INR 1.07 (0.83-1.09) 08/16/18 05:30 Problem List - Problems (1) Dyspnea Code(s): R06.00 - DYSPNEA, UNSPECIFIED (2) Acute on chronic renal failure Code(s): N17.9 - ACUTE KIDNEY FAILURE, UNSPECIFIED; N18.9 - CHRONIC KIDNEY DISEASE, UNSPECIFIED Qualifiers: Acute renal failure type: unspecified Chronic kidney disease stage: unspecified stage Qualified Code(s): N17.9 - Acute kidney failure, unspecified ; N18.9 - Chronic kidney disease, unspecified (3) CHF (congestive heart failure) Code(s): I50.9 - HEART FAILURE, UNSPECIFIED Qualifiers: Heart failure type: diastolic Heart failure chronicity: acute on chronic Qualified Code(s): I50.33 - Acute on chronic diastolic (congestive) heart failure (4) Diabetes mellitus Code(s): E11.9 - TYPE 2 DIABETES MELLITUS WITHOUT COMPLICATIONS Qualifiers: Diabetes mellitus type: type 2 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
[2018-08-19 15:27] LABS: ATYPICAL pANCA <1:20 titer (Neg:<1:20); C-ANCA <1:20 titer (Neg:<1:20); P-ANCA <1:20 titer (Neg:<1:20)
[2018-08-20] MEDS: HEPARIN NA (PORCINE) 5,000 UNITS/ML 1ML VIAL SQ SCH ×3 (06:14→22:58)
[2018-08-20] MEDS: INSULIN SLIDING SCALE (NOVOLOG) 1 VIAL SQ SCH ×4 (06:15→23:01)
[2018-08-20] MEDS ORDERED: SODIUM CHLORIDE 250 ML IV PRN (07:25)
[2018-08-20 07:29] LABS: HEMOGLOBIN 7.6 GM/dL (11.7-16.9); MCH 27.6 pg (25.7-33.7); MCHC 34.6 g/dl (32.0-35.9); MEAN CELL VOLUME 79.9 fl (80-96); MEAN PLT VOLUME 8.7 fl (7.5-11.1); PLATELET COUNT 163 K/MM3 (134-434); RBC 2.76 M/mm3 (4.00-5.60); RDW 17.1 % (11.9-15.9); WHITE BLOOD COUNT 8.3 K/mm3 (4.0-10.0)
[2018-08-20 08:10] LABS: ALK PHOS 52 U/L (45-117); ANION GAP 13 MMOL/L (8-16); BILIRUBIN,TOTAL 0.5 mg/dL (0.2-1); BLOOD UREA NITROGEN 38 mg/dL (7-18); CALCIUM 7.7 mg/dL (8.5-10.1); CHLORIDE 99 mmol/L (98-107); CO2 24 mmol/L (21-32); GLUCOSE,RANDOM 147 mg/dL (74-106); PHOSPHOROUS 6.8 mg/dL (2.5-4.9); POTASSIUM 3.9 mmol/L (3.5-5.1); SGOT/AST 26 U/L (15-37); SGPT/ALT 19 U/L (13-61); SODIUM 136 mmol/L (136-145); TOT PROT 6.1 g/dl (6.4-8.2)
--- NOTE | 2018-08-20 08:18 | PN ---
Physical Exam: SUBJECTIVE: Patient seen and examined at bedside this morning. Resting comfortably in bed, saturating 100% on 3L nasal canulla in no respiratory distress. Denies acute complaints. OBJECTIVE: Vital Signs Period Temp Pulse Resp BP Sys/Bernstein Pulse Ox Last 24 Hr 98.4 F-99.7 F 61-95 18-24 100-166/43-84 90-91 GENERAL: The patient is awake, and oriented to person and place, in no acute distress. HEAD: Normal with no signs of trauma. EYES: PERRL, extraocular movements intact, sclera anicteric, conjunctiva clear. ENT: Ears normal, nares patent, oropharynx clear without exudates, moist mucous membranes. NECK: Supple, without lymphadenopathy. Right IJ line insertion site clean without erythema LUNGS: Faint crackles auscultated B/L improved significantly from yesterday. No wheezing auscultated today. No accessory muscle use. HEART: Regular rate and rhythm, S1, S2 without murmur, rub or gallop. ABDOMEN: Soft, nontender, nondistended, normoactive bowel sounds, no guarding, no rebound, no hepatosplenomegaly, no masses. EXTREMITIES: 2+ pulses, warm, well-perfused, no edema. NEUROLOGICAL: Cranial nerves II through XII grossly intact. SKIN: Warm, dry, normal turgor, no rashes or lesions noted Laboratory Results - last 24 hr 08/16/18 08/19/18 08/19/18 10:20 11:26 16:54 Sodium Potassium Chloride Carbon Dioxide Anion Gap BUN Creatinine Creat Clearance w eGFR POC Glucometer 148 138 Random Glucose Calcium Phosphorus Magnesium Total Bilirubin AST ALT Alkaline Phosphatase Total Protein Total Protein (PEP) 5.9 L Albumin Albumin (PEP) 2.5 L Globulin 3.4 Albumin/Globulin Ratio 0.7 Beta Globulins 1.0 LEONEL M-Juan Antonio Not observed c-ANCA <1:20 Proteinase 3 (PR3) 12.8 H p-ANCA <1:20 Atypical p-ANCA <1:20 Myeloperoxidase Ab <9.0 08/19/18 08/20/18 08/20/18 21:44 06:17 06:30 Sodium 136 Potassium 3.9 Chloride 99 Carbon Dioxide 24 Anion Gap 13 BUN 38 H Creatinine 6.0 H Creat Clearance w eGFR 8.98 POC Glucometer 218 178 Random Glucose 147 H Calcium 7.7 L Phosphorus 6.8 H Magnesium 2.0 Total Bilirubin 0.5 AST 26 ALT 19 Alkaline Phosphatase 52 Total Protein 6.1 L Total Protein (PEP) Albumin 2.0 L Albumin (PEP) Globulin Albumin/Globulin Ratio Beta Globulins LEONEL M-Juan Antonio c-ANCA Proteinase 3 (PR3) p-ANCA Atypical p-ANCA Myeloperoxidase Ab Active Medications Generic Name Dose Route Start Last Admin Trade Name Freq PRN Reason Stop Dose Admin Acetaminophen 650 mg 08/18/18 15:31 Tylenol - PO Q6H PRN PAIN Albuterol Sulfate 1 amp 08/18/18 15:31 08/19/18 21:15 Ventolin 0.083% Nebulizer Soln - NEB 1 amp Q4H PRN Administration SHORT OF BREATH/WHEEZING Amlodipine Besylate 10 mg 08/19/18 10:00 08/19/18 09:15 Norvasc - PO 10 mg DAILY REHANA Administration Atenolol 25 mg 08/19/18 10:00 08/19/18 09:15 Tenormin - PO 25 mg DAILY REHANA Administration Epoetin Kolby 20,000 unit 08/20/18 07:25 Epogen - IVPUSH 08/20/18 07:26 ONCE ONE Guaifenesin 600 mg 08/18/18 22:00 08/19/18 21:42 Mucinex - PO 600 mg BID REHANA Administration Heparin Sodium (Porcine) 5,000 unit 08/18/18 22:00 08/20/18 06:14 Heparin - SQ 5,000 unit TID REHANA Administration Sodium Chloride 250 mls @ 3,000 mls/hr 08/19/18 09:45 Normal Saline - IV 08/20/18 09:45 PRN PRN Hypotension during Dialysis Sodium Chloride 250 mls @ 3,000 mls/hr 08/20/18 07:25 Normal Saline - IV 08/21/18 07:25 PRN PRN Hypotension during Dialysis Insulin Aspart 1 vial 08/18/18 16:30 08/20/18 06:15 Novolog Vial Sliding Scale - SQ 2 units ACHS REHANA Administration Protocol Labetalol HCl 10 mg 08/18/18 15:31 Normodyne Injection - IVPUSH Q30M PRN SBP > 160 or DBP>90 Morphine Sulfate 2 mg 08/18/18 15:31 08/18/18 21:33 Morphine Sulfate IVPUSH 2 mg Q4H PRN Administration PAIN LEVEL 7 - 10 Ondansetron HCl 4 mg 08/18/18 15:31 08/19/18 01:16 Zofran Injection IVPB 4 mg Q6H PRN Administration NAUSEA Ranitidine HCl 50 mg 08/20/18 10:00 Zantac Oral Solution - PO DAILY [facility] Sevelamer Carbonate 800 mg 08/19/18 12:00 08/19/18 17:46 Renvela - PO Not Given TIDCM REHANA Tamsulosin HCl 0.8 mg 08/19/18 08:30 08/19/18 08:28 Flomax - PO 0.8 mg DAILY@0830 [facility]HANA Administration IM[address] abdomen/ pelvis: B/L atelectasis/ consolidation, B/L effusions. Extensive diverticulosis, without diverticulitis Cardiac echocardiogram: LV systolic function normal. RV systolic function normal. EF 65-70%. Increased LV pressure with grade II diastolic dysfunction. Lower extremity doppler: Negative for DVT B/L lower extremities. Renal ultrasound: B/L atrophic echogenic kidneys, indicative of chronic disease. Simple renal cysts 2.5cm right, 1cm left. Chest Xray (08/19/2018): B/L pulmonary congestion, and pleural effusions. Left base atelectasis vs. congesiton, and atelectatic changes on right. ASSESSMENT/PLAN: Patient is an 87 year old male with history of diabetes mellitus, chronic kidney disease stage V, hypertension, hyperlipidemia, presented with complaint of shortness of breath, and lower extremity edema for past 4 days prior to admission. CATARINA on CKD -Patient's Cr in prior admission (08/2017) 4.6 -Likely secondary to obstruction, given patient's history of BPH. -Nephrology recommendations (Dr. Carvajal) appreciated. -Patient will require hemodialysis today. To be transfused 1 unit PRBCs with HD today. Epoetin Kolby 20,000units today. -F/U Ammonia level -F/U CT head to evaluate for lethargy -Patient for permacath tomorrow. Volume overload -Likely secondary to acute on chronic renal failure. Receiving HD today. -On 3L nasal canula, saturating 100% Acute on chronic anemia -Hb8.1/ Hct 23.6 MCV 79.9 -Anemia likely secondary to chronic kidney disease -1 unit PRBCs transfused with HD today -Epoietin one time dose given today Hypertension -No longer on Nicardipine drip. -[id number] PO daily -Atenolol 25mg PO daily -Closely follow vitals Diabetes Mellitus -Insulin sliding scale ACHS -BGM ACHS Benign Prostatic Hyperplasia -Tamsulosin 0.8mg PO daily -Sen catheter removed. Follow urinary voiding. Metabolic acidosis -Resolved with hemodialysis FEN -No IV fluids at this time -Follow CMP -Renal controlled diet. NPO after midnight. Prophylaxis -Heparin 5000u subq TID -Famotidine 20mg IV daily Disposition -Continue care in medical-surgical floor. Visit type - Emergency Visit Emergency Visit: Yes ED Registration Date: 08/15/18 Care time: The patient presented to the Emergency Department on the above date and was hospitalized for further evaluation of their emergent condition. - New Patient This patient is new to me today: No - Critical Care Critical Care patient: No - Discharge Referral Referred to [facility] Med [facility] No
[2018-08-20] MEDS ORDERED: RANITIDINE HCL 150 MG/10 ML UNIT-DOSE PO ONE (09:27)
[2018-08-20] MEDS: SEVELAMER CARBONATE 800 MG TAB (FP) PO SCH ×3 (09:39→17:36)
[2018-08-20] MEDS: RANITIDINE HCL 150 MG/10 ML UNIT-DOSE PO SCH (10:38)
[2018-08-20] MEDS: TAMSULOSIN HCL 0.4 MG CAP PO SCH ×2 (10:38→11:00)
[2018-08-20] MEDS: guaiFENesin 600 MG TABLET.ER (FP) PO SCH ×3 (10:39→22:58)
[2018-08-20] MEDS: ATENOLOL 25 MG TABLET (FP) PO SCH ×2 (10:39→16:15)
[2018-08-20] MEDS: amLODIPine BESYLATE 10 MG TABLET (FP) PO SCH ×2 (10:39→16:15)
[2018-08-20] MEDS ORDERED: EPOETIN ALFA 20,000 UNIT/1 ML VIAL IVPUSH ONE (11:00)
--- NOTE | 2018-08-20 11:17 | PN ---
Progress Note (short form) - Note Progress Note: Renal follow up for CATARINA Pt seen and examined during dialysis BP stable, catheter being used for HD pt remains lethargic O2 sat is stable s/p HD and UF yesterday Vital Signs Temperature 99.0 F 08/20/18 06:00 Pulse Rate 79 08/20/18 06:00 Respiratory Rate 18 08/20/18 06:00 Blood Pressure 142/60 08/20/18 06:00 O2 Sat by Pulse Oximetry (%) 91 L 08/19/18 22:00 Intake & Output 08/17/18 08/18/18 08/19/18 08/20/18 23:59 23:59 23:59 23:59 Intake Total 740 1177 340 50 Output Total 800 275 Balance -60 902 340 50 Weight 48.534 kg 46.833 kg 48.194 kg Lethargic Neck supple Dec BS, mild rales no Le swelling Sen in place CBC, BMP 08/20/18 06:30 08/20/18 06:30 Current Medications Acetaminophen (Tylenol -) 650 mg PO Q6H PRN PRN Reason: PAIN Albuterol Sulfate (Ventolin 0.083% Nebulizer Soln -) 1 amp NEB Q4H PRN PRN Reason: SHORT OF BREATH/WHEEZING Last Admin: 08/19/18 21:15 Dose: 1 amp Amlodipine Besylate (Norvasc -) 10 mg PO DAILY [facility] Last Admin: 08/19/18 09:15 Dose: 10 mg Atenolol (Tenormin -) 25 mg PO DAILY [facility] Last Admin: 08/19/18 09:15 Dose: 25 mg Guaifenesin (Mucinex -) 600 mg PO BID [facility] Last Admin: 08/20/18 10:39 Dose: 600 mg Heparin Sodium (Porcine) (Heparin -) 5,000 unit SQ TID [facility] Last Admin: 08/20/18 06:14 Dose: 5,000 unit Sodium Chloride (Normal Saline -) 250 mls @ 3,000 mls/hr IV PRN PRN PRN Reason: Hypotension during Dialysis Stop: 08/21/18 07:25 Insulin Aspart (Novolog Vial Sliding Scale -) 1 vial SQ ACHS [facility]; Protocol Last Admin: 08/20/18 06:15 Dose: 2 units Labetalol HCl (Normodyne Injection -) 10 mg IVPUSH Q30M PRN PRN Reason: SBP > 160 or DBP>90 Morphine Sulfate (Morphine Sulfate) 2 mg IVPUSH Q4H PRN PRN Reason: PAIN LEVEL 7 - 10 Last Admin: 08/18/18 21:33 Dose: 2 mg Ondansetron HCl (Zofran Injection) 4 mg IVPB Q6H PRN PRN Reason: NAUSEA Last Admin: 08/19/18 01:16 Dose: 4 mg Ranitidine HCl (Zantac Oral Solution -) 50 mg PO DAILY [facility] Last Admin: 08/20/18 10:38 Dose: 50 mg Sevelamer Carbonate (Renvela -) 800 mg PO TIDCM [facility] Last Admin: 08/20/18 09:39 Dose: Not Given Tamsulosin HCl (Flomax -) 0.8 mg PO DAILY@0830 [facility] Last Admin: 08/20/18 10:38 Dose: 0.8 mg 87 year old gentleman with hx of CKD (baseline Cr unclear, had CATARINA last year with peak Cr ~5 was discharged with Cr ~4), DM, Hypertension, Hiatial Hernia who presented from home with complaints of SOB and leg swelling. #Acute Renal Failure (R/o ATN vs acute GN vs. progressive CKD ) #Hyperkalemia (now improved s/p dialysis) #Mild Volume overlaod (now improved) #Hypertension #Acute on Chronic Anemia #Anion gap metabolic acidosis #Thrombocytopenia (improving) No signs of recovery of renal function at this time On dialysis now, tolerating it well mental status is not improved, check ammonia level and CT of the head will transfuse 1 unit PRBC today with HD to get Epogen 20k today as well planned for tunneled catheter tomorrow Thank you Steven Carvajal DO
--- NOTE | 2018-08-20 13:52 | SPA.PREOP ---
- PRE-OP NOTE Dx: ESRD Planned Procedure: permacath placement Surgeon: Dr. Valencia Last Vital Signs Temp Pulse Resp BP Pulse Ox 99.0 F 79 18 142/60 91 L 08/20/18 06:00 08/20/18 06:00 08/20/18 06:00 08/20/18 06:00 08/19/18 22:00 Lab Results WBC 8.3 K/mm3 (4.0-10.0) 08/20/18 06:30 RBC 2.76 M/mm3 (4.00-5.60) L 08/20/18 06:30 Hgb 7.6 GM/dL (11.7-16.9) L 08/20/18 06:30 Hct 22.0 % (35.4-49) L 08/20/18 06:30 MCV 79.9 fl (80-96) L 08/20/18 06:30 MCHC 34.6 g/dl (32.0-35.9) 08/20/18 06:30 RDW 17.1 % (11.9-15.9) H 08/20/18 06:30 Plt Count 163 K/MM3 (134-434) 08/20/18 06:30 Sodium 136 mmol/L (136-145) 08/20/18 06:30 Potassium 3.9 mmol/L (3.5-5.1) 08/20/18 06:30 Chloride 99 mmol/L (98-107) 08/20/18 06:30 Carbon Dioxide 24 mmol/L (21-32) 08/20/18 06:30 Anion Gap 13 MMOL/L (8-16) 08/20/18 06:30 BUN 38 mg/dL (7-18) H 08/20/18 06:30 Creatinine 6.0 mg/dL (0.55-1.3) H 08/20/18 06:30 Random Glucose 147 mg/dL (74-106) H 08/20/18 06:30 Calcium 7.7 mg/dL (8.5-10.1) L 08/20/18 06:30 Blood Type B POSITIVE 08/20/18 11:30 Antibody Screen Negative 08/20/18 11:30 INR 1.07 (0.83-1.09) 08/16/18 05:30 - IMAGING X-ray: Image Reviewed (small to moderate b/l pleural effusion), Other - ASSESSMENT/PLAN 1. Make NPO after midnight except po meds 2. GI/DVT PPX 3. Medical optimization / clearance 4. Consent to be obtained by surgeon after risks, benefits and alternatives discussed with patient and or Health Care Proxy. 5. Pt to receive 1 unit PRBC today
--- NOTE | 2018-08-20 14:03 | PN ---
Progress Note, Physician History of Present Illness: pulmonary comfortable on hd,-resp distress - Current Medication List Current Medications: Active Medications Acetaminophen (Tylenol -) 650 mg PO Q6H PRN PRN Reason: PAIN Albuterol Sulfate (Ventolin 0.083% Nebulizer Soln -) 1 amp NEB Q4H PRN PRN Reason: SHORT OF BREATH/WHEEZING Last Admin: 08/19/18 21:15 Dose: 1 amp Amlodipine Besylate (Norvasc -) 10 mg PO DAILY [facility] Last Admin: 08/19/18 09:15 Dose: 10 mg Atenolol (Tenormin -) 25 mg PO DAILY [facility] Last Admin: 08/19/18 09:15 Dose: 25 mg Guaifenesin (Mucinex -) 600 mg PO BID [facility] Last Admin: 08/20/18 10:39 Dose: 600 mg Heparin Sodium (Porcine) (Heparin -) 5,000 unit SQ TID [facility] Last Admin: 08/20/18 06:14 Dose: 5,000 unit Sodium Chloride (Normal Saline -) 250 mls @ 3,000 mls/hr IV PRN PRN PRN Reason: Hypotension during Dialysis Stop: 08/21/18 07:25 Insulin Aspart (Novolog Vial Sliding Scale -) 1 vial SQ ACHS [facility]; Protocol Last Admin: 08/20/18 06:15 Dose: 2 units Labetalol HCl (Normodyne Injection -) 10 mg IVPUSH Q30M PRN PRN Reason: SBP > 160 or DBP>90 Morphine Sulfate (Morphine Sulfate) 2 mg IVPUSH Q4H PRN PRN Reason: PAIN LEVEL 7 - 10 Last Admin: 08/18/18 21:33 Dose: 2 mg Ondansetron HCl (Zofran Injection) 4 mg IVPB Q6H PRN PRN Reason: NAUSEA Last Admin: 08/19/18 01:16 Dose: 4 mg Ranitidine HCl (Zantac Oral Solution -) 50 mg PO DAILY [facility] Last Admin: 08/20/18 10:38 Dose: 50 mg Sevelamer Carbonate (Renvela -) 800 mg PO TIDCM [facility] Last Admin: 08/20/18 09:39 Dose: Not Given Tamsulosin HCl (Flomax -) 0.8 mg PO DAILY@0830 [facility] Last Admin: 08/20/18 10:38 Dose: 0.8 mg - Objective Vital Signs: Vital Signs Temperature 99.0 F 08/20/18 06:00 Pulse Rate 79 08/20/18 06:00 Respiratory Rate 18 08/20/18 06:00 Blood Pressure 142/60 08/20/18 06:00 O2 Sat by Pulse Oximetry (%) 91 L 08/19/18 22:00 Constitutional: Yes: Calm, Thin Eyes: Yes: WNL HENT: Yes: WNL Neck: Yes: WNL Cardiovascular: Yes: Regular Rate and Rhythm, S1, S2 Respiratory: Yes: Rales (bibasilar crackes) Gastrointestinal: Yes: Normal Bowel Sounds, Soft Extremities: Yes: WNL Edema: No Labs: CBC, BMP 08/20/18 06:30 08/20/18 06:30 INR, PTT INR 1.07 (0.83-1.09) 08/16/18 05:30 Problem List - Problems (1) Dyspnea Code(s): R06.00 - DYSPNEA, UNSPECIFIED (2) Acute on chronic renal failure Code(s): N17.9 - ACUTE KIDNEY FAILURE, UNSPECIFIED; N18.9 - CHRONIC KIDNEY DISEASE, UNSPECIFIED Qualifiers: Acute renal failure type: unspecified Chronic kidney disease stage: unspecified stage Qualified Code(s): N17.9 - Acute kidney failure, unspecified ; N18.9 - Chronic kidney disease, unspecified (3) CHF (congestive heart failure) Code(s): I50.9 - HEART FAILURE, UNSPECIFIED Qualifiers: Heart failure type: diastolic Heart failure chronicity: acute on chronic Qualified Code(s): I50.33 - Acute on chronic diastolic (congestive) heart failure (4) Diabetes mellitus Code(s): E11.9 - TYPE 2 DIABETES MELLITUS WITHOUT COMPLICATIONS Qualifiers: Diabetes mellitus type: type 2 Diabetes mellitus supervisor capacitor processing insulin use: with detention use (5) Pleural effusion due to CHF (congestive heart failure) Code(s): I50.9 - HEART FAILURE, UNSPECIFIED Assessment/Plan ASSESSMENT AND PLAN: Acute on Chronic Renal Failure Dyspnea,Fluid overload Metabolic Acidosis Volume Overload HTN Anemia Thrombocytopenia - HD per renal - monitor urine output, creatinine - BP control - monitor H/H - transfuse as needed - DVT prophylaxis DR HERNANDEZ
--- NOTE | 2018-08-20 15:38 | PN ---
Teaching Attending Note Name of Resident: Best Alvarado ATTENDING PHYSICIAN STATEMENT I saw and evaluated the patient. I reviewed the resident's note and discussed the case with the resident. I agree with the resident's findings and plan as documented with exceptions below. SUBJECTIVE: Patient seen and examined. lethargic, states his name, otherwise no meaningful responses. No complaints but limited ROS. OBJECTIVE: Vital Signs Period Temp Pulse Resp BP Sys/Bernstein Pulse Ox Last 24 Hr 97.4 F-99.7 F 68-82 18-22 116-161/49-92 91-100 Intake & Output 08/17/18 08/18/18 08/19/18 08/20/18 23:59 23:59 23:59 23:59 Intake Total 740 1177 340 50 Output Total 800 275 Balance -60 902 340 50 Weight 107 lb 103 lb 4 oz 106 lb 4 oz General: lying in bed getting HD, lethargy, minimal responses CVS:S1S2 regular Chest: poor effort, decreased breath sounds at bases Abdomen;Soft, NT Extremities: no edema Home Medications Medication Instructions Recorded Amlodipine Besylate [Norvasc -] 5 mg PO DAILY #30 tablet 08/15/17 Insulin (Levemir) [Levemir Flexpen 7 units SQ DAILY #1 pen 08/15/17 -] Metoprolol Succinate [Toprol XL -] 75 mg PO DAILY #30 tab.sr.24h 08/15/17 Tamsulosin HCl [Flomax -] 0.8 mg PO DAILY@0830 #30 cap.er.24h 08/15/17 Insulin Aspart [Novolog Flexpen] 100 unit SQ PRN #1 insuln.pen 08/16/17 Active Medications Acetaminophen (Tylenol -) 650 mg PO Q6H PRN PRN Reason: PAIN Albuterol Sulfate (Ventolin 0.083% Nebulizer Soln -) 1 amp NEB Q4H PRN PRN Reason: SHORT OF BREATH/WHEEZING Last Admin: 08/19/18 21:15 Dose: 1 amp Amlodipine Besylate (Norvasc -) 10 mg PO DAILY [facility] Last Admin: 08/19/18 09:15 Dose: 10 mg Atenolol (Tenormin -) 25 mg PO DAILY [facility] Last Admin: 08/19/18 09:15 Dose: 25 mg Guaifenesin (Mucinex -) 600 mg PO BID [facility] Last Admin: 08/20/18 10:39 Dose: 600 mg Heparin Sodium (Porcine) (Heparin -) 5,000 unit SQ TID [facility] Last Admin: 08/20/18 06:14 Dose: 5,000 unit Sodium Chloride (Normal Saline -) 250 mls @ 3,000 mls/hr IV PRN PRN PRN Reason: Hypotension during Dialysis Stop: 08/21/18 07:25 Insulin Aspart (Novolog Vial Sliding Scale -) 1 vial SQ ACHS [facility]; Protocol Last Admin: 08/20/18 06:15 Dose: 2 units Labetalol HCl (Normodyne Injection -) 10 mg IVPUSH Q30M PRN PRN Reason: SBP > 160 or DBP>90 Morphine Sulfate (Morphine Sulfate) 2 mg IVPUSH Q4H PRN PRN Reason: PAIN LEVEL 7 - 10 Last Admin: 08/18/18 21:33 Dose: 2 mg Ondansetron HCl (Zofran Injection) 4 mg IVPB Q6H PRN PRN Reason: NAUSEA Last Admin: 08/19/18 01:16 Dose: 4 mg Ranitidine HCl (Zantac Oral Solution -) 50 mg PO DAILY [facility] Last Admin: 08/20/18 10:38 Dose: 50 mg Sevelamer Carbonate (Renvela -) 800 mg PO TIDCM [facility] Last Admin: 08/20/18 09:39 Dose: Not Given Tamsulosin HCl (Flomax -) 0.8 mg PO DAILY@0830 [facility] Last Admin: 08/20/18 10:38 Dose: 0.8 mg Laboratory Results - last 24 hr 08/16/18 08/19/18 08/19/18 10:20 16:54 21:44 WBC RBC Hgb Hct MCV MCH MCHC RDW Plt Count MPV Sodium Potassium Chloride Carbon Dioxide Anion Gap BUN Creatinine Creat Clearance w eGFR POC Glucometer 138 218 Random Glucose Calcium Phosphorus Magnesium Total Bilirubin AST ALT Alkaline Phosphatase Ammonia Total Protein Total Protein (PEP) 5.9 L Albumin Albumin (PEP) 2.5 L Globulin 3.4 Albumin/Globulin Ratio 0.7 Beta Globulins 1.0 LEONEL M-Juan Antonio Not observed Blood Type Antibody Screen Crossmatch 08/20/18 08/20/18 08/20/18 06:17 06:30 06:30 WBC 8.3 RBC 2.76 L Hgb 7.6 L Hct 22.0 L MCV 79.9 L MCH 27.6 MCHC 34.6 RDW 17.1 H Plt Count 163 MPV 8.7 Sodium 136 Potassium 3.9 Chloride 99 Carbon Dioxide 24 Anion Gap 13 BUN 38 H Creatinine 6.0 H Creat Clearance w eGFR 8.98 POC Glucometer 178 Random Glucose 147 H Calcium 7.7 L Phosphorus 6.8 H Magnesium 2.0 Total Bilirubin 0.5 AST 26 ALT 19 Alkaline Phosphatase 52 Ammonia Total Protein 6.1 L Total Protein (PEP) Albumin 2.0 L Albumin (PEP) Globulin Albumin/Globulin Ratio Beta Globulins LEONEL M-Juan Antonio Blood Type Antibody Screen Crossmatch 08/20/18 08/20/18 08/20/18 11:30 11:30 11:30 WBC RBC Hgb Hct MCV MCH MCHC RDW Plt Count MPV Sodium Potassium Chloride Carbon Dioxide Anion Gap BUN Creatinine Creat Clearance w eGFR POC Glucometer Random Glucose Calcium Phosphorus Magnesium Total Bilirubin AST ALT Alkaline Phosphatase Ammonia 22.01 Total Protein Total Protein (PEP) Albumin Albumin (PEP) Globulin Albumin/Globulin Ratio Beta Globulins LEONEL M-Juan Antonio Blood Type B POSITIVE Cancelled Antibody Screen Negative Cancelled Crossmatch See Detail Microbiology 08/15/18 23:50 Blood - Peripheral Venous Blood Culture - Preliminary NO GROWTH OBTAINED AFTER 96 HOURS, INCUBATION TO CONTINUE FOR 1 DAYS. 08/15/18 23:50 Blood - Peripheral Venous Blood Culture - Preliminary NO GROWTH OBTAINED AFTER 96 HOURS, INCUBATION TO CONTINUE FOR 1 DAYS. 08/15/18 22:10 Urine - Urine Sen Urine Culture - Final NO GROWTH OBTAINED 08/16/18 11:40 Urine For Antigen Detection Legionella Antigen - Final 08/16/18 11:40 Urine For Antigen Detection Streptococcus pneumoniae Antigen (M - Final ASSESSMENT AND PLAN: 87 year old male with BPH, CKD 4, HTN, HLD, DM 2, presented with a 2 week history of increasing shortness of breath, worse on exertion, with associated LE edema for the 3 days prior to admission, found to have CATARINA on CKD with acidosis and hyperkalemia. - Acute Kidney Injury on Chronic Renal Disease, now CKD-V/ESRD, started on HD -Hypertensive emergency, off nicardipine drip -Acute hypoxic respiratory distress, from volume overload -AMS, suspect toxic metabolic encephalopathy from uremia -Bilateral pleural effusions/Anasarca, from above -Hyperkalemia, resolved -Metabolic acidosis -Acute respiratory distress from above, improved -Acute on chronic anemia, suspect from CKD/hematuria -Mild troponin elevation,suspected from demand/renal dysfunction -IDDM/hypoglycemia -BPH, h/o urinary retention -h/o GI Bleed due to PUD/s/p H. pylori treatment -Vasovagal syncope on 08/17 (rapid response called) Plan: respiratory status improved. Still lethargic. Check CT brain. Ammonia levels noted. Discussed with Dr. Carvajal, plan for 1 unit PRBC with HD today. Epogen per renal. Discussed with surgery, possible permacath tomorrow if clinical status improved. Off lasix drip. Right inguinal HD cath removed. Sen. Renal US no hydronephrosis. Continue flomax. Norvasc increased. Toprol changed to atenolol, monitor for now. Off levemir, resume as tolerated. ISS. Diabetic diet. Monitor h/h. heparin DVTPPX Dispo pending clinical improvement. Discussed with nursing.
--- NOTE | 2018-08-20 17:25 | PN ---
Progress Note, Physician History of Present Illness: Confused, hemodynamics stable, await tunneled catheter placement. - Current Medication List Current Medications: Active Medications Acetaminophen (Tylenol -) 650 mg PO Q6H PRN PRN Reason: PAIN Albuterol Sulfate (Ventolin 0.083% Nebulizer Soln -) 1 amp NEB Q4H PRN PRN Reason: SHORT OF BREATH/WHEEZING Last Admin: 08/19/18 21:15 Dose: 1 amp Amlodipine Besylate (Norvasc -) 10 mg PO DAILY [facility] Last Admin: 08/20/18 16:15 Dose: 10 mg Atenolol (Tenormin -) 25 mg PO DAILY [facility] Last Admin: 08/20/18 16:15 Dose: 25 mg Guaifenesin (Mucinex -) 600 mg PO BID [facility] Last Admin: 08/20/18 11:00 Dose: Not Given Heparin Sodium (Porcine) (Heparin -) 5,000 unit SQ TID [facility] Stop: 08/20/18 23:59 Last Admin: 08/20/18 16:41 Dose: Not Given Sodium Chloride (Normal Saline -) 250 mls @ 3,000 mls/hr IV PRN PRN PRN Reason: Hypotension during Dialysis Stop: 08/21/18 07:25 Insulin Aspart (Novolog Vial Sliding Scale -) 1 vial SQ ACHS [facility]; Protocol Last Admin: 08/20/18 12:00 Dose: Not Given Labetalol HCl (Normodyne Injection -) 10 mg IVPUSH Q30M PRN PRN Reason: SBP > 160 or DBP>90 Morphine Sulfate (Morphine Sulfate) 2 mg IVPUSH Q4H PRN PRN Reason: PAIN LEVEL 7 - 10 Last Admin: 08/18/18 21:33 Dose: 2 mg Ondansetron HCl (Zofran Injection) 4 mg IVPB Q6H PRN PRN Reason: NAUSEA Last Admin: 08/19/18 01:16 Dose: 4 mg Ranitidine HCl (Zantac Oral Solution -) 50 mg PO DAILY [facility] [place] Last Admin: 08/20/18 10:38 Dose: 50 mg Sevelamer Carbonate (Renvela -) 800 mg PO TIDCM [facility] Last Admin: 08/20/18 12:00 Dose: Not Given Tamsulosin HCl (Flomax -) 0.8 mg PO DAILY@0830 [facility] Last Admin: 08/20/18 11:00 Dose: Not Given - Objective Vital Signs: Vital Signs Temperature 97.4 F L 08/20/18 11:25 Pulse Rate 80 08/20/18 15:00 Respiratory Rate 18 08/20/18 15:00 Blood Pressure 138/92 08/20/18 15:00 O2 Sat by Pulse Oximetry (%) 100 08/20/18 10:00 Constitutional: Yes: No Distress, Calm, Thin Neck: Yes: Supple Cardiovascular: Yes: Regular Rate and Rhythm Respiratory: Yes: Regular, Diminished Gastrointestinal: Yes: Soft, Hypoactive Bowel Sounds Edema: No Labs: CBC, BMP 08/20/18 06:30 08/20/18 06:30 INR, PTT INR 1.07 (0.83-1.09) 08/16/18 05:30 - ....Imaging Cat Scan: Report Reviewed (HCT: SVID, mod atrophy) Problem List - Problems (1) Subendocardial ischemia Code(s): I24.8 - OTHER FORMS OF ACUTE ISCHEMIC HEART DISEASE (2) Pleural effusion due to CHF (congestive heart failure) Code(s): I50.9 - HEART FAILURE, UNSPECIFIED (3) Acute on chronic renal failure Code(s): N17.9 - ACUTE KIDNEY FAILURE, UNSPECIFIED; N18.9 - CHRONIC KIDNEY DISEASE, UNSPECIFIED Qualifiers: Acute renal failure type: unspecified Chronic kidney disease stage: on chronic dialysis Qualified Code(s): N17.9 - Acute kidney failure, unspecified ; N18.9 - Chronic kidney disease, unspecified; Z99.2 - Dependence on renal dialysis (4) CHF (congestive heart failure) Code(s): I50.9 - HEART FAILURE, UNSPECIFIED Qualifiers: Heart failure type: diastolic Heart failure chronicity: acute on chronic Qualified Code(s): I50.33 - Acute on chronic diastolic (congestive) heart failure (5) Diabetes mellitus Code(s): E11.9 - TYPE 2 DIABETES MELLITUS WITHOUT COMPLICATIONS Qualifiers: Diabetes mellitus type: type 2 Diabetes mellitus assisted insulin use: with mobile device engineer use (6) Anemia Code(s): D64.9 - ANEMIA, UNSPECIFIED Qualifiers: Anemia type: due to chronic kidney disease Chronic kidney disease stage: on chronic dialysis Qualified Code(s): N18.6 - End stage renal disease; D63.1 - Anemia in chronic kidney disease; Z99.2 - Dependence on renal dialysis (7) Hypertensive cardiomegaly with heart failure Code(s): I11.0 - HYPERTENSIVE HEART DISEASE WITH HEART FAILURE Assessment/Plan 08/18/2018 Echo: Normal LV and RV size and fxn, LVEF 65-70%, mild-mod MR, mild TR, RVSP 35 mmHg, mild-mod AR, large pleural effusion, Grade II diastolic dysfxn c/w elevated LA pressures. 1. Syncope suspect vasovagal, fluid shifts 2. Acute on chronic diastolic failure with pleural effusions and subendocardial ischemia 3. Acute on Chronic Renal Failure likely progressive CKD with hyperkalemia post HD 4. Metabolic Acidosis with toxic met encephelopathy 5. HTN cardiomyopathy 6. Anemia of CKD 7. Thrombocytopenia improving 8. Insulin-dependent Type 2 DM 9. Extensive sigmoid diverticulosis w/o inflammation P: 1. HD and diuresis per renal with monitor urine output, renal function, trops decreasing 2. BP control with Norvasc 10 qd, Atenolol 25 qd (with caution), start ARB once committed to HD 3. Monitor H/H and transfuse as needed to maintain Hgb>8.0 4. DVT and GI prophylaxis 5. Planned for tunneled catheter tomorrow
[2018-08-21] MEDS ORDERED: PT OWN MED DRAWER 7, Y5N ONE (06:06)
[2018-08-21] MEDS: INSULIN SLIDING SCALE (NOVOLOG) 1 VIAL SQ SCH ×4 (06:12→22:14)
--- NOTE | 2018-08-21 07:25 | PN ---
Physical Exam: SUBJECTIVE: Patient seen and examined at bedside. Overnight patient self- removed his right IJ catheter. No bleeding or hematoma noted. Patient is s/p permacath placement today for hemodialysis. More awake, and communicative today. OBJECTIVE: Vital Signs Period Temp Pulse Resp BP Sys/Bernstein Pulse Ox Last 24 Hr 97.4 F-97.8 F 65-82 18-18 116-161/51-92 100-100 GENERAL: The patient is awake, and oriented to person and place, in no acute distress. HEAD: Normal with no signs of trauma. EYES: PERRL, extraocular movements intact, sclera anicteric, conjunctiva clear. ENT: Ears normal, nares patent, oropharynx clear without exudates, moist mucous membranes. NECK: Supple, without lymphadenopathy. Right side Permacath in place, insertion site noted without erythema, bleeding, or drainage. LUNGS: Faint crackles auscultated B/L, improved significantly. No wheezing auscultated today. No accessory muscle use. HEART: Regular rate and rhythm, S1, S2 without murmur, rub or gallop. ABDOMEN: Soft, nontender, nondistended, normoactive bowel sounds, no guarding, no rebound, no hepatosplenomegaly, no masses. EXTREMITIES: 2+ radial and dorsalis pedis pulses b/l. Warm, well-perfused, no edema. NEUROLOGICAL: Cranial nerves II through XII grossly intact. SKIN: Warm, dry, normal turgor, no rashes or lesions noted. Laboratory Results - last 24 hr 08/20/18 08/20/18 08/20/18 06:30 06:30 11:30 WBC 8.3 RBC 2.76 L Hgb 7.6 L Hct 22.0 L MCV 79.9 L MCH 27.6 MCHC 34.6 RDW 17.1 H Plt Count 163 MPV 8.7 Sodium 136 Potassium 3.9 Chloride 99 Carbon Dioxide 24 Anion Gap 13 BUN 38 H Creatinine 6.0 H Creat Clearance w eGFR 8.98 POC Glucometer Random Glucose 147 H Calcium 7.7 L Phosphorus 6.8 H Magnesium 2.0 Total Bilirubin 0.5 AST 26 ALT 19 Alkaline Phosphatase 52 Ammonia Total Protein 6.1 L Albumin 2.0 L Blood Type B POSITIVE Antibody Screen Negative Crossmatch See Detail 08/20/18 08/20/18 08/20/18 11:30 11:30 17:34 WBC RBC Hgb Hct MCV MCH MCHC RDW Plt Count MPV Sodium Potassium Chloride Carbon Dioxide Anion Gap BUN Creatinine Creat Clearance w eGFR POC Glucometer 277 Random Glucose Calcium Phosphorus Magnesium Total Bilirubin AST ALT Alkaline Phosphatase Ammonia 22.01 Total Protein Albumin Blood Type Cancelled Antibody Screen Cancelled Crossmatch 08/20/18 08/21/18 23:01 05:49 WBC RBC Hgb Hct MCV MCH MCHC RDW Plt Count MPV Sodium Potassium Chloride Carbon Dioxide Anion Gap BUN Creatinine Creat Clearance w eGFR POC Glucometer 138 142 Random Glucose Calcium Phosphorus Magnesium Total Bilirubin AST ALT Alkaline Phosphatase Ammonia Total Protein Albumin Blood Type Antibody Screen Crossmatch Active Medications Generic Name Dose Route Start Last Admin Trade Name Freq PRN Reason Stop Dose Admin Acetaminophen 650 mg 08/18/18 15:31 Tylenol - PO Q6H PRN PAIN Albuterol Sulfate 1 amp 08/18/18 15:31 08/19/18 21:15 Ventolin 0.083% Nebulizer Soln - NEB 1 amp Q4H PRN Administration SHORT OF BREATH/WHEEZING Amlodipine Besylate 10 mg 08/19/18 10:00 08/20/18 16:15 Norvasc - PO 10 mg DAILY REHANA Administration Atenolol 25 mg 08/19/18 10:00 08/20/18 16:15 Tenormin - PO 25 mg DAILY REHANA Administration Guaifenesin 600 mg 08/18/18 22:00 08/20/18 22:58 Mucinex - PO 600 mg BID REHANA Administration Sodium Chloride 250 mls @ 3,000 mls/hr 08/20/18 07:25 Normal Saline - IV 08/21/18 07:25 PRN PRN Hypotension during Dialysis Insulin Aspart 1 vial 08/18/18 16:30 08/21/18 06:12 Novolog Vial Sliding Scale - SQ Not Given ACHS REHANA Protocol Labetalol HCl 10 mg 08/18/18 15:31 Normodyne Injection - IVPUSH Q30M PRN SBP > 160 or DBP>90 Morphine Sulfate 2 mg 08/18/18 15:31 08/18/18 21:33 Morphine Sulfate IVPUSH 2 mg Q4H PRN Administration PAIN LEVEL 7 - 10 Ondansetron HCl 4 mg 08/18/18 15:31 08/19/18 01:16 Zofran Injection IVPB 4 mg Q6H PRN Administration NAUSEA Ranitidine HCl 50 mg 08/20/18 10:00 08/20/18 10:38 Zantac Oral Solution - PO 50 mg DAILY REHANA Administration Sevelamer Carbonate 800 mg 08/19/18 12:00 08/20/18 17:36 Renvela - PO Not Given TIDCM REHANA Tamsulosin HCl 0.8 mg 08/19/18 08:30 08/20/18 11:00 Flomax - PO Not Given DAILY@0830 [facility] abdomen/ pelvis: B/L atelectasis/ consolidation, B/L effusions. Extensive diverticulosis, without diverticulitis Cardiac echocardiogram: LV systolic function normal. RV systolic function normal. EF 65-70%. Increased LV pressure with grade II diastolic dysfunction. Lower extremity doppler: Negative for DVT B/L lower extremities. Renal ultrasound: B/L atrophic echogenic kidneys, indicative of chronic disease. Simple renal cysts 2.5cm right, 1cm left. Chest Xray (08/19/2018): B/L pulmonary congestion, and pleural effusions. Left base atelectasis vs. congesiton, and atelectatic changes on right. ASSESSMENT/PLAN: Patient is an 87 year old male with history of diabetes mellitus, chronic kidney disease stage V, hypertension, hyperlipidemia, presented with complaint of shortness of breath, and lower extremity edema for past 4 days prior to admission. CATARINA on CKD -Patient's Cr in prior admission (08/2017) 4.6 -Likely secondary to obstruction, given patient's history of BPH. -Nephrology recommendations (Dr. Carvajal) appreciated. -Patient received hemodialysis yesterday and transfused 1 unit PRBCs with HD. In addition, given Epoetin Kolby 20,000units yesterday. -Ammonia level 22.01 -CT head shows no acute intracranial pathology. -Patient s/p permacath today. For HD tomorrow. Volume overload -Likely secondary to acute on chronic renal failure. Received last HD yesterday. -On 3L nasal canula, saturating 100% Acute on chronic anemia -Hb 10.5/ Hct 30.4 MCV 82.1 -Anemia likely secondary to chronic kidney disease -S/P 1 unit PRBCs transfused with HD yesterday -Epoietin one time dose given yesterday Hypertension -No longer on Nicardipine drip. -Amlodipine 10mg PO daily -Atenolol 25mg PO daily -Closely follow vitals Diabetes Mellitus -Insulin sliding scale ACHS -BGM ACHS Benign Prostatic Hyperplasia -Tamsulosin 0.8mg PO daily -Sen catheter removed. Follow urinary voiding. Metabolic acidosis -Resolved with hemodialysis FEN -No IV fluids at this time -Follow CMP -Renal controlled diet. Prophylaxis -Heparin 5000u subq TID -Famotidine 20mg IV daily Disposition -Continue care in medical-surgical floor. Visit type - Emergency Visit Emergency Visit: Yes ED Registration Date: 08/15/18 Care time: The patient presented to the Emergency Department on the above date and was hospitalized for further evaluation of their emergent condition. - New Patient This patient is new to me today: No - Critical Care Critical Care patient: No - Discharge Referral Referred to [facility] No
[2018-08-21 07:48] LABS: ALBUMIN 2.1 g/dl (3.4-5.0); ALK PHOS 56 U/L (45-117); ANION GAP 8 MMOL/L (8-16); BILIRUBIN,TOTAL 0.6 mg/dL (0.2-1); BLOOD UREA NITROGEN 31 mg/dL (7-18); CALCIUM 8.1 mg/dL (8.5-10.1); CHLORIDE 104 mmol/L (98-107); CO2 28 mmol/L (21-32); CREATININE 5.3 mg/dL (0.55-1.3); GLUCOSE,RANDOM 135 mg/dL (74-106); MAGNESIUM 2.2 mg/dL (1.8-2.4); PHOSPHOROUS 3.5 mg/dL (2.5-4.9); POTASSIUM 4.1 mmol/L (3.5-5.1); SGOT/AST 30 U/L (15-37); SGPT/ALT 22 U/L (13-61); SODIUM 140 mmol/L (136-145); TOT PROT 6.6 g/dl (6.4-8.2)
[2018-08-21 07:59] LABS: HEMATOCRIT 30.4 % (35.4-49); HEMOGLOBIN 10.5 GM/dL (11.7-16.9); MCH 28.4 pg (25.7-33.7); MCHC 34.5 g/dl (32.0-35.9); MEAN CELL VOLUME 82.1 fl (80-96); MEAN PLT VOLUME 8.4 fl (7.5-11.1); PLATELET COUNT 178 K/MM3 (134-434); WHITE BLOOD COUNT 8.8 K/mm3 (4.0-10.0)
--- NOTE | 2018-08-21 08:01 | PN ---
Teaching Attending Note Name of Resident: Best Alvarado ATTENDING PHYSICIAN STATEMENT I saw and evaluated the patient. I reviewed the resident's note and discussed the case with the resident. I agree with the resident's findings and plan as documented with exceptions below. SUBJECTIVE: Patient seen and examined. sleeping post procedure, opens eyes, minimal responses, denies pain, more responsive to questions today OBJECTIVE: Vital Signs Period Temp Pulse Resp BP Sys/Bernstein Pulse Ox Last 24 Hr 97.4 F-97.8 F 62-82 18-20 116-169/51-92 100-100 Intake & Output 08/18/18 08/19/18 08/20/18 08/21/18 23:59 23:59 23:59 23:59 Intake Total 1177 340 410 Output Total 275 Balance 902 340 410 Weight 103 lb 4 oz 106 lb 4 oz 102 lb 3.2 oz General: lying in bed, sleeping but arousable, just back from OR, opens eyes minimally, few responses, then falls back to sleep, permacath dressing clean Chest: decreased effort and lack of full co-operation limiting the exam Abdomen: soft, NT, nD Extremities: no edema Active Medications Acetaminophen (Tylenol -) 650 mg PO Q6H PRN PRN Reason: PAIN Albuterol Sulfate (Ventolin 0.083% Nebulizer Soln -) 1 amp NEB Q4H PRN PRN Reason: SHORT OF BREATH/WHEEZING Last Admin: 08/19/18 21:15 Dose: 1 amp Amlodipine Besylate (Norvasc -) 10 mg PO DAILY [facility] Last Admin: 08/20/18 16:15 Dose: 10 mg Atenolol (Tenormin -) 25 mg PO DAILY [facility] Last Admin: 08/20/18 16:15 Dose: 25 mg Guaifenesin (Mucinex -) 600 mg PO BID [facility] Last Admin: 08/20/18 22:58 Dose: 600 mg Insulin Aspart (Novolog Vial Sliding Scale -) 1 vial SQ ACHS [facility]; Protocol Last Admin: 08/21/18 06:12 Dose: Not Given Labetalol HCl (Normodyne Injection -) 10 mg IVPUSH Q30M PRN PRN Reason: SBP > 160 or DBP>90 Morphine Sulfate (Morphine Sulfate) 2 mg IVPUSH Q4H PRN PRN Reason: PAIN LEVEL 7 - 10 Last Admin: 08/18/18 21:33 Dose: 2 mg Ondansetron HCl (Zofran Injection) 4 mg IVPB Q6H PRN PRN Reason: NAUSEA Last Admin: 08/19/18 01:16 Dose: 4 mg Ranitidine HCl (Zantac Oral Solution -) 50 mg PO DAILY [facility] Last Admin: 08/20/18 10:38 Dose: 50 mg Sevelamer Carbonate (Renvela -) 800 mg PO TIDCM [facility] Last Admin: 08/20/18 17:36 Dose: Not Given Tamsulosin HCl (Flomax -) 0.8 mg PO DAILY@0830 [facility] Last Admin: 08/20/18 11:00 Dose: Not Given Laboratory Results - last 24 hr 08/20/18 08/20/18 08/20/18 06:30 06:30 11:30 WBC 8.3 RBC 2.76 L Hgb 7.6 L Hct 22.0 L MCV 79.9 L MCH 27.6 MCHC 34.6 RDW 17.1 H Plt Count 163 MPV 8.7 Sodium 136 Potassium 3.9 Chloride 99 Carbon Dioxide 24 Anion Gap 13 BUN 38 H Creatinine 6.0 H Creat Clearance w eGFR 8.98 POC Glucometer Random Glucose 147 H Calcium 7.7 L Phosphorus 6.8 H Magnesium 2.0 Total Bilirubin 0.5 AST 26 ALT 19 Alkaline Phosphatase 52 Ammonia Total Protein 6.1 L Albumin 2.0 L Blood Type B POSITIVE Antibody Screen Negative Crossmatch See Detail 08/20/18 08/20/18 08/20/18 11:30 11:30 17:34 WBC RBC Hgb Hct MCV MCH MCHC RDW Plt Count MPV Sodium Potassium Chloride Carbon Dioxide Anion Gap BUN Creatinine Creat Clearance w eGFR POC Glucometer 277 Random Glucose Calcium Phosphorus Magnesium Total Bilirubin AST ALT Alkaline Phosphatase Ammonia 22.01 Total Protein Albumin Blood Type Cancelled Antibody Screen Cancelled Crossmatch 08/20/18 08/21/18 08/21/18 23:01 05:49 06:30 WBC RBC Hgb Hct MCV MCH MCHC RDW Plt Count MPV Sodium 140 Potassium 4.1 Chloride 104 Carbon Dioxide 28 Anion Gap 8 BUN 31 H Creatinine 5.3 H Creat Clearance w eGFR 10.36 POC Glucometer 138 142 Random Glucose 135 H Calcium 8.1 L Phosphorus 3.5 Magnesium 2.2 Total Bilirubin 0.6 AST 30 ALT 22 Alkaline Phosphatase 56 Ammonia Total Protein 6.6 Albumin 2.1 L Blood Type Antibody Screen Crossmatch CT brain results reviewed ASSESSMENT AND PLAN: 87 year old male with BPH, CKD 4, HTN, HLD, DM 2, presented with a 2 week history of increasing shortness of breath, worse on exertion, with associated LE edema for the 3 days prior to admission, found to have CATARINA on CKD with acidosis and hyperkalemia. - Acute Kidney Injury on Chronic Renal Disease, now CKD-V/ESRD, started on HD -Hypertensive emergency, off nicardipine drip -Acute hypoxic respiratory distress, from volume overload -AMS, suspect toxic metabolic encephalopathy from uremia -Bilateral pleural effusions/Anasarca, from above -Hyperkalemia, resolved -Metabolic acidosis -Acute respiratory distress from above, improved -Acute on chronic anemia, suspect from CKD/hematuria -Mild troponin elevation,suspected from demand/renal dysfunction -IDDM/hypoglycemia -BPH, h/o urinary retention -h/o GI Bleed due to PUD/s/p H. pylori treatment -Vasovagal syncope on 08/17 (rapid response called) Plan: respiratory status improved. CT brain neg for acute concerns. Ammonia levels noted. s/p 1unit PRBC 08/20. Pulled HD catheter yesterday, s/p permacath today. Renal/vascular surgery input noted. Mental status improved. Will need outpatient HD arrangements. Off lasix drip. Right inguinal HD cath removed. Sen. Renal US no hydronephrosis. Continue flomax. Norvasc increased. Toprol changed to atenolol, monitor for now. Off levemir, resume as tolerated. ISS. Diabetic diet. Monitor h/h. heparin DVTPPX Dispo plan for d/c in 2-3 days if clinically improved and outpatient HD arrangements made.
[2018-08-21] MEDS: TAMSULOSIN HCL 0.4 MG CAP PO SCH (08:30)
[2018-08-21] MEDS ORDERED: LIDOCAINE HCL 1%, 10 MG/ML (20ML VIAL) ONE (08:51)
[2018-08-21] MEDS: SEVELAMER CARBONATE 800 MG TAB (FP) PO SCH ×3 (09:00→17:49)
[2018-08-21] MEDS: ATENOLOL 25 MG TABLET (FP) PO SCH ×2 (10:00→15:28)
[2018-08-21] MEDS: guaiFENesin 600 MG TABLET.ER (FP) PO SCH ×2 (10:00→22:14)
[2018-08-21] MEDS: amLODIPine BESYLATE 10 MG TABLET (FP) PO SCH ×2 (10:00→15:26)
[2018-08-21] MEDS: RANITIDINE HCL 150 MG/10 ML UNIT-DOSE PO SCH ×2 (10:00→17:49)
[2018-08-21] MEDS ORDERED: ceFAZolin SODIUM 1 GM VIAL IVPB ONE (10:02)
[2018-08-21] MEDS ORDERED: ceFAZolin SODIUM 1 GM VIAL ONE (10:05)
[2018-08-21] MEDS ORDERED: SODIUM CHLORIDE 0.9% P/F 10 ML VIAL IJ ONE (10:08)
[2018-08-21] MEDS ORDERED: LIDOCAINE HCL 1%, 10 MG/ML (20ML VIAL) NR ONE ×2 (10:21)
--- NOTE | 2018-08-21 10:54 | OP ---
Operative Note - Note: Operative Date: 08/21/18 Pre-Operative Diagnosis: ESRD Operation: Insertion of permacath Post-Operative Diagnosis: Same as Pre-op Surgeon: Gregory Valencia Anesthesia: Fractional Estimated Blood Loss (mls): 20 Operative Report Dictated: Yes
--- NOTE | 2018-08-21 11:08 | PN ---
Progress Note, Physician History of Present Illness: Confused, hemodynamics stable, post PC placement. - Current Medication List Current Medications: Active Medications Acetaminophen (Tylenol -) 650 mg PO Q6H PRN PRN Reason: PAIN Albuterol Sulfate (Ventolin 0.083% Nebulizer Soln -) 1 amp NEB Q4H PRN PRN Reason: SHORT OF BREATH/WHEEZING Last Admin: 08/19/18 21:15 Dose: 1 amp Amlodipine Besylate (Norvasc -) 10 mg PO DAILY [facility] Last Admin: 08/20/18 16:15 Dose: 10 mg Atenolol (Tenormin -) 25 mg PO DAILY [facility] Last Admin: 08/20/18 16:15 Dose: 25 mg Guaifenesin (Mucinex -) 600 mg PO BID [facility] Last Admin: 08/20/18 22:58 Dose: 600 mg Insulin Aspart (Novolog Vial Sliding Scale -) 1 vial SQ ACHS [facility]; Protocol Last Admin: 08/21/18 06:12 Dose: Not Given Labetalol HCl (Normodyne Injection -) 10 mg IVPUSH Q30M PRN PRN Reason: SBP > 160 or DBP>90 Morphine Sulfate (Morphine Sulfate) 2 mg IVPUSH Q4H PRN PRN Reason: PAIN LEVEL 7 - 10 Last Admin: 08/18/18 21:33 Dose: 2 mg Ondansetron HCl (Zofran Injection) 4 mg IVPB Q6H PRN PRN Reason: NAUSEA Last Admin: 08/19/18 01:16 Dose: 4 mg Ranitidine HCl (Zantac Oral Solution -) 50 mg PO DAILY [facility] Last Admin: 08/20/18 10:38 Dose: 50 mg Sevelamer Carbonate (Renvela -) 800 mg PO TIDCM [facility] Last Admin: 08/21/18 09:00 Dose: Not Given Tamsulosin HCl (Flomax -) 0.8 mg PO DAILY@0830 [facility] Last Admin: 08/20/18 11:00 Dose: Not Given - Objective Vital Signs: Vital Signs Temperature 98.2 F 08/21/18 08:30 Pulse Rate 60 08/21/18 08:30 Respiratory Rate 18 08/21/18 08:30 Blood Pressure 158/66 08/21/18 08:30 O2 Sat by Pulse Oximetry (%) 94 L 08/21/18 08:58 Constitutional: Yes: No Distress, Calm, Thin Neck: Yes: Supple Cardiovascular: Yes: Regular Rate and Rhythm Respiratory: Yes: Regular, Diminished Gastrointestinal: Yes: Normal Bowel Sounds, Soft Edema: No Labs: CBC, BMP 08/21/18 06:30 08/21/18 06:30 INR, PTT INR 1.07 (0.83-1.09) 08/16/18 05:30 Problem List - Problems (1) Subendocardial ischemia Code(s): I24.8 - OTHER FORMS OF ACUTE ISCHEMIC HEART DISEASE (2) Pleural effusion due to CHF (congestive heart failure) Code(s): I50.9 - HEART FAILURE, UNSPECIFIED (3) Acute on chronic renal failure Code(s): N17.9 - ACUTE KIDNEY FAILURE, UNSPECIFIED; N18.9 - CHRONIC KIDNEY DISEASE, UNSPECIFIED Qualifiers: Acute renal failure type: unspecified Chronic kidney disease stage: on chronic dialysis Qualified Code(s): N17.9 - Acute kidney failure, unspecified ; N18.9 - Chronic kidney disease, unspecified; Z99.2 - Dependence on renal dialysis (4) CHF (congestive heart failure) Code(s): I50.9 - HEART FAILURE, UNSPECIFIED Qualifiers: Heart failure type: diastolic Heart failure chronicity: acute on chronic Qualified Code(s): I50.33 - Acute on chronic diastolic (congestive) heart failure (5) Diabetes mellitus Code(s): E11.9 - TYPE 2 DIABETES MELLITUS WITHOUT COMPLICATIONS Qualifiers: Diabetes mellitus type: type 2 Diabetes mellitus senior living insulin use: with senior living use (6) Anemia Code(s): D64.9 - ANEMIA, UNSPECIFIED Qualifiers: Anemia type: due to chronic kidney disease Chronic kidney disease stage: on chronic dialysis Qualified Code(s): N18.6 - End stage renal disease; D63.1 - Anemia in chronic kidney disease; Z99.2 - Dependence on renal dialysis (7) Hypertensive cardiomegaly with heart failure Code(s): I11.0 - HYPERTENSIVE HEART DISEASE WITH HEART FAILURE Assessment/Plan 08/18/2018 Echo: Normal LV and RV size and fxn, LVEF 65-70%, mild-mod MR, mild TR, RVSP 35 mmHg, mild-mod AR, large pleural effusion, Grade II diastolic dysfxn c/w elevated LA pressures. 1. Syncope suspect vasovagal, fluid shifts 2. Acute on chronic diastolic failure with pleural effusions and subendocardial ischemia 3. Acute on Chronic Renal Failure likely progressive CKD with hyperkalemia post HD 4. Metabolic Acidosis with toxic met encephelopathy 5. HTN cardiomyopathy 6. Anemia of CKD 7. Thrombocytopenia improving 8. Insulin-dependent Type 2 DM 9. Extensive sigmoid diverticulosis w/o inflammation P: 1. HD via PC and diuresis per renal with monitor urine output, renal function , trops decreasing 2. BP control with Norvasc 10 qd, Atenolol 25 qd (with caution), start ARB once committed to HD 3. Monitor H/H and transfuse as needed to maintain Hgb>8.0 4. DVT and GI prophylaxis
[2018-08-21] MEDS ORDERED: MORPHINE SULFATE 2 MG/ML VIAL IVPUSH PRN (11:29)
[2018-08-21] MEDS ORDERED: ONDANSETRON 4 MG/2 ML VIAL IVPB PRN (11:29)
[2018-08-21] MEDS ORDERED: LABETALOL HCL 5 MG/1 ML (100MG/20 ML VIAL) IVPUSH PRN (11:29)
[2018-08-21] MEDS ORDERED: ACETAMINOPHEN 325 MG TABLET (FP) PO PRN (11:29)
--- NOTE | 2018-08-21 12:36 | PN ---
Progress Note (short form) - Note Progress Note: Pt in OR getting permacath Will plan for dialysis with UF tomorrow will need outpatient HD unit placement Steven Carvajal DO
[2018-08-21] MEDS: HEPARIN NA (PORCINE) 5,000 UNITS/ML 1ML VIAL SQ SCH ×2 (15:36→22:14)
[2018-08-21] MEDS ORDERED: INSULIN (NOVOLOG) ASPART 100 UNITS/ML 10ML VIAL ONE ×2 (19:32→21:59)
[2018-08-21] MEDS ORDERED: guaiFENesin 600 MG TABLET.ER (FP) PO SCH (22:00)
[2018-08-22] MEDS: HEPARIN NA (PORCINE) 5,000 UNITS/ML 1ML VIAL SQ SCH ×3 (06:05→23:15)
[2018-08-22] MEDS: INSULIN SLIDING SCALE (NOVOLOG) 1 VIAL SQ SCH ×4 (06:31→23:18)
[2018-08-22 08:13] LABS: HEMATOCRIT 31.1 % (35.4-49); HEMOGLOBIN 10.5 GM/dL (11.7-16.9); MCH 27.6 pg (25.7-33.7); MCHC 33.8 g/dl (32.0-35.9); MEAN CELL VOLUME 81.6 fl (80-96); MEAN PLT VOLUME 8.1 fl (7.5-11.1); PLATELET COUNT 194 K/MM3 (134-434); RBC 3.81 M/mm3 (4.00-5.60); RDW 16.3 % (11.9-15.9); WHITE BLOOD COUNT 10.3 K/mm3 (4.0-10.0)
[2018-08-22] MEDS ORDERED: TAMSULOSIN HCL 0.4 MG CAP PO SCH (08:30)
[2018-08-22 08:46] LABS: ALBUMIN 2.1 g/dl (3.4-5.0); ALK PHOS 56 U/L (45-117); ANION GAP 10 MMOL/L (8-16); BILIRUBIN,TOTAL 0.6 mg/dL (0.2-1); BLOOD UREA NITROGEN 43 mg/dL (7-18); CALCIUM 8.1 mg/dL (8.5-10.1); CHLORIDE 103 mmol/L (98-107); CO2 25 mmol/L (21-32); CREATININE 7.3 mg/dL (0.55-1.3); GLUCOSE,RANDOM 82 mg/dL (74-106); MAGNESIUM 2.4 mg/dL (1.8-2.4); PHOSPHOROUS 2.8 mg/dL (2.5-4.9); POTASSIUM 3.6 mmol/L (3.5-5.1); SGOT/AST 23 U/L (15-37); SGPT/ALT 15 U/L (13-61); SODIUM 138 mmol/L (136-145); TOT PROT 6.5 g/dl (6.4-8.2)
[2018-08-22] MEDS ORDERED: EPOETIN ALFA 20,000 UNIT/1 ML VIAL IVPUSH ONE (08:53)
[2018-08-22] MEDS ORDERED: SODIUM CHLORIDE 250 ML IV PRN (08:53)
[2018-08-22] MEDS: amLODIPine BESYLATE 10 MG TABLET (FP) PO SCH ×2 (09:48→15:13)
[2018-08-22] MEDS: guaiFENesin 600 MG TABLET.ER (FP) PO SCH ×2 (09:48→23:15)
[2018-08-22] MEDS: RANITIDINE HCL 150 MG/10 ML UNIT-DOSE PO SCH (09:49)
[2018-08-22] MEDS: ATENOLOL 25 MG TABLET (FP) PO SCH ×2 (09:49→15:14)
[2018-08-22] MEDS ORDERED: ATENOLOL 25 MG TABLET (FP) PO SCH (10:00)
[2018-08-22] MEDS ORDERED: amLODIPine BESYLATE 10 MG TABLET (FP) PO SCH (10:00)
[2018-08-22] MEDS ORDERED: RANITIDINE HCL 150 MG/10 ML UNIT-DOSE PO SCH (10:00)
[2018-08-22] MEDS: SEVELAMER CARBONATE 800 MG TAB (FP) PO SCH ×3 (10:33→17:42)
[2018-08-22] MEDS: TAMSULOSIN HCL 0.4 MG CAP PO SCH (10:33)
--- NOTE | 2018-08-22 12:12 | PN ---
Progress Note, Physician History of Present Illness: Confused, hemodynamics stable, undergoing HD via PC. - Current Medication List Current Medications: Active Medications Acetaminophen (Tylenol -) 650 mg PO Q6H PRN PRN Reason: PAIN Last Admin: 08/21/18 20:52 Dose: 650 mg Albuterol Sulfate (Ventolin 0.083% Nebulizer Soln -) 1 amp NEB Q4H PRN PRN Reason: SHORT OF BREATH/WHEEZING Amlodipine Besylate (Norvasc -) 10 mg PO DAILY [facility] Last Admin: 08/22/18 09:48 Dose: Not Given Atenolol (Tenormin -) 25 mg PO DAILY [facility] Last Admin: 08/22/18 09:49 Dose: Not Given Guaifenesin (Mucinex -) 600 mg PO BID [facility] Last Admin: 08/22/18 09:48 Dose: Not Given Heparin Sodium (Porcine) (Heparin -) 5,000 unit SQ TID [facility] Last Admin: 08/22/18 06:05 Dose: 5,000 unit Sodium Chloride (Normal Saline -) 250 mls @ 3,000 mls/hr IV PRN PRN PRN Reason: Hypotension during Dialysis Stop: 08/23/18 08:53 Insulin Aspart (Novolog Vial Sliding Scale -) 1 vial SQ ACHS [facility]; Protocol Last Admin: 08/22/18 06:31 Dose: 2 units Morphine Sulfate (Morphine Sulfate) 2 mg IVPUSH Q4H PRN PRN Reason: PAIN LEVEL 7 - 10 Ondansetron HCl (Zofran Injection) 4 mg IVPB Q6H PRN PRN Reason: NAUSEA Ranitidine HCl (Zantac Oral Solution -) 150 mg PO DAILY [facility] Last Admin: 08/22/18 09:49 Dose: Not Given Sevelamer Carbonate (Renvela -) 800 mg PO TIDCM [facility] Last Admin: 08/22/18 10:33 Dose: 800 mg Tamsulosin HCl (Flomax -) 0.8 mg PO DAILY@0830 [facility] Last Admin: 08/22/18 10:33 Dose: 0.8 mg - Objective Vital Signs: Vital Signs Temperature 97.7 F 08/22/18 08:00 Pulse Rate 64 08/22/18 11:30 Respiratory Rate 18 08/22/18 11:30 Blood Pressure 128/58 L 08/22/18 11:30 O2 Sat by Pulse Oximetry (%) 96 12/20/18 22:00 Constitutional: Yes: No Distress, Calm, Cachectic, Thin Neck: Yes: Supple Cardiovascular: Yes: Regular Rate and Rhythm Respiratory: Yes: Regular, Diminished Gastrointestinal: Yes: Soft, Hypoactive Bowel Sounds Edema: No Labs: CBC, BMP 08/22/18 07:33 08/22/18 07:33 INR, PTT INR 1.07 (0.83-1.09) 08/16/18 05:30 Problem List - Problems (1) Subendocardial ischemia Code(s): I24.8 - OTHER FORMS OF ACUTE ISCHEMIC HEART DISEASE (2) Pleural effusion due to CHF (congestive heart failure) Code(s): I50.9 - HEART FAILURE, UNSPECIFIED (3) Acute on chronic renal failure Code(s): N17.9 - ACUTE KIDNEY FAILURE, UNSPECIFIED; N18.9 - CHRONIC KIDNEY DISEASE, UNSPECIFIED Qualifiers: Acute renal failure type: unspecified Chronic kidney disease stage: on chronic dialysis Qualified Code(s): N17.9 - Acute kidney failure, unspecified ; N18.9 - Chronic kidney disease, unspecified; Z99.2 - Dependence on renal dialysis (4) CHF (congestive heart failure) Code(s): I50.9 - HEART FAILURE, UNSPECIFIED Qualifiers: Heart failure type: diastolic Heart failure chronicity: acute on chronic Qualified Code(s): I50.33 - Acute on chronic diastolic (congestive) heart failure (5) Diabetes mellitus Code(s): E11.9 - TYPE 2 DIABETES MELLITUS WITHOUT COMPLICATIONS Qualifiers: Diabetes mellitus type: type 2 Diabetes mellitus termination clerk insulin use: with termination clerk use (6) Anemia Code(s): D64.9 - ANEMIA, UNSPECIFIED Qualifiers: Anemia type: due to chronic kidney disease Chronic kidney disease stage: on chronic dialysis Qualified Code(s): N18.6 - End stage renal disease; D63.1 - Anemia in chronic kidney disease; Z99.2 - Dependence on renal dialysis (7) Hypertensive cardiomegaly with heart failure Code(s): I11.0 - HYPERTENSIVE HEART DISEASE WITH HEART FAILURE Assessment/Plan 08/18/2018 Echo: Normal LV and RV size and fxn, LVEF 65-70%, mild-mod MR, mild TR, RVSP 35 mmHg, mild-mod AR, large pleural effusion, Grade II diastolic dysfxn c/w elevated LA pressures. 1. Syncope suspect vasovagal, fluid shifts 2. Acute on chronic diastolic failure with pleural effusions and subendocardial ischemia 3. Acute on Chronic Renal Failure likely progressive CKD with hyperkalemia post HD 4. Metabolic Acidosis with toxic met encephelopathy 5. HTN cardiomyopathy 6. Anemia of CKD 7. Thrombocytopenia improving 8. Insulin-dependent Type 2 DM 9. Extensive sigmoid diverticulosis w/o inflammation P: 1. HD via PC per renal with monitor urine output, renal function, trops decreasing 2. Continue Norvasc 10 qd, Atenolol 25 qd (with caution), start ARB once committed to HD 3. Monitor H/H and transfuse as needed to maintain Hgb>8.0 4. DVT and GI prophylaxis 5. Outpatient HD facility
--- NOTE | 2018-08-22 13:01 | PN ---
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 Pt seen and examined at the bedside nurse reports that he was agitated overnight more calf, awake and alert when woken up this am s/p permacath placement yesterday Vital Signs Temperature 97.7 F 08/22/18 08:00 Pulse Rate 63 08/22/18 12:00 Respiratory Rate 18 08/22/18 12:00 Blood Pressure 136/74 08/22/18 12:00 O2 Sat by Pulse Oximetry (%) 96 08/21/18 22:00 Intake & Output 08/19/18 08/20/18 08/21/18 08/22/18 23:59 23:59 23:59 23:59 Intake Total 340 410 600 730 Output Total 290 Balance 340 410 600 440 Weight 48.194 kg 46.357 kg 47.174 kg NAD right IJ permacath no LE edema CBC, BMP 08/22/18 07:33 08/22/18 07:33 Current Medications Acetaminophen (Tylenol -) 650 mg PO Q6H PRN PRN Reason: PAIN Last Admin: 08/21/18 20:52 Dose: 650 mg Albuterol Sulfate (Ventolin 0.083% Nebulizer Soln -) 1 amp NEB Q4H PRN PRN Reason: SHORT OF BREATH/WHEEZING Amlodipine Besylate (Norvasc -) 10 mg PO DAILY [facility] Last Admin: 08/22/18 09:48 Dose: Not Given Atenolol (Tenormin -) 25 mg PO DAILY [facility] Last Admin: 08/22/18 09:49 Dose: Not Given Guaifenesin (Mucinex -) 600 mg PO BID [facility] Last Admin: 08/22/18 09:48 Dose: Not Given Heparin Sodium (Porcine) (Heparin -) 5,000 unit SQ TID [facility] Last Admin: 08/22/18 06:05 Dose: 5,000 unit Sodium Chloride (Normal Saline -) 250 mls @ 3,000 mls/hr IV PRN PRN PRN Reason: Hypotension during Dialysis Stop: 08/23/18 08:53 Insulin Aspart (Novolog Vial Sliding Scale -) 1 vial SQ ACHS [facility]; Protocol Last Admin: 08/22/18 06:31 Dose: 2 units Morphine Sulfate (Morphine Sulfate) 2 mg IVPUSH Q4H PRN PRN Reason: PAIN LEVEL 7 - 10 Ondansetron HCl (Zofran Injection) 4 mg IVPB Q6H PRN PRN Reason: NAUSEA Ranitidine HCl (Zantac Oral Solution -) 150 mg PO DAILY [facility] Last Admin: 08/22/18 09:49 Dose: Not Given Sevelamer Carbonate (Renvela -) 800 mg PO TIDCM [facility] Last Admin: 08/22/18 10:33 Dose: 800 mg Tamsulosin HCl (Flomax -) 0.8 mg PO DAILY@0830 [facility] Last Admin: 08/22/18 10:33 Dose: 0.8 mg 87 year old American gentleman with hx of CKD (baseline Cr unclear, had CATARINA last year with peak Cr ~5 was discharged with Cr ~4), DM, Hypertension, Hiatial Hernia who presented from home with complaints of SOB and leg swelling. #Progressive renal insuffiency now ESRD on HD #Hyperkalemia (now improved s/p dialysis) #Mild Volume overlaod (now improved) #Hypertension #Acute on Chronic Anemia #Anion gap metabolic acidosis #Thrombocytopenia (improving) #+NICK No signs of recovery of renal function at this time and now ESRD on HD for dialysis today via permacath will need outpatient HD unit placement Physical therapy evaluation, may need rehab CT head showed no acute pathology and uremia improved so possibly sundowning as cause of agitation given positive NICK check Anti-DS DNA Ab and Complement levels although unlikely SLE given he is a male, older in age and no other systemic signs of lupus Thank you Steven Carvajal DO
--- NOTE | 2018-08-22 16:26 | PN ---
Progress Note (short form) - Note Progress Note: Post op day#1.S/P Permacath placement under MAC uneventful.Patient stable.No any anesthesia related problem.Patient DC from the anesthesia care.
--- NOTE | 2018-08-22 18:24 | PN ---
Teaching Attending Note Name of Resident: Best Alvarado ATTENDING PHYSICIAN STATEMENT I saw and evaluated the patient. I reviewed the resident's note and discussed the case with the resident. I agree with the resident's findings and plan as documented with exceptions below. SUBJECTIVE: Patient seen and examined. Family at bedside, assisting in communication, soft responses but denies any pain, dyspnea or new concerns. OBJECTIVE: Vital Signs Period Temp Pulse Resp BP Sys/Bernstein Pulse Ox Last 24 Hr 97.2 F-97.7 F 58-82 18-20 90-153/52-108 95-96 Intake & Output 08/19/18 08/20/18 08/21/18 08/22/18 23:59 23:59 23:59 23:59 Intake Total 340 410 600 970 Output Total 290 Balance 340 410 600 680 Weight 106 lb 4 oz 102 lb 3.2 oz 104 lb General: lying in bed getting HD, lethargic but improved, opens eyes, responds to family questions Chest: poor effort, decreased breath sounds at bases Abdomen: soft, NT Extremities; UE mittens, no edema Active Medications Acetaminophen (Tylenol -) 650 mg PO Q6H PRN PRN Reason: PAIN Last Admin: 08/21/18 20:52 Dose: 650 mg Albuterol Sulfate (Ventolin 0.083% Nebulizer Soln -) 1 amp NEB Q4H PRN PRN Reason: SHORT OF BREATH/WHEEZING Amlodipine Besylate (Norvasc -) 10 mg PO DAILY [facility] Last Admin: 08/22/18 15:13 Dose: 10 mg Atenolol (Tenormin -) 25 mg PO DAILY [facility] Last Admin: 08/22/18 15:14 Dose: 25 mg Guaifenesin (Mucinex -) 600 mg PO BID [facility] Last Admin: 08/22/18 09:48 Dose: Not Given Heparin Sodium (Porcine) (Heparin -) 5,000 unit SQ TID [facility] Last Admin: 08/22/18 15:04 Dose: 5,000 unit Sodium Chloride (Normal Saline -) 250 mls @ 3,000 mls/hr IV PRN PRN PRN Reason: Hypotension during Dialysis Stop: 08/23/18 08:53 Insulin Aspart (Novolog Vial Sliding Scale -) 1 vial SQ ACHS [facility]; Protocol Last Admin: 08/22/18 17:42 Dose: 4 units Morphine Sulfate (Morphine Sulfate) 2 mg IVPUSH Q4H PRN PRN Reason: PAIN LEVEL 7 - 10 Ondansetron HCl (Zofran Injection) 4 mg IVPB Q6H PRN PRN Reason: NAUSEA Ranitidine HCl (Zantac Oral Solution -) 150 mg PO DAILY [facility] Last Admin: 08/22/18 09:49 Dose: Not Given Sevelamer Carbonate (Renvela -) 800 mg PO TIDCM [facility] Last Admin: 08/22/18 17:42 Dose: 800 mg Tamsulosin HCl (Flomax -) 0.8 mg PO DAILY@0830 [facility] Last Admin: 08/22/18 10:33 Dose: 0.8 mg Torsemide (Demadex -) 40 mg PO DAILY [facility] Laboratory Results - last 24 hr 08/21/18 08/22/18 08/22/18 22:13 06:01 07:33 WBC 10.3 H RBC 3.81 L Hgb 10.5 L Hct 31.1 L MCV 81.6 MCH 27.6 MCHC 33.8 RDW 16.3 H Plt Count 194 MPV 8.1 Sodium Potassium Chloride Carbon Dioxide Anion Gap BUN Creatinine Creat Clearance w eGFR POC Glucometer 108 163 Random Glucose Calcium Phosphorus Magnesium Total Bilirubin AST ALT Alkaline Phosphatase Total Protein Albumin Stool Occult Blood 08/22/18 08/22/18 08/22/18 07:33 14:40 16:31 WBC RBC Hgb Hct MCV MCH MCHC RDW Plt Count MPV Sodium 138 Potassium 3.6 Chloride 103 Carbon Dioxide 25 Anion Gap 10 BUN 43 H Creatinine 7.3 H Creat Clearance w eGFR 7.16 POC Glucometer 213 Random Glucose 82 Calcium 8.1 L Phosphorus 2.8 Magnesium 2.4 Total Bilirubin 0.6 AST 23 ALT 15 Alkaline Phosphatase 56 Total Protein 6.5 Albumin 2.1 L Stool Occult Blood Negative ASSESSMENT AND PLAN: 87 year old male with BPH, CKD 4, HTN, HLD, DM 2, presented with a 2 week history of increasing shortness of breath, worse on exertion, with associated LE edema for the 3 days prior to admission, found to have CATARINA on CKD with acidosis and hyperkalemia. -Acute Kidney Injury on Chronic Renal Disease, now CKD-V/ESRD, started on HD, s/ p permacath 08/21 -Hypertensive emergency, off nicardipine drip -Acute hypoxic respiratory distress, from volume overload -AMS, suspect toxic metabolic encephalopathy from uremia -Bilateral pleural effusions/Anasarca, from above -Hyperkalemia, resolved -Metabolic acidosis -Acute respiratory distress from above, improved -Acute on chronic anemia, suspect from CKD/hematuria -Mild troponin elevation,suspected from demand/renal dysfunction -IDDM/hypoglycemia -BPH, h/o urinary retention -h/o GI Bleed due to PUD/s/p H. pylori treatment -Vasovagal syncope on 08/17 (rapid response called) Plan: respiratory status improved. CT brain neg for acute concerns. Ammonia levels noted. s/p 1unit PRBC 08/20. s/p permacath 08/21 Renal/vascular surgery input noted. Mental status improved. Will need outpatient HD arrangements. Off lasix drip. Right inguinal HD cath removed. Sen. Renal US no hydronephrosis. Continue flomax. Norvasc increased. Toprol changed to atenolol, monitor for now. BP rising, monitor, add hydralazine if needed. Off levemir, resume as tolerated. ISS. Diabetic diet. Monitor h/h. heparin DVTPPX Dispo plan for d/c to SNF in 2-3 days if clinically improved and outpatient HD arrangements made. Plan discussed with family at bedside in detail, all questions answered.
--- NOTE | 2018-08-22 19:01 | PN ---
Physical Exam: SUBJECTIVE: Patient seen and examined at bedside this morning with family at bedside. Patient is awake, alert, communicating with his daughter. Denies acute complaints. OBJECTIVE: Vital Signs Period Temp Pulse Resp BP Sys/Bernstein Pulse Ox Last 24 Hr 97.2 F-97.7 F 58-82 18-20 90-153/52-108 95-96 GENERAL: The patient is awake, and oriented to person and place, in no acute distress. HEAD: Normal with no signs of trauma. EYES: PERRL, extraocular movements intact, sclera anicteric, conjunctiva clear. ENT: Ears normal, nares patent, oropharynx clear without exudates, moist mucous membranes. NECK: Supple, without lymphadenopathy. Right side Permacath in place, insertion site noted without erythema, bleeding, or drainage. LUNGS: Faint crackles auscultated B/L, improved significantly. No wheezing auscultated today. No accessory muscle use. HEART: Regular rate and rhythm, S1, S2 without murmur, rub or gallop. ABDOMEN: Soft, nontender, nondistended, normoactive bowel sounds, no guarding, no rebound, no hepatosplenomegaly, no masses. EXTREMITIES: 2+ radial and dorsalis pedis pulses b/l. Warm, well-perfused, no edema. NEUROLOGICAL: Cranial nerves II through XII grossly intact. Freely moving b/l upper and lower extremities. SKIN: Warm, dry, normal turgor, no rashes or lesions noted. Laboratory Results - last 24 hr 08/21/18 08/22/18 08/22/18 22:13 06:01 07:33 WBC 10.3 H RBC 3.81 L Hgb 10.5 L Hct 31.1 L MCV 81.6 MCH 27.6 MCHC 33.8 RDW 16.3 H Plt Count 194 MPV 8.1 Sodium Potassium Chloride Carbon Dioxide Anion Gap BUN Creatinine Creat Clearance w eGFR POC Glucometer 108 163 Random Glucose Calcium Phosphorus Magnesium Total Bilirubin AST ALT Alkaline Phosphatase Total Protein Albumin Stool Occult Blood 08/22/18 08/22/18 08/22/18 07:33 14:40 16:31 WBC RBC Hgb Hct MCV MCH MCHC RDW Plt Count MPV Sodium 138 Potassium 3.6 Chloride 103 Carbon Dioxide 25 Anion Gap 10 BUN 43 H Creatinine 7.3 H Creat Clearance w eGFR 7.16 POC Glucometer 213 Random Glucose 82 Calcium 8.1 L Phosphorus 2.8 Magnesium 2.4 Total Bilirubin 0.6 AST 23 ALT 15 Alkaline Phosphatase 56 Total Protein 6.5 Albumin 2.1 L Stool Occult Blood Negative Active Medications Generic Name Dose Route Start Last Admin Trade Name Freq PRN Reason Stop Dose Admin Acetaminophen 650 mg 08/21/18 11:29 08/21/18 20:52 Tylenol - PO 650 mg Q6H PRN Administration PAIN Albuterol Sulfate 1 amp 08/21/18 11:29 Ventolin 0.083% Nebulizer Soln - NEB Q4H PRN SHORT OF BREATH/WHEEZING Amlodipine Besylate 10 mg 08/21/18 15:13 08/22/18 15:13 Norvasc - PO 10 mg DAILY [facility] Administration Atenolol 25 mg 08/21/18 15:14 08/22/18 15:14 Tenormin - PO 25 mg DAILY [facility] Administration Guaifenesin 600 mg 08/21/18 15:39 08/22/18 09:48 Mucinex - PO Not Given BID [facility] Heparin Sodium (Porcine) 5,000 unit 08/21/18 14:00 08/22/18 15:04 Heparin - SQ 5,000 unit TID [facility] Administration Sodium Chloride 250 mls @ 3,000 mls/hr 08/22/18 08:53 Normal Saline - IV 08/23/18 08:53 PRN PRN Hypotension during Dialysis Insulin Aspart 1 vial 08/21/18 16:30 08/22/18 17:42 Novolog Vial Sliding Scale - SQ 4 units ACHS [facility] Administration Protocol Ondansetron HCl 4 mg 08/21/18 11:29 Zofran Injection IVPB Q6H PRN NAUSEA Ranitidine HCl 150 mg 08/21/18 17:30 08/22/18 09:49 Zantac Oral Solution - PO Not Given DAILY [facility] Sevelamer Carbonate 800 mg 08/21/18 12:00 08/22/18 17:42 Renvela - PO 800 mg TIDCM [facility] Administration Tamsulosin HCl 0.8 mg 08/21/18 15:41 08/22/18 10:33 Flomax - PO 0.8 mg DAILY@0830 [facility] Administration Torsemide 40 mg 08/23/18 10:00 Demadex - PO DAILY [facility] IMAGING CT abdomen/ pelvis: B/L atelectasis/ consolidation, B/L effusions. Extensive diverticulosis, without diverticulitis Cardiac echocardiogram: LV systolic function normal. RV systolic function normal. EF 65-70%. Increased LV pressure with grade II diastolic dysfunction. Lower extremity doppler: Negative for DVT B/L lower extremities. Renal ultrasound: B/L atrophic echogenic kidneys, indicative of chronic disease. Simple renal cysts 2.5cm right, 1cm left. Chest Xray (08/19/2018): B/L pulmonary congestion, and pleural effusions. Left base atelectasis vs. congesiton, and atelectatic changes on right. ASSESSMENT/PLAN: Patient is an 87 year old male with history of diabetes mellitus, chronic kidney disease stage V, hypertension, hyperlipidemia, presented with complaint of shortness of breath, and lower extremity edema for past 4 days prior to admission. CATARINA on CKD -Patient's Cr in prior admission (08/2017) 4.6 -Likely secondary to obstruction, given patient's history of BPH. -Nephrology recommendations (Dr. Carvajal) appreciated. Patient received HD today. -Patient was transfused 1 unit PRBCs with HD (08/20). -Ammonia level 22.01 -CT head shows no acute intracranial pathology. Volume overload -Likely secondary to acute on chronic renal failure. Received last HD yesterday. -On 3L nasal canula, saturating 96% Acute on chronic anemia -Hb 10.5/ Hct 31.1 -Anemia likely secondary to chronic kidney disease -S/P 1 unit PRBCs transfused (08/20) -Epoietin one time dose given today Hypertension -No longer on Nicardipine drip. -Amlodipine 10mg PO daily -Atenolol 25mg PO daily -Closely follow vitals Diabetes Mellitus -Insulin sliding scale ACHS -BGM ACHS Benign Prostatic Hyperplasia -Tamsulosin 0.8mg PO daily -Sen catheter removed. Follow urinary voiding. Metabolic acidosis -Resolved with hemodialysis FEN -No IV fluids at this time -Follow CMP -Renal controlled diet. Prophylaxis -Heparin 5000u subq TID -Famotidine 20mg IV daily Disposition -Continue care in medical-surgical floor. Visit type - Emergency Visit Emergency Visit: Yes ED Registration Date: 08/15/18 Care time: The patient presented to the Emergency Department on the above date and was hospitalized for further evaluation of their emergent condition. - New Patient This patient is new to me today: No - Critical Care Critical Care patient: No - Discharge Referral Referred to [facility] No
[2018-08-23] MEDS: HEPARIN NA (PORCINE) 5,000 UNITS/ML 1ML VIAL SQ SCH ×3 (06:48→23:10)
[2018-08-23] MEDS: INSULIN SLIDING SCALE (NOVOLOG) 1 VIAL SQ SCH ×5 (06:48→23:27)
[2018-08-23] MEDS: ALBUTEROL SO4 0.083% IH SOL 2.5 MG/3 ML VIAL.NEB. NEB PRN (08:54)
[2018-08-23] MEDS: SEVELAMER CARBONATE 800 MG TAB (FP) PO SCH ×3 (09:11→17:14)
[2018-08-23] MEDS: TAMSULOSIN HCL 0.4 MG CAP PO SCH (09:13)
[2018-08-23 09:53] LABS: BASO % 0.5 % (0-2.0); EOS % 4.3 % (0-4.5); HEMATOCRIT 32.4 % (35.4-49); HEMOGLOBIN 11.3 GM/dL (11.7-16.9); LYMPH % 13.4 % (8-40); MCH 28.1 pg (25.7-33.7); MCHC 34.7 g/dl (32.0-35.9); MEAN PLT VOLUME 8.1 fl (7.5-11.1); MONO % 10.6 % (3.8-10.2); NEUT % 71.2 % (42.8-82.8); PLATELET COUNT 185 K/MM3 (134-434)
[2018-08-23] MEDS: guaiFENesin 600 MG TABLET.ER (FP) PO SCH ×2 (10:12→23:10)
[2018-08-23] MEDS: amLODIPine BESYLATE 10 MG TABLET (FP) PO SCH (10:12)
[2018-08-23] MEDS: ATENOLOL 25 MG TABLET (FP) PO SCH (10:14)
[2018-08-23] MEDS: RANITIDINE HCL 150 MG/10 ML UNIT-DOSE PO SCH (10:14)
[2018-08-23] MEDS: TORSEMIDE 20 MG TABLET (FP) PO SCH (10:14)
[2018-08-23 10:33] LABS: ALBUMIN 2.1 g/dl (3.4-5.0); ALK PHOS 61 U/L (45-117); ANION GAP 9 MMOL/L (8-16); BILIRUBIN,TOTAL 0.5 mg/dL (0.2-1); BLOOD UREA NITROGEN 23 mg/dL (7-18); CALCIUM 8.1 mg/dL (8.5-10.1); CHLORIDE 99 mmol/L (98-107); CO2 29 mmol/L (21-32); CREATININE 5.4 mg/dL (0.55-1.3); GLUCOSE,RANDOM 125 mg/dL (74-106); POTASSIUM 3.8 mmol/L (3.5-5.1); SGOT/AST 19 U/L (15-37); SGPT/ALT 10 U/L (13-61); SODIUM 137 mmol/L (136-145); TOT PROT 6.9 g/dl (6.4-8.2)
[2018-08-23] MEDS ORDERED: PT OWN MED DRAWER 7, Y5N ONE (11:24)
--- NOTE | 2018-08-23 13:22 | PN ---
Teaching Attending Note Name of Resident: Asher Queen ATTENDING PHYSICIAN STATEMENT I saw and evaluated the patient. I reviewed the resident's note and discussed the case with the resident. I agree with the resident's findings and plan as documented with exceptions below. SUBJECTIVE: Patient seen and examined. responds to questions, falls back to sleep no complaints. OBJECTIVE: Vital Signs Period Temp Pulse Resp BP Sys/Bernstein Pulse Ox Last 24 Hr 97.4 F-98.4 F 63-73 18-18 111-151/54-108 96-96 Intake & Output 08/20/18 08/21/18 08/22/18 08/23/18 23:59 23:59 23:59 23:59 Intake Total 539 056 1418 Output Total 290 Balance 410 600 980 Weight 106 lb 4 oz 102 lb 3.2 oz 104 lb General:sleeping in bed comfortably Chest: poor effort, positive air entry Abdomen:Soft, NT Extremities; no edema Active Medications Acetaminophen (Tylenol -) 650 mg PO Q6H PRN PRN Reason: PAIN Last Admin: 08/21/18 20:52 Dose: 650 mg Albuterol Sulfate (Ventolin 0.083% Nebulizer Soln -) 1 amp NEB Q4H PRN PRN Reason: SHORT OF BREATH/WHEEZING Last Admin: 08/23/18 08:54 Dose: 1 amp Amlodipine Besylate (Norvasc -) 10 mg PO DAILY [facility] Last Admin: 08/22/18 15:13 Dose: 10 mg Atenolol (Tenormin -) 25 mg PO DAILY [facility] Last Admin: 08/22/18 15:14 Dose: 25 mg Guaifenesin (Mucinex -) 600 mg PO BID [facility] Last Admin: 08/22/18 23:15 Dose: 600 mg Heparin Sodium (Porcine) (Heparin -) 5,000 unit SQ TID [facility] Last Admin: 08/23/18 06:48 Dose: 5,000 unit Insulin Aspart (Novolog Vial Sliding Scale -) 1 vial SQ ACHS [facility]; Protocol Last Admin: 08/23/18 06:48 Dose: Not Given Ondansetron HCl (Zofran Injection) 4 mg IVPB Q6H PRN PRN Reason: NAUSEA Ranitidine HCl (Zantac Oral Solution -) 150 mg PO DAILY [facility] Last Admin: 08/22/18 09:49 Dose: Not Given Sevelamer Carbonate (Renvela -) 800 mg PO TIDCM [facility] Last Admin: 08/22/18 17:42 Dose: 800 mg Tamsulosin HCl (Flomax -) 0.8 mg PO DAILY@0830 [facility] Last Admin: 08/22/18 10:33 Dose: 0.8 mg Torsemide (Demadex -) 40 mg PO DAILY [facility] Laboratory Results - last 24 hr 08/22/18 08/22/18 08/22/18 14:40 16:31 23:17 WBC RBC Hgb Hct MCV MCH MCHC RDW Plt Count MPV Absolute Neuts (auto) Neutrophils % Lymphocytes % Monocytes % Eosinophils % Basophils % Nucleated RBC % Sodium Potassium Chloride Carbon Dioxide Anion Gap BUN Creatinine Creat Clearance w eGFR POC Glucometer 213 156 Random Glucose Calcium Total Bilirubin AST ALT Alkaline Phosphatase Total Protein Albumin Stool Occult Blood Negative 08/23/18 08/23/18 08/23/18 06:47 08:30 08:30 WBC 11.0 H RBC 4.00 Hgb 11.3 L Hct 32.4 L MCV 81.0 MCH 28.1 MCHC 34.7 RDW 16.0 H Plt Count 185 MPV 8.1 Absolute Neuts (auto) 7.8 Neutrophils % 71.2 Lymphocytes % 13.4 D Monocytes % 10.6 H Eosinophils % 4.3 Basophils % 0.5 Nucleated RBC % 1 H Sodium 137 Potassium 3.8 Chloride 99 Carbon Dioxide 29 Anion Gap 9 BUN 23 H Creatinine 5.4 H Creat Clearance w eGFR 10.14 POC Glucometer 118 Random Glucose 125 H Calcium 8.1 L Total Bilirubin 0.5 AST 19 ALT 10 L Alkaline Phosphatase 61 Total Protein 6.9 Albumin 2.1 L Stool Occult Blood ASSESSMENT AND PLAN: 87 year old male with BPH, CKD 4, HTN, HLD, DM 2, presented with a 2 week history of increasing shortness of breath, worse on exertion, with associated LE edema for the 3 days prior to admission, found to have CATARINA on CKD with acidosis and hyperkalemia. -Acute Kidney Injury on Chronic Renal Disease, now CKD-V/ESRD, started on HD, s/ p permacath 08/21 -Hypertensive emergency, off nicardipine drip -Acute hypoxic respiratory distress, from volume overload -AMS, suspect toxic metabolic encephalopathy from uremia -Bilateral pleural effusions/Anasarca, from above -Hyperkalemia, resolved -Metabolic acidosis -Acute respiratory distress from above, improved -Acute on chronic anemia, suspect from CKD/hematuria -Mild troponin elevation,suspected from demand/renal dysfunction -IDDM/hypoglycemia -BPH, h/o urinary retention -h/o GI Bleed due to PUD/s/p H. pylori treatment -Vasovagal syncope on 08/17 (rapid response called) Plan: respiratory status improved. CT brain neg for acute concerns. Ammonia levels noted. s/p 1unit PRBC 08/20. s/p permacath 08/21 Renal/vascular surgery input noted. Mental status improved. Will need outpatient HD arrangements. Off lasix drip. Right inguinal HD cath removed. Sen. Renal US no hydronephrosis. Continue flomax. Norvasc increased. Toprol changed to atenolol, monitor for now. BP rising, monitor, add hydralazine if needed. Off levemir, resume as tolerated. ISS. Diabetic diet. Monitor h/h. heparin DVTPPX Dispo plan for d/c to SNF in 2-3 days if clinically improved and outpatient HD arrangements made. Plan discussed with nursing and CM in detail, all questions answered.
--- NOTE | 2018-08-23 13:37 | PN ---
Physical Exam: SUBJECTIVE: Patient seen and examined. No events overnight. Patient offers no complaints. OBJECTIVE: Vital Signs Period Temp Pulse Resp BP Sys/Bernstein Pulse Ox Last 24 Hr 97.4 F-98.4 F 63-72 18-18 124-151/56-108 96-96 GENERAL: A/o x 3, comfortable. EYES: PERRL, sclera anicteric, conjunctiva clear. ENT: oropharynx clear without exudates, moist mucous membranes. NECK: Supple, Ying side Permacath in place, insertion site noted without erythema, bleeding, or drainage. LUNGS: Faint crackles auscultated B/L, improved significantly. No wheezing HEART: Regular rate and rhythm, S1, S2 without murmur, rub or gallop. ABDOMEN: Soft, nontender, nondistended, normoactive bowel sound EXTREMITIES: 2+ radial and dorsalis pedis pulses b/l. Warm, well-perfused, no edema. NEUROLOGICAL: Freely moving b/l upper and lower extremities. Laboratory Results - last 24 hr 08/20/18 08/22/18 08/22/18 11:30 14:40 16:31 WBC RBC Hgb Hct MCV MCH MCHC RDW Plt Count MPV Absolute Neuts (auto) Neutrophils % Lymphocytes % Monocytes % Eosinophils % Basophils % Nucleated RBC % Sodium Potassium Chloride Carbon Dioxide Anion Gap BUN Creatinine Creat Clearance w eGFR POC Glucometer 213 Random Glucose Calcium Total Bilirubin AST ALT Alkaline Phosphatase Total Protein Albumin Stool Occult Blood Negative Blood Type B POSITIVE Antibody Screen Negative Crossmatch See Detail 08/22/18 08/23/18 08/23/18 23:17 06:47 08:30 WBC 11.0 H RBC 4.00 Hgb 11.3 L Hct 32.4 L MCV 81.0 MCH 28.1 MCHC 34.7 RDW 16.0 H Plt Count 185 MPV 8.1 Absolute Neuts (auto) 7.8 Neutrophils % 71.2 Lymphocytes % 13.4 D Monocytes % 10.6 H Eosinophils % 4.3 Basophils % 0.5 Nucleated RBC % 1 H Sodium Potassium Chloride Carbon Dioxide Anion Gap BUN Creatinine Creat Clearance w eGFR POC Glucometer 156 118 Random Glucose Calcium Total Bilirubin AST ALT Alkaline Phosphatase Total Protein Albumin Stool Occult Blood Blood Type Antibody Screen Crossmatch 08/23/18 08:30 WBC RBC Hgb Hct MCV MCH MCHC RDW Plt Count MPV Absolute Neuts (auto) Neutrophils % Lymphocytes % Monocytes % Eosinophils % Basophils % Nucleated RBC % Sodium 137 Potassium 3.8 Chloride 99 Carbon Dioxide 29 Anion Gap 9 BUN 23 H Creatinine 5.4 H Creat Clearance w eGFR 10.14 POC Glucometer Random Glucose 125 H Calcium 8.1 L Total Bilirubin 0.5 AST 19 ALT 10 L Alkaline Phosphatase 61 Total Protein 6.9 Albumin 2.1 L Stool Occult Blood Blood Type Antibody Screen Crossmatch Active Medications Generic Name Dose Route Start Last Admin Trade Name Freq PRN Reason Stop Dose Admin Acetaminophen 650 mg 08/21/18 11:29 08/21/18 20:52 Tylenol - PO 650 mg Q6H PRN Administration PAIN Albuterol Sulfate 1 amp 08/21/18 11:29 08/23/18 08:54 Ventolin 0.083% Nebulizer Soln - NEB 1 amp Q4H PRN Administration SHORT OF BREATH/WHEEZING Amlodipine Besylate 10 mg 08/21/18 15:13 08/23/18 10:12 Norvasc - PO 10 mg DAILY REHANA Administration Atenolol 25 mg 08/21/18 15:14 08/23/18 10:14 Tenormin - PO 25 mg DAILY REHANA Administration Guaifenesin 600 mg 08/21/18 15:39 08/23/18 10:12 Mucinex - PO 600 mg BID REHANA Administration Heparin Sodium (Porcine) 5,000 unit 08/21/18 14:00 08/23/18 06:48 Heparin - SQ 5,000 unit TID REHANA Administration Insulin Aspart 1 vial 08/21/18 16:30 08/23/18 13:28 Novolog Vial Sliding Scale - SQ 3 units ACHS REHANA Administration Protocol Ondansetron HCl 4 mg 08/21/18 11:29 Zofran Injection IVPB Q6H PRN NAUSEA Ranitidine HCl 150 mg 08/21/18 17:30 08/23/18 10:14 Zantac Oral Solution - PO 150 mg DAILY REHANA Administration Sevelamer Carbonate 800 mg 08/21/18 12:00 08/23/18 13:11 Renvela - PO 800 mg TIDCM REHANA Administration Tamsulosin HCl 0.8 mg 08/21/18 15:41 08/23/18 09:13 Flomax - PO 0.8 mg DAILY@0830 REHANA Administration Torsemide 40 mg 08/23/18 10:00 08/23/18 10:14 Demadex - PO 40 mg DAILY REHANA Administration ASSESSMENT/PLAN: Patient is an 87 year old male with history of diabetes mellitus, chronic kidney disease stage V, hypertension, hyperlipidemia, presented with complaint of shortness of breath, and lower extremity edema for past 4 days prior to admission. CATARINA on CKD -Patient's Cr in prior admission (08/2017) 4.6 -Likely secondary to obstruction, given patient's history of BPH. -Nephrology recommendations (Dr. Carvajal) appreciated. -Patient was transfused 1 unit PRBCs with HD (08/20). -Ammonia level 22.01 -CT head shows no acute intracranial pathology. Volume overload -Likely secondary to acute on chronic renal failure. Received last HD yesterday. -On 3L nasal canula, saturating 100% Acute on chronic anemia -Hb 11.3/ Hct 32 -Anemia likely secondary to chronic kidney disease -S/P 1 unit PRBCs transfused (08/20) -Epoietin one time dose given today Hypertension -Amlodipine 10mg PO daily -Atenolol 25mg PO daily -monitor Diabetes Mellitus -Insulin sliding scale ACHS -BGM ACHS Benign Prostatic Hyperplasia -Tamsulosin 0.8mg PO daily -Sen catheter removed. Follow urinary voiding. Metabolic acidosis -Resolved with hemodialysis FEN -No IV fluids at this time -Follow CMP -Renal controlled diet. Prophylaxis -Heparin 5000u subq TID -Famotidine 20mg IV daily Disposition -Will need SNF. Plan in 2-3 days. Arrange for outpatient Dialysis. Visit type - Emergency Visit Emergency Visit: Yes ED Registration Date: 08/15/18 Care time: The patient presented to the Emergency Department on the above date and was hospitalized for further evaluation of their emergent condition. - New Patient This patient is new to me today: Yes Date on this admission: 08/23/18 - Critical Care Critical Care patient: No
--- NOTE | 2018-08-23 14:06 | PN ---
Progress Note, Physician History of Present Illness: Resting, hemodynamics stable, tolerated HD via PC. - Current Medication List Current Medications: Active Medications Acetaminophen (Tylenol -) 650 mg PO Q6H PRN PRN Reason: PAIN Last Admin: 08/21/18 20:52 Dose: 650 mg Albuterol Sulfate (Ventolin 0.083% Nebulizer Soln -) 1 amp NEB Q4H PRN PRN Reason: SHORT OF BREATH/WHEEZING Last Admin: 08/23/18 08:54 Dose: 1 amp Amlodipine Besylate (Norvasc -) 10 mg PO DAILY [facility] Last Admin: 08/23/18 10:12 Dose: 10 mg Atenolol (Tenormin -) 25 mg PO DAILY [facility] Last Admin: 08/23/18 10:14 Dose: 25 mg Guaifenesin (Mucinex -) 600 mg PO BID [facility] Last Admin: 08/23/18 10:12 Dose: 600 mg Heparin Sodium (Porcine) (Heparin -) 5,000 unit SQ TID [facility] Last Admin: 08/23/18 06:48 Dose: 5,000 unit Insulin Aspart (Novolog Vial Sliding Scale -) 1 vial SQ ACHS [facility]; Protocol Last Admin: 08/23/18 13:28 Dose: 3 units Ondansetron HCl (Zofran Injection) 4 mg IVPB Q6H PRN PRN Reason: NAUSEA Ranitidine HCl (Zantac Oral Solution -) 150 mg PO DAILY [facility] Last Admin: 08/23/18 10:14 Dose: 150 mg Sevelamer Carbonate (Renvela -) 800 mg PO TIDCM [facility] Last Admin: 08/23/18 13:11 Dose: 800 mg Tamsulosin HCl (Flomax -) 0.8 mg PO DAILY@0830 [facility] Last Admin: 08/23/18 09:13 Dose: 0.8 mg Torsemide (Demadex -) 40 mg PO DAILY [facility] Last Admin: 08/23/18 10:14 Dose: 40 mg - Objective Vital Signs: Vital Signs Temperature 98.2 F 08/23/18 05:31 Pulse Rate 63 08/23/18 05:31 Respiratory Rate 18 08/23/18 05:31 Blood Pressure 150/57 L 08/23/18 05:31 O2 Sat by Pulse Oximetry (%) 96 08/22/18 22:00 Constitutional: Yes: No Distress, Calm, Thin Neck: Yes: Supple Cardiovascular: Yes: Regular Rate and Rhythm Respiratory: Yes: Regular, Diminished Gastrointestinal: Yes: Normal Bowel Sounds, Soft Edema: No Labs: CBC, BMP 08/23/18 08:30 08/23/18 08:30 INR, PTT INR 1.07 (0.83-1.09) 08/16/18 05:30 Problem List - Problems (1) Subendocardial ischemia Code(s): I24.8 - OTHER FORMS OF ACUTE ISCHEMIC HEART DISEASE (2) Pleural effusion due to CHF (congestive heart failure) Code(s): I50.9 - HEART FAILURE, UNSPECIFIED (3) Acute on chronic renal failure Code(s): N17.9 - ACUTE KIDNEY FAILURE, UNSPECIFIED; N18.9 - CHRONIC KIDNEY DISEASE, UNSPECIFIED Qualifiers: Acute renal failure type: unspecified Chronic kidney disease stage: on chronic dialysis Qualified Code(s): N17.9 - Acute kidney failure, unspecified ; N18.9 - Chronic kidney disease, unspecified; Z99.2 - Dependence on renal dialysis (4) CHF (congestive heart failure) Code(s): I50.9 - HEART FAILURE, UNSPECIFIED Qualifiers: Heart failure type: diastolic Heart failure chronicity: acute on chronic Qualified Code(s): I50.33 - Acute on chronic diastolic (congestive) heart failure (5) Diabetes mellitus Code(s): E11.9 - TYPE 2 DIABETES MELLITUS WITHOUT COMPLICATIONS Qualifiers: Diabetes mellitus type: type 2 Diabetes mellitus long term care administrator insulin use: with long term care administrator use (6) Anemia Code(s): D64.9 - ANEMIA, UNSPECIFIED Qualifiers: Anemia type: due to chronic kidney disease Chronic kidney disease stage: on chronic dialysis Qualified Code(s): N18.6 - End stage renal disease; D63.1 - Anemia in chronic kidney disease; Z99.2 - Dependence on renal dialysis (7) Hypertensive cardiomegaly with heart failure Code(s): I11.0 - HYPERTENSIVE HEART DISEASE WITH HEART FAILURE Assessment/Plan 08/18/2018 Echo: Normal LV and RV size and fxn, LVEF 65-70%, mild-mod MR, mild TR, RVSP 35 mmHg, mild-mod AR, large pleural effusion, Grade II diastolic dysfxn c/w elevated LA pressures. 1. Syncope suspect vasovagal, fluid shifts 2. Acute on chronic diastolic failure with pleural effusions and subendocardial ischemia 3. Acute on Chronic Renal Failure likely progressive CKD with hyperkalemia post HD 4. Metabolic Acidosis with toxic met encephelopathy 5. HTN cardiomyopathy 6. Anemia of CKD 7. Thrombocytopenia improving 8. Insulin-dependent Type 2 DM 9. Extensive sigmoid diverticulosis w/o inflammation P: 1. HD via PC and Demadex 40 qd per renal with monitor urine output, renal function, trops decreasing 2. Continue Norvasc 10 qd, Atenolol 25 qd (with caution), start ARB once committed to HD 3. Monitor H/H and transfuse as needed to maintain Hgb>8.0 4. DVT and GI prophylaxis 5. Outpatient HD facility
[2018-08-23] MEDS ORDERED: SODIUM CHLORIDE 250 ML IV PRN (22:55)
--- NOTE | 2018-08-23 23:01 | PN ---
Progress Note (short form) - Note Progress Note: covering dr buchanan Problems 87 year old [place] gentleman with hx of CKD (baseline Cr unclear, had CATARINA last year with peak Cr ~5 was discharged with Cr ~4), DM, Hypertension, Hiatal Hernia who presented from home with SOB/leg swelling. #Progressive renal insuffiency now ESRD on HD #Hyperkalemia (now improved s/p dialysis) #Mild Volume overlaod (now improved) #Hypertension #Acute on Chronic Anemia #Anion gap metabolic acidosis #Thrombocytopenia (improving) #+NICK Current Medications Acetaminophen (Tylenol -) 650 mg PO Q6H PRN PRN Reason: PAIN Last Admin: 08/21/18 20:52 Dose: 650 mg Albuterol Sulfate (Ventolin 0.083% Nebulizer Soln -) 1 amp NEB Q4H PRN PRN Reason: SHORT OF BREATH/WHEEZING Last Admin: 08/23/18 08:54 Dose: 1 amp Amlodipine Besylate (Norvasc -) 10 mg PO DAILY [facility] Last Admin: 08/23/18 10:12 Dose: 10 mg Atenolol (Tenormin -) 25 mg PO DAILY [facility] Last Admin: 08/23/18 10:14 Dose: 25 mg Guaifenesin (Mucinex -) 600 mg PO BID [facility] Last Admin: 08/23/18 10:12 Dose: 600 mg Heparin Sodium (Porcine) (Heparin -) 5,000 unit SQ TID [facility] Last Admin: 08/23/18 14:00 Dose: 5,000 unit Sodium Chloride (Normal Saline -) 250 mls @ 3,000 mls/hr IV PRN PRN PRN Reason: Hypotension during Dialysis Stop: 08/24/18 22:56 Insulin Aspart (Novolog Vial Sliding Scale -) 1 vial SQ ACHS [facility]; Protocol Last Admin: 08/23/18 17:15 Dose: 2 units Ondansetron HCl (Zofran Injection) 4 mg IVPB Q6H PRN PRN Reason: NAUSEA Ranitidine HCl (Zantac Oral Solution -) 150 mg PO DAILY [facility] Last Admin: 08/23/18 10:14 Dose: 150 mg Sevelamer Carbonate (Renvela -) 800 mg PO TIDCM [facility] Last Admin: 08/23/18 17:14 Dose: 800 mg Tamsulosin HCl (Flomax -) 0.8 mg PO DAILY@0830 [facility] Last Admin: 08/23/18 09:13 Dose: 0.8 mg Torsemide (Demadex -) 40 mg PO DAILY [facility] Last Admin: 08/23/18 10:14 Dose: 40 mg Last Vital Signs Temp Pulse Resp BP Pulse Ox 97.8 F 60 18 112/51 L 96 08/23/18 19:06 08/23/18 19:06 08/23/18 19:06 08/23/18 19:06 08/23/18 09:00 CBC, BMP 08/23/18 08:30 08/23/18 08:30 ESRD for HD tomorrow saturday due to schedule change No signs of recovery of renal function at this time and now ESRD on HD for dialysis today via permacath will need outpatient HD unit placement Physical therapy evaluation, may need rehab CT head showed no acute pathology and uremia improved so possibly as cause of agitation given positive NICK check Anti-DS DNA Ab and Complement levels although unlikely SLE given he is a male, older in age and no other systemic signs of lupus
[2018-08-24] MEDS: HEPARIN NA (PORCINE) 5,000 UNITS/ML 1ML VIAL SQ SCH ×3 (06:40→22:05)
[2018-08-24] MEDS: INSULIN SLIDING SCALE (NOVOLOG) 1 VIAL SQ SCH ×4 (06:40→22:09)
[2018-08-24 07:43] LABS: HEMATOCRIT 31.7 % (35.4-49); HEMOGLOBIN 10.9 GM/dL (11.7-16.9); MCHC 34.3 g/dl (32.0-35.9); MEAN CELL VOLUME 81.6 fl (80-96); MEAN PLT VOLUME 8.2 fl (7.5-11.1); PLATELET COUNT 191 K/MM3 (134-434); RBC 3.89 M/mm3 (4.00-5.60); RDW 16.3 % (11.9-15.9); WHITE BLOOD COUNT 11.5 K/mm3 (4.0-10.0)
[2018-08-24 08:50] LABS: ALK PHOS 57 U/L (45-117); ANION GAP 10 MMOL/L (8-16); BILIRUBIN,TOTAL 0.6 mg/dL (0.2-1); BLOOD UREA NITROGEN 38 mg/dL (7-18); CALCIUM 7.9 mg/dL (8.5-10.1); CHLORIDE 101 mmol/L (98-107); CO2 28 mmol/L (21-32); GLUCOSE,RANDOM 126 mg/dL (74-106); MAGNESIUM 2.3 mg/dL (1.8-2.4); PHOSPHOROUS 2.2 mg/dL (2.5-4.9); POTASSIUM 3.6 mmol/L (3.5-5.1); SGOT/AST 22 U/L (15-37); SGPT/ALT 10 U/L (13-61); SODIUM 139 mmol/L (136-145); TOT PROT 6.5 g/dl (6.4-8.2)
[2018-08-24 09:28] LABS: CREATININE 7.5 mg/dL (0.55-1.3)
[2018-08-24] MEDS: SEVELAMER CARBONATE 800 MG TAB (FP) PO SCH ×3 (10:14→17:18)
[2018-08-24] MEDS: TAMSULOSIN HCL 0.4 MG CAP PO SCH (12:11)
[2018-08-24] MEDS: TORSEMIDE 20 MG TABLET (FP) PO SCH (12:13)
[2018-08-24] MEDS: guaiFENesin 600 MG TABLET.ER (FP) PO SCH ×2 (12:41→22:05)
--- NOTE | 2018-08-24 14:13 | PN ---
Progress Note, Physician History of Present Illness: Resting, hemodynamics stable, tolerated HD via PC. - Current Medication List Current Medications: Active Medications Acetaminophen (Tylenol -) 650 mg PO Q6H PRN PRN Reason: PAIN Last Admin: 08/21/18 20:52 Dose: 650 mg Albuterol Sulfate (Ventolin 0.083% Nebulizer Soln -) 1 amp NEB Q4H PRN PRN Reason: SHORT OF BREATH/WHEEZING Last Admin: 08/23/18 08:54 Dose: 1 amp Amlodipine Besylate (Norvasc -) 10 mg PO DAILY [facility] Last Admin: 08/23/18 10:12 Dose: 10 mg Atenolol (Tenormin -) 25 mg PO DAILY [facility] Last Admin: 08/23/18 10:14 Dose: 25 mg Guaifenesin (Mucinex -) 600 mg PO BID [facility] Last Admin: 08/23/18 23:10 Dose: 600 mg Heparin Sodium (Porcine) (Heparin -) 5,000 unit SQ TID [facility] Last Admin: 08/24/18 06:40 Dose: 5,000 unit Sodium Chloride (Normal Saline -) 250 mls @ 3,000 mls/hr IV PRN PRN PRN Reason: Hypotension during Dialysis Stop: 08/24/18 22:56 Insulin Aspart (Novolog Vial Sliding Scale -) 1 vial SQ ACHS [facility]; Protocol Last Admin: 08/24/18 06:40 Dose: Not Given Ondansetron HCl (Zofran Injection) 4 mg IVPB Q6H PRN PRN Reason: NAUSEA Ranitidine HCl (Zantac Oral Solution -) 150 mg PO DAILY [facility] Last Admin: 08/23/18 10:14 Dose: 150 mg Sevelamer Carbonate (Renvela -) 800 mg PO TIDCM [facility] Last Admin: 08/23/18 17:14 Dose: 800 mg Tamsulosin HCl (Flomax -) 0.8 mg PO DAILY@0830 [facility] Last Admin: 08/23/18 09:13 Dose: 0.8 mg Torsemide (Demadex -) 40 mg PO DAILY [facility] Last Admin: 08/23/18 10:14 Dose: 40 mg - Objective Vital Signs: Vital Signs Temperature 98.2 F 08/24/18 11:25 Pulse Rate 66 08/24/18 13:00 Respiratory Rate 18 08/24/18 13:00 Blood Pressure 120/63 08/24/18 13:00 O2 Sat by Pulse Oximetry (%) 96 08/23/18 22:00 Constitutional: Yes: No Distress, Calm, Cachectic, Thin Neck: Yes: Supple Cardiovascular: Yes: Regular Rate and Rhythm Respiratory: Yes: Regular, CTA Bilaterally Gastrointestinal: Yes: Normal Bowel Sounds, Soft Edema: No Labs: CBC, BMP 08/24/18 06:30 08/24/18 06:30 INR, PTT INR 1.07 (0.83-1.09) 08/16/18 05:30 Problem List - Problems (1) Subendocardial ischemia Code(s): I24.8 - OTHER FORMS OF ACUTE ISCHEMIC HEART DISEASE (2) Pleural effusion due to CHF (congestive heart failure) Code(s): I50.9 - HEART FAILURE, UNSPECIFIED (3) Acute on chronic renal failure Code(s): N17.9 - ACUTE KIDNEY FAILURE, UNSPECIFIED; N18.9 - CHRONIC KIDNEY DISEASE, UNSPECIFIED Qualifiers: Acute renal failure type: unspecified Chronic kidney disease stage: on chronic dialysis Qualified Code(s): N17.9 - Acute kidney failure, unspecified ; N18.9 - Chronic kidney disease, unspecified; Z99.2 - Dependence on renal dialysis (4) CHF (congestive heart failure) Code(s): I50.9 - HEART FAILURE, UNSPECIFIED Qualifiers: Heart failure type: diastolic Heart failure chronicity: acute on chronic Qualified Code(s): I50.33 - Acute on chronic diastolic (congestive) heart failure (5) Diabetes mellitus Code(s): E11.9 - TYPE 2 DIABETES MELLITUS WITHOUT COMPLICATIONS Qualifiers: Diabetes mellitus type: type 2 Diabetes mellitus intermediate designer insulin use: with correction use (6) Anemia Code(s): D64.9 - ANEMIA, UNSPECIFIED Qualifiers: Anemia type: due to chronic kidney disease Chronic kidney disease stage: on chronic dialysis Qualified Code(s): N18.6 - End stage renal disease; D63.1 - Anemia in chronic kidney disease; Z99.2 - Dependence on renal dialysis (7) Hypertensive cardiomegaly with heart failure Code(s): I11.0 - HYPERTENSIVE HEART DISEASE WITH HEART FAILURE Assessment/Plan 08/18/2018 Echo: Normal LV and RV size and fxn, LVEF 65-70%, mild-mod MR, mild TR, RVSP 35 mmHg, mild-mod AR, large pleural effusion, Grade II diastolic dysfxn c/w elevated LA pressures. 1. Syncope suspect vasovagal, fluid shifts 2. Acute on chronic diastolic failure with pleural effusions and subendocardial ischemia 3. Acute on Chronic Renal Failure likely progressive CKD with hyperkalemia post HD 4. Metabolic Acidosis with toxic met encephelopathy 5. HTN cardiomyopathy 6. Anemia of CKD 7. Thrombocytopenia improving 8. Insulin-dependent Type 2 DM 9. Extensive sigmoid diverticulosis w/o inflammation P: 1. HD via PC and Demadex 40 qd per renal with monitor urine output, renal function, trops decreasing 2. Continue Norvasc 10 qd, Atenolol 25 qd (with caution), start ARB once committed to HD 3. Monitor H/H and transfuse as needed to maintain Hgb>8.0 4. DVT and GI prophylaxis 5. Outpatient HD facility
--- NOTE | 2018-08-24 14:52 | PN ---
Physical Exam: SUBJECTIVE: Patient seen and examined, lethargic but minimal responses. Denies any pain. Asking for water. OBJECTIVE: Vital Signs Period Temp Pulse Resp BP Sys/Bernstein Pulse Ox Last 24 Hr 97.4 F-98.4 F 60-72 16-18 90-138/35-67 96-96 General; lying in bed getting HD, responds to name, minimal responses, moves all extremities Chest: poor effort, few basilar rales Abdomen: soft, NT, ND, positive bowel sounds Extremities: no edema, hand mittens Laboratory Results - last 24 hr 08/23/18 08/23/18 08/24/18 17:09 23:27 06:30 WBC 11.5 H RBC 3.89 L Hgb 10.9 L Hct 31.7 L MCV 81.6 MCH 28.0 MCHC 34.3 RDW 16.3 H Plt Count 191 MPV 8.2 Sodium Potassium Chloride Carbon Dioxide Anion Gap BUN Creatinine Creat Clearance w eGFR POC Glucometer 168 254 Random Glucose Calcium Phosphorus Magnesium Total Bilirubin AST ALT Alkaline Phosphatase Total Protein Albumin 08/24/18 08/24/18 08/24/18 06:30 06:38 11:22 WBC RBC Hgb Hct MCV MCH MCHC RDW Plt Count MPV Sodium 139 Potassium 3.6 Chloride 101 Carbon Dioxide 28 Anion Gap 10 BUN 38 H Creatinine 7.5 H* Creat Clearance w eGFR 6.94 POC Glucometer 125 167 Random Glucose 126 H Calcium 7.9 L Phosphorus 2.2 L Magnesium 2.3 Total Bilirubin 0.6 AST 22 ALT 10 L Alkaline Phosphatase 57 Total Protein 6.5 Albumin 2.0 L Active Medications Generic Name Dose Route Start Last Admin Trade Name Andrey PRN Reason Stop Dose Admin Acetaminophen 650 mg 08/21/18 11:29 08/21/18 20:52 Tylenol - PO 650 mg Q6H PRN Administration PAIN Albuterol Sulfate 1 amp 08/21/18 11:29 08/23/18 08:54 Ventolin 0.083% Nebulizer Soln - NEB 1 amp Q4H PRN Administration SHORT OF BREATH/WHEEZING Amlodipine Besylate 10 mg 08/21/18 15:13 08/23/18 10:12 Norvasc - PO 10 mg DAILY REHANA Administration Atenolol 25 mg 08/21/18 15:14 08/23/18 10:14 Tenormin - PO 25 mg DAILY REHANA Administration Guaifenesin 600 mg 08/21/18 15:39 08/23/18 23:10 Mucinex - PO 600 mg BID REHANA Administration Heparin Sodium (Porcine) 5,000 unit 08/21/18 14:00 08/24/18 06:40 Heparin - SQ 5,000 unit TID REHANA Administration Sodium Chloride 250 mls @ 3,000 mls/hr 08/23/18 22:55 Normal Saline - IV 08/24/18 22:56 PRN PRN Hypotension during Dialysis Insulin Aspart 1 vial 08/21/18 16:30 08/24/18 06:40 Novolog Vial Sliding Scale - SQ Not Given ACHS [facility] Protocol Ondansetron HCl 4 mg 08/21/18 11:29 Zofran Injection IVPB Q6H PRN NAUSEA Ranitidine HCl 150 mg 08/21/18 17:30 08/23/18 10:14 Zantac Oral Solution - PO 150 mg DAILY REHANA Administration Sevelamer Carbonate 800 mg 08/21/18 12:00 08/23/18 17:14 Renvela - PO 800 mg TIDCM REHANA Administration Tamsulosin HCl 0.8 mg 08/21/18 15:41 08/23/18 09:13 Flomax - PO 0.8 mg DAILY@0830 REHANA Administration Torsemide 40 mg 08/23/18 10:00 08/23/18 10:14 Demadex - PO 40 mg DAILY REHANA Administration Microbiology 08/15/18 23:50 Blood - Peripheral Venous Blood Culture - Final NO GROWTH AFTER 5 DAYS INCUBATION 08/15/18 23:50 Blood - Peripheral Venous Blood Culture - Final NO GROWTH AFTER 5 DAYS INCUBATION 08/15/18 22:10 Urine - Urine Sen Urine Culture - Final NO GROWTH OBTAINED 08/16/18 11:40 Urine For Antigen Detection Legionella Antigen - Final 08/16/18 11:40 Urine For Antigen Detection Streptococcus pneumoniae Antigen (M - Final ASSESSMENT/PLAN: 87 year old male with BPH, CKD 4, HTN, HLD, DM 2, presented with a 2 week history of increasing shortness of breath, worse on exertion, with associated LE edema for the 3 days prior to admission, found to have CATARINA on CKD with acidosis and hyperkalemia. -Acute Kidney Injury on Chronic Renal Disease, now CKD-V/ESRD, started on HD, s/ p permacath 08/21 -Hypertensive emergency, off nicardipine drip -Acute hypoxic respiratory distress, from volume overload -AMS, suspect toxic metabolic encephalopathy from uremia -Bilateral pleural effusions/Anasarca, from above -Hyperkalemia, resolved -Metabolic acidosis -Acute respiratory distress from above, improved -Acute on chronic anemia, suspect from CKD/hematuria -Mild troponin elevation,suspected from demand/renal dysfunction -IDDM/hypoglycemia -BPH, h/o urinary retention -h/o GI Bleed due to PUD/s/p H. pylori treatment -Vasovagal syncope on 08/17 (rapid response called) Plan: respiratory status improved. CT brain neg for acute concerns. Ammonia levels noted. s/p 1unit PRBC 08/20. s/p permacath 08/21 Renal/vascular surgery input noted. Mental status improved. Will need outpatient HD arrangements. Off lasix drip. Right inguinal HD cath removed. Sen. Renal US no hydronephrosis. Continue flomax. Norvasc increased. Toprol changed to atenolol, monitor for now. BP rising, monitor, add hydralazine if needed. Off levemir, resume as tolerated. ISS. Diabetic diet. Monitor h/h. heparin DVTPPX Dispo plan for d/c to SNF in 2-3 days if clinically improved and outpatient HD arrangements made. Plan discussed with nursing and CM in detail, all questions answered. Visit type - Emergency Visit Emergency Visit: Yes ED Registration Date: 08/15/18 Care time: The patient presented to the Emergency Department on the above date and was hospitalized for further evaluation of their emergent condition. - New Patient This patient is new to me today: No - Critical Care Critical Care patient: No - Discharge Referral Referred to [facility] Med [facility] No
[2018-08-24] MEDS: ATENOLOL 25 MG TABLET (FP) PO SCH (17:11)
[2018-08-24] MEDS: amLODIPine BESYLATE 10 MG TABLET (FP) PO SCH (17:12)
[2018-08-24] MEDS: RANITIDINE HCL 150 MG/10 ML UNIT-DOSE PO SCH (17:13)
--- NOTE | 2018-08-24 19:47 | PN ---
Progress Note (short form) - Note Progress Note: covering dr buchanan Problems 87 year old Samoan gentleman with hx of CKD (baseline Cr unclear, had CATARINA last year with peak Cr ~5 was discharged with Cr ~4), DM, Hypertension, Hiatal Hernia who presented from home with SOB/leg swelling. #Progressive renal insuffiency now ESRD on HD #Hyperkalemia (now improved s/p dialysis) #Mild Volume overlaod (now improved) #Hypertension #Acute on Chronic Anemia #Anion gap metabolic acidosis #Thrombocytopenia (improving) #+NICK Current Medications Acetaminophen (Tylenol -) 650 mg PO Q6H PRN PRN Reason: PAIN Last Admin: 08/21/18 20:52 Dose: 650 mg Albuterol Sulfate (Ventolin 0.083% Nebulizer Soln -) 1 amp NEB Q4H PRN PRN Reason: SHORT OF BREATH/WHEEZING Last Admin: 08/23/18 08:54 Dose: 1 amp Amlodipine Besylate (Norvasc -) 10 mg PO DAILY [facility] Last Admin: 08/24/18 17:12 Dose: 10 mg Atenolol (Tenormin -) 25 mg PO DAILY [facility] Last Admin: 08/24/18 17:11 Dose: 25 mg Guaifenesin (Mucinex -) 600 mg PO BID [facility] Last Admin: 08/24/18 12:41 Dose: 600 mg Heparin Sodium (Porcine) (Heparin -) 5,000 unit SQ TID [facility] Last Admin: 08/24/18 14:18 Dose: 5,000 unit Sodium Chloride (Normal Saline -) 250 mls @ 3,000 mls/hr IV PRN PRN PRN Reason: Hypotension during Dialysis Stop: 08/24/18 22:56 Insulin Aspart (Novolog Vial Sliding Scale -) 1 vial SQ ACHS [facility]; Protocol Last Admin: 08/24/18 17:40 Dose: 3 units Ondansetron HCl (Zofran Injection) 4 mg IVPB Q6H PRN PRN Reason: NAUSEA Ranitidine HCl (Zantac Oral Solution -) 150 mg PO DAILY [facility] Last Admin: 08/24/18 17:13 Dose: 150 mg Sevelamer Carbonate (Renvela -) 800 mg PO TIDCM [facility] Last Admin: 08/24/18 17:18 Dose: 800 mg Tamsulosin HCl (Flomax -) 0.8 mg PO DAILY@0830 [facility] Last Admin: 08/24/18 12:11 Dose: 0.8 mg Torsemide (Demadex -) 40 mg PO DAILY [facility] Last Admin: 08/24/18 12:13 Dose: 40 mg Last Vital Signs Temp Pulse Resp BP Pulse Ox 97.2 F L 74 18 139/58 L 96 08/24/18 18:00 08/24/18 18:00 08/24/18 18:00 08/24/18 18:00 08/24/18 09:00 lungs clear heart reg abd soft nontender ext no edema CBC, BMP 08/24/18 06:30 08/24/18 06:30 ESRD - stable on hd tolerated on 1.5 liter fluid removal Plan- outpatient hd
--- NOTE | 2018-08-24 20:50 | PN ---
Progress Note, Physician History of Present Illness: Lethargic, plan for HD via PC tomorrow. - Current Medication List Current Medications: Active Medications Acetaminophen (Tylenol -) 650 mg PO Q6H PRN PRN Reason: PAIN Last Admin: 08/21/18 20:52 Dose: 650 mg Albuterol Sulfate (Ventolin 0.083% Nebulizer Soln -) 1 amp NEB Q4H PRN PRN Reason: SHORT OF BREATH/WHEEZING Last Admin: 08/23/18 08:54 Dose: 1 amp Amlodipine Besylate (Norvasc -) 10 mg PO DAILY [facility] Last Admin: 08/24/18 17:12 Dose: 10 mg Atenolol (Tenormin -) 25 mg PO DAILY [facility] Last Admin: 08/24/18 17:11 Dose: 25 mg Guaifenesin (Mucinex -) 600 mg PO BID [facility] Last Admin: 08/24/18 12:41 Dose: 600 mg Heparin Sodium (Porcine) (Heparin -) 5,000 unit SQ TID [facility] Last Admin: 08/24/18 14:18 Dose: 5,000 unit Sodium Chloride (Normal Saline -) 250 mls @ 3,000 mls/hr IV PRN PRN PRN Reason: Hypotension during Dialysis Stop: 08/24/18 22:56 Insulin Aspart (Novolog Vial Sliding Scale -) 1 vial SQ ACHS [facility]; Protocol Last Admin: 08/24/18 17:40 Dose: 3 units Ondansetron HCl (Zofran Injection) 4 mg IVPB Q6H PRN PRN Reason: NAUSEA Ranitidine HCl (Zantac Oral Solution -) 150 mg PO DAILY [facility] Last Admin: 08/24/18 17:13 Dose: 150 mg Sevelamer Carbonate (Renvela -) 800 mg PO TIDCM [facility] Last Admin: 08/24/18 17:18 Dose: 800 mg Tamsulosin HCl (Flomax -) 0.8 mg PO DAILY@0830 [facility] Last Admin: 08/24/18 12:11 Dose: 0.8 mg Torsemide (Demadex -) 40 mg PO DAILY [facility] Last Admin: 08/24/18 12:13 Dose: 40 mg - Objective Vital Signs: Vital Signs Temperature 97.2 F L 08/24/18 18:00 Pulse Rate 74 08/24/18 18:00 Respiratory Rate 18 08/24/18 18:00 Blood Pressure 139/58 L 08/24/18 18:00 O2 Sat by Pulse Oximetry (%) 96 08/24/18 09:00 Constitutional: Yes: No Distress, Calm, Cachectic, Thin Neck: Yes: Supple Cardiovascular: Yes: Regular Rate and Rhythm, Murmur (2/6 SM) Respiratory: Yes: Regular, Diminished, On Nasal O2 Gastrointestinal: Yes: Soft, Hypoactive Bowel Sounds Edema: No Labs: CBC, BMP 08/24/18 06:30 08/24/18 06:30 INR, PTT INR 1.07 (0.83-1.09) 08/16/18 05:30 Problem List - Problems (1) Subendocardial ischemia Code(s): I24.8 - OTHER FORMS OF ACUTE ISCHEMIC HEART DISEASE (2) Pleural effusion due to CHF (congestive heart failure) Code(s): I50.9 - HEART FAILURE, UNSPECIFIED (3) Acute on chronic renal failure Code(s): N17.9 - ACUTE KIDNEY FAILURE, UNSPECIFIED; N18.9 - CHRONIC KIDNEY DISEASE, UNSPECIFIED Qualifiers: Acute renal failure type: unspecified Chronic kidney disease stage: on chronic dialysis Qualified Code(s): N17.9 - Acute kidney failure, unspecified ; N18.9 - Chronic kidney disease, unspecified; Z99.2 - Dependence on renal dialysis (4) CHF (congestive heart failure) Code(s): I50.9 - HEART FAILURE, UNSPECIFIED Qualifiers: Heart failure type: diastolic Heart failure chronicity: acute on chronic Qualified Code(s): I50.33 - Acute on chronic diastolic (congestive) heart failure (5) Diabetes mellitus Code(s): E11.9 - TYPE 2 DIABETES MELLITUS WITHOUT COMPLICATIONS Qualifiers: Diabetes mellitus type: type 2 Diabetes mellitus intermodal customer service insulin use: with intermodal customer service use (6) Anemia Code(s): D64.9 - ANEMIA, UNSPECIFIED Qualifiers: Anemia type: due to chronic kidney disease Chronic kidney disease stage: on chronic dialysis Qualified Code(s): N18.6 - End stage renal disease; D63.1 - Anemia in chronic kidney disease; Z99.2 - Dependence on renal dialysis (7) Hypertensive cardiomegaly with heart failure Code(s): I11.0 - HYPERTENSIVE HEART DISEASE WITH HEART FAILURE Assessment/Plan 08/18/2018 Echo: Normal LV and RV size and fxn, LVEF 65-70%, mild-mod MR, mild TR, RVSP 35 mmHg, mild-mod AR, large pleural effusion, Grade II diastolic dysfxn c/w elevated LA pressures. 1. Syncope suspect vasovagal, fluid shifts 2. Acute on chronic diastolic failure with pleural effusions and subendocardial ischemia 3. Acute on Chronic Renal Failure likely progressive CKD with hyperkalemia post HD 4. Metabolic Acidosis with toxic met encephelopathy 5. HTN cardiomyopathy 6. Anemia of CKD 7. Thrombocytopenia improving 8. Insulin-dependent Type 2 DM 9. Extensive sigmoid diverticulosis w/o inflammation P: 1. HD via PC and Demadex 40 qd per renal with monitor urine output, renal function, trops decreasing 2. Continue Norvasc 10 qd, Atenolol 25 qd (with caution), start ARB once committed to HD 3. Monitor H/H and transfuse as needed to maintain Hgb>8.0 4. DVT and GI prophylaxis 5. Outpatient HD facility
[2018-08-25] MEDS: HEPARIN NA (PORCINE) 5,000 UNITS/ML 1ML VIAL SQ SCH ×3 (06:36→21:20)
[2018-08-25] MEDS: INSULIN SLIDING SCALE (NOVOLOG) 1 VIAL SQ SCH ×4 (06:39→21:20)
[2018-08-25] MEDS: ALBUTEROL SO4 0.083% IH SOL 2.5 MG/3 ML VIAL.NEB. NEB PRN (07:58)
--- NOTE | 2018-08-25 08:03 | PN ---
Teaching Attending Note Name of Resident: Best Alvarado ATTENDING PHYSICIAN STATEMENT I saw and evaluated the patient. I reviewed the resident's note and discussed the case with the resident. I agree with the resident's findings and plan as documented with exceptions below. SUBJECTIVE: Patient seen and examined. few minimal responses. no dyspnea, abdominal or urinary symptoms. OBJECTIVE: Vital Signs Period Temp Pulse Resp BP Sys/Bernstein Pulse Ox Last 24 Hr 97.2 F-98.4 F 60-74 18-18 90-162/35-75 96-96 Intake & Output 08/22/18 08/23/18 08/24/18 08/25/18 23:59 23:59 23:59 23:59 Intake Total 1270 240 845 Output Total 290 Balance 980 240 845 Weight 104 lb General: lying in bed, lethargic minimal responses but no acute distress Chest: decreased effort, unable to appreciate rales or wheezing, limited exam Abdomen:Soft, NT, ND Extremities: mittens, no edema Active Medications Acetaminophen (Tylenol -) 650 mg PO Q6H PRN PRN Reason: PAIN Last Admin: 08/21/18 20:52 Dose: 650 mg Albuterol Sulfate (Ventolin 0.083% Nebulizer Soln -) 1 amp NEB Q4H PRN PRN Reason: SHORT OF BREATH/WHEEZING Last Admin: 08/25/18 07:58 Dose: 1 amp Amlodipine Besylate (Norvasc -) 10 mg PO DAILY [facility] Last Admin: 08/24/18 17:12 Dose: 10 mg Atenolol (Tenormin -) 25 mg PO DAILY [facility] Last Admin: 08/24/18 17:11 Dose: 25 mg Guaifenesin (Mucinex -) 600 mg PO BID [facility] Last Admin: 08/24/18 22:05 Dose: 600 mg Heparin Sodium (Porcine) (Heparin -) 5,000 unit SQ TID [facility] Last Admin: 08/25/18 06:36 Dose: 5,000 unit Sodium Chloride (Normal Saline -) 250 mls @ 3,000 mls/hr IV PRN PRN PRN Reason: Hypotension during Dialysis Stop: 08/24/18 22:56 Insulin Aspart (Novolog Vial Sliding Scale -) 1 vial SQ ACHS [facility]; Protocol Last Admin: 08/25/18 06:39 Dose: 2 units Ondansetron HCl (Zofran Injection) 4 mg IVPB Q6H PRN PRN Reason: NAUSEA Ranitidine HCl (Zantac Oral Solution -) 150 mg PO DAILY [facility] Last Admin: 08/24/18 17:13 Dose: 150 mg Sevelamer Carbonate (Renvela -) 800 mg PO TIDCM [facility] Last Admin: 08/24/18 17:18 Dose: 800 mg Tamsulosin HCl (Flomax -) 0.8 mg PO DAILY@0830 [facility] Last Admin: 08/24/18 12:11 Dose: 0.8 mg Torsemide (Demadex -) 40 mg PO DAILY [facility] Last Admin: 08/24/18 12:13 Dose: 40 mg ASSESSMENT AND PLAN: 87 year old male with BPH, CKD 4, HTN, HLD, DM 2, presented with a 2 week history of increasing shortness of breath, worse on exertion, with associated LE edema for the 3 days prior to admission, found to have CATARINA on CKD with acidosis and hyperkalemia, started on HD, s/p permacath placement, awaiting SNF and outpatient HD arrangements. -Acute Kidney Injury on Chronic Renal Disease, now CKD-V/ESRD, started on HD, s/ p permacath 08/21 -Hypertensive emergency, off nicardipine drip -Acute hypoxic respiratory distress, from volume overload -AMS, suspect toxic metabolic encephalopathy from uremia -Bilateral pleural effusions/Anasarca, from above -Hyperkalemia, resolved -Metabolic acidosis -Acute respiratory distress from above, improved -Acute on chronic anemia, suspect from CKD/hematuria -Mild troponin elevation,suspected from demand/renal dysfunction -IDDM/hypoglycemia -BPH, h/o urinary retention -h/o GI Bleed due to PUD/s/p H. pylori treatment -Vasovagal syncope on 08/17 (rapid response called) Plan: respiratory status improved. CT brain neg for acute concerns. Ammonia levels noted. s/p 1unit PRBC 08/20. s/p permacath 08/21 Renal/vascular surgery input noted. Mental status improved. Overall lethargic with minimal interaction. Palliative care to address goals of care. Will need outpatient HD arrangements. Off lasix drip. Right inguinal HD cath removed. Sen. Renal US no hydronephrosis. Continue flomax. Norvasc increased. Toprol changed to atenolol, monitor for now. BP rising, monitor, add hydralazine if needed. Off levemir, resume as tolerated. ISS. Diabetic diet. Monitor h/h. heparin DVTPPX Trial off mittens. Dispo plan for d/c to SNF pending SNF bed and outpatient HD arrangements. Plan discussed with nursing and CM in detail, all questions answered.
--- NOTE | 2018-08-25 08:07 | PN ---
Physical Exam: SUBJECTIVE: Patient seen and examined at bedside this morning. No acute overnight events. Patient does not endorse any new complaints today. OBJECTIVE: Vital Signs Period Temp Pulse Resp BP Sys/Bernstein Pulse Ox Last 24 Hr 97.2 F-98.4 F 60-74 18-18 90-162/35-75 96-96 GENERAL: The patient is awake, and oriented to person and place, in no acute distress. HEAD: Normal with no signs of trauma. EYES: PERRL, extraocular movements intact, sclera anicteric, conjunctiva clear. ENT: Ears normal, nares patent, oropharynx clear without exudates, dry mucous membranes. NECK: Supple, without lymphadenopathy. Right sideed Permacath in place, insertion site noted without erythema, bleeding, or drainage. LUNGS: Poor inspiratory effory. Faint crackles auscultated B/L, improved significantly. No wheezing auscultated today. No accessory muscle use. HEART: Regular rate and rhythm, S1, S2 without murmur, rub or gallop. ABDOMEN: Soft, nontender, nondistended, normoactive bowel sounds, no guarding, no rebound, no hepatosplenomegaly, no masses. EXTREMITIES: 2+ radial and dorsalis pedis pulses b/l. Warm, well-perfused, no edema. NEUROLOGICAL: Cranial nerves II through XII grossly intact. Freely moving b/l upper and lower extremities. SKIN: Warm, dry, normal turgor, no rashes or lesions noted. Laboratory Results - last 24 hr 08/24/18 08/24/18 08/24/18 06:30 11:22 17:05 Sodium 139 Potassium 3.6 Chloride 101 Carbon Dioxide 28 Anion Gap 10 BUN 38 H Creatinine 7.5 H* Creat Clearance w eGFR 6.94 POC Glucometer 167 204 Random Glucose 126 H Calcium 7.9 L Phosphorus 2.2 L Magnesium 2.3 Total Bilirubin 0.6 AST 22 ALT 10 L Alkaline Phosphatase 57 Total Protein 6.5 Albumin 2.0 L 08/24/18 08/25/18 22:08 06:37 Sodium Potassium Chloride Carbon Dioxide Anion Gap BUN Creatinine Creat Clearance w eGFR POC Glucometer 292 177 Random Glucose Calcium Phosphorus Magnesium Total Bilirubin AST ALT Alkaline Phosphatase Total Protein Albumin Active Medications Generic Name Dose Route Start Last Admin Trade Name Freq PRN Reason Stop Dose Admin Acetaminophen 650 mg 08/21/18 11:29 08/21/18 20:52 Tylenol - PO 650 mg Q6H PRN Administration PAIN Albuterol Sulfate 1 amp 08/21/18 11:29 08/25/18 07:58 Ventolin 0.083% Nebulizer Soln - NEB 1 amp Q4H PRN Administration SHORT OF BREATH/WHEEZING Amlodipine Besylate 10 mg 08/21/18 15:13 08/24/18 17:12 Norvasc - PO 10 mg DAILY [facility] Administration Atenolol 25 mg 08/21/18 15:14 08/24/18 17:11 Tenormin - PO 25 mg DAILY [facility] Administration Guaifenesin 600 mg 08/21/18 15:39 08/24/18 22:05 Mucinex - PO 600 mg BID [facility] Administration Heparin Sodium (Porcine) 5,000 unit 08/21/18 14:00 08/25/18 06:36 Heparin - SQ 5,000 unit TID [facility] Administration Sodium Chloride 250 mls @ 3,000 mls/hr 08/23/18 22:55 Normal Saline - IV 08/24/18 22:56 PRN PRN Hypotension during Dialysis Insulin Aspart 1 vial 08/21/18 16:30 08/25/18 06:39 Novolog Vial Sliding Scale - SQ 2 units ACHS [facility] Administration Protocol Ondansetron HCl 4 mg 08/21/18 11:29 Zofran Injection IVPB Q6H PRN NAUSEA Ranitidine HCl 150 mg 08/21/18 17:30 08/24/18 17:13 Zantac Oral Solution - PO 150 mg DAILY [facility] Administration Sevelamer Carbonate 800 mg 08/21/18 12:00 08/24/18 17:18 Renvela - PO 800 mg TIDCM [facility] Administration Tamsulosin HCl 0.8 mg 08/21/18 15:41 08/24/18 12:11 Flomax - PO 0.8 mg DAILY@0830 [facility] Administration Torsemide 40 mg 08/23/18 10:00 08/24/18 12:13 Demadex - PO 40 mg DAILY [facility] Administration IMAGING CT abdomen/ pelvis: B/L atelectasis/ consolidation, B/L effusions. Extensive diverticulosis, without diverticulitis Cardiac echocardiogram: LV systolic function normal. RV systolic function normal. EF 65-70%. Increased LV pressure with grade II diastolic dysfunction. Lower extremity doppler: Negative for DVT B/L lower extremities. Renal ultrasound: B/L atrophic echogenic kidneys, indicative of chronic disease. Simple renal cysts 2.5cm right, 1cm left. Chest Xray (08/19/2018): B/L pulmonary congestion, and pleural effusions. Left base atelectasis vs. congesiton, and atelectatic changes on right. ASSESSMENT/PLAN: Patient is an 87 year old male with history of diabetes mellitus, chronic kidney disease stage V, hypertension, hyperlipidemia, presented with complaint of shortness of breath, and lower extremity edema for past 4 days prior to admission. CATARINA on CKD -Patient's Cr in prior admission (08/2017) 4.6 -Likely secondary to obstruction, given patient's history of BPH. -Nephrology recommendations (Dr. Carvajal) appreciated. Patient tolerated HD . 1.5kg removed, tolerated well. -Patient was transfused 1 unit PRBCs with HD (08/20). -Ammonia level 22.01 -CT head shows no acute intracranial pathology. Volume overload -Likely secondary to acute on chronic renal failure. Received last HD yesterday. -On 3L nasal canula, saturating 98% Acute on chronic anemia -Anemia likely secondary to chronic kidney disease -S/P 1 unit PRBCs transfused (08/20) -Epoietin given during HD, per nephrology Hypertension -No longer on Nicardipine drip. -Amlodipine 10mg PO daily -Atenolol 25mg PO daily -Closely follow vitals Diabetes Mellitus -Insulin sliding scale ACHS -BGM ACHS Benign Prostatic Hyperplasia -Tamsulosin 0.8mg PO daily -Sen catheter removed. Follow urinary voiding. Metabolic acidosis -Resolved with hemodialysis FEN -No IV fluids at this time -Follow CMP -Renal controlled diet. Prophylaxis -Heparin 5000u subq TID -Famotidine 20mg IV daily Disposition -Continue care in medical-surgical floor. Pending placement in SNF. Palliative care consult, to discuss goals of care with family. Patient requires to be off restraints for 24 hours. Tabitha Mitts discontinued. Visit type - Emergency Visit Emergency Visit: Yes ED Registration Date: 08/15/18 Care time: The patient presented to the Emergency Department on the above date and was hospitalized for further evaluation of their emergent condition. - New Patient This patient is new to me today: No - Critical Care Critical Care patient: No - Discharge Referral Referred to [facility] No
[2018-08-25] MEDS: TAMSULOSIN HCL 0.4 MG CAP PO SCH (08:36)
[2018-08-25] MEDS: SEVELAMER CARBONATE 800 MG TAB (FP) PO SCH ×3 (08:36→17:09)
[2018-08-25 09:38] LABS: ANION GAP 9 MMOL/L (8-16); BLOOD UREA NITROGEN 27 mg/dL (7-18); CALCIUM 8.2 mg/dL (8.5-10.1); CHLORIDE 106 mmol/L (98-107); CO2 28 mmol/L (21-32); CREATININE 5.6 mg/dL (0.55-1.3); GLUCOSE,RANDOM 155 mg/dL (74-106); MAGNESIUM 2.5 mg/dL (1.8-2.4); PHOSPHOROUS 1.8 mg/dL (2.5-4.9); POTASSIUM 3.6 mmol/L (3.5-5.1); SODIUM 144 mmol/L (136-145)
[2018-08-25] MEDS: RANITIDINE HCL 150 MG/10 ML UNIT-DOSE PO SCH (11:32)
[2018-08-25] MEDS: ATENOLOL 25 MG TABLET (FP) PO SCH (11:37)
[2018-08-25] MEDS: guaiFENesin 600 MG TABLET.ER (FP) PO SCH ×2 (11:37→21:19)
[2018-08-25] MEDS: amLODIPine BESYLATE 10 MG TABLET (FP) PO SCH (11:37)
[2018-08-25] MEDS: TORSEMIDE 20 MG TABLET (FP) PO SCH (11:37)
--- NOTE | 2018-08-25 12:24 | PN ---
Progress Note (short form) - Note Progress Note: NAD in bed. Confused. No acute events overnight. Intake & Output 08/22/18 08/23/18 08/24/18 08/25/18 23:59 23:59 23:59 23:59 Intake Total 1270 240 845 240 Output Total 290 Balance 980 240 845 240 Weight 104 lb Last Vital Signs Temp Pulse Resp BP Pulse Ox 98.4 F 64 18 159/66 96 08/25/18 06:00 08/25/18 06:00 08/25/18 06:00 08/25/18 06:00 08/24/18 22:00 Active Medications Acetaminophen (Tylenol -) 650 mg PO Q6H PRN PRN Reason: PAIN Last Admin: 08/21/18 20:52 Dose: 650 mg Albuterol Sulfate (Ventolin 0.083% Nebulizer Soln -) 1 amp NEB Q4H PRN PRN Reason: SHORT OF BREATH/WHEEZING Last Admin: 08/25/18 07:58 Dose: 1 amp Amlodipine Besylate (Norvasc -) 10 mg PO DAILY [facility] Last Admin: 08/25/18 11:37 Dose: 10 mg Atenolol (Tenormin -) 25 mg PO DAILY [facility] Last Admin: 08/25/18 11:37 Dose: 25 mg Guaifenesin (Mucinex -) 600 mg PO BID [facility] Last Admin: 08/25/18 11:37 Dose: 600 mg Heparin Sodium (Porcine) (Heparin -) 5,000 unit SQ TID [facility] Last Admin: 08/25/18 06:36 Dose: 5,000 unit Sodium Chloride (Normal Saline -) 250 mls @ 3,000 mls/hr IV PRN PRN PRN Reason: Hypotension during Dialysis Stop: 08/24/18 22:56 Insulin Aspart (Novolog Vial Sliding Scale -) 1 vial SQ ACHS [facility]; Protocol Last Admin: 08/25/18 11:31 Dose: 3 units Ondansetron HCl (Zofran Injection) 4 mg IVPB Q6H PRN PRN Reason: NAUSEA Ranitidine HCl (Zantac Oral Solution -) 150 mg PO DAILY [facility] Last Admin: 08/25/18 11:32 Dose: 150 mg Sevelamer Carbonate (Renvela -) 800 mg PO TIDCM [facility] Last Admin: 12/24/18 11:36 Dose: 800 mg Tamsulosin HCl (Flomax -) 0.8 mg PO DAILY@0830 [facility] Last Admin: 08/25/18 08:36 Dose: 0.8 mg Torsemide (Demadex -) 40 mg PO DAILY [facility] Last Admin: 08/25/18 11:37 Dose: 40 mg Constitutional: Yes: NAD, Thin, confused Eyes: Yes: WNL HENT: Yes: WNL Neck: Yes: WNL Cardiovascular: Yes: Regular Rate and Rhythm, S1, S2 Respiratory: Yes: bibasilar rhonchi Gastrointestinal: Yes: Normal Bowel Sounds, Soft Extremities: Yes: WNL Edema: No Labs: Laboratory Results - last 24 hr 08/24/18 08/24/18 08/25/18 17:05 22:08 06:37 Sodium Potassium Chloride Carbon Dioxide Anion Gap BUN Creatinine Creat Clearance w eGFR POC Glucometer 204 292 177 Random Glucose Calcium Phosphorus Magnesium 08/25/18 08/25/18 07:15 11:24 Sodium 144 Potassium 3.6 Chloride 106 Carbon Dioxide 28 Anion Gap 9 BUN 27 H Creatinine 5.6 H Creat Clearance w eGFR 9.73 POC Glucometer 213 Random Glucose 155 H Calcium 8.2 L Phosphorus 1.8 L Magnesium 2.5 H Problem List - Problems (1) Dyspnea Code(s): R06.00 - DYSPNEA, UNSPECIFIED (2) Acute on chronic renal failure Code(s): N17.9 - ACUTE KIDNEY FAILURE, UNSPECIFIED; N18.9 - CHRONIC KIDNEY DISEASE, UNSPECIFIED Qualifiers: Acute renal failure type: unspecified Chronic kidney disease stage: unspecified stage Qualified Code(s): N17.9 - Acute kidney failure, unspecified ; N18.9 - Chronic kidney disease, unspecified (3) CHF (congestive heart failure) Code(s): I50.9 - HEART FAILURE, UNSPECIFIED Qualifiers: Heart failure type: diastolic Heart failure chronicity: acute on chronic Qualified Code(s): I50.33 - Acute on chronic diastolic (congestive) heart failure (4) Diabetes mellitus Code(s): E11.9 - TYPE 2 DIABETES MELLITUS WITHOUT COMPLICATIONS Qualifiers: Diabetes mellitus type: type 2 Diabetes mellitus middle or intermediate school principal insulin use: with middle or intermediate school principal use (5) Pleural effusion due to CHF (congestive heart failure) Code(s): I50.9 - HEART FAILURE, UNSPECIFIED Assessment/Plan Acute on Chronic Renal Failure Dyspnea,Fluid overload Metabolic Acidosis Volume Overload HTN Anemia Thrombocytopenia - HD per renal - Repeat CXR in 4 weeks as an outpatient - DVT prophylaxis - D/C planning Dr Husain
[2018-08-25 12:38] VITALS: BMI 20.2
--- NOTE | 2018-08-25 16:32 | PN ---
Progress Note, Physician History of Present Illness: Resting, hemodynamics stable, tolerated HD via PC. - Current Medication List Current Medications: Active Medications Acetaminophen (Tylenol -) 650 mg PO Q6H PRN PRN Reason: PAIN Last Admin: 08/21/18 20:52 Dose: 650 mg Albuterol Sulfate (Ventolin 0.083% Nebulizer Soln -) 1 amp NEB Q4H PRN PRN Reason: SHORT OF BREATH/WHEEZING Last Admin: 08/25/18 07:58 Dose: 1 amp Amlodipine Besylate (Norvasc -) 10 mg PO DAILY [facility] Last Admin: 08/25/18 11:37 Dose: 10 mg Atenolol (Tenormin -) 25 mg PO DAILY [facility] Last Admin: 08/25/18 11:37 Dose: 25 mg Guaifenesin (Mucinex -) 600 mg PO BID [facility] Last Admin: 08/25/18 11:37 Dose: 600 mg Heparin Sodium (Porcine) (Heparin -) 5,000 unit SQ TID [facility] Last Admin: 08/25/18 06:36 Dose: 5,000 unit Sodium Chloride (Normal Saline -) 250 mls @ 3,000 mls/hr IV PRN PRN PRN Reason: Hypotension during Dialysis Stop: 08/24/18 22:56 Insulin Aspart (Novolog Vial Sliding Scale -) 1 vial SQ ACHS [facility]; Protocol Last Admin: 08/25/18 11:31 Dose: 3 units Ondansetron HCl (Zofran Injection) 4 mg IVPB Q6H PRN PRN Reason: NAUSEA Ranitidine HCl (Zantac Oral Solution -) 150 mg PO DAILY [facility] Last Admin: 08/25/18 11:32 Dose: 150 mg Sevelamer Carbonate (Renvela -) 800 mg PO TIDCM [facility] Last Admin: 08/25/18 11:36 Dose: 800 mg Tamsulosin HCl (Flomax -) 0.8 mg PO DAILY@0830 [facility] Last Admin: 08/25/18 08:36 Dose: 0.8 mg Torsemide (Demadex -) 40 mg PO DAILY [facility] Last Admin: 08/25/18 11:37 Dose: 40 mg - Objective Vital Signs: Vital Signs Temperature 97.2 F L 08/25/18 15:47 Pulse Rate 67 08/25/18 15:47 Respiratory Rate 18 08/25/18 15:47 Blood Pressure 115/43 L 12/24/18 15:47 O2 Sat by Pulse Oximetry (%) 96 08/24/18 22:00 Constitutional: Yes: No Distress, Calm Neck: Yes: Supple Cardiovascular: Yes: Regular Rate and Rhythm Respiratory: Yes: Regular, Diminished, On Nasal O2 Gastrointestinal: Yes: Normal Bowel Sounds, Soft Edema: No Labs: CBC, BMP 08/24/18 06:30 08/25/18 07:15 INR, PTT INR 1.07 (0.83-1.09) 08/16/18 05:30 Problem List - Problems (1) Subendocardial ischemia Code(s): I24.8 - OTHER FORMS OF ACUTE ISCHEMIC HEART DISEASE (2) Pleural effusion due to CHF (congestive heart failure) Code(s): I50.9 - HEART FAILURE, UNSPECIFIED (3) Acute on chronic renal failure Code(s): N17.9 - ACUTE KIDNEY FAILURE, UNSPECIFIED; N18.9 - CHRONIC KIDNEY DISEASE, UNSPECIFIED Qualifiers: Acute renal failure type: unspecified Chronic kidney disease stage: on chronic dialysis Qualified Code(s): N17.9 - Acute kidney failure, unspecified ; N18.9 - Chronic kidney disease, unspecified; Z99.2 - Dependence on renal dialysis (4) CHF (congestive heart failure) Code(s): I50.9 - HEART FAILURE, UNSPECIFIED Qualifiers: Heart failure type: diastolic Heart failure chronicity: acute on chronic Qualified Code(s): I50.33 - Acute on chronic diastolic (congestive) heart failure (5) Diabetes mellitus Code(s): E11.9 - TYPE 2 DIABETES MELLITUS WITHOUT COMPLICATIONS Qualifiers: Diabetes mellitus type: type 2 Diabetes mellitus termite control representative insulin use: with termite control representative use (6) Anemia Code(s): D64.9 - ANEMIA, UNSPECIFIED Qualifiers: Anemia type: due to chronic kidney disease Chronic kidney disease stage: on chronic dialysis Qualified Code(s): N18.6 - End stage renal disease; D63.1 - Anemia in chronic kidney disease; Z99.2 - Dependence on renal dialysis (7) Hypertensive cardiomegaly with heart failure Code(s): I11.0 - HYPERTENSIVE HEART DISEASE WITH HEART FAILURE Assessment/Plan 08/18/2018 Echo: Normal LV and RV size and fxn, LVEF 65-70%, mild-mod MR, mild TR, RVSP 35 mmHg, mild-mod AR, large pleural effusion, Grade II diastolic dysfxn c/w elevated LA pressures. 1. Syncope suspect vasovagal, fluid shifts 2. Acute on chronic diastolic failure with pleural effusions and subendocardial ischemia 3. Acute on Chronic Renal Failure likely progressive CKD with hyperkalemia post HD 4. Metabolic Acidosis with toxic met encephelopathy 5. HTN cardiomyopathy 6. Anemia of CKD 7. Thrombocytopenia improving 8. Insulin-dependent Type 2 DM 9. Extensive sigmoid diverticulosis w/o inflammation P: 1. HD via PC and Demadex 40 qd per renal with monitor urine output, renal function, trops decreasing 2. Continue Norvasc 10 qd, Atenolol 25 qd (with caution), start ARB once committed to HD 3. Monitor H/H and transfuse as needed to maintain Hgb>8.0 4. DVT and GI prophylaxis 5. D/c planning to outpatient HD facility
--- NOTE | 2018-08-25 18:27 | PN ---
Progress Note (short form) - Note Progress Note: covering dr buchanan Problems 87 year old gentleman with hx of CKD (baseline Cr unclear, had CATARINA last year with peak Cr ~5 was discharged with Cr ~4), DM, Hypertension, Hiatal Hernia who presented from home with SOB/leg swelling. Progressive renal insuffiency now ESRD on HD s/p Hyperkalemia (now improved s/p dialysis) Mild Volume overload (now improved) Hypertension Acute on Chronic Anemia Anion gap metabolic acidosis Thrombocytopenia (improving) +NICK Last Vital Signs Temp Pulse Resp BP Pulse Ox 97.2 F L 67 18 115/43 L 96 08/25/18 15:47 08/25/18 15:47 08/25/18 15:47 08/25/18 15:47 08/24/18 22:00 cognitive impaired lungs clear heart reg abd soft nontender ext no edema CBC, BMP 08/25/18 07:15 CBC, BMP 08/24/18 06:30 08/24/18 06:30 ESRD - stable on hd tolerated on 1.5 liter fluid removal Plan- outpatient hd
[2018-08-25] MEDS ORDERED: INSULIN (NOVOLOG) ASPART 100 UNITS/ML 10ML VIAL ONE (20:05)
[2018-08-25 23:08] LABS: COMPLEMENT TOTAL(CH50) > 60 U/mL (>41)
[2018-08-26] MEDS: HEPARIN NA (PORCINE) 5,000 UNITS/ML 1ML VIAL SQ SCH ×3 (06:15→22:24)
[2018-08-26] MEDS: INSULIN SLIDING SCALE (NOVOLOG) 1 VIAL SQ SCH ×4 (06:15→22:24)
[2018-08-26 07:36] LABS: HEMATOCRIT 35.6 % (35.4-49); HEMOGLOBIN 11.1 GM/dL (11.7-16.9); MCH 25.8 pg (25.7-33.7); MCHC 31.1 g/dl (32.0-35.9); MEAN CELL VOLUME 82.8 fl (80-96); MEAN PLT VOLUME 8.1 fl (7.5-11.1); PLATELET COUNT 161 K/MM3 (134-434); RBC 4.29 M/mm3 (4.00-5.60); RDW 16.5 % (11.9-15.9); WHITE BLOOD COUNT 11.8 K/mm3 (4.0-10.0)
[2018-08-26 08:06] LABS: ANION GAP 8 MMOL/L (8-16); BLOOD UREA NITROGEN 43 mg/dL (7-18); CALCIUM 8.7 mg/dL (8.5-10.1); CHLORIDE 104 mmol/L (98-107); CO2 29 mmol/L (21-32); GLUCOSE,RANDOM 152 mg/dL (74-106); POTASSIUM 3.9 mmol/L (3.5-5.1); SODIUM 141 mmol/L (136-145)
--- NOTE | 2018-08-26 10:07 | PN ---
Progress Note (short form) - Note Progress Note: NAD in bed. Confused. No acute events overnight. Intake & Output 08/23/18 08/24/18 08/25/18 08/26/18 23:59 23:59 23:59 23:59 Intake Total 240 845 860 480 Output Total 100 Balance 240 845 860 380 Last Vital Signs Temp Pulse Resp BP Pulse Ox 98.0 F 65 20 130/54 L 100 08/25/18 22:00 08/25/18 22:00 08/25/18 22:00 08/25/18 22:00 08/25/18 22:00 Active Medications Acetaminophen (Tylenol -) 650 mg PO Q6H PRN PRN Reason: PAIN Last Admin: 08/21/18 20:52 Dose: 650 mg Albuterol Sulfate (Ventolin 0.083% Nebulizer Soln -) 1 amp NEB Q4H PRN PRN Reason: SHORT OF BREATH/WHEEZING Last Admin: 08/25/18 07:58 Dose: 1 amp Amlodipine Besylate (Norvasc -) 10 mg PO DAILY [facility] Last Admin: 08/25/18 11:37 Dose: 10 mg Atenolol (Tenormin -) 25 mg PO DAILY [facility] Last Admin: 08/25/18 11:37 Dose: 25 mg Guaifenesin (Mucinex -) 600 mg PO BID [facility] Last Admin: 08/25/18 21:19 Dose: 600 mg Heparin Sodium (Porcine) (Heparin -) 5,000 unit SQ TID [facility] Last Admin: 08/26/18 06:15 Dose: 5,000 unit Sodium Chloride (Normal Saline -) 250 mls @ 3,000 mls/hr IV PRN PRN PRN Reason: Hypotension during Dialysis Stop: 08/24/18 22:56 Insulin Aspart (Novolog Vial Sliding Scale -) 1 vial SQ ACHS [facility]; Protocol Last Admin: 08/26/18 06:15 Dose: 2 units Ondansetron HCl (Zofran Injection) 4 mg IVPB Q6H PRN PRN Reason: NAUSEA Ranitidine HCl (Zantac Oral Solution -) 150 mg PO DAILY [facility] Last Admin: 08/25/18 11:32 Dose: 150 mg Sevelamer Carbonate (Renvela -) 800 mg PO TIDCM [facility] Last Admin: 08/25/18 17:09 Dose: 800 mg Tamsulosin HCl (Flomax -) 0.8 mg PO DAILY@0830 [facility] Last Admin: 08/25/18 08:36 Dose: 0.8 mg Torsemide (Demadex -) 40 mg PO DAILY [facility] Last Admin: 08/25/18 11:37 Dose: 40 mg Constitutional: Yes: NAD, Thin, confused Eyes: Yes: WNL HENT: Yes: WNL Neck: Yes: WNL Cardiovascular: Yes: Regular Rate and Rhythm, S1, S2 Respiratory: Yes: bibasilar rhonchi Gastrointestinal: Yes: Normal Bowel Sounds, Soft Extremities: Yes: WNL Edema: No Labs: Laboratory Results - last 24 hr 08/23/18 08/25/18 08/25/18 08:00 11:24 17:07 WBC RBC Hgb Hct MCV MCH MCHC RDW Plt Count MPV Sodium Potassium Chloride Carbon Dioxide Anion Gap BUN Creatinine Creat Clearance w eGFR POC Glucometer 213 199 Random Glucose Calcium Double Strand DNA Ab 1 Tot Complement (CH50) > 60 08/25/18 08/26/18 08/26/18 21:17 05:42 06:45 WBC 11.8 H RBC 4.29 Hgb 11.1 L Hct 35.6 MCV 82.8 MCH 25.8 MCHC 31.1 L RDW 16.5 H Plt Count 161 MPV 8.1 Sodium Potassium Chloride Carbon Dioxide Anion Gap BUN Creatinine Creat Clearance w eGFR POC Glucometer 166 162 Random Glucose Calcium Double Strand DNA Ab Tot Complement (CH50) 08/26/18 06:45 WBC RBC Hgb Hct MCV MCH MCHC RDW Plt Count MPV Sodium 141 Potassium 3.9 Chloride 104 Carbon Dioxide 29 Anion Gap 8 BUN 43 H Creatinine 7.8 H* Creat Clearance w eGFR 6.64 POC Glucometer Random Glucose 152 H Calcium 8.7 Double Strand DNA Ab Tot Complement (CH50) Problem List - Problems (1) Dyspnea Code(s): R06.00 - DYSPNEA, UNSPECIFIED (2) Acute on chronic renal failure Code(s): N17.9 - ACUTE KIDNEY FAILURE, UNSPECIFIED; N18.9 - CHRONIC KIDNEY DISEASE, UNSPECIFIED Qualifiers: Acute renal failure type: unspecified Chronic kidney disease stage: unspecified stage Qualified Code(s): N17.9 - Acute kidney failure, unspecified ; N18.9 - Chronic kidney disease, unspecified (3) CHF (congestive heart failure) Code(s): I50.9 - HEART FAILURE, UNSPECIFIED Qualifiers: Heart failure type: diastolic Heart failure chronicity: acute on chronic Qualified Code(s): I50.33 - Acute on chronic diastolic (congestive) heart failure (4) Diabetes mellitus Code(s): E11.9 - TYPE 2 DIABETES MELLITUS WITHOUT COMPLICATIONS Qualifiers: Diabetes mellitus type: type 2 Diabetes mellitus detention insulin use: with detention use (5) Pleural effusion due to CHF (congestive heart failure) Code(s): I50.9 - HEART FAILURE, UNSPECIFIED Assessment/Plan Acute on Chronic Renal Failure Dyspnea,Fluid overload Metabolic Acidosis Volume Overload HTN Anemia Thrombocytopenia - HD per renal - Repeat CXR in 4 weeks as an outpatient - DVT prophylaxis - D/C planning Dr Husain
[2018-08-26] MEDS: SEVELAMER CARBONATE 800 MG TAB (FP) PO SCH ×3 (10:26→18:05)
[2018-08-26] MEDS: ATENOLOL 25 MG TABLET (FP) PO SCH (10:26)
[2018-08-26] MEDS: guaiFENesin 600 MG TABLET.ER (FP) PO SCH ×2 (10:26→22:23)
[2018-08-26] MEDS: RANITIDINE HCL 150 MG/10 ML UNIT-DOSE PO SCH (10:26)
[2018-08-26] MEDS: TAMSULOSIN HCL 0.4 MG CAP PO SCH (10:26)
[2018-08-26] MEDS: amLODIPine BESYLATE 10 MG TABLET (FP) PO SCH (10:26)
[2018-08-26] MEDS: TORSEMIDE 20 MG TABLET (FP) PO SCH (10:27)
[2018-08-26 11:49] LABS: CREATININE 7.8 mg/dL (0.55-1.3)
--- NOTE | 2018-08-26 12:50 | PN ---
Progress Note, Physician - Current Medication List Current Medications: Active Medications Acetaminophen (Tylenol -) 650 mg PO Q6H PRN PRN Reason: PAIN Last Admin: 08/21/18 20:52 Dose: 650 mg Amlodipine Besylate (Norvasc -) 10 mg PO DAILY [facility] Last Admin: 08/26/18 10:26 Dose: 10 mg Atenolol (Tenormin -) 25 mg PO DAILY [facility] Last Admin: 08/26/18 10:26 Dose: 25 mg Guaifenesin (Mucinex -) 600 mg PO BID [facility] Last Admin: 08/26/18 10:26 Dose: 600 mg Heparin Sodium (Porcine) (Heparin -) 5,000 unit SQ TID [facility] Last Admin: 08/26/18 06:15 Dose: 5,000 unit Sodium Chloride (Normal Saline -) 250 mls @ 3,000 mls/hr IV PRN PRN PRN Reason: Hypotension during Dialysis Stop: 08/24/18 22:56 Insulin Aspart (Novolog Vial Sliding Scale -) 1 vial SQ ACHS [facility]; Protocol Last Admin: 08/26/18 06:15 Dose: 2 units Ondansetron HCl (Zofran Injection) 4 mg IVPB Q6H PRN PRN Reason: NAUSEA Ranitidine HCl (Zantac Oral Solution -) 150 mg PO DAILY [facility] Last Admin: 08/26/18 10:26 Dose: 150 mg Sevelamer Carbonate (Renvela -) 800 mg PO TIDCM [facility] Last Admin: 08/26/18 10:26 Dose: 800 mg Tamsulosin HCl (Flomax -) 0.8 mg PO DAILY@0830 [facility] Last Admin: 08/26/18 10:26 Dose: 0.8 mg Torsemide (Demadex -) 40 mg PO DAILY [facility] Last Admin: 08/26/18 10:27 Dose: 40 mg - Objective Vital Signs: Vital Signs Temperature 98.9 F 08/26/18 10:27 Pulse Rate 62 08/26/18 10:27 Respiratory Rate 20 08/26/18 10:27 Blood Pressure 116/55 L 08/26/18 10:27 O2 Sat by Pulse Oximetry (%) 100 08/25/18 22:00 Labs: CBC, BMP 08/26/18 06:45 08/26/18 06:45 INR, PTT INR 1.07 (0.83-1.09) 08/16/18 05:30 Assessment/Plan 87 year old male with BPH, CKD 4, HTN, HLD, DM 2, presented with a 2 week history of increasing shortness of breath, worse on exertion, with associated LE edema for the 3 days prior to admission, found to have CATARINA on CKD with acidosis and hyperkalemia, started on HD, s/p permacath placement, awaiting SNF and outpatient HD arrangements. -Acute Kidney Injury on Chronic Renal Disease, now CKD-V/ESRD, started on HD, s/ p permacath 08/21 s/p dialysis -Hypertensive emergency - stable - resolved -Acute hypoxic respiratory distress, from volume overload improved after HD -AMS, suspect toxic metabolic encephalopathy from uremia - c/w dialysis and reassess the patient -Bilateral pleural effusions/Anasarca, from above - resolving -Hyperkalemia, resolved after HD -Metabolic acidosis - resolved after HD -Acute respiratory distress from above, improved -Acute on chronic anemia, suspect from CKD/hematuria 2/2 ESRD -Mild troponin elevation,suspected from demand ischemia and decrease clearance -IDDM/hypoglycemia ISS -BPH, h/o urinary retention -h/o GI Bleed due to PUD/s/p H. pylori treatment -Vasovagal syncope on 08/17 (rapid response called)
--- NOTE | 2018-08-26 17:23 | PN ---
Progress Note, Physician History of Present Illness: Resting, hemodynamics stable, tolerated HD via PC. - Current Medication List Current Medications: Active Medications Acetaminophen (Tylenol -) 650 mg PO Q6H PRN PRN Reason: PAIN Last Admin: 08/21/18 20:52 Dose: 650 mg Amlodipine Besylate (Norvasc -) 10 mg PO DAILY [facility] Last Admin: 08/26/18 10:26 Dose: 10 mg Atenolol (Tenormin -) 25 mg PO DAILY [facility] Last Admin: 08/26/18 10:26 Dose: 25 mg Guaifenesin (Mucinex -) 600 mg PO BID [facility] Last Admin: 08/26/18 10:26 Dose: 600 mg Heparin Sodium (Porcine) (Heparin -) 5,000 unit SQ TID [facility] Last Admin: 08/26/18 14:08 Dose: Not Given Sodium Chloride (Normal Saline -) 250 mls @ 3,000 mls/hr IV PRN PRN PRN Reason: Hypotension during Dialysis Stop: 08/24/18 22:56 Insulin Aspart (Novolog Vial Sliding Scale -) 1 vial SQ ACHS [facility]; Protocol Last Admin: 08/26/18 13:27 Dose: Not Given Ondansetron HCl (Zofran Injection) 4 mg IVPB Q6H PRN PRN Reason: NAUSEA Ranitidine HCl (Zantac Oral Solution -) 150 mg PO DAILY [facility] Last Admin: 08/26/18 10:26 Dose: 150 mg Sevelamer Carbonate (Renvela -) 800 mg PO TIDCM [facility] Last Admin: 08/26/18 13:27 Dose: Not Given Tamsulosin HCl (Flomax -) 0.8 mg PO DAILY@0830 [facility] Last Admin: 08/26/18 10:26 Dose: 0.8 mg Torsemide (Demadex -) 40 mg PO DAILY [facility] Last Admin: 08/26/18 10:27 Dose: 40 mg - Objective Vital Signs: Vital Signs Temperature 97.6 F 08/26/18 14:52 Pulse Rate 59 L 08/26/18 14:52 Respiratory Rate 18 08/26/18 14:52 Blood Pressure 119/53 L 08/26/18 14:52 O2 Sat by Pulse Oximetry (%) 100 08/25/18 22:00 Constitutional: Yes: No Distress, Calm, Cachectic, Thin Neck: Yes: Supple Cardiovascular: Yes: Regular Rate and Rhythm Respiratory: Yes: Regular, CTA Bilaterally Gastrointestinal: Yes: Normal Bowel Sounds, Soft Edema: No Labs: CBC, BMP 08/26/18 06:45 08/26/18 06:45 INR, PTT INR 1.07 (0.83-1.09) 08/16/18 05:30 Problem List - Problems (1) Subendocardial ischemia Code(s): I24.8 - OTHER FORMS OF ACUTE ISCHEMIC HEART DISEASE (2) Pleural effusion due to CHF (congestive heart failure) Code(s): I50.9 - HEART FAILURE, UNSPECIFIED (3) Acute on chronic renal failure Code(s): N17.9 - ACUTE KIDNEY FAILURE, UNSPECIFIED; N18.9 - CHRONIC KIDNEY DISEASE, UNSPECIFIED Qualifiers: Acute renal failure type: unspecified Chronic kidney disease stage: on chronic dialysis Qualified Code(s): N17.9 - Acute kidney failure, unspecified ; N18.9 - Chronic kidney disease, unspecified; Z99.2 - Dependence on renal dialysis (4) CHF (congestive heart failure) Code(s): I50.9 - HEART FAILURE, UNSPECIFIED Qualifiers: Heart failure type: diastolic Heart failure chronicity: acute on chronic Qualified Code(s): I50.33 - Acute on chronic diastolic (congestive) heart failure (5) Diabetes mellitus Code(s): E11.9 - TYPE 2 DIABETES MELLITUS WITHOUT COMPLICATIONS Qualifiers: Diabetes mellitus type: type 2 Diabetes mellitus meterman insulin use: with residential use (6) Anemia Code(s): D64.9 - ANEMIA, UNSPECIFIED Qualifiers: Anemia type: due to chronic kidney disease Chronic kidney disease stage: on chronic dialysis Qualified Code(s): N18.6 - End stage renal disease; D63.1 - Anemia in chronic kidney disease; Z99.2 - Dependence on renal dialysis (7) Hypertensive cardiomegaly with heart failure Code(s): I11.0 - HYPERTENSIVE HEART DISEASE WITH HEART FAILURE Assessment/Plan 08/18/2018 Echo: Normal LV and RV size and fxn, LVEF 65-70%, mild-mod MR, mild TR, RVSP 35 mmHg, mild-mod AR, large pleural effusion, Grade II diastolic dysfxn c/w elevated LA pressures. 1. Syncope suspect vasovagal, fluid shifts 2. Acute on chronic diastolic failure with pleural effusions and subendocardial ischemia 3. Acute on Chronic Renal Failure likely progressive CKD with hyperkalemia post HD 4. Metabolic Acidosis with toxic met encephelopathy 5. HTN cardiomyopathy 6. Anemia of CKD 7. Thrombocytopenia improving 8. Insulin-dependent Type 2 DM 9. Extensive sigmoid diverticulosis w/o inflammation P: 1. HD via PC and Demadex 40 qd per renal with monitor urine output, renal function, trops decreasing 2. Continue Norvasc 10 qd, Atenolol 25 qd (with caution), start ARB once committed to HD 3. Monitor H/H and transfuse as needed to maintain Hgb>8.0 4. DVT and GI prophylaxis 5. D/c planning to outpatient HD facility
--- NOTE | 2018-08-26 18:03 | PN ---
Progress Note (short form) - Note Progress Note: covering dr buchanan Problems CKD (baseline Cr unclear, s/p [place] episode last year ) DM, Hypertension, Hiatal Hernia presented from home with SOB/leg swelling. Progressive renal insuffiency now ESRD on HD s/p Hyperkalemia (now improved s/p dialysis) Mild Volume overload (now improved) Hypertension Acute on Chronic Anemia Anion gap metabolic acidosis Thrombocytopenia (improving) +NICK Last Vital Signs Temp Pulse Resp BP Pulse Ox 97.2 F L 67 18 115/43 L 96 08/25/18 15:47 08/25/18 15:47 08/25/18 15:47 08/25/18 15:47 08/24/18 22:00 cognitive impaired lungs clear heart reg abd soft nontender ext no edema CBC, BMP 08/25/18 07:15 CBC, BMP 08/24/18 06:30 08/24/18 06:30 ESRD - no fluid overload Plan- for hd tomorrow
[2018-08-26] MEDS ORDERED: SODIUM CHLORIDE 250 ML IV PRN (18:05)
[2018-08-27] MEDS: HEPARIN NA (PORCINE) 5,000 UNITS/ML 1ML VIAL SQ SCH ×2 (06:27→14:05)
[2018-08-27] MEDS: INSULIN SLIDING SCALE (NOVOLOG) 1 VIAL SQ SCH ×3 (06:30→17:18)
[2018-08-27] MEDS ORDERED: PT OWN MED DRAWER 7, Y5N ONE (09:24)
[2018-08-27] MEDS: TAMSULOSIN HCL 0.4 MG CAP PO SCH (09:25)
[2018-08-27] MEDS: RANITIDINE HCL 150 MG/10 ML UNIT-DOSE PO SCH (09:25)
[2018-08-27] MEDS: guaiFENesin 600 MG TABLET.ER (FP) PO SCH (09:25)
[2018-08-27] MEDS: SEVELAMER CARBONATE 800 MG TAB (FP) PO SCH ×3 (09:25→17:45)
[2018-08-27] MEDS: TORSEMIDE 20 MG TABLET (FP) PO SCH (09:26)
[2018-08-27] MEDS: ATENOLOL 25 MG TABLET (FP) PO SCH (09:27)
[2018-08-27] MEDS: amLODIPine BESYLATE 10 MG TABLET (FP) PO SCH (09:27)
[2018-08-27 10:18] LABS: BASO % 0.5 % (0-2.0); EOS % 5.3 % (0-4.5); HEMATOCRIT 33.8 % (35.4-49); HEMOGLOBIN 10.6 GM/dL (11.7-16.9); LYMPH % 13.3 % (8-40); MCH 25.9 pg (25.7-33.7); MCHC 31.3 g/dl (32.0-35.9); MEAN CELL VOLUME 82.8 fl (80-96); MEAN PLT VOLUME 8.5 fl (7.5-11.1); MONO % 9.7 % (3.8-10.2); NEUT % 71.2 % (42.8-82.8); PLATELET COUNT 148 K/MM3 (134-434); RBC 4.09 M/mm3 (4.00-5.60); RDW 16.2 % (11.9-15.9); WHITE BLOOD COUNT 9.8 K/mm3 (4.0-10.0)
[2018-08-27 10:32] LABS: INR 1.01 (0.83-1.09); PROTHROMBIN TIME (PATIENT) 11.9 SEC (9.7-13.0)
--- NOTE | 2018-08-27 10:33 | PN ---
Progress Note (short form) - Note Progress Note: NAD on RA. No acute events overnight. Intake & Output 08/24/18 08/25/18 08/26/18 08/27/18 23:59 23:59 23:59 23:59 Intake Total 647 975 1384 200 Output Total 100 Balance 008 119 3028 200 Weight 101 lb 1.6 oz Last Vital Signs Temp Pulse Resp BP Pulse Ox 97.2 F L 60 18 122/52 L 95 08/27/18 09:00 08/27/18 09:00 08/27/18 09:00 08/27/18 09:00 08/26/18 22:00 Active Medications Acetaminophen (Tylenol -) 650 mg PO Q6H PRN PRN Reason: PAIN Last Admin: 08/21/18 20:52 Dose: 650 mg Amlodipine Besylate (Norvasc -) 10 mg PO DAILY [facility] Last Admin: 08/27/18 09:27 Dose: Not Given Atenolol (Tenormin -) 25 mg PO DAILY [facility] Last Admin: 08/27/18 09:27 Dose: Not Given Guaifenesin (Mucinex -) 600 mg PO BID [facility] Last Admin: 08/27/18 09:25 Dose: 600 mg Heparin Sodium (Porcine) (Heparin -) 5,000 unit SQ TID [facility] Last Admin: 08/27/18 06:27 Dose: 5,000 unit Sodium Chloride (Normal Saline -) 250 mls @ 3,000 mls/hr IV PRN PRN PRN Reason: Hypotension during Dialysis Stop: 08/24/18 22:56 Sodium Chloride (Normal Saline -) 250 mls @ 3,000 mls/hr IV PRN PRN PRN Reason: Hypotension during Dialysis Stop: 08/27/18 18:05 Insulin Aspart (Novolog Vial Sliding Scale -) 1 vial SQ ACHS [facility]; Protocol Last Admin: 08/27/18 06:30 Dose: Not Given Ondansetron HCl (Zofran Injection) 4 mg IVPB Q6H PRN PRN Reason: NAUSEA Ranitidine HCl (Zantac Oral Solution -) 150 mg PO DAILY [facility] Last Admin: 08/27/18 09:25 Dose: 150 mg Sevelamer Carbonate (Renvela -) 800 mg PO TIDCM [facility] Last Admin: 08/27/18 09:25 Dose: 800 mg Tamsulosin HCl (Flomax -) 0.8 mg PO DAILY@0830 [facility] Last Admin: 08/27/18 09:25 Dose: 0.8 mg Torsemide (Demadex -) 40 mg PO DAILY [facility] Last Admin: 08/27/18 09:26 Dose: 40 mg Constitutional: Yes: NAD, Thin, confused Eyes: Yes: WNL HENT: Yes: WNL Neck: Yes: WNL Cardiovascular: Yes: Regular Rate and Rhythm, S1, S2 Respiratory: Yes: few bibasilar rhonchi Gastrointestinal: Yes: Normal Bowel Sounds, Soft Extremities: Yes: WNL Edema: No Labs: Laboratory Results - last 24 hr 08/26/18 08/26/18 08/26/18 06:45 18:04 22:22 WBC RBC Hgb Hct MCV MCH MCHC RDW Plt Count MPV Absolute Neuts (auto) Neutrophils % Lymphocytes % Monocytes % Eosinophils % Basophils % Nucleated RBC % PT with INR INR Sodium 141 Potassium 3.9 Chloride 104 Carbon Dioxide 29 Anion Gap 8 BUN 43 H Creatinine 7.8 H* Creat Clearance w eGFR 6.64 POC Glucometer 142 329 Random Glucose 152 H Calcium 8.7 08/27/18 08/27/18 08/27/18 06:28 09:30 09:30 WBC 9.8 RBC 4.09 Hgb 10.6 L Hct 33.8 L MCV 82.8 MCH 25.9 MCHC 31.3 L RDW 16.2 H Plt Count 148 MPV 8.5 Absolute Neuts (auto) 7.0 Neutrophils % 71.2 Lymphocytes % 13.3 Monocytes % 9.7 Eosinophils % 5.3 H Basophils % 0.5 Nucleated RBC % 0 PT with INR 11.90 INR 1.01 Sodium Potassium Chloride Carbon Dioxide Anion Gap BUN Creatinine Creat Clearance w eGFR POC Glucometer 150 Random Glucose Calcium Problem List - Problems (1) Dyspnea Code(s): R06.00 - DYSPNEA, UNSPECIFIED (2) Acute on chronic renal failure Code(s): N17.9 - ACUTE KIDNEY FAILURE, UNSPECIFIED; N18.9 - CHRONIC KIDNEY DISEASE, UNSPECIFIED Qualifiers: Acute renal failure type: unspecified Chronic kidney disease stage: unspecified stage Qualified Code(s): N17.9 - Acute kidney failure, unspecified ; N18.9 - Chronic kidney disease, unspecified (3) CHF (congestive heart failure) Code(s): I50.9 - HEART FAILURE, UNSPECIFIED Qualifiers: Heart failure type: diastolic Heart failure chronicity: acute on chronic Qualified Code(s): I50.33 - Acute on chronic diastolic (congestive) heart failure (4) Diabetes mellitus Code(s): E11.9 - TYPE 2 DIABETES MELLITUS WITHOUT COMPLICATIONS Qualifiers: Diabetes mellitus type: type 2 Diabetes mellitus [facility] insulin use: with intermediate school teacher use (5) Pleural effusion due to CHF (congestive heart failure) Code(s): I50.9 - HEART FAILURE, UNSPECIFIED Assessment/Plan Acute on Chronic Renal Failure Dyspnea,Fluid overload Metabolic Acidosis Volume Overload HTN Anemia Thrombocytopenia - HD per renal - Repeat CXR in 4 weeks as an outpatient - DVT prophylaxis - D/C planning Dr Husain
[2018-08-27 11:27] LABS: ALBUMIN 2.6 g/dl (3.4-5.0); ALK PHOS 62 U/L (45-117); ANION GAP 9 MMOL/L (8-16); BLOOD UREA NITROGEN 59 mg/dL (7-18); CHLORIDE 100 mmol/L (98-107); CO2 27 mmol/L (21-32); GLUCOSE,RANDOM 141 mg/dL (74-106); MAGNESIUM 2.7 mg/dL (1.8-2.4); PHOSPHOROUS 2.8 mg/dL (2.5-4.9); POTASSIUM 4.2 mmol/L (3.5-5.1); SGOT/AST 17 U/L (15-37); SGPT/ALT 11 U/L (13-61); SODIUM 136 mmol/L (136-145); TOT PROT 6.9 g/dl (6.4-8.2)
--- NOTE | 2018-08-27 11:39 | PN ---
Progress Note, Physician History of Present Illness: Resting, hemodynamics stable, tolerated HD via PC. Confused. - Current Medication List Current Medications: Active Medications Acetaminophen (Tylenol -) 650 mg PO Q6H PRN PRN Reason: PAIN Last Admin: 08/21/18 20:52 Dose: 650 mg Amlodipine Besylate (Norvasc -) 10 mg PO DAILY [facility] Last Admin: 08/27/18 09:27 Dose: Not Given Atenolol (Tenormin -) 25 mg PO DAILY [facility] Last Admin: 08/27/18 09:27 Dose: Not Given Guaifenesin (Mucinex -) 600 mg PO BID [facility] Last Admin: 08/27/18 09:25 Dose: 600 mg Heparin Sodium (Porcine) (Heparin -) 5,000 unit SQ TID [facility] Last Admin: 08/27/18 06:27 Dose: 5,000 unit Sodium Chloride (Normal Saline -) 250 mls @ 3,000 mls/hr IV PRN PRN PRN Reason: Hypotension during Dialysis Stop: 08/24/18 22:56 Sodium Chloride (Normal Saline -) 250 mls @ 3,000 mls/hr IV PRN PRN PRN Reason: Hypotension during Dialysis Stop: 08/27/18 18:05 Insulin Aspart (Novolog Vial Sliding Scale -) 1 vial SQ ACHS [facility]; Protocol Last Admin: 08/27/18 06:30 Dose: Not Given Ondansetron HCl (Zofran Injection) 4 mg IVPB Q6H PRN PRN Reason: NAUSEA Ranitidine HCl (Zantac Oral Solution -) 150 mg PO DAILY [facility] Last Admin: 08/27/18 09:25 Dose: 150 mg Sevelamer Carbonate (Renvela -) 800 mg PO TIDCM [facility] Last Admin: 08/27/18 09:25 Dose: 800 mg Tamsulosin HCl (Flomax -) 0.8 mg PO DAILY@0830 [facility] Last Admin: 08/27/18 09:25 Dose: 0.8 mg Torsemide (Demadex -) 40 mg PO DAILY [facility] Last Admin: 08/27/18 09:26 Dose: 40 mg - Objective Vital Signs: Vital Signs Temperature 97.2 F L 08/27/18 09:00 Pulse Rate 60 08/27/18 09:00 Respiratory Rate 18 08/27/18 09:00 Blood Pressure 122/52 L 08/27/18 09:00 O2 Sat by Pulse Oximetry (%) 95 08/26/18 22:00 Constitutional: Yes: No Distress, Calm, Thin Neck: Yes: Supple Cardiovascular: Yes: Regular Rate and Rhythm, Murmur (2/6 SM) Respiratory: Yes: Regular, CTA Bilaterally Gastrointestinal: Yes: Normal Bowel Sounds, Soft Edema: No Labs: CBC, BMP 08/27/18 09:30 08/27/18 09:30 INR, PTT INR 1.01 (0.83-1.09) 08/27/18 09:30 Problem List - Problems (1) Subendocardial ischemia Code(s): I24.8 - OTHER FORMS OF ACUTE ISCHEMIC HEART DISEASE (2) Pleural effusion due to CHF (congestive heart failure) Code(s): I50.9 - HEART FAILURE, UNSPECIFIED (3) Acute on chronic renal failure Code(s): N17.9 - ACUTE KIDNEY FAILURE, UNSPECIFIED; N18.9 - CHRONIC KIDNEY DISEASE, UNSPECIFIED Qualifiers: Acute renal failure type: unspecified Chronic kidney disease stage: on chronic dialysis Qualified Code(s): N17.9 - Acute kidney failure, unspecified ; N18.9 - Chronic kidney disease, unspecified; Z99.2 - Dependence on renal dialysis (4) CHF (congestive heart failure) Code(s): I50.9 - HEART FAILURE, UNSPECIFIED Qualifiers: Heart failure type: diastolic Heart failure chronicity: acute on chronic Qualified Code(s): I50.33 - Acute on chronic diastolic (congestive) heart failure (5) Diabetes mellitus Code(s): E11.9 - TYPE 2 DIABETES MELLITUS WITHOUT COMPLICATIONS Qualifiers: Diabetes mellitus type: type 2 Diabetes mellitus longwall foreman insulin use: with longwall foreman use (6) Anemia Code(s): D64.9 - ANEMIA, UNSPECIFIED Qualifiers: Anemia type: due to chronic kidney disease Chronic kidney disease stage: on chronic dialysis Qualified Code(s): N18.6 - End stage renal disease; D63.1 - Anemia in chronic kidney disease; Z99.2 - Dependence on renal dialysis (7) Hypertensive cardiomegaly with heart failure Code(s): I11.0 - HYPERTENSIVE HEART DISEASE WITH HEART FAILURE Assessment/Plan 08/18/2018 Echo: Normal LV and RV size and fxn, LVEF 65-70%, mild-mod MR, mild TR, RVSP 35 mmHg, mild-mod AR, large pleural effusion, Grade II diastolic dysfxn c/w elevated LA pressures. 1. Syncope suspect vasovagal, fluid shifts 2. Acute on chronic diastolic failure with pleural effusions and subendocardial ischemia 3. Acute on Chronic Renal Failure likely progressive CKD with hyperkalemia post HD 4. Metabolic Acidosis with toxic met encephelopathy 5. HTN cardiomyopathy 6. Anemia of CKD 7. Thrombocytopenia improving 8. Insulin-dependent Type 2 DM 9. Extensive sigmoid diverticulosis w/o inflammation P: 1. HD via PC and Demadex 40 qd per renal with monitor urine output, renal function, trops decreasing 2. Continue Norvasc 10 qd, Atenolol 25 qd (with caution), start ARB once committed to HD 3. Monitor H/H and transfuse as needed to maintain Hgb>8.0 4. DVT and GI prophylaxis 5. D/c planning to outpatient HD facility
[2018-08-27] MEDS ORDERED: INSULIN (NOVOLOG) ASPART 100 UNITS/ML 10ML VIAL ONE (11:47)
--- NOTE | 2018-08-27 12:00 | PN ---
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 Pt seen and examined at the bedside awake and alert but still somewhat confused son at the bedside no overnight events Vital Signs Temperature 97.2 F L 08/27/18 09:00 Pulse Rate 60 08/27/18 09:00 Respiratory Rate 18 08/27/18 09:00 Blood Pressure 122/52 L 08/27/18 09:00 O2 Sat by Pulse Oximetry (%) 95 08/26/18 22:00 NAD awake confused no LE edema CBC, BMP 08/27/18 09:30 08/27/18 09:30 Current Medications Acetaminophen (Tylenol -) 650 mg PO Q6H PRN PRN Reason: PAIN Last Admin: 08/21/18 20:52 Dose: 650 mg Amlodipine Besylate (Norvasc -) 10 mg PO DAILY [facility] Last Admin: 08/27/18 09:27 Dose: Not Given Atenolol (Tenormin -) 25 mg PO DAILY [facility] Last Admin: 08/27/18 09:27 Dose: Not Given Guaifenesin (Mucinex -) 600 mg PO BID [facility] Last Admin: 08/27/18 09:25 Dose: 600 mg Heparin Sodium (Porcine) (Heparin -) 5,000 unit SQ TID [facility] Last Admin: 08/27/18 06:27 Dose: 5,000 unit Sodium Chloride (Normal Saline -) 250 mls @ 3,000 mls/hr IV PRN PRN PRN Reason: Hypotension during Dialysis Stop: 08/24/18 22:56 Sodium Chloride (Normal Saline -) 250 mls @ 3,000 mls/hr IV PRN PRN PRN Reason: Hypotension during Dialysis Stop: 08/27/18 18:05 Insulin Aspart (Novolog Vial Sliding Scale -) 1 vial SQ ACHS [facility]; Protocol Last Admin: 08/27/18 11:52 Dose: 3 units Ondansetron HCl (Zofran Injection) 4 mg IVPB Q6H PRN PRN Reason: NAUSEA Ranitidine HCl (Zantac Oral Solution -) 150 mg PO DAILY [facility] Last Admin: 08/27/18 09:25 Dose: 150 mg Sevelamer Carbonate (Renvela -) 800 mg PO TIDCM [facility] Last Admin: 08/27/18 11:52 Dose: 800 mg Tamsulosin HCl (Flomax -) 0.8 mg PO DAILY@0830 [facility] Last Admin: 08/27/18 09:25 Dose: 0.8 mg Torsemide (Demadex -) 40 mg PO DAILY [facility] Last Admin: 08/27/18 09:26 Dose: 40 mg 87 year old gentleman with hx of CKD (baseline Cr unclear, had CATARINA last year with peak Cr ~5 was discharged with Cr ~4), DM, Hypertension, Hiatial Hernia who presented from home with complaints of SOB and leg swelling. #Progressive renal insuffiency now ESRD on HD #Hyperkalemia (now improved s/p dialysis) #Mild Volume overlaod (now improved) #Hypertension #Acute on Chronic Anemia #Anion gap metabolic acidosis #Thrombocytopenia (improving) #+NICK pt stable on dialysis, for dialysis today remains somewhat confused serologic work up revealed a + NICK with negative Anti-DS DNA Ab and normal CH50 levels. + PR3 ab positive but C- ANCA negative. Unclear significance. Would consider Rheum evaluation. Given history of long standing CKD and atrophic kidneys unlikely that renal biopsy would alter his clinical course and given advanced age it is unclear if pt is a candidate to receive substantial immunosuppresive medications. However can consider vasculitis as cause of altered mental status. continue supportive care Thank you Steven Carvajal DO
[2018-08-27 12:15] LABS: CREATININE 9.5 mg/dL (0.55-1.3)
--- NOTE | 2018-08-27 14:55 | PN ---
Teaching Attending Note Name of Resident: Best Alvarado ATTENDING PHYSICIAN STATEMENT I saw and evaluated the patient. I reviewed the resident's note and discussed the case with the resident. I agree with the resident's findings and plan as documented. SUBJECTIVE: Patient undergoing HD. He has no complaints. OBJECTIVE: Vital Signs Period Temp Pulse Resp BP Sys/Bernstein Pulse Ox Last 24 Hr 97.2 F-97.9 F 60-63 18-18 111-122/49-67 95-97 HEART: S1S2, RRR LUNGS: Scattered crackles ABDOMEN: Soft, non-tender, non-distended, normal BS EXTREMITIES: No edema Laboratory Results - last 24 hr 08/26/18 08/26/18 08/27/18 18:04 22:22 06:28 WBC RBC Hgb Hct MCV MCH MCHC RDW Plt Count MPV Absolute Neuts (auto) Neutrophils % Lymphocytes % Monocytes % Eosinophils % Basophils % Nucleated RBC % PT with INR INR Sodium Potassium Chloride Carbon Dioxide Anion Gap BUN Creatinine Creat Clearance w eGFR POC Glucometer 142 329 150 Random Glucose Calcium Phosphorus Magnesium Total Bilirubin AST ALT Alkaline Phosphatase Total Protein Albumin 08/27/18 08/27/18 08/27/18 09:30 09:30 09:30 WBC 9.8 RBC 4.09 Hgb 10.6 L Hct 33.8 L MCV 82.8 MCH 25.9 MCHC 31.3 L RDW 16.2 H Plt Count 148 MPV 8.5 Absolute Neuts (auto) 7.0 Neutrophils % 71.2 Lymphocytes % 13.3 Monocytes % 9.7 Eosinophils % 5.3 H Basophils % 0.5 Nucleated RBC % 0 PT with INR 11.90 INR 1.01 Sodium 136 Potassium 4.2 Chloride 100 Carbon Dioxide 27 Anion Gap 9 BUN 59 H Creatinine 9.5 H* Creat Clearance w eGFR 5.29 POC Glucometer Random Glucose 141 H Calcium 8.0 L Phosphorus 2.8 Magnesium 2.7 H Total Bilirubin 1.0 AST 17 ALT 11 L Alkaline Phosphatase 62 Total Protein 6.9 Albumin 2.6 L 08/27/18 11:50 WBC RBC Hgb Hct MCV MCH MCHC RDW Plt Count MPV Absolute Neuts (auto) Neutrophils % Lymphocytes % Monocytes % Eosinophils % Basophils % Nucleated RBC % PT with INR INR Sodium Potassium Chloride Carbon Dioxide Anion Gap BUN Creatinine Creat Clearance w eGFR POC Glucometer 228 Random Glucose Calcium Phosphorus Magnesium Total Bilirubin AST ALT Alkaline Phosphatase Total Protein Albumin Current Medications Generic Name Dose Route Start Last Admin Trade Name Freq PRN Reason Stop Dose Admin Acetaminophen 650 mg 08/21/18 11:29 08/21/18 20:52 Tylenol - PO 650 mg Q6H PRN Administration PAIN Amlodipine Besylate 10 mg 08/21/18 15:13 08/27/18 09:27 Norvasc - PO Not Given DAILY [facility] Atenolol 25 mg 08/21/18 15:14 08/27/18 09:27 Tenormin - PO Not Given DAILY [facility] Guaifenesin 600 mg 08/21/18 15:39 08/27/18 09:25 Mucinex - PO 600 mg BID [facility] Administration Heparin Sodium (Porcine) 5,000 unit 08/21/18 14:00 08/27/18 14:05 Heparin - SQ 5,000 unit TID [facility] Administration Sodium Chloride 250 mls @ 3,000 mls/hr 08/23/18 22:55 Normal Saline - IV 08/24/18 22:56 PRN PRN Hypotension during Dialysis Sodium Chloride 250 mls @ 3,000 mls/hr 08/26/18 18:05 Normal Saline - IV 08/27/18 18:05 PRN PRN Hypotension during Dialysis Insulin Aspart 1 vial 08/21/18 16:30 08/27/18 11:52 Novolog Vial Sliding Scale - SQ 3 units ACHS [facility] Administration Protocol Ondansetron HCl 4 mg 08/21/18 11:29 Zofran Injection IVPB Q6H PRN NAUSEA Ranitidine HCl 150 mg 08/21/18 17:30 08/27/18 09:25 Zantac Oral Solution - PO 150 mg DAILY [facility] Administration Sevelamer Carbonate 800 mg 08/21/18 12:00 08/27/18 11:52 Renvela - PO 800 mg TIDCM [facility] Administration Tamsulosin HCl 0.8 mg 08/21/18 15:41 08/27/18 09:25 Flomax - PO 0.8 mg DAILY@0830 [facility] Administration Torsemide 40 mg 08/23/18 10:00 08/27/18 09:26 Demadex - PO 40 mg DAILY [facility] Administration ASSESSMENT AND PLAN: This is an 87 year old man with a history of type 2 DM, stage 5 CKD, HTN, hyperlipidemia who presented to the ED with shortness of breath and leg edema. 1. ESRD with hyperkalemia, hyperphosphatemia, fluid overload, acute metabolic acidosis - Metabolic acidosis improved - Continue HD - Phosphorus, potassium normalized - Continue Demadex, Renvela - ? secondary to vasculitis with (+) NICK, (+) proteinase 3, but (-) DS DNA Ab , (-) ANCA, normal complement 2. Possible vasculitis - Outpatient rheumatology follow up 3. Acute anemia on chronic anemia secondary to CKD - Transfused 1 unit PRBCs this admission - Epogen as per nephrology 4. Hypertension - Continue atenolol, Norvasc, Demadex 5. Type 2 DM - Continue Novolog sliding scale 6. BPH - Continue Flomax 7. Disposition - Ok for discharge to [facility] today
--- NOTE | 2018-08-27 15:48 | DS ---
Physical Exam: SUBJECTIVE: Patient seen and examined at bedside this morning. He does not endorse any acute complaints today. OBJECTIVE: Vital Signs Period Temp Pulse Resp BP Sys/Bernstein Pulse Ox Last 24 Hr 97.2 F-97.9 F 60-63 18-18 111-122/49-67 95-97 PHYSICAL EXAM GENERAL: The patient is awake, and oriented to person and place, in no acute distress. HEAD: Normal with no signs of trauma. EYES: PERRL, extraocular movements intact, sclera anicteric, conjunctiva clear. ENT: Ears normal, nares patent, oropharynx clear without exudates, dry mucous membranes. NECK: Supple, without lymphadenopathy. Right sideed Permacath in place, insertion site noted without erythema, bleeding, or drainage. LUNGS: Poor inspiratory effory. Faint crackles auscultated B/L, improved significantly. No wheezing auscultated today. No accessory muscle use. HEART: Regular rate and rhythm, S1, S2 without murmur, rub or gallop. ABDOMEN: Soft, nontender, nondistended, normoactive bowel sounds, no guarding, no rebound, no hepatosplenomegaly, no masses. EXTREMITIES: 2+ radial and dorsalis pedis pulses b/l. Warm, well-perfused, no edema. NEUROLOGICAL: Cranial nerves II through XII grossly intact. Freely moving b/l upper and lower extremities. SKIN: Warm, dry, normal turgor, no rashes or lesions noted. LABS Laboratory Results - last 24 hr 08/26/18 08/26/18 08/27/18 18:04 22:22 06:28 WBC RBC Hgb Hct MCV MCH MCHC RDW Plt Count MPV Absolute Neuts (auto) Neutrophils % Lymphocytes % Monocytes % Eosinophils % Basophils % Nucleated RBC % PT with INR INR Sodium Potassium Chloride Carbon Dioxide Anion Gap BUN Creatinine Creat Clearance w eGFR POC Glucometer 142 329 150 Random Glucose Calcium Phosphorus Magnesium Total Bilirubin AST ALT Alkaline Phosphatase Total Protein Albumin 08/27/18 08/27/18 08/27/18 09:30 09:30 09:30 WBC 9.8 RBC 4.09 Hgb 10.6 L Hct 33.8 L MCV 82.8 MCH 25.9 MCHC 31.3 L RDW 16.2 H Plt Count 148 MPV 8.5 Absolute Neuts (auto) 7.0 Neutrophils % 71.2 Lymphocytes % 13.3 Monocytes % 9.7 Eosinophils % 5.3 H Basophils % 0.5 Nucleated RBC % 0 PT with INR 11.90 INR 1.01 Sodium 136 Potassium 4.2 Chloride 100 Carbon Dioxide 27 Anion Gap 9 BUN 59 H Creatinine 9.5 H* Creat Clearance w eGFR 5.29 POC Glucometer Random Glucose 141 H Calcium 8.0 L Phosphorus 2.8 Magnesium 2.7 H Total Bilirubin 1.0 AST 17 ALT 11 L Alkaline Phosphatase 62 Total Protein 6.9 Albumin 2.6 L 08/27/18 11:50 WBC RBC Hgb Hct MCV MCH MCHC RDW Plt Count MPV Absolute Neuts (auto) Neutrophils % Lymphocytes % Monocytes % Eosinophils % Basophils % Nucleated RBC % PT with INR INR Sodium Potassium Chloride Carbon Dioxide Anion Gap BUN Creatinine Creat Clearance w eGFR POC Glucometer 228 Random Glucose Calcium Phosphorus Magnesium Total Bilirubin AST ALT Alkaline Phosphatase Total Protein Albumin HOSPITAL COURSE: Date of Admission:08/15/18 Date of Discharge: 08/27/18 Patient is an 87 year old male with history of diabetes mellitus, chronic kidney disease stage V, hypertension, hyperlipidemia, presented with complaint of shortness of breath, and lower extremity edema for past 4 days prior to admission. Creatinine was noted to be 14 at admission. Patient had Permacath insertion, and began hemodialysis. Patient was noted to have metabolic acidosis on ABG at admission, which resolved with dialysis. Patient had crackles on exam , which also improved with hemodialysis. Patient was noted to be lethargic, and less responsive from baseline. CT head showed no acute pathology. Ammonia level was within normal limits. Nephrology Immunologic workup revealed positive NICK, with negative anti-DS DNA antibodies. Noted positive PR3 antibodies, however negative C-Anca. After discussion with Nephrology, patient was also evaluated by Airport Maintenance Chief to evaluate for vasculitis as possible cause of altered mental status. Discussion with rheumatology, airdox fitter, and technical training manager decided not to pursue further intervention at this time. Anemia was noted, likely secondary to chronic kidney disease. Patient received 1 unit PRBC with hemodialysis per nephrology recommendations. Hypertension managed with Nicardipine, Amlodipine, Atenolol. Diabetes managed with insulin sliding scale. BPH managed with Flomax. Patient's home medication Metoprolol was switched to [id number] daily. Amlodipine dose was increased from 5mg to 10mg daily. Patient discharged to SNF with follow up with Nephrology, Rheumatology, and Cardiology. Discharged on Amlodipine, Metoprolol, Flomax, Sevelamer, Torsemide, Mucinex, and Insulin sliding scale. Minutes to complete discharge: 35 Discharge Summary Reason For Visit: ACUTE REAL FAILURE SUPERIMPOSED ON CHRONIC KIDNEY Current Active Problems Acute on chronic renal failure (Acute) CHF (congestive heart failure) (Acute) Diabetes mellitus (Acute) Dyspnea (Acute) Hypertensive cardiomegaly with heart failure (Acute) Pleural effusion due to CHF (congestive heart failure) (Acute) Subendocardial ischemia (Acute) Condition: Stable - Instructions Diet, Activity, Other Instructions: You were admitted to hospital with complaint of shortness of breath, and lower extremity swelling. Your kidney function lab values were elevated (Creatinine 14) and you were evaluated by technical training manager and begun on Dialysis. You were also evaluated by the traffic warehouse supervisor. You are being discharged to a intermediate facility. Continue your home medications as directed: Your Amlodipine has been increased to 10mg daily Your Metoprolol has been switched to Atenolol 25mg daily. DO NOT take Metoprolol any more. Continue taking Flomax 0.8mg daily Continue taking Sevelamer 800mg every 8 hours. Continue your Insulin sliding scale per facility protocol Begin taking Torsemide 40mg daily Begin taking Mucinex 600mg every 12 hours You will follow up with your primary care physician within two to three days after discharge. Follow up with the Junior Software Engineer (Dr. Shelby) within one week of discharge. Follow up with Rock Wool Insulator (Dr. Carvajal) within two to three days after discharge. SNF instruction: Patient will require Dialysis via right sided permacath Saturday / Saturday/ Saturday. Patient requires Oxygen 3L nasal canula to maintain adequate oxygen saturation. Referrals: Gaetano Carias MD [Staff Physician] - Steven Carvajal MD [Staff Physician] - Guru Shelby MD [Staff Physician] - Disposition: RETIREMENT FACILITY - Home Medications Comprehensive Discharge Medication List: Ambulatory Orders Tamsulosin HCl [Flomax -] 0.8 mg PO DAILY@0830 #30 cap.er.24h 08/15/17 Amlodipine Besylate [Norvasc -] 10 mg PO DAILY 30 Days #30 tablet 08/27/18 Atenolol [Tenormin -] 25 mg PO DAILY 30 Days #30 tablet 08/27/18 Guaifenesin [Mucinex -] 600 mg PO BID 30 Days #60 tablet.er 08/27/18 Insulin Sliding Scale [Novolog Vial Sliding Scale -] 1 vial SQ ACHS units 08/27 Ranitidine Oral Solution [Zantac Oral Solution -] 150 mg PO DAILY #1 cup Sevelamer Carbonate [Renvela -] 800 mg PO TIDCM 30 Days #90 tab 08/27/18 Tamsulosin HCl [Flomax -] 0.8 mg PO DAILY@0830 cap.er.24h 08/27/18 Torsemide [Demadex -] 40 mg PO DAILY 30 Days #30 tablet 08/27/18 This patient is new to me today: No Emergency Visit: Yes ED Registration Date: 08/15/18 Care time: The patient presented to the Emergency Department on the above date and was hospitalized for further evaluation of their emergent condition. Critical Care patient: No - Discharge Referral Referred to [facility] Med [facility] No
--- NOTE | 2018-08-27 16:53 | CONSULT ---
Consult Consult Specialty:: Rheumatology - History of Present Illness History of Present Illness: 85 y/o male with PMH of DM, CKD, HTN, HLD, BPH presenteed to the ED with worsening shortness of breath on exertion, including while urinating, orthopnea and lower extremity swelling for the past week and a half. [place] is a poor historian, History was provided by family. The patient has chronic kidney disease On 09/06/16 creatinine was 2.6 and urinalysis protein 2+ and no blood, and on admission creatinine 14 and Urinalysis with protein 3+ and blood 2+. He was started on HD CT scan on admission: Bilateral lower lobe consolidation/atelectasis/pneumonia, posteriorly and moderate bilateral pleural effusion. Extensive diverticulosis coli with thickening of the sigmoid colon wall likely chronic without evidence of acute diverticulitis. Labs: NICK 1:320 with sepckled pattern. Proteinase-3 : 12.18. ANCA and myeloperoxidase negative. CH50>60, anti-DNAds negative. The patient is not cooperative with history. Apparently he does not have history of arthralgia or skin rash. 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 Cardio/Vascular: Yes: HTN Pulmonary: No: COPD Gastrointestinal: Yes: Hiatal Hernia Hepatobiliary: No: Cirrhosis Renal/: Yes: Renal Failure, Renal Inusuff, BPH Endocrine: Yes: Diabetes Mellitus - Alcohol/Substance Use Hx Alcohol Use: No - Smoking History Smoking history: Never smoked Have you smoked in the past 12 months: No - Social History Usual Living Arrangement: With Child History of Recent Travel: No Home Medications - Allergies Allergies/Adverse Reactions: Allergies Allergy/AdvReac Type Severity Reaction Status Date / Time No Known Allergies Allergy Verified 08/15/18 17:05 - Home Medications Home Medications: Ambulatory Orders Tamsulosin HCl [Flomax -] 0.8 mg PO DAILY@0830 #30 cap.er.24h 08/15/17 Amlodipine Besylate [Norvasc -] 10 mg PO DAILY 30 Days #30 tablet 08/27/18 Atenolol [Tenormin -] 25 mg PO DAILY 30 Days #30 tablet 08/27/18 Guaifenesin [Mucinex -] 600 mg PO BID 30 Days #60 tablet.er 08/27/18 Insulin Sliding Scale [Novolog Vial Sliding Scale -] 1 vial SQ ACHS units 08/27 Ranitidine Oral Solution [Zantac Oral Solution -] 150 mg PO DAILY #1 cup Sevelamer Carbonate [Renvela -] 800 mg PO TIDCM 30 Days #90 tab 08/27/18 Tamsulosin HCl [Flomax -] 0.8 mg PO DAILY@0830 cap.er.24h 08/27/18 Torsemide [Demadex -] 40 mg PO DAILY 30 Days #30 tablet 08/27/18 Physical Exam Vital Signs: Vital Signs Temperature 98.2 F 08/27/18 14:25 Pulse Rate 60 08/27/18 16:30 Respiratory Rate 18 08/27/18 16:30 Blood Pressure 106/58 L 08/27/18 16:30 O2 Sat by Pulse Oximetry (%) 97 08/27/18 10:00 Constitutional: Yes: Mild Distress, Other (Somnolent. Poor cooperation.) HENT: Yes: WNL Neck: Yes: WNL Cardiovascular: Yes: WNL Respiratory: Yes: Other (Few basal coarse crackles.) Gastrointestinal: Yes: WNL Musculoskeletal: Yes: Other (No active joints.) Labs: CBC, BMP 08/27/18 09:30 08/27/18 09:30 Laboratory Tests 08/15/18 08/15/18 08/16/18 22:10 23:50 10:20 Haptoglobin 150 Total Bilirubin AST ALT Alkaline Phosphatase Creatine Kinase 187 Total Protein Urine Color Ltyellow Urine Appearance Clear Urine pH 5.0 D Ur Specific [place] 1.015 Urine Protein 3+ H Urine Glucose (UA) 2+ H Urine Ketones Negative Urine Blood 2+ H Urine Nitrite Negative Urine WBC (Auto) 12 Urine RBC (Auto) 8 NICK Screen Positive H NICK Speckled Pattern 1:320 H c-ANCA <1:20 Proteinase 3 (PR3) 12.8 H p-ANCA <1:20 Atypical p-ANCA <1:20 Myeloperoxidase Ab <9.0 Double Strand DNA Ab Tot Complement (CH50) Hep A IgM Ab Confirm Hepatitis A Ab Total Hep Bs Antigen Hep Bs Antibody Hep B Core Total Ab 08/16/18 08/23/18 08/27/18 10:20 08:00 09:30 Haptoglobin Total Bilirubin 1.0 AST 17 ALT 11 L Alkaline Phosphatase 62 Creatine Kinase Total Protein 6.9 Urine Color Urine Appearance Urine pH Ur Specific [place] Urine Protein Urine Glucose (UA) Urine Ketones Urine Blood Urine Nitrite Urine WBC (Auto) Urine RBC (Auto) NICK Screen NICK Speckled Pattern c-ANCA Proteinase 3 (PR3) p-ANCA Atypical p-ANCA Myeloperoxidase Ab Double Strand DNA Ab 1 Tot Complement (CH50) > 60 Hep A IgM Ab Confirm Negative Hepatitis A Ab Total Positive H Hep Bs Antigen Negative Hep Bs Antibody Non reactive Hep B Core Total Ab Negative Problem List - Problems (1) Vasculitis Assessment/Plan: 87 y/o maLE WITH Progressive chronic kidney disease, with small kidneys on US, on HD. admitted with pulmonary infiltrates (not-peumonia) and proteinase-3 positive. . Apparently prior to this admission he did not have pulmonary infiltartes. US: small kidneys. At the present time he does not have SOB. It is possible that the patient has granulomatosis and polyangiitis ([place]egeners) resulting in ESRD. At this time the kidney function cannot be salvaged and it is not clear if he has active pulmonary disease. I spoke with Dr. Carvajal - there is no indication for treatment from the nephrology perspective. I spoke with Dr. Husain, he will follow the patient as outpatient - obtain PFT and f/u CXR. At thattime we will evaluate treatment for vasculitis,. Code(s): I77.6 - ARTERITIS, UNSPECIFIED
[2018-08-27 18:55] VITALS: BP 129/49; PULSE 86; TEMP 97.7
== END 2018-08-27 19:22 | DRG 682 ==
LOC: JER 16:57 → JERBED 21:04 → JICU 08-16 00:29 → J5S 08-18 16:33
PROVIDERS: ADMIT Internal Medicine; ATTEND Internal Medicine
PROC: 5A09357 Assistance with Respiratory Ventilation, Less than 24 Consecutive Hours, Continuous Positive Airway Pressure (ICD-10-PCS; principal; 2018-08-15)
PROC: 30233N1 Transfusion of Nonautologous Red Blood Cells into Peripheral Vein, Percutaneous Approach (ICD-10-PCS; 2018-08-15)
PROC: 06HM33Z Insertion of Infusion Device into Right Femoral Vein, Percutaneous Approach (ICD-10-PCS; 2018-08-16)
PROC: B51BZZA Fluoroscopy of Right Lower Extremity Veins, Guidance (ICD-10-PCS; 2018-08-16)
PROC: 5A1D70Z Performance of Urinary Filtration, Intermittent, Less than 6 Hours Per Day (ICD-10-PCS; 2018-08-18)
PROC: 05HM33Z Insertion of Infusion Device into Right Internal Jugular Vein, Percutaneous Approach (ICD-10-PCS; 2018-08-19)
PROC: B513ZZA Fluoroscopy of Right Jugular Veins, Guidance (ICD-10-PCS; 2018-08-19)
PROC: 05HY33Z Insertion of Infusion Device into Upper Vein, Percutaneous Approach (ICD-10-PCS; 2018-08-21)
DX: N17.0 Acute kidney failure with tubular necrosis (principal); G92 Toxic encephalopathy; I13.2 Hypertensive heart and chronic kidney disease with heart failure and with stage 5 chronic kidney disease, or end stage renal disease; E87.2 Acidosis; I16.1 Hypertensive emergency; R64 Cachexia; Z68.1 Body mass index [BMI] 19.9 or less, adult; I24.8 Other forms of acute ischemic heart disease; I43 Cardiomyopathy in diseases classified elsewhere; N18.5 Chronic kidney disease, stage 5; N13.30 Unspecified hydronephrosis; E11.22 Type 2 diabetes mellitus with diabetic chronic kidney disease; R06.03 Acute respiratory distress; E11.649 Type 2 diabetes mellitus with hypoglycemia without coma; E87.6 Hypokalemia; E87.5 Hyperkalemia; K44.9 Diaphragmatic hernia without obstruction or gangrene; E78.5 Hyperlipidemia, unspecified; Z79.4 Long term (current) use of insulin; K57.30 Diverticulosis of large intestine without perforation or abscess without bleeding; N40.0 Benign prostatic hyperplasia without lower urinary tract symptoms; N40.1 Benign prostatic hyperplasia with lower urinary tract symptoms; R33.8 Other retention of urine; D69.6 Thrombocytopenia, unspecified; D63.1 Anemia in chronic kidney disease; E83.39 Other disorders of phosphorus metabolism
CPT/HCPCS: 36415; 36430; 36511; 36600; 70450-TC; 71045-TC-FY; 71250-TC; 74176-TC; 76000-TC-FY; 76775-TC; 80048; 80053; 81003; 81015; 82140; 82272; 82375; 82436; 82550; 82553; 82570; 82728; 82803; 82962; 83010; 83036; 83050; 83520; 83540; 83550; 83605; 83615; 83735; 83880; 84100; 84133; 84134; 84155; 84156; 84165; 84300; 84439; 84443; 84484; 84540; 85025; 85027; 85610; 85730; 86038; 86162; 86225; 86256; 86704; 86706; 86708; 86803; 86850; 86900; 86901; 86922; 87040; 87086; 87340; 87899; 90688; 90732; 93005; 93010; 93306-TC; 93970-TC; 94640; 94760; 97116-GP; 97161-GP; 99285-25; G0008; G0009; J0885; J1644; P9038; P9058

== ENCOUNTER 2018-12-18 11:46 | Inpatient (IN) | payer OTHER ==
[2018-12-18] MEDS ORDERED: ACETAMINOPHEN INJECTION 100 ML IVPB ONE (12:23)
[2018-12-18] MEDS ORDERED: PIPERACILLIN/TAZOB 2.25 GM 2.25 GM in DEXTROSE 5%-WATER - 50 ML IVPB ONE (12:25)
[2018-12-18] MEDS ORDERED: ACETAMINOPHEN 1000 MG/100 ML VIAL (NON FORMULARY) IVPB ONE (12:34)
[2018-12-18] MEDS ORDERED: PIPERACILLIN/TAZOB 2.25 GM 2.25 GM/50 ML BAG IVPB ONE (12:34)
[2018-12-18] MEDS ORDERED: morphine SULFATE 4 MG/ML VIAL ONE (12:36)
[2018-12-18 12:45] LABS: BASO % 0.1 % (0-2.0); EOS % 0.9 % (0-4.5); HEMATOCRIT 28.2 % (35.4-49); HEMOGLOBIN 9.2 GM/dL (11.7-16.9); LYMPH % 1.8 % (8-40); MCHC 32.7 g/dl (32.0-35.9); MEAN CELL VOLUME 76.7 fl (80-96); MEAN PLT VOLUME 7.5 fl (7.5-11.1); MONO % 3.8 % (3.8-10.2); NEUT % 93.4 % (42.8-82.8); PLATELET COUNT 208 K/MM3 (134-434); RBC 3.68 M/mm3 (4.00-5.60); RDW 15.4 % (11.9-15.9); WHITE BLOOD COUNT 19.5 K/mm3 (4.0-10.0)
[2018-12-18 12:55] LABS: INR 1.26 (0.83-1.09); PROTHROMBIN TIME (PATIENT) 14.9 SEC (9.7-13.0)
[2018-12-18 12:58] LABS: ACTIVATED PTT 36.6 SECONDS (25.2-36.5)
[2018-12-18 13:03] LABS: VENOUS PC02 36.3 mmHg (41-51); VENOUS PH 7.45 (7.31-7.41); VENOUS PO2 34.4 mmHg (30-40)
[2018-12-18 13:08] LABS: ALBUMIN 2.6 g/dl (3.4-5.0); ALK PHOS 109 U/L (45-117); ANION GAP 9 MMOL/L (8-16); BILIRUBIN,TOTAL 0.5 mg/dL (0.2-1); BLOOD UREA NITROGEN 22 mg/dL (7-18); CALCIUM 8.1 mg/dL (8.5-10.1); CHLORIDE 100 mmol/L (98-107); CO2 26 mmol/L (21-32); CREATININE 3.3 mg/dL (0.55-1.3); GLUCOSE,RANDOM 110 mg/dL (74-106); POTASSIUM 3.2 mmol/L (3.5-5.1); SGOT/AST 27 U/L (15-37); SGPT/ALT 23 U/L (13-61); SODIUM 134 mmol/L (136-145); TOT PROT 7.8 g/dl (6.4-8.2)
--- NOTE | 2018-12-18 13:20 | PDOC ---
History of Present Illness - General Chief Complaint: Altered Mental Status Stated Complaint: SEPTIC Time Seen by Provider: 12/18/18 12:18 History Source: Patient Exam Limitations: Clinical Condition - History of Present Illness Initial Comments: 88 yo m w a hx of ESRD (dialysis T/R/Sat) DM, HTN, HLD presents to the ER from the [facility] dialysis center with acutely altered mental status. The nurse in the dialysis center said he is usually alert and oriented x2 but today he was not oriented at all. The patient became tachycardic in the dialysis center so they sent him to the ER. Here in the ER the patient isj not responsive and febrile to 103. Blood cultures were drawn at the dialysis center and patient received 1 dose of vacomycin before arriving to the Er. Allergies: NKA Past surgical history: None reported Social history: No reported PCP: Dr. Escalante Library Clerk: Dr. Carvajal Past History - Past Medical History Allergies/Adverse Reactions: Allergies Allergy/AdvReac Type Severity Reaction Status Date / Time No Known Allergies Allergy Verified 12/18/18 12:16 Home Medications: Ambulatory Orders Tamsulosin HCl [Flomax -] 0.8 mg PO DAILY@0830 #30 cap.er.24h 08/15/17 Amlodipine Besylate [Norvasc -] 10 mg PO DAILY 30 Days #30 tablet 08/27/18 Atenolol [Tenormin -] 25 mg PO DAILY 30 Days #30 tablet 08/27/18 Guaifenesin [Mucinex -] 600 mg PO BID 30 Days #60 tablet.er 08/27/18 Insulin Sliding Scale [Novolog Vial Sliding Scale -] 1 vial SQ ACHS units 08/27 Ranitidine Oral Solution [Zantac Oral Solution -] 150 mg PO DAILY #1 cup Sevelamer Carbonate [Renvela -] 800 mg PO TIDCM 30 Days #90 tab 08/27/18 Tamsulosin HCl [Flomax -] 0.8 mg PO DAILY@0830 cap.er.24h 08/27/18 Torsemide [Demadex -] 40 mg PO DAILY 30 Days #30 tablet 08/27/18 Anemia: No Asthma: No Cancer: No CVA: No COPD: No CHF: No Diabetes: Yes GI Disorders: Yes (diverticulosis) Disorders: Yes (bph dyalisis on mon-wed-fri) HTN: Yes Hypercholesterolemia: Yes Liver Disease: No Seizures: No Thyroid Disease: No - Surgical History Abdominal Surgery: No Appendectomy: No Cardiac Surgery: No Cholecystectomy: No Lung Surgery: No Neurologic Surgery: No Orthopedic Surgery: No - Immunization History Immunization Up to Date: Yes - Suicide/Smoking/Psychosocial Hx Smoking History: Unknown if ever smoked Have you smoked in the past 12 months: No Information on smoking cessation initiated: No Hx Alcohol Use: No Drug/Substance Use Hx: No Substance Use Type: None Hx Substance Use Treatment: No Review of Systems - Review of Systems Able to Perform ROS?: No (not responsive) *Physical Exam - Vital Signs Last Vital Signs Temp Pulse Resp BP Pulse Ox 103.5 F H 111 H 18 140/63 99 12/18/18 11:46 12/18/18 11:46 12/18/18 11:46 12/18/18 11:46 12/18/18 11:46 - Physical Exam General Appearance: Yes: Moderate Distress HEENT: positive: PÉREZ, Normal ENT Inspection Neck: negative: Lymphadenopathy (R), Lymphadenopathy (L) Respiratory/Chest: positive: Lungs Clear Cardiovascular: positive: Tachycardia Vascular Pulses: Dorsalis-Pedis (R): 2+, Doralis-Pedis (L): 2+ Gastrointestinal/Abdominal: positive: Normal Bowel Sounds, Soft Male Genitalia: positive: normal genitalia Musculoskeletal: positive: Normal Inspection Extremity: positive: Normal Capillary Refill, Normal Inspection. negative: Normal Range of Motion Integumentary: positive: Dry, Warm (Hot) Neurologic: positive: Confused, Disoriented. negative: Fully Oriented, Alert, Normal Mood/Affect, Normal Response ED Treatment Course - LABORATORY CBC & Chemistry Diagram: 12/18/18 12:15 12/18/18 12:15 - ADDITIONAL ORDERS Additional order review: Laboratory Results 12/18/18 12/18/18 12/18/18 12:18 12:15 12:15 PT with INR INR PTT (Actin FS) VBG pH POC VBG pCO2 POC VBG pO2 VBG HCO3 VBG O2 Sat (Medardo) VBG Base Excess Sodium Potassium Chloride Carbon Dioxide Anion Gap BUN Creatinine Creat Clearance w eGFR POC Glucometer 109 Random Glucose Lactic Acid 1.2 Calcium Total Bilirubin AST ALT Alkaline Phosphatase Troponin I 0.05 Total Protein Albumin 12/18/18 12/18/18 12/18/18 12:15 12:15 12:15 PT with INR 14.90 H INR 1.26 H PTT (Actin FS) 36.6 H VBG pH 7.45 H POC VBG pCO2 36.3 L POC VBG pO2 34.4 VBG HCO3 24.7 VBG O2 Sat (Medardo) 64.0 L VBG Base Excess 1.3 Sodium 134 L Potassium 3.2 L Chloride 100 Carbon Dioxide 26 Anion Gap 9 BUN 22 H Creatinine 3.3 H Creat Clearance w eGFR 17.86 POC Glucometer Random Glucose 110 H Lactic Acid Calcium 8.1 L Total Bilirubin 0.5 AST 27 ALT 23 Alkaline Phosphatase 109 Troponin I Total Protein 7.8 Albumin 2.6 L 12/18/18 12/18/18 12:18 12:15 RBC 3.68 L MCV 76.7 L MCHC 32.7 RDW 15.4 MPV 7.5 D Neutrophils % 93.4 H D Lymphocytes % 1.8 L D Monocytes % 3.8 Eosinophils % 0.9 D Basophils % 0.1 POC Glucometer 109 - RADIOLOGY Radiology Studies Ordered: Category Date Time Status HEAD CT WITHOUT CONTRAST [CT] Stat CT Scan 12/18/18 12:35 Taken - Medications Given in the ED: ED Medications Discontinued Medications Generic Name Dose Route Start Last Admin Trade Name Freq PRN Reason Stop Dose Admin Acetaminophen 1,000 mg 12/18/18 12:34 12/18/18 12:30 Ofirmev Injection - IVPB 12/18/18 12:35 1,000 mg ONCE ONE Administration Piperacillin Sod/Tazobactam 50 mls @ 100 mls/hr 12/18/18 12:25 12/18/18 13:02 Sod 2.25 gm/ Dextrose IVPB 12/18/18 12:54 100 mls/hr ONCE ONE Administration Protocol Medical Decision Making - Medical Decision Making 88 yo m w a hx of ESRD (dialysis T/R/Sat) DM, HTN, HLD presents to the ER from the [facility] dialysis center with acutely altered mental status. The nurse in the dialysis center said he is usually alert and oriented x2 but today he was not oriented at all. The patient became tachycardic in the dialysis center so they sent him to the ER. Here in the ER the patient isj not responsive and febrile to 103. Blood cultures were drawn at the dialysis center and patient received 1 dose of vacomycin before arriving to the Er. VS: tachycardic, febrile DDx IBNLT: Sepsis - permacath related infection, PNA, UTI, Meningitis, bacteremia Plan: Septic workup, IV hydration, Abx, Admit. - Most likely source of infection - Permacath? *DC/Admit/Observation/Transfer Diagnosis at time of Disposition: Sepsis - Discharge Dispostion Condition at time of disposition: Guarded Decision to Admit order: Yes - Referrals - Patient Instructions - Post Discharge Activity
--- NOTE | 2018-12-18 13:25 | PDOC ---
Documentation entered by Terrie Thomas SCRIBE, acting as scribe for Rica Singer MD. Rica Singer MD: This documentation has been prepared by the Martha barker Adrianna, SCRIBE, under my direction and personally reviewed by me in its entirety. I confirm that the documentation accurately reflects all work, treatment, procedures, and medical decision making performed by me. Attending Attestation - Resident Resident Name: Naren Andrew - ED Attending Attestation I have performed the following: I have examined & evaluated the patient, The case was reviewed & discussed with the resident, I agree w/resident's findings & plan, Exceptions are as noted - HPI HPI: The patient is an 88 year old male, with a significant PMH of esrd, ( dialysis t /r/sat) DM, CKD, HTN, and HLD presents to the emergency department today presenting from [facility] [place] for altered mental status As per nurse at Dialysis Center, patient had one hour of dialysis left, when he began experiencing chills. blood cultures obtained a and given Vancomycin. Patient then became tachycardic 120s, without a fever. pt with decreased responsive ness, so called ambulance. normally patients baseline is alerted and oriented x2, is responsive to his name but not accurate with what day it is. per EMS pt was altered on arrival, but responds to tactile stimulation, seen moving all ext. found to be febrile 103. In the ED, patient has a 103.5 rectal temperature and is only responsiveto tactile stimuli. HPI is limited secondary to patients altered state. per nursing, pt no ho of other recent comlaints. Allergies: NKA Past surgical history: None reported Social history: No reported PCP: Dr. Escalante cart driver dr Oh 12/18/18 12:41 - Physicial Exam PE: 12/18/18 13:02 awake, eyes closed reponds to tactile stumli, moves all ext. dry mucous membranes. lungs ctab, heart systolic murmur 2/6, abd soft nt nd ext wwp. left tunneled RAC cathetar with purulence. no erythema. 12/18/18 13:05 nuero nonverbal, moves all four ext. - Medical Decision Making 12/18/18 13:05 88 yo ESRD HTN DM here with AMS fever likely sepsis. differential ICH ( although nonfocal) line infection. sepsis other infection such as uti or pna. plan septic workup. vanco was given at dialysis, will add zosyn, cxr . d/w dr oh present at bedside. will be admitted. nelli d/w dr trejo regarding concerns for line infection and need for new access. ekg admit. 12/18/18 13:42 EXAM#: TYPE/EXAM: RESULT: [id number] RAD/CHEST X-RAY PORTABLE* AP portable chest : Sepsis Impression: Improvement. Left line. No pneumothorax. Decreased lung changes. Reported By: Sergio Lamar MD 12/18/18 13:24 EXAM#: TYPE/EXAM: RESULT: [id number] CT/HEAD CT WITHOUT CONTRAST Change in mental status. Impression: No significant interval change or acute intracranial pathology is identified Reported By: Ronald León MD 12/18/18 13:38 Heart Score/ECG Review #1 General ECG Interpretation: Sinus Rhythm, Normal Intervals, No acute ischemic changes Compared to previous ECG there are: Other (sinus tachycardia. 111)
[2018-12-18 13:29] LABS: ANISOCYTOSIS 0; MACROCYTOSIS 0; PLATELET ESTIMATE NORMAL
--- NOTE | 2018-12-18 13:46 | HP ---
Admitting History and Physical - Primary Care Physician PCP: Ranjan Vela - Admission Chief Complaint: fever and AMS History of Present Illness: HISTORY FROM ER - HPI HPI: The patient is an 88 year old male, with a significant PMH of esrd, ( dialysis t /r/sat) DM, CKD, HTN, and HLD presents to the emergency department today presenting from [facility] center for altered mental status As per nurse at Dialysis Center, patient had one hour of dialysis left, when he began experiencing chills. blood cultures obtained a and given Vancomycin. Patient then became tachycardic 120s, without a fever. pt with decreased responsive ness, so called ambulance. normally patients baseline is alerted and oriented x2, is responsive to his name but not accurate with what day it is. per EMS pt was altered on arrival, but responds to tactile stimulation, seen moving all ext. found to be febrile 103. In the ED, patient has a 103.5 rectal temperature and is only responsive to tactile stimuli. HPI is limited secondary to patients altered state. 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 Cardiovascular: Yes: HTN Gastrointestinal: Yes: Hiatal Hernia Renal/: Yes: Renal Failure, Renal Inusuff, BPH Heme/Onc: Yes: Anemia, Thrombocytopenia Endocrine: Yes: Diabetes Mellitus - Smoking History Smoking history: Unknown if ever smoked Have you smoked in the past 12 months: No - Alcohol/Substance Use Hx Alcohol Use: No - Social History History of Recent Travel: No Home Medications - Allergies Allergies/Adverse Reactions: Allergies Allergy/AdvReac Type Severity Reaction Status Date / Time No Known Allergies Allergy Verified 12/18/18 12:16 - Home Medications Home Medications: Ambulatory Orders Tamsulosin HCl [Flomax -] 0.8 mg PO DAILY@0830 #30 cap.er.24h 08/15/17 Amlodipine Besylate [Norvasc -] 10 mg PO DAILY 30 Days #30 tablet 08/27/18 Atenolol [Tenormin -] 25 mg PO DAILY 30 Days #30 tablet 08/27/18 Guaifenesin [Mucinex -] 600 mg PO BID 30 Days #60 tablet.er 08/27/18 Insulin Sliding Scale [Novolog Vial Sliding Scale -] 1 vial SQ ACHS units 08/27 Ranitidine Oral Solution [Zantac Oral Solution -] 150 mg PO DAILY #1 cup Sevelamer Carbonate [Renvela -] 800 mg PO TIDCM 30 Days #90 tab 08/27/18 Tamsulosin HCl [Flomax -] 0.8 mg PO DAILY@0830 cap.er.24h 08/27/18 Torsemide [Demadex -] 40 mg PO DAILY 30 Days #30 tablet 08/27/18 Review of Systems Unable to obtain ROS, reason: lethargic - Review of Systems Constitutional: reports: Fever Physical Examination Vital Signs: Vital Signs Temperature 103.5 F H 12/18/18 11:46 Pulse Rate 111 H 12/18/18 11:46 Respiratory Rate 18 12/18/18 11:46 Blood Pressure 140/63 12/18/18 11:46 O2 Sat by Pulse Oximetry (%) 99 12/18/18 11:46 Constitutional: Yes: Thin Cardiovascular: Yes: Regular Rate and Rhythm, Murmur Respiratory: Yes: Diminished, Other (left chest wall permacath site-- pus present at side ++) Gastrointestinal: Yes: Normal Bowel Sounds, Soft. No: Distention, Tenderness Edema: No Neurological: Yes: Lethargy Labs: CBC, BMP 12/18/18 12:15 12/18/18 12:15 Imaging - Results Chest X-ray: Image Reviewed (no infiltrate or congestion) Cat Scan: Report Reviewed EKG: Pending Problem List - Problems (1) Toxic metabolic encephalopathy Code(s): G92 - TOXIC ENCEPHALOPATHY (2) Line sepsis associated with dialysis catheter Code(s): T82.7XXA - INFECT/INFLM REACT D/T OTH CARDI/VASC DEV/IMPLNT/GRFT, INIT ; A41.9 - SEPSIS, UNSPECIFIED ORGANISM (3) ESRD (end stage renal disease) on dialysis Code(s): N18.6 - END STAGE RENAL DISEASE; Z99.2 - DEPENDENCE ON RENAL DIALYSIS (4) Sepsis Code(s): A41.9 - SEPSIS, UNSPECIFIED ORGANISM (5) Diabetes mellitus Code(s): E11.9 - TYPE 2 DIABETES MELLITUS WITHOUT COMPLICATIONS Qualifiers: Diabetes mellitus type: type 2 Diabetes mellitus intermodal dispatcher insulin use: with intermodal dispatcher use Assessment/Plan PLAN Obtain wound cultures from permacath site cultures done keep NPO hold his meds for now till he regains mental status Renal , ID and Vascular eval-- need to remove permacath check Echo condition guarded DVT prophylaxis-- heparin sc
[2018-12-18] MEDS ORDERED: KCL 10 MEQ IVPB 20 MEQ/200 ML INFUS.BAG IVPB ONE (13:52)
--- NOTE | 2018-12-18 13:56 | CONSULT ---
Consult - text type - Consultation Consultation Note: Renal consult for ESRD on HD This is a 88 year old [place] gentleman with ESRD on HD, hypertension, DM who presented from outpatient dialysis with fever, chills and tachycardia and found to have sepsis syndrome with suspected catheter related infection. Pt was in his usual state of health at the start of dialysis but became more groggy and HR elevated to 120's during Tx. Initial temperature was WNL but became febrile toward the end of Tx. Treatment was terminated early and he was transfered to [facility] ED. In the ED he is awake but groggy, Febrile to 103 degrees F. No answering questions appropriately. Was given Vanco 1g IV in outpatient dialysis unit. PMhx: as above Allergies: NKDA Family Hx: NC Social Hx No T/A/D ROS: as per HPI Vital Signs Temperature 103.5 F H 12/18/18 11:46 Pulse Rate 111 H 12/18/18 11:46 Respiratory Rate 18 12/18/18 11:46 Blood Pressure 140/63 12/18/18 11:46 O2 Sat by Pulse Oximetry (%) 99 12/18/18 11:46 Intake & Output 12/15/18 12/16/18 12/17/18 12/18/18 23:59 23:59 23:59 23:59 Weight 54.431 kg NAD, Febrile awake and gorggy neck supple, no JVD RRR, No M/R CTA soft NT/ND No LE edema Left IJ tunneled catheter, + discharge, no tenderness CBC, BMP 12/18/18 12:15 12/18/18 12:15 Current Medications Laboratory Tests 08/27/18 12/18/18 12/18/18 09:30 12:15 12:15 Neutrophils % 71.2 93.4 H D Calcium 8.1 L Albumin 2.6 L Potassium Chloride (Potassium Chloride 10 Meq Premix Ivpb -) 10 meq in 100 mls @ 100 mls/hr IVPB Q60M REHANA Stop: 12/18/18 16:44 88 year old [place] gentleman with ESRD on HD, hypertension, DM who presented from outpatient dialysis with fever, chills and tachycardia and found to have sepsis syndrome with suspected catheter related infection. #Fever/Sepsis r/o catheter related infection #ESRD on HD #Hypertension #DM #Chronic Anemia Case discussed with Dr. Valencia, will remove tunneled HD catheter s/p Vanco in HD unit, getting zosyn in the ED will defer further dialysis for now as pt does not have volume overload, hyperkalemia or overt acidosis if MAP drops below 65 start isotonic IVF ID consult Vascular surgery consult supportive care Case discussed with family. Thank you Steven Carvajal DO
[2018-12-18] MEDS: KCL 10 MEQ IVPB 10 MEQ/100 ML INFUS.BAG IVPB SCH ×3 (14:06→16:19)
[2018-12-18 14:21] LABS: EPI CELLS 2.1 /HPF (0-5/HPF); URINE APPEARANCE CLEAR; URINE BACTERIA 1.2 /hpf (NEGATIVE); URINE BILIRUBIN NEGATIVE (NEGATIVE); URINE CASTS 6 /lpf (0-8); URINE COLOR YELLOW; URINE GLUCOSE (UA) 2+ (NEGATIVE); URINE KETONE NEGATIVE (NEGATIVE); URINE LEUK ESTERASE NEGATIVE (NEGATIVE); URINE NITRITE NEGATIVE (NEGATIVE); URINE PROTEIN 3+ (NEGATIVE); URINE RBC 3 /hpf (0-4); URINE UROBILINOGEN 0.2 mg/dL (0.2-1.0); URINE WBC 2 /hpf (0-5)
[2018-12-18] MEDS ORDERED: IBUPROFEN 800 MG/8 ML IJ IVPB ONE ×2 (14:29→14:35)
--- NOTE | 2018-12-18 15:26 | EKG ---
Test Reason : Blood Pressure : / mmHG Vent. Rate : 111 BPM Atrial Rate : 111 BPM P-R Int : 122 ms QRS Dur : 080 ms QT Int : 334 ms P-R-T Axes : 059 -10 091 degrees QTc Int : 454 ms SINUS TACHYCARDIA ABNORMAL QRS-T ANGLE, CONSIDER PRIMARY T WAVE ABNORMALITY ABNORMAL ECG WHEN COMPARED WITH ECG OF 17-AUG-2018 17:19, NON-SPECIFIC CHANGE IN ST SEGMENT IN ANTERIOR LEADS NONSPECIFIC T WAVE ABNORMALITY, IMPROVED IN LATERAL LEADS Confirmed by MARCELLA VILCHIS MD ([id number]) on 12/18/2018 3:25:55 PM Referred By: Confirmed By:MARCELLA VILCHIS MD
--- NOTE | 2018-12-18 15:37 | PN ---
Progress Note (short form) - Note Progress Note: Briefly, pt is an 88 y/o M w/ PMHx ESRD (dialysis t/r/sat), DM, HTN, and HLD sent to ED from [facility] for altered mental status. Pt with chills during HD session, tachycardia. In Ed pt w/ concerns for sepsis (leukocytosis 19k, febrile to 103.5, tachycardic ). Bacteremia workup pending. Vascular consulted for removal of L chest Permacath. Permacath placed by Dr Valencia in August. Consent obtained from pts son, Андрей Simon (phone consent). Pt prepped in usual sterile fashion. Suture cut, Permacath easily removed with firm, steady pressure. Pt tolerated well. Pressure held x 5minutes. No bleeding noted. 4x4 and tape applied Tip sent for culture. Pt will likely need shiley catheter placement during admission while sepsis is being treated Surgery on stand by for shiley placement and eventual PC placement d/w attending Dr Valencia
--- NOTE | 2018-12-18 16:02 | ECHO ---
Name: SARI STOUT Alejandrina Exam:Adult Echocardiogram Study Date: 12/18/2018 02:48 PM Age: 88 yrs [facility] Height: 60 in Weight: 120 lb BSA: 1.5 m2 MMode/2D Measurements & Calculations IVSd: 0.83 cm Ao root diam: 2.7 cm LVIDd: 4.3 cm LA dimension: 3.9 cm LVIDs: 2.8 cm LVPWd: 0.67 cm EDV(Teich): 85.2 ml LVOT diam: 2.0 cm ESV(Teich): 30.5 ml Doppler Measurements & Calculations MV E max richie: 138.4 cm/sec Ao V2 max: 222.4 cm/sec MV A max richie: 162.2 cm/sec Ao max P.8 mmHg MV E/A: 0.85 Ao V2 mean: 143.9 cm/sec MV dec time: 0.25 sec Ao mean P.8 mmHg Ao V2 VTI: 41.9 cm BRENTON(I,D): 1.3 cm2 AI P1/2t: 288.3 msec BRENTON(V,D): 1.3 cm2 AI max richie: 261.7 cm/sec LV V1 max P.6 mmHg AI max P.5 mmHg LV V1 mean P.9 mmHg AI dec slope: 265.8 cm/sec2 LV V1 max: 94.3 cm/sec LV V1 mean: 65.2 cm/sec LV V1 VTI: 18.4 cm MR max richie: 369.6 cm/sec SV(LVOT): 55.6 ml MR max P.6 mmHg TR max richie: 258.4 cm/sec Med Peak E' Richie: 2.7 cm/sec TR max P.0 mmHg Med E/e': 50.7 Lat Peak E' Richie: 5.2 cm/sec Lat E/e': 26.8 Procedure A complete two-dimensional transthoracic echocardiogram was performed (2D, M-mode, Doppler and color flow Doppler). Left Ventricle The left ventricular size, thickness and function are normal. The left ventricular ejection fraction is normal. Ejection Fraction = 60-65%. The left ventricular wall motion is normal. Right Ventricle The right ventricle is normal in size and function. Atria Normal left and right atrial size and function. Mitral Valve There is trace mitral regurgitation. Tricuspid Valve There is moderate tricuspid regurgitation. Right ventricular systolic pressure is normal. Aortic Valve Mild valvular aortic stenosis. Mild aortic regurgitation. Pulmonic Valve There is no pulmonic valvular regurgitation. Great Vessels The aortic root is normal size. Pericardium/Pleura There is no pericardial effusion. Interpretation Summary The left ventricular size, thickness and function are normal The right ventricle is normal in size and function. There is trace mitral regurgitation. There is moderate tricuspid regurgitation. Mild aortic regurgitation. Mild valvular aortic stenosis. MD Ky Mayfield 12/18/2018 04:01 PM
--- NOTE | 2018-12-18 18:36 | PN ---
Progress Note (short form) - Note Progress Note: ID CONSULT DICTATED SEPSIS R/O CATHETER RELATED SEPSIS ESRD AWAIT SEPSIS W/U EMPIRIC VANCO/ZOSYN ADJUSTED FOR ESRD
[2018-12-18] MEDS ORDERED: DEXTROSE 5%-WATER - 50 ML IVPB ONE (20:00)
[2018-12-18] MEDS ORDERED: PIPERACILLIN/TAZOBACTAM 2.25 GM VIAL IVPB ONE (20:00)
[2018-12-18] MEDS: PIPERACILLIN/TAZOB 2.25 GM 2.25 GM in DEXTROSE 5%-WATER - 50 ML IVPB SCH (20:10)
[2018-12-18] MEDS: HEPARIN NA (PORCINE) 5,000 UNITS/ML 1ML VIAL SQ SCH (21:27)
[2018-12-18] MEDS ORDERED: PIPERACILLIN/TAZOB 2.25 GM 2.25 GM in DEXTROSE 5%-WATER - 50 ML IVPB SCH (22:00)
--- NOTE | 2018-12-19 00:50 | CONS ---
DATE OF CONSULTATION: 12/18/2018 DATE OF DICTATION: 12/18/2018 INFECTIOUS DISEASE CONSULTATION HISTORY OF PRESENT ILLNESS: The patient is an 88-year-old male who was evaluated for sepsis. History was obtained from the chart, as he cannot give a reliable history. The patient is an 88-year-old male with a history of end-stage renal disease on hemodialysis. He is a resident of a long term facility who was transferred to the emergency room on December 18, 2018, with altered mental status. The patient was receiving his routine hemodialysis session. After approximately 2 hours, he developed onset of chills. He also was noted to have tachycardia and fever. Blood cultures were obtained. He was given a stat dose of vancomycin. EMS was called for poor responsiveness. He was seen in the emergency room where his temperature was 103.5. CAT scan of the head was negative for acute infarct or bleed. Cultures were obtained. He was empirically treated with Zosyn. At the present time he is awake, however lethargic. He does not offer any complaints. He is not conversant. No reports of labored breathing, cough, vomiting, diarrhea, or infected skin wounds. PAST MEDICAL HISTORY: Positive for end-stage renal disease on hemodialysis, hypertension, diabetes mellitus, chronic kidney disease, hyperlipidemia. ALLERGIES: No known allergies. SOCIAL HISTORY: Resides in a long term facility. No active tobacco or alcohol use. SYSTEMS REVIEW: Neurologic: No loss of consciousness, seizure activity, focal weakness. Cardiac: Negative for chest pain or palpitations. Respiratory: As per HPI Gastrointestinal: Negative vomiting or diarrhea. Genitourinary: As per HPI. Positive for end-stage renal disease. LABORATORY DATA: White count 19.5, hematocrit 28.2, platelets 208, BUN 22, creatinine 3.3, urinalysis 2 white cells, influenza swab negative. Chest x-ray no acute infiltrate. PHYSICAL EXAMINATION: General: On exam, the patient is lethargic. He is not conversant. Vital signs: T-max 103.5, blood pressure 132/62, pulse 98 regular, respirations 18 per minute. HEENT: Sclerae anicteric. Cardiovascular: Heart sounds S1, S2. Chest: Catheter site now removed. Left chest, no erythema or tenderness. Abdomen: Soft, nontender. Extremities: Negative for edema. IMPRESSION: 1. Rule out catheter related bacteremia/sepsis. 2. End-stage renal disease on hemodialysis. 3. Marked leukocytosis. Await culture results. The dialysis catheter has been removed, pending cultures empiric antibiotic coverage with vancomycin and Zosyn adjusted for renal failure. Further recommendations pending cultures, will follow. Thank you for the kind referral. MIGEL MOTA M.D. [id number]
[2018-12-19] MEDS ORDERED: DEXTROSE 5%-WATER - 50 ML IVPB ONE ×3 (01:13→17:50)
[2018-12-19] MEDS ORDERED: PIPERACILLIN/TAZOBACTAM 2.25 GM VIAL IVPB ONE ×3 (01:13→17:50)
[2018-12-19] MEDS: PIPERACILLIN/TAZOB 2.25 GM 2.25 GM in DEXTROSE 5%-WATER - 50 ML IVPB SCH ×3 (01:40→17:54)
[2018-12-19 07:08] LABS: BASO % 0.3 % (0-2.0); EOS % 3.4 % (0-4.5); HEMATOCRIT 26.5 % (35.4-49); HEMOGLOBIN 8.5 GM/dL (11.7-16.9); LYMPH % 2.5 % (8-40); MCH 24.8 pg (25.7-33.7); MCHC 32.2 g/dl (32.0-35.9); MEAN CELL VOLUME 77.1 fl (80-96); MEAN PLT VOLUME 7.8 fl (7.5-11.1); NEUT % 88.8 % (42.8-82.8); PLATELET COUNT 186 K/MM3 (134-434); RBC 3.44 M/mm3 (4.00-5.60); RDW 15.6 % (11.9-15.9)
[2018-12-19] MEDS: HEPARIN NA (PORCINE) 5,000 UNITS/ML 1ML VIAL SQ SCH ×2 (09:45→21:25)
[2018-12-19] MEDS ORDERED: VANCOMYCIN 1 GM PREMIX - 1 GM/200 ML BAG IVPB ONE (09:52)
[2018-12-19] MEDS ORDERED: PIPERACILLIN/TAZOB 2.25 GM 2.25 GM in DEXTROSE 5%-WATER - 50 ML IVPB SCH (10:00)
--- NOTE | 2018-12-19 10:10 | PN ---
Progress Note (short form) - Note Progress Note: pt seen/ examined chart reviewed awake/ confused +ve cultures-- MRSA - catheter site Vital Signs Temp 98.9 F 12/19/18 09:43 Pulse 86 12/19/18 09:43 Resp 17 12/19/18 09:43 BP 121/61 12/19/18 09:43 Pulse Ox 98 12/18/18 21:00 Intake & Output 12/18/18 12/18/18 12/19/18 11:59 23:59 11:59 Intake Total 0 100 Balance 0 100 Weight 120 lb 104 lb 103 lb 2 oz Intake: IVPB 100 Oral 0 Other: Voiding Method Diaper # Unmeasured Voids Void 0 Bowel Movement No Height 5 ft 5 ft 5 in Body Mass Index (BMI) 23.4 17.3 Weight Measurement Method Patient Lift Scale Patient Lift Scale Active Medications Heparin Sodium (Porcine) (Heparin -) 5,000 unit SQ BID [facility] Last Admin: 12/19/18 09:45 Dose: 5,000 unit Piperacillin Sod/Tazobactam (Sod 2.25 gm/ Dextrose) 50 mls @ 100 mls/hr IVPB Q8H-IV [facility]; Protocol Last Admin: 12/19/18 09:45 Dose: 100 mls/hr Vancomycin HCl (Vancomycin 1 Gm Premix -) 1 gm in 200 mls @ 133.333 mls/hr IVPB ONCE ONE; Protocol Stop: 12/19/18 11:21 CBC, BMP 12/19/18 06:00 Microbiology 12/18/18 14:47 Wound Culture - Preliminary Catheter Site Presumptive Mrsa (Pbp2a Pos) 12/18/18 12:20 Blood Culture - Preliminary Blood - Peripheral Venous Pending Organism 12/18/18 12:11 Blood Culture - Preliminary Blood - Peripheral Venous Pending Organism 12/18/18 13:40 Urine Culture - Final Urine - Urine Clean Catch NO GROWTH OBTAINED Physical Examination Constitutional: Yes: Awake/ confused Cardiovascular: Yes: Regular Rate and Rhythm, Murmur Respiratory: Yes: Diminished, Other (left chest wall permacath site-- pus present at side ++) Gastrointestinal: Yes: Normal Bowel Sounds, Soft. No: Distention, Tenderness Edema: No Neurological: Yes: awake/ confused Imaging - Results Chest X-ray: Image Reviewed (no infiltrate or congestion) Cat Scan: Report Reviewed EKG: Pending Problem List - Problems (1) Toxic metabolic encephalopathy Code(s): G92 - TOXIC ENCEPHALOPATHY (2) Line sepsis associated with dialysis catheter Code(s): T82.7XXA - INFECT/INFLM REACT D/T OTH CARDI/VASC DEV/IMPLNT/GRFT, INIT ; A41.9 - SEPSIS, UNSPECIFIED ORGANISM (3) ESRD (end stage renal disease) on dialysis Code(s): N18.6 - END STAGE RENAL DISEASE; Z99.2 - DEPENDENCE ON RENAL DIALYSIS (4) Sepsis Code(s): A41.9 - SEPSIS, UNSPECIFIED ORGANISM (5) Diabetes mellitus Code(s): E11.9 - TYPE 2 DIABETES MELLITUS WITHOUT COMPLICATIONS Qualifiers: Diabetes mellitus type: type 2 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
[2018-12-19 11:19] LABS: ALBUMIN 2.2 g/dl (3.4-5.0); ALK PHOS 87 U/L (45-117); ANION GAP 12 MMOL/L (8-16); BILIRUBIN,TOTAL 0.5 mg/dL (0.2-1); BLOOD UREA NITROGEN 38 mg/dL (7-18); CALCIUM 8.7 mg/dL (8.5-10.1); CHLORIDE 102 mmol/L (98-107); CO2 20 mmol/L (21-32); GLUCOSE,RANDOM 112 mg/dL (74-106); PHOSPHOROUS 5.5 mg/dL (2.5-4.9); POTASSIUM 4.4 mmol/L (3.5-5.1); SGOT/AST 45 U/L (15-37); SGPT/ALT 24 U/L (13-61); SODIUM 134 mmol/L (136-145); TOT PROT 7.1 g/dl (6.4-8.2)
[2018-12-19] MEDS ORDERED: PT OWN MED DRAWER 7, Y5N ONE (12:33)
--- NOTE | 2018-12-19 14:42 | PN ---
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 Pt seen and examined at the bedside groggy but awakens to physical stimuli no fevers this am HD catheter removed yesterday Vital Signs Temperature 98.9 F 12/19/18 09:43 Pulse Rate 77 12/19/18 13:50 Respiratory Rate 17 12/19/18 13:50 Blood Pressure 150/68 12/19/18 13:50 O2 Sat by Pulse Oximetry (%) 98 12/18/18 21:00 Intake & Output 12/16/18 12/17/18 12/18/18 12/19/18 23:59 23:59 23:59 23:59 Intake Total 0 100 Balance 0 100 Weight 47.174 kg 46.777 kg NAD awake and gorggy neck supple, no JVD RRR, No M/R CTA soft NT/ND No LE edema CBC, BMP 12/19/18 06:00 12/19/18 06:00 Current Medications Atenolol (Tenormin -) 25 mg PO DAILY [facility] Heparin Sodium (Porcine) (Heparin -) 5,000 unit SQ BID [facility] Last Admin: 12/19/18 09:45 Dose: 5,000 unit Piperacillin Sod/Tazobactam (Sod 2.25 gm/ Dextrose) 50 mls @ 100 mls/hr IVPB Q8H-IV [facility]; Protocol Last Admin: 12/19/18 09:45 Dose: 100 mls/hr Ranitidine HCl (Zantac Oral Solution -) 150 mg PO DAILY [facility] Sevelamer Carbonate (Renvela -) 800 mg PO TIDCM [facility] Tamsulosin HCl (Flomax -) 0.8 mg PO DAILY@0830 [facility] Torsemide (Demadex -) 40 mg PO DAILY [facility] Potassium Chloride (Potassium Chloride 10 Meq Premix Ivpb -) 10 meq in 100 mls @ 100 mls/hr IVPB Q60M [facility] Stop: 12/18/18 16:44 88 year old [place] gentleman with ESRD on HD, hypertension, DM who presented from outpatient dialysis with fever, chills and tachycardia and found to have sepsis syndrome with suspected catheter related infection. 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
[2018-12-19] MEDS ORDERED: EPOETIN ALFA 10,000 UNIT/1 ML VIAL SQ SCH (14:45)
[2018-12-19] MEDS: SEVELAMER CARBONATE 800 MG TAB (FP) PO SCH ×2 (14:50→17:54)
[2018-12-20] MEDS ORDERED: DEXTROSE 5%-WATER - 50 ML IVPB ONE ×3 (00:10→16:54)
[2018-12-20] MEDS ORDERED: PIPERACILLIN/TAZOBACTAM 2.25 GM VIAL IVPB ONE ×3 (00:10→16:54)
[2018-12-20] MEDS: PIPERACILLIN/TAZOB 2.25 GM 2.25 GM in DEXTROSE 5%-WATER - 50 ML IVPB SCH ×3 (01:12→17:19)
[2018-12-20 07:18] LABS: BASO % 0.7 % (0-2.0); EOS % 11.3 % (0-4.5); HEMATOCRIT 25.5 % (35.4-49); HEMOGLOBIN 8.3 GM/dL (11.7-16.9); LYMPH % 8.4 % (8-40); MCH 25.1 pg (25.7-33.7); MCHC 32.6 g/dl (32.0-35.9); MEAN PLT VOLUME 7.6 fl (7.5-11.1); MONO % 8.3 % (3.8-10.2); NEUT % 71.3 % (42.8-82.8); PLATELET COUNT 165 K/MM3 (134-434); RBC 3.31 M/mm3 (4.00-5.60); RDW 15.4 % (11.9-15.9); WHITE BLOOD COUNT 7.5 K/mm3 (4.0-10.0)
[2018-12-20 07:43] LABS: ANION GAP 12 MMOL/L (8-16); BLOOD UREA NITROGEN 56 mg/dL (7-18); CALCIUM 8.3 mg/dL (8.5-10.1); CHLORIDE 98 mmol/L (98-107); CO2 21 mmol/L (21-32); CREATININE 6.7 mg/dL (0.55-1.3); GLUCOSE,RANDOM 192 mg/dL (74-106); MAGNESIUM 2.5 mg/dL (1.8-2.4); PHOSPHOROUS 5.8 mg/dL (2.5-4.9); SODIUM 131 mmol/L (136-145)
[2018-12-20] MEDS: TAMSULOSIN HCL 0.4 MG CAP PO SCH (08:44)
[2018-12-20] MEDS: SEVELAMER CARBONATE 800 MG TAB (FP) PO SCH ×3 (08:44→17:19)
[2018-12-20] MEDS: ATENOLOL 25 MG TABLET (FP) PO SCH (10:21)
[2018-12-20] MEDS: TORSEMIDE 20 MG TABLET (FP) PO SCH (10:21)
[2018-12-20] MEDS: HEPARIN NA (PORCINE) 5,000 UNITS/ML 1ML VIAL SQ SCH ×2 (10:21→21:17)
[2018-12-20] MEDS: RANITIDINE HCL 150 MG/10 ML UNIT-DOSE PO SCH (10:21)
[2018-12-20] MEDS ORDERED: VANCOMYCIN 1 GM PREMIX - 1 GM/200 ML BAG IVPB ONE (10:54)
--- NOTE | 2018-12-20 11:03 | PN ---
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 Pt seen and examined at the bedside more awake and alert no fevers in past 24 hours HD catheter removed Saturday denies any sob,abd pain, N/V/D Vital Signs Temperature 97.9 F 12/20/18 09:00 Pulse Rate 86 12/20/18 09:00 Respiratory Rate 18 12/20/18 09:00 Blood Pressure 149/61 12/20/18 09:00 O2 Sat by Pulse Oximetry (%) 98 12/19/18 21:00 Intake & Output 12/17/18 12/18/18 12/19/18 12/20/18 23:59 23:59 23:59 23:59 Intake Total 0 950 450 Balance 0 950 450 Weight 47.174 kg 46.72 kg NAD awake and alert neck supple, no JVD RRR, No M/R CTA soft NT/ND No LE edema CBC, BMP 12/20/18 06:30 12/20/18 06:30 Current Medications Atenolol (Tenormin -) 25 mg PO DAILY [facility] Last Admin: 12/20/18 10:21 Dose: 25 mg Epoetin Kolby (Procrit -) 10,000 unit SQ MOWEFR [facility] Heparin Sodium (Porcine) (Heparin -) 5,000 unit SQ BID [facility] Last Admin: 12/20/18 10:21 Dose: 5,000 unit Piperacillin Sod/Tazobactam (Sod 2.25 gm/ Dextrose) 50 mls @ 100 mls/hr IVPB Q8H-IV [facility]; Protocol Last Admin: 12/20/18 10:21 Dose: 100 mls/hr Vancomycin HCl 1,000 mg/ (Dextrose) 250 mls @ 166.667 mls/hr IVPB ONCE ONE; Protocol Stop: 12/20/18 12:23 Ranitidine HCl (Zantac Oral Solution -) 150 mg PO DAILY [facility] Last Admin: 12/20/18 10:21 Dose: 150 mg Sevelamer Carbonate (Renvela -) 800 mg PO TIDCM [facility] Last Admin: 12/20/18 08:44 Dose: 800 mg Tamsulosin HCl (Flomax -) 0.8 mg PO DAILY@0830 [facility] Last Admin: 12/20/18 08:44 Dose: 0.8 mg Torsemide (Demadex -) 40 mg PO DAILY [facility] Last Admin: 12/20/18 10:21 Dose: 40 mg Potassium Chloride (Potassium Chloride 10 Meq Premix Ivpb -) 10 meq in 100 mls @ 100 mls/hr IVPB Q60M [facility] Stop: 12/18/18 16:44 88 year old [place] gentleman with ESRD on HD, hypertension, DM who presented from outpatient dialysis with fever, chills and tachycardia and found to have sepsis syndrome with suspected catheter related infection. #Fever/Sepsis r/o catheter related infection #ESRD on HD #Hypertension #DM #Chronic Anemia HD catheter removed -18 Blood cultures growing MRSA, repeat cultures ordered for today Continue Vanco dosed by levels, todays level at goal no acute need for AIR PUMPER today, will trend labs and clinical status daily to access need for next HD tx ID follow up Vascular surgery following will given HORACIO SC 3x weekly for now while not getting HD Continue torsemide daily no KATELYNN/ARB for now Thank you Steven Carvajal DO
--- NOTE | 2018-12-20 11:34 | PN ---
Progress Note, Physician History of Present Illness: MORE AWAKE AND ALERT TEMPS DOWN AFEBRILE WBC IMPROVED WNL BC PRESUMED MRSA VANCO T 15.9 ECHO NO VEGETATIONS - Current Medication List Current Medications: Active Medications Atenolol (Tenormin -) 25 mg PO DAILY [facility] Last Admin: 12/20/18 10:21 Dose: 25 mg Epoetin Kolby (Procrit -) 10,000 unit SQ MOWEFR [facility] Heparin Sodium (Porcine) (Heparin -) 5,000 unit SQ BID [facility] Last Admin: 12/20/18 10:21 Dose: 5,000 unit Piperacillin Sod/Tazobactam (Sod 2.25 gm/ Dextrose) 50 mls @ 100 mls/hr IVPB Q8H-IV [facility]; Protocol Last Admin: 12/20/18 10:21 Dose: 100 mls/hr Vancomycin HCl (Vancomycin 1 Gm Premix -) 1 gm in 200 mls @ 133.333 mls/hr IVPB ONCE ONE; Protocol Stop: 12/20/18 12:23 Ranitidine HCl (Zantac Oral Solution -) 150 mg PO DAILY [facility] Last Admin: 12/20/18 10:21 Dose: 150 mg Sevelamer Carbonate (Renvela -) 800 mg PO TIDCM [facility] Last Admin: 12/20/18 08:44 Dose: 800 mg Tamsulosin HCl (Flomax -) 0.8 mg PO DAILY@0830 [facility] Last Admin: 12/20/18 08:44 Dose: 0.8 mg Torsemide (Demadex -) 40 mg PO DAILY [facility] Last Admin: 12/20/18 10:21 Dose: 40 mg - Objective Vital Signs: Vital Signs Temperature 97.9 F 12/20/18 09:00 Pulse Rate 86 12/20/18 09:00 Respiratory Rate 18 12/20/18 09:00 Blood Pressure 149/61 12/20/18 09:00 O2 Sat by Pulse Oximetry (%) 98 12/19/18 21:00 Constitutional: Yes: No Distress Eyes: Yes: Conjunctiva Clear Cardiovascular: Yes: Regular Rate and Rhythm, S1, S2 Respiratory: Yes: CTA Bilaterally Gastrointestinal: Yes: Normal Bowel Sounds, Soft. No: Tenderness Edema: No Labs: CBC, BMP 12/20/18 06:30 12/20/18 06:30 INR, PTT INR 1.26 (0.83-1.09) H 12/18/18 12:15 Assessment/Plan MRSA BACTEREMIA ? CATHETER-RELATED (REMOVED) ESRD AWAIT C/S REDOSE VANCOMYCIN CHECK LEVEL AM
--- NOTE | 2018-12-20 11:58 | PN ---
Progress Note (short form) - Note Progress Note: pt seen/ examined awake-- denies pain more alert afebrile Vital Signs Temp 97.9 F 12/20/18 09:00 Pulse 86 12/20/18 09:00 Resp 18 12/20/18 09:00 BP 149/61 12/20/18 09:00 Pulse Ox 98 12/19/18 21:00 Intake & Output 12/19/18 12/19/18 12/20/18 11:59 23:59 11:59 Intake Total 100 850 450 Balance 100 850 450 Weight 103 lb 2 oz 103 lb Intake: IVPB 100 350 50 Oral 500 400 Other: Voiding Method Urinal Diaper Urinal # Unmeasured Voids Void 0 Bowel Movement Yes No # Bowel Movements 1 1 Height 5 ft 5 in Body Mass Index (BMI) 17.1 Weight Measurement Method Patient Lift Scale Active Medications Atenolol (Tenormin -) 25 mg PO DAILY [facility] Last Admin: 12/20/18 10:21 Dose: 25 mg Epoetin Kolby (Procrit -) 10,000 unit SQ MOWEFR [facility] Heparin Sodium (Porcine) (Heparin -) 5,000 unit SQ BID [facility] Last Admin: 12/20/18 10:21 Dose: 5,000 unit Piperacillin Sod/Tazobactam (Sod 2.25 gm/ Dextrose) 50 mls @ 100 mls/hr IVPB Q8H-IV [facility]; Protocol Last Admin: 12/20/18 10:21 Dose: 100 mls/hr Vancomycin HCl (Vancomycin 1 Gm Premix -) 1 gm in 200 mls @ 133.333 mls/hr IVPB ONCE ONE; Protocol Stop: 12/20/18 12:23 Ranitidine HCl (Zantac Oral Solution -) 150 mg PO DAILY [facility] Last Admin: 12/20/18 10:21 Dose: 150 mg Sevelamer Carbonate (Renvela -) 800 mg PO TIDCM [facility] Last Admin: 12/20/18 08:44 Dose: 800 mg Tamsulosin HCl (Flomax -) 0.8 mg PO DAILY@0830 [facility] Last Admin: 12/20/18 08:44 Dose: 0.8 mg Torsemide (Demadex -) 40 mg PO DAILY [facility] Last Admin: 12/20/18 10:21 Dose: 40 mg CBC, BMP 12/20/18 06:30 12/20/18 06:30 Microbiology 04/18/19 12:20 Blood Culture - Preliminary Blood - Peripheral Venous Presumptive Mrsa (Pbp2a Pos) 12/18/18 12:11 Blood Culture - Preliminary Blood - Peripheral Venous Presumptive Mrsa (Pbp2a Pos) 12/18/18 14:47 Gram Stain - Final Catheter Site Wound Culture - Preliminary Presumptive Mrsa (Pbp2a Pos) 12/18/18 13:40 Urine Culture - Final Urine - Urine Clean Catch NO GROWTH OBTAINED echo-- No vegetations Physical Examination Constitutional: Yes: Awake/ confused Cardiovascular: Yes: Regular Rate and Rhythm, Murmur Respiratory: Yes: Diminished, Other (left chest wall permacath site-- pus present at side ++) Gastrointestinal: Yes: Normal Bowel Sounds, Soft. No: Distention, Tenderness Edema: No Neurological: Yes: awake/ confused Imaging - Results Chest X-ray: Image Reviewed (no infiltrate or congestion) Cat Scan: Report Reviewed EKG: Pending Problem List - Problems (1) Toxic metabolic encephalopathy Code(s): G92 - TOXIC ENCEPHALOPATHY (2) Line sepsis associated with dialysis catheter Code(s): T82.7XXA - INFECT/INFLM REACT D/T OTH CARDI/VASC DEV/IMPLNT/GRFT, INIT ; A41.9 - SEPSIS, UNSPECIFIED ORGANISM (3) ESRD (end stage renal disease) on dialysis Code(s): N18.6 - END STAGE RENAL DISEASE; Z99.2 - DEPENDENCE ON RENAL DIALYSIS (4) Sepsis Code(s): A41.9 - SEPSIS, UNSPECIFIED ORGANISM (5) Diabetes mellitus Code(s): E11.9 - TYPE 2 DIABETES MELLITUS WITHOUT COMPLICATIONS Qualifiers: Diabetes mellitus type: type 2 Diabetes 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
[2018-12-20] MEDS: diphenhydrAMINE HCL 25 MG CAPSULE (FP) PO PRN (12:50)
[2018-12-21] MEDS ORDERED: DEXTROSE 5%-WATER - 50 ML IVPB ONE ×3 (00:26→16:33)
[2018-12-21] MEDS ORDERED: PIPERACILLIN/TAZOBACTAM 2.25 GM VIAL IVPB ONE ×3 (00:26→16:33)
[2018-12-21] MEDS: PIPERACILLIN/TAZOB 2.25 GM 2.25 GM in DEXTROSE 5%-WATER - 50 ML IVPB SCH ×3 (01:23→17:40)
[2018-12-21 08:29] LABS: ANION GAP 12 MMOL/L (8-16); BLOOD UREA NITROGEN 63 mg/dL (7-18); CALCIUM 8.4 mg/dL (8.5-10.1); CHLORIDE 98 mmol/L (98-107); CO2 21 mmol/L (21-32); GLUCOSE,RANDOM 131 mg/dL (74-106); POTASSIUM 4.4 mmol/L (3.5-5.1); SODIUM 131 mmol/L (136-145)
[2018-12-21 08:38] LABS: CREATININE 7.8 mg/dL (0.55-1.3)
[2018-12-21] MEDS: TAMSULOSIN HCL 0.4 MG CAP PO SCH (08:42)
[2018-12-21] MEDS: SEVELAMER CARBONATE 800 MG TAB (FP) PO SCH ×3 (08:42→17:40)
--- NOTE | 2018-12-21 10:33 | PN ---
Progress Note (short form) - Note Progress Note: much more awake feels better Vital Signs Temp 98.0 F 12/21/18 09:00 Pulse 63 12/21/18 09:00 Resp 18 12/21/18 09:00 BP 148/64 12/21/18 09:00 Pulse Ox 96 12/20/18 21:00 Intake & Output 12/20/18 12/20/18 12/21/18 11:59 23:59 11:59 Intake Total 450 250 50 Balance 450 250 50 Intake: IVPB 50 250 50 Oral 400 Other: Voiding Method Urinal Incontinent Bowel Movement No # Bowel Movements 1 Active Medications Atenolol (Tenormin -) 25 mg PO DAILY [facility] Last Admin: 12/20/18 10:21 Dose: 25 mg Diphenhydramine HCl (Benadryl -) 25 mg PO Q8H PRN PRN Reason: FOR ITCHING Last Admin: 12/20/18 12:50 Dose: 25 mg Epoetin Kolby (Procrit -) 10,000 unit SQ MOWEFR [facility] Heparin Sodium (Porcine) (Heparin -) 5,000 unit SQ BID [facility] Last Admin: 12/20/18 21:17 Dose: 5,000 unit Piperacillin Sod/Tazobactam (Sod 2.25 gm/ Dextrose) 50 mls @ 100 mls/hr IVPB Q8H-IV [facility]; Protocol Last Admin: 12/21/18 01:23 Dose: 100 mls/hr Ranitidine HCl (Zantac Oral Solution -) 150 mg PO DAILY [facility] Last Admin: 12/20/18 10:21 Dose: 150 mg Sevelamer Carbonate (Renvela -) 800 mg PO TIDCM [facility] Last Admin: 12/21/18 08:42 Dose: 800 mg Tamsulosin HCl (Flomax -) 0.8 mg PO DAILY@0830 [facility] Last Admin: 12/21/18 08:42 Dose: 0.8 mg Torsemide (Demadex -) 40 mg PO DAILY [facility] Last Admin: 12/20/18 10:21 Dose: 40 mg CBC, BMP 12/20/18 06:30 12/21/18 06:45 Physical Examination Constitutional: Yes: Awake/ confused Cardiovascular: Yes: Regular Rate and Rhythm, Murmur Respiratory: Yes: Diminished, Other (left chest wall permacath site-- pus present at side ++) Gastrointestinal: Yes: Normal Bowel Sounds, Soft. No: Distention, Tenderness Edema: No Neurological: Yes: awake/ confused Imaging - Results Chest X-ray: Image Reviewed (no infiltrate or congestion) Cat Scan: Report Reviewed EKG: Pending Problem List - Problems (1) Toxic metabolic encephalopathy Code(s): G92 - TOXIC ENCEPHALOPATHY (2) Line sepsis associated with dialysis catheter Code(s): T82.7XXA - INFECT/INFLM REACT D/T OTH CARDI/VASC DEV/IMPLNT/GRFT, INIT ; A41.9 - SEPSIS, UNSPECIFIED ORGANISM (3) ESRD (end stage renal disease) on dialysis Code(s): N18.6 - END STAGE RENAL DISEASE; Z99.2 - DEPENDENCE ON RENAL DIALYSIS (4) Sepsis Code(s): A41.9 - SEPSIS, UNSPECIFIED ORGANISM (5) Diabetes mellitus Code(s): E11.9 - TYPE 2 DIABETES MELLITUS WITHOUT COMPLICATIONS Qualifiers: Diabetes mellitus type: type 2 Diabetes mellitus shelter insulin use: with shelter use Assessment/Plan better abx- per vanco level f/u cultures-- repeat -ve so far overall better will need access will follow
[2018-12-21] MEDS: TORSEMIDE 20 MG TABLET (FP) PO SCH (10:36)
[2018-12-21] MEDS: HEPARIN NA (PORCINE) 5,000 UNITS/ML 1ML VIAL SQ SCH ×2 (10:37→21:19)
[2018-12-21] MEDS: diphenhydrAMINE HCL 25 MG CAPSULE (FP) PO PRN (10:37)
[2018-12-21] MEDS: ATENOLOL 25 MG TABLET (FP) PO SCH (10:38)
[2018-12-21] MEDS: RANITIDINE HCL 150 MG/10 ML UNIT-DOSE PO SCH (10:40)
--- NOTE | 2018-12-21 11:18 | PN ---
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 Pt seen and examined at the bedside more awake and alert no further fevers denies any sob,abd pain, N/V/D Vital Signs Temperature 98.0 F 12/21/18 09:00 Pulse Rate 63 12/21/18 09:00 Respiratory Rate 18 12/21/18 09:00 Blood Pressure 148/64 12/21/18 09:00 O2 Sat by Pulse Oximetry (%) 96 12/20/18 21:00 Intake & Output 12/18/18 12/19/18 12/20/18 12/21/18 23:59 23:59 23:59 23:59 Intake Total 0 950 700 100 Balance 0 950 700 100 Weight 47.174 kg 46.72 kg NAD awake and alert neck supple, no JVD RRR, No M/R CTA soft NT/ND No LE edema CBC, BMP 12/20/18 06:30 12/21/18 06:45 Current Medications Atenolol (Tenormin -) 25 mg PO DAILY [facility] Last Admin: 12/21/18 10:38 Dose: 25 mg Diphenhydramine HCl (Benadryl -) 25 mg PO Q8H PRN PRN Reason: FOR ITCHING Last Admin: 12/21/18 10:37 Dose: 25 mg Epoetin Kolby (Procrit -) 10,000 unit SQ MOWEFR [facility] Heparin Sodium (Porcine) (Heparin -) 5,000 unit SQ BID [facility] Last Admin: 12/21/18 10:37 Dose: 5,000 unit Piperacillin Sod/Tazobactam (Sod 2.25 gm/ Dextrose) 50 mls @ 100 mls/hr IVPB Q8H-IV [facility]; Protocol Last Admin: 12/21/18 10:38 Dose: 100 mls/hr Ranitidine HCl (Zantac Oral Solution -) 150 mg PO DAILY [facility] Last Admin: 12/21/18 10:40 Dose: 150 mg Sevelamer Carbonate (Renvela -) 800 mg PO TIDCM [facility] Last Admin: 12/21/18 08:42 Dose: 800 mg Tamsulosin HCl (Flomax -) 0.8 mg PO DAILY@0830 [facility] Last Admin: 12/21/18 08:42 Dose: 0.8 mg Torsemide (Demadex -) 40 mg PO DAILY [facility] Last Admin: 12/21/18 10:36 Dose: 40 mg Potassium Chloride (Potassium Chloride 10 Meq Premix Ivpb -) 10 meq in 100 mls @ 100 mls/hr IVPB Q60M [facility] Stop: 12/18/18 16:44 88 year old [place] gentleman with ESRD on HD, hypertension, DM who presented from outpatient dialysis with fever, chills and tachycardia and found to have sepsis syndrome with suspected catheter related infection. #Fever/Sepsis r/o catheter related infection #ESRD on HD #Hypertension #DM #Chronic Anemia HD catheter removed 12-18 Blood cultures growing MRSA, repeat cultures 12/20 w/o growth as of yet Continue Vanco dosed by levels, todays level at goal no acute need for [employer] today, will trend labs and clinical status daily to access need for next HD tx ID follow up Vascular surgery following will given HORACIO SC 3x weekly for now while not getting HD Continue torsemide daily no KATELYNN/ARB for now Thank you Steven Carvajal DO
[2018-12-22] MEDS ORDERED: PIPERACILLIN/TAZOBACTAM 2.25 GM VIAL IVPB ONE ×3 (00:34→16:46)
[2018-12-22] MEDS ORDERED: DEXTROSE 5%-WATER - 50 ML IVPB ONE ×3 (00:34→16:46)
[2018-12-22] MEDS: PIPERACILLIN/TAZOB 2.25 GM 2.25 GM in DEXTROSE 5%-WATER - 50 ML IVPB SCH ×3 (01:40→17:03)
[2018-12-22 07:24] LABS: BASO % 0.8 % (0-2.0); HEMOGLOBIN 8.2 GM/dL (11.7-16.9); LYMPH % 17.4 % (8-40); MCH 25.6 pg (25.7-33.7); MEAN CELL VOLUME 77.5 fl (80-96); MEAN PLT VOLUME 7.9 fl (7.5-11.1); MONO % 8.6 % (3.8-10.2); NEUT % 58.2 % (42.8-82.8); PLATELET COUNT 147 K/MM3 (134-434); RBC 3.22 M/mm3 (4.00-5.60); RDW 15.6 % (11.9-15.9); WHITE BLOOD COUNT 6.8 K/mm3 (4.0-10.0)
[2018-12-22 07:52] LABS: ANION GAP 13 MMOL/L (8-16); BLOOD UREA NITROGEN 73 mg/dL (7-18); CALCIUM 8.4 mg/dL (8.5-10.1); CHLORIDE 99 mmol/L (98-107); CO2 21 mmol/L (21-32); GLUCOSE,RANDOM 131 mg/dL (74-106); MAGNESIUM 2.7 mg/dL (1.8-2.4); PHOSPHOROUS 6.6 mg/dL (2.5-4.9); POTASSIUM 4.8 mmol/L (3.5-5.1); SODIUM 133 mmol/L (136-145)
[2018-12-22] MEDS: SEVELAMER CARBONATE 800 MG TAB (FP) PO SCH ×3 (08:17→16:43)
[2018-12-22] MEDS: TAMSULOSIN HCL 0.4 MG CAP PO SCH (08:17)
[2018-12-22 08:39] LABS: CREATININE 8.9 mg/dL (0.55-1.3)
[2018-12-22] MEDS ORDERED: PT OWN MED DRAWER 7, Y5N ONE (09:22)
[2018-12-22] MEDS: ATENOLOL 25 MG TABLET (FP) PO SCH (09:34)
[2018-12-22] MEDS: HEPARIN NA (PORCINE) 5,000 UNITS/ML 1ML VIAL SQ SCH ×2 (09:34→21:43)
[2018-12-22] MEDS: TORSEMIDE 20 MG TABLET (FP) PO SCH (09:34)
[2018-12-22] MEDS: amLODIPine BESYLATE 5 MG TABLET (FP) PO SCH (09:34)
[2018-12-22] MEDS: RANITIDINE HCL 150 MG/10 ML UNIT-DOSE PO SCH (10:51)
--- NOTE | 2018-12-22 11:24 | PN ---
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 Pt cleared by ID for tunneled catheter placement. Per renal, labs stable today, no plan for HD (no shiley placement needed). D/w attending Dr Valencia, plan for Permacath placement tomorrow. Renal aware NPO after midnight, labs ordered (cbc, chem, coags) Consent per attending
--- NOTE | 2018-12-22 11:45 | PN ---
Progress Note (short form) - Note Progress Note: pt seen/ examined Vital Signs Temp 97.7 F 12/22/18 06:00 Pulse 62 12/22/18 06:00 Resp 18 12/22/18 06:00 BP 178/76 H 12/22/18 06:00 Pulse Ox 99 12/21/18 10:00 Intake & Output 12/21/18 12/21/18 12/22/18 11:59 23:59 11:59 Intake Total 100 50 50 Balance 100 50 50 Intake: IVPB 100 50 50 Other: Voiding Method Diaper Diaper # Unmeasured Voids Void 1 Bowel Movement No # Bowel Movements 1 Active Medications Amlodipine Besylate (Norvasc -) 5 mg PO DAILY [facility] Last Admin: 12/22/18 09:34 Dose: 5 mg Atenolol (Tenormin -) 25 mg PO DAILY [facility] Last Admin: 12/22/18 09:34 Dose: 25 mg Diphenhydramine HCl (Benadryl -) 25 mg PO Q8H PRN PRN Reason: FOR ITCHING Last Admin: 12/21/18 10:37 Dose: 25 mg Epoetin Kolby (Procrit -) 10,000 unit SQ MOWEFR [facility] Heparin Sodium (Porcine) (Heparin -) 5,000 unit SQ BID [facility] Last Admin: 12/22/18 09:34 Dose: 5,000 unit Piperacillin Sod/Tazobactam (Sod 2.25 gm/ Dextrose) 50 mls @ 100 mls/hr IVPB Q8H-IV [facility]; Protocol Last Admin: 12/22/18 09:34 Dose: 100 mls/hr Ranitidine HCl (Zantac Oral Solution -) 150 mg PO DAILY [facility] Last Admin: 12/22/18 10:51 Dose: 150 mg Sevelamer Carbonate (Renvela -) 1,600 mg PO TIDCM [facility] Tamsulosin HCl (Flomax -) 0.8 mg PO DAILY@0830 [facility] Last Admin: 12/22/18 08:17 Dose: 0.8 mg Torsemide (Demadex -) 40 mg PO DAILY [facility] Last Admin: 12/22/18 09:34 Dose: 40 mg CBC, BMP 12/22/18 06:40 12/22/18 06:40 Microbiology 12/20/18 10:30 Blood Culture - Preliminary Blood - Peripheral Venous NO GROWTH OBTAINED AFTER 48 HOURS, INCUBATION TO CONTINUE FOR 3 DAYS. 12/20/18 10:20 Blood Culture - Preliminary Blood - Peripheral Venous NO GROWTH OBTAINED AFTER 48 HOURS, INCUBATION TO CONTINUE FOR 3 DAYS. 12/18/18 12:20 Blood Culture - Final Blood - Peripheral Venous S Aureus 12/18/18 12:11 Blood Culture - Final Blood - Peripheral Venous Mr S Aureus INR, PTT INR 1.26 (0.83-1.09) H 12/18/18 12:15 Physical Examination Constitutional: Yes: Awake/ confused Cardiovascular: Yes: Regular Rate and Rhythm, Murmur Respiratory: Yes: Diminished, Other (left chest wall permacath site-- pus present at side ++) Gastrointestinal: Yes: Normal Bowel Sounds, Soft. No: Distention, Tenderness Edema: No Neurological: Yes: awake/ confused Imaging - Results Chest X-ray: Image Reviewed (no infiltrate or congestion) Cat Scan: Report Reviewed EKG: Pending Problem List - Problems (1) Toxic metabolic encephalopathy Code(s): G92 - TOXIC ENCEPHALOPATHY (2) Line sepsis associated with dialysis catheter Code(s): T82.7XXA - INFECT/INFLM REACT D/T OTH CARDI/VASC DEV/IMPLNT/GRFT, INIT ; A41.9 - SEPSIS, UNSPECIFIED ORGANISM (3) ESRD (end stage renal disease) on dialysis Code(s): N18.6 - END STAGE RENAL DISEASE; Z99.2 - DEPENDENCE ON RENAL DIALYSIS (4) Sepsis Code(s): A41.9 - SEPSIS, UNSPECIFIED ORGANISM (5) Diabetes mellitus Code(s): E11.9 - TYPE 2 DIABETES MELLITUS WITHOUT COMPLICATIONS Qualifiers: Diabetes mellitus type: type 2 Diabetes mellitus terminal worker insulin use: with terminal worker use Assessment/Plan better abx- per vanco level f/u cultures overall better will need access Discussed with Dr. Mercer today as well as Dr. Wei Donovan cath to be placed tomorrow and dialysis afterwards will follow
--- NOTE | 2018-12-22 12:29 | PN ---
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 Pt seen and examined at the bedside awake and alert no acute complaints no fever, chills, sob, cp, abd pain, N/V/D Vital Signs Temperature 97.7 F 12/22/18 06:00 Pulse Rate 62 12/22/18 06:00 Respiratory Rate 18 12/22/18 06:00 Blood Pressure 178/76 H 12/22/18 06:00 O2 Sat by Pulse Oximetry (%) 99 12/21/18 10:00 Intake & Output 12/19/18 12/20/18 12/21/18 12/22/18 23:59 23:59 23:59 23:59 Intake Total 950 700 150 170 Balance 950 700 150 170 Weight 46.72 kg NAD awake and alert neck supple, no JVD RRR, No M/R CTA soft NT/ND No LE edema CBC, BMP 12/22/18 06:40 12/22/18 06:40 Current Medications Amlodipine Besylate (Norvasc -) 5 mg PO DAILY [facility] Last Admin: 12/22/18 09:34 Dose: 5 mg Atenolol (Tenormin -) 25 mg PO DAILY [facility] Last Admin: 12/22/18 09:34 Dose: 25 mg Diphenhydramine HCl (Benadryl -) 25 mg PO Q8H PRN PRN Reason: FOR ITCHING Last Admin: 12/21/18 10:37 Dose: 25 mg Epoetin Kolby (Procrit -) 10,000 unit SQ MOWEFR [facility] Heparin Sodium (Porcine) (Heparin -) 5,000 unit SQ BID [facility] Last Admin: 12/22/18 09:34 Dose: 5,000 unit Piperacillin Sod/Tazobactam (Sod 2.25 gm/ Dextrose) 50 mls @ 100 mls/hr IVPB Q8H-IV [facility]; Protocol Last Admin: 12/22/18 09:34 Dose: 100 mls/hr Ranitidine HCl (Zantac Oral Solution -) 150 mg PO DAILY [facility] Last Admin: 12/22/18 10:51 Dose: 150 mg Sevelamer Carbonate (Renvela -) 1,600 mg PO TIDCM [facility] Last Admin: 12/22/18 12:04 Dose: 1,600 mg Tamsulosin HCl (Flomax -) 0.8 mg PO DAILY@0830 [facility] Last Admin: 12/22/18 08:17 Dose: 0.8 mg Torsemide (Demadex -) 40 mg PO DAILY [facility] Last Admin: 12/22/18 09:34 Dose: 40 mg 88 year old [place] gentleman with ESRD on HD, hypertension, DM who presented from outpatient dialysis with fever, chills and tachycardia and found to have sepsis syndrome with suspected catheter related infection. #Fever/Sepsis r/o catheter related infection #ESRD on HD #Hypertension #DM #Chronic Anemia HD catheter removed 12-18 Blood cultures growing MRSA, repeat cultures 12/20 w/o growth as of yet Continue Vanco dosed by levels, todays level at goal cleared for permcath insertion by ID, to have it done tomorrow and then subsequent dialysis ID follow up Vascular surgery following will give HORACIO SC 3x weekly for now while not getting HD Continue torsemide daily no KATELYNN/ARB for now Thank you Steven Carvajal DO
[2018-12-22] MEDS ORDERED: SODIUM CHLORIDE 250 ML IV PRN (12:31)
[2018-12-23] MEDS ORDERED: DEXTROSE 5%-WATER - 50 ML IVPB ONE ×2 (00:43→10:43)
[2018-12-23] MEDS ORDERED: PIPERACILLIN/TAZOBACTAM 2.25 GM VIAL IVPB ONE ×2 (00:43→10:42)
[2018-12-23] MEDS: PIPERACILLIN/TAZOB 2.25 GM 2.25 GM in DEXTROSE 5%-WATER - 50 ML IVPB SCH ×2 (02:10→10:55)
[2018-12-23 08:01] LABS: BASO % 0.8 % (0-2.0); EOS % 11.1 % (0-4.5); HEMATOCRIT 22.3 % (35.4-49); HEMOGLOBIN 7.4 GM/dL (11.7-16.9); LYMPH % 15.1 % (8-40); MCH 25.4 pg (25.7-33.7); MCHC 33.2 g/dl (32.0-35.9); MEAN CELL VOLUME 76.5 fl (80-96); MEAN PLT VOLUME 7.7 fl (7.5-11.1); MONO % 8.4 % (3.8-10.2); NEUT % 64.6 % (42.8-82.8); PLATELET COUNT 144 K/MM3 (134-434); RBC 2.92 M/mm3 (4.00-5.60); RDW 15.7 % (11.9-15.9); WHITE BLOOD COUNT 7.5 K/mm3 (4.0-10.0)
[2018-12-23 08:28] LABS: INR 1.04 (0.83-1.09); PROTHROMBIN TIME (PATIENT) 12.3 SEC (9.7-13.0)
[2018-12-23 08:31] LABS: ACTIVATED PTT 48.4 SECONDS (25.2-36.5)
[2018-12-23 08:48] LABS: ALBUMIN 2.3 g/dl (3.4-5.0); ALK PHOS 187 U/L (45-117); ANION GAP 15 MMOL/L (8-16); BILIRUBIN,TOTAL 0.6 mg/dL (0.2-1); BLOOD UREA NITROGEN 81 mg/dL (7-18); CALCIUM 8.3 mg/dL (8.5-10.1); CHLORIDE 98 mmol/L (98-107); CO2 19 mmol/L (21-32); GLUCOSE,RANDOM 140 mg/dL (74-106); POTASSIUM 4.9 mmol/L (3.5-5.1); SGOT/AST 54 U/L (15-37); SGPT/ALT 63 U/L (13-61); SODIUM 132 mmol/L (136-145); TOT PROT 7.4 g/dl (6.4-8.2)
[2018-12-23 10:20] LABS: PHOSPHOROUS 6.5 mg/dL (2.5-4.9)
[2018-12-23 10:21] LABS: CREATININE 9.7 mg/dL (0.55-1.3)
[2018-12-23] MEDS: TORSEMIDE 20 MG TABLET (FP) PO SCH (10:50)
[2018-12-23] MEDS: HEPARIN NA (PORCINE) 5,000 UNITS/ML 1ML VIAL SQ SCH ×3 (10:50→22:21)
[2018-12-23] MEDS: TAMSULOSIN HCL 0.4 MG CAP PO SCH (10:50)
[2018-12-23] MEDS: ATENOLOL 25 MG TABLET (FP) PO SCH (10:51)
[2018-12-23] MEDS: amLODIPine BESYLATE 5 MG TABLET (FP) PO SCH (10:51)
[2018-12-23] MEDS: SEVELAMER CARBONATE 800 MG TAB (FP) PO SCH ×3 (10:51→17:24)
[2018-12-23] MEDS: RANITIDINE HCL 150 MG/10 ML UNIT-DOSE PO SCH (10:51)
--- NOTE | 2018-12-23 12:24 | PN ---
Progress Note (short form) - Note Progress Note: no complaints NPO -- awaiting permacath placement Vital Signs - 24 hr 12/22/18 12/22/18 12/22/18 14:14 17:47 21:00 Temperature 97.1 F L 97.2 F L 97.6 F Pulse Rate 59 L 54 L 73 Respiratory 18 18 18 Rate Blood Pressure 138/58 L 143/50 L 148/76 12/23/18 06:00 Temperature 97.9 F Pulse Rate 68 Respiratory 18 Rate Blood Pressure 155/74 Current Medications Generic Name Dose Route Start Last Admin Trade Name Freq PRN Reason Stop Dose Admin Amlodipine Besylate 5 mg 12/22/18 10:00 12/23/18 10:51 Norvasc - PO Not Given DAILY [facility] Atenolol 25 mg 12/20/18 10:00 12/23/18 10:51 Tenormin - PO Not Given DAILY [facility] Diphenhydramine HCl 25 mg 12/20/18 12:33 12/21/18 10:37 Benadryl - PO 25 mg Q8H PRN Administration FOR ITCHING Epoetin Kolby 10,000 unit 12/19/18 14:45 Procrit - SQ MOWEFR [facility] Heparin Sodium (Porcine) 5,000 unit 12/18/18 22:00 12/23/18 10:50 Heparin - SQ Not Given BID [facility] Piperacillin Sod/Tazobactam 50 mls @ 100 mls/hr 12/18/18 19:00 12/23/18 10:55 Sod 2.25 gm/ Dextrose IVPB 100 mls/hr Q8H-IV [facility] Administration Protocol Sodium Chloride 250 mls @ 3,000 mls/hr 12/22/18 12:31 Normal Saline - IV 12/23/18 12:31 PRN PRN Hypotension during Dialysis Ranitidine HCl 150 mg 12/20/18 10:00 12/23/18 10:51 Zantac Oral Solution - PO Not Given DAILY [facility] Sevelamer Carbonate 1,600 mg 12/22/18 10:00 12/23/18 10:51 Renvela - PO Not Given TIDCM [facility] Tamsulosin HCl 0.8 mg 12/20/18 08:30 12/23/18 10:50 Flomax - PO Not Given DAILY@0830 [facility] Torsemide 40 mg 12/20/18 10:00 12/23/18 10:50 Demadex - PO Not Given DAILY [facility] Abnormal Lab Results 12/23/18 12/23/18 12/23/18 05:18 05:18 05:18 RBC 2.92 L Hgb 7.4 L Hct 22.3 L MCV 76.5 L MCH 25.4 L Eosinophils % 11.1 H PTT (Actin FS) 48.4 H Sodium 132 L Carbon Dioxide 19 L BUN 81 H Creatinine 9.7 H* Random Glucose 140 H Calcium 8.3 L Phosphorus 6.5 H AST 54 H ALT 63 H Alkaline Phosphatase 187 H Albumin 2.3 L Random Vancomycin 12/23/18 05:18 RBC Hgb Hct MCV MCH Eosinophils % PTT (Actin FS) Sodium Carbon Dioxide BUN Creatinine Random Glucose Calcium Phosphorus AST ALT Alkaline Phosphatase Albumin Random Vancomycin 27.3 H S1 S2 RRR awake and alert Lungs no crackles abd- soft, NT no edema Assessment/Plan clinically better abx- per vanco level repeat cultures negative permacath scheduled today evening Will need PRBC-- informed Renal Problem List - Problems (1) Toxic metabolic encephalopathy Code(s): G92 - TOXIC ENCEPHALOPATHY (2) Line sepsis associated with dialysis catheter Code(s): T82.7XXA - INFECT/INFLM REACT D/T OTH CARDI/VASC DEV/IMPLNT/GRFT, INIT ; A41.9 - SEPSIS, UNSPECIFIED ORGANISM (3) ESRD (end stage renal disease) on dialysis Code(s): N18.6 - END STAGE RENAL DISEASE; Z99.2 - DEPENDENCE ON RENAL DIALYSIS (4) Sepsis Code(s): A41.9 - SEPSIS, UNSPECIFIED ORGANISM (5) Diabetes mellitus Code(s): E11.9 - TYPE 2 DIABETES MELLITUS WITHOUT COMPLICATIONS Qualifiers: Diabetes mellitus type: type 2 Diabetes mellitus senior living insulin use: with senior living use
[2018-12-23 13:07] VITALS: BMI 16.5
--- NOTE | 2018-12-23 13:09 | PN ---
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 Pt seen and examined at the bedside awake and alert no acute complaints no fever, chills, sob, cp, abd pain, N/V/D awaiting HD catheter placement in OR Vital Signs Temperature 97.9 F 12/23/18 06:00 Pulse Rate 68 12/23/18 06:00 Respiratory Rate 18 12/23/18 06:00 Blood Pressure 155/74 12/23/18 06:00 O2 Sat by Pulse Oximetry (%) 99 12/21/18 10:00 Intake & Output 12/20/18 12/21/18 12/22/18 12/23/18 23:59 23:59 23:59 23:59 Intake Total 700 150 370 300 Balance 700 150 370 300 Weight 44.906 kg NAD awake and alert neck supple, no JVD RRR, No M/R CTA soft NT/ND No LE edema CBC, BMP 12/23/18 05:18 12/23/18 05:18 Current Medications Amlodipine Besylate (Norvasc -) [address] [facility] Last Admin: 12/23/18 10:51 Dose: Not Given Atenolol (Tenormin -) [address] [facility] Last Admin: 12/23/18 10:51 Dose: Not Given Diphenhydramine HCl (Benadryl -) 25 mg PO Q8H PRN PRN Reason: FOR ITCHING Last Admin: 12/21/18 10:37 Dose: 25 mg Epoetin Kolby (Procrit -) 10,000 unit SQ MOWEFR [facility] Heparin Sodium (Porcine) (Heparin -) 5,[address] [facility] Last Admin: 12/23/18 10:50 Dose: Not Given Piperacillin Sod/Tazobactam (Sod 2.25 gm/ Dextrose) 50 mls @ 100 mls/hr IVPB Q8H-IV [facility]; Protocol Last Admin: 12/23/18 10:55 Dose: 100 mls/hr Sodium Chloride (Normal Saline -) 250 mls @ 3,000 mls/hr IV PRN PRN PRN Reason: Hypotension during Dialysis Stop: 12/23/18 12:31 Ranitidine HCl (Zantac Oral Solution -) [address] [facility] Last Admin: 12/23/18 10:51 Dose: Not Given Sevelamer Carbonate (Renvela -) 1,[address] [facility] Last Admin: 12/23/18 12:28 Dose: Not Given Tamsulosin HCl (Flomax -) 0.8 mg PO DAILY@0830 [facility] Last Admin: 12/23/18 10:50 Dose: Not Given Torsemide (Demadex -) [address] [facility] Last Admin: 12/23/18 10:50 Dose: Not Given 88 year old [place] gentleman with ESRD on HD, hypertension, DM who presented from outpatient dialysis with fever, chills and tachycardia and found to have sepsis syndrome with suspected catheter related infection. #Fever/Sepsis r/o catheter related infection #ESRD on HD #Hypertension #DM #Chronic Anemia HD catheter removed 12-18 Blood cultures grewMRSA, repeat cultures 12/20 w/o growth as of yet Continue Vanco dosed by levels, todays level at goal for tunneled HD catheter placement today by Dr. Valencia, HD following will need research chemical engineer Abx, will discuss with ID about duration ID follow up Vascular surgery following will give HORACIO SC 3x weekly for now while not getting HD Continue torsemide daily no KATELYNN/ARB for now discharge planning to rehab after dialysis Thank you Steven Carvajal DO
[2018-12-23] MEDS ORDERED: LIDOCAINE HCL 1%, 10 MG/ML (20ML VIAL) ONE (14:56)
[2018-12-23] MEDS ORDERED: LIDOCAINE HCL 1%, 10 MG/ML (20ML VIAL) NR ONE ×3 (15:17→15:58)
[2018-12-23] MEDS ORDERED: PROPOFOL 20 ML ONE (15:52)
[2018-12-23] MEDS ORDERED: ceFAZolin SODIUM 1 GM VIAL IVPB ONE (15:55)
--- NOTE | 2018-12-23 16:22 | OP ---
Operative Note - Note: Operative Date: 12/23/18 Pre-Operative Diagnosis: esrd Operation: Insertion of permacath Post-Operative Diagnosis: Same as Pre-op Surgeon: Gregory Valencia Anesthesia: Fractional Estimated Blood Loss (mls): 20 Operative Report Dictated: Yes
[2018-12-23] MEDS ORDERED: SODIUM CHLORIDE 250 ML IV PRN (18:27)
[2018-12-23] MEDS ORDERED: diphenhydrAMINE HCL 25 MG CAPSULE (FP) PO PRN (18:27)
[2018-12-23] MEDS ORDERED: amLODIPine BESYLATE 5 MG TABLET (FP) PO ONE (21:00)
[2018-12-23] MEDS ORDERED: ATENOLOL 25 MG TABLET (FP) PO ONE (21:00)
[2018-12-24] MEDS ORDERED: amLODIPine BESYLATE 5 MG TABLET (FP) PO ONE (06:05)
[2018-12-24] MEDS ORDERED: ATENOLOL 25 MG TABLET (FP) PO ONE ×2 (06:05→15:07)
[2018-12-24] MEDS ORDERED: PT OWN MED DRAWER 7, Y5N ONE ×2 (06:33→11:51)
[2018-12-24] MEDS ORDERED: EPOETIN ALFA 10,000 UNIT/1 ML VIAL IVPUSH SCH (08:00)
[2018-12-24] MEDS ORDERED: TAMSULOSIN HCL 0.4 MG CAP PO SCH (08:30)
--- NOTE | 2018-12-24 09:29 | PN ---
Progress Note (short form) - Note Progress Note: surgery POD #1 permacath instertion right chest wall patient seen and examined in dialysis. Patient resting comfortably with no complaints. Vital Signs Temp 97.7 F 12/24/18 07:50 Pulse 61 12/24/18 08:25 Resp 18 12/24/18 08:25 BP 147/71 12/24/18 08:25 Pulse Ox 95 12/24/18 00:22 Intake & Output 12/23/18 12/23/18 12/24/18 11:59 23:59 11:59 Intake Total 300 250 Balance 300 250 Weight 99 lb 97 lb Intake: IV 250 IVPB 50 Oral 250 Other: Voiding Method Toilet Incontinent Incontinent # Unmeasured Voids Void 1 2 1 Bowel Movement Yes Yes Yes # Bowel Movements 1 1 1 Body Mass Index (BMI) 16.5 Weight Measurement Method Standing Scale Standing Scale CBC, BMP 12/23/18 05:18 12/23/18 05:18 PE: Patient resting comfortably undergoing dialysis, NAD Unlabored resp on RA Right chest wall, parmacath in place, attached to dialysis, site clean and dry with no edema, erythema ecchymosis or active d/c. Surgicell surrounding PC. Problem List - Problems (1) ESRD (end stage renal disease) on dialysis Assessment/Plan: POD #1 PC placement patient doing well 1) May use permacath-dialysis per renal 2) re-consult surgery PRN Evaluation and plan discussed with Dr Valencia. Code(s): N18.6 - END STAGE RENAL DISEASE; Z99.2 - DEPENDENCE ON RENAL DIALYSIS
[2018-12-24] MEDS ORDERED: ATENOLOL 25 MG TABLET (FP) PO SCH (10:00)
[2018-12-24] MEDS ORDERED: RANITIDINE HCL 150 MG/10 ML UNIT-DOSE PO SCH (10:00)
[2018-12-24] MEDS ORDERED: TORSEMIDE 20 MG TABLET (FP) PO SCH (10:00)
[2018-12-24] MEDS ORDERED: amLODIPine BESYLATE 5 MG TABLET (FP) PO SCH (10:00)
--- NOTE | 2018-12-24 11:29 | DS ---
Physical Examination Vital Signs: Vital Signs Temperature 97.7 F 12/24/18 07:50 Pulse Rate 66 12/24/18 10:55 Respiratory Rate 18 12/24/18 10:55 Blood Pressure 182/79 H 12/24/18 10:55 O2 Sat by Pulse Oximetry (%) 95 12/24/18 00:22 Constitutional: Yes: No Distress, Calm Cardiovascular: Yes: Regular Rate and Rhythm Respiratory: Yes: CTA Bilaterally Gastrointestinal: Yes: Normal Bowel Sounds, Soft. No: Tenderness Edema: No Labs: CBC, BMP 12/23/18 05:18 12/23/18 05:18 Discharge Summary Reason For Visit: SEPSIS Current Active Problems ESRD (end stage renal disease) on dialysis (Acute) Line sepsis associated with dialysis catheter (Acute) Sepsis (Acute) Toxic metabolic encephalopathy (Acute) Hospital Course: - Admission Chief Complaint: fever and AMS History of Present Illness: HISTORY FROM ER - HPI HPI: The patient is an 88 year old male, with a significant PMH of esrd, ( dialysis t /r/sat) DM, CKD, HTN, and HLD presents to the emergency department today presenting from [facility] [place] for altered mental status As per nurse at Dialysis Center, patient had one hour of dialysis left, when he began experiencing chills. blood cultures obtained a and given Vancomycin. Patient then became tachycardic 120s, without a fever. pt with decreased responsive ness, so called ambulance. normally patients baseline is alerted and oriented x2, is responsive to his name but not accurate with what day it is. per EMS pt was altered on arrival, but responds to tactile stimulation, seen moving all ext. found to be febrile 103. In the ED, patient has a 103.5 rectal temperature and is only responsive to tactile stimuli. HPI is limited secondary to patients altered state. Pt examined by me in the ER Baseline per NH -- alert and able to make needs known Pt was sent from [facility] dialysis unit as he was febrile, chills and lethargic He received Vancomycin in dialysis there and here received Zosyn Did not complete dialysis , lethargic Not in fluid overload History Source: Medical Record, Transfer Record Limitations to Obtaining History: Other (lethargic) HOSPITAL COURSE pt was evaluated by ID, Renal and Vascular, permacath was removed on admission blood cultures were positive for MRSA, repeat cultures on 12/20-- negative Wound cultures-- MRSA Echo-- no vegetations Started on iv Vanco per troughs Pt mental status improved back to baseline Pt clinically improved New permacath placed today Was dialyzed today Pt is stable for dc to NH on IV vanco x 6 weeks during dialysis Condition: Improved - Instructions [facility]position: [facility] - Home Medications Comprehensive Discharge Medication List: Ambulatory Orders Tamsulosin HCl [Flomax -] 0.8 mg PO DAILY@0830 #30 cap.er.24h 08/15/17 Amlodipine Besylate [Norvasc -] 10 mg PO DAILY 30 Days #30 tablet 08/27/18 Atenolol [Tenormin -] 25 mg PO DAILY 30 Days #30 tablet 08/27/18 Guaifenesin [Mucinex -] 600 mg PO BID 30 Days #60 tablet.er 08/27/18 Insulin Sliding Scale [Novolog Vial Sliding Scale -] 1 vial SQ ACHS units 08/27 Ranitidine Oral Solution [Zantac Oral Solution -] 150 mg PO DAILY #1 cup Sevelamer Carbonate [Renvela -] 800 mg PO TIDCM 30 Days #90 tab 08/27/18 Tamsulosin HCl [Flomax -] 0.8 mg PO DAILY@0830 cap.er.24h 08/27/18 Torsemide [Demadex -] 40 mg PO DAILY 30 Days #30 tablet 08/27/18
[2018-12-24] MEDS: SEVELAMER CARBONATE 800 MG TAB (FP) PO SCH ×3 (11:53→17:55)
[2018-12-24] MEDS: HEPARIN NA (PORCINE) 5,000 UNITS/ML 1ML VIAL SQ SCH (12:06)
[2018-12-24] MEDS ORDERED: LOSARTAN POTASSIUM 50 MG TABLET (FP) PO SCH (12:15)
[2018-12-24 12:44] VITALS: TEMP 98.4
[2018-12-24 14:54] VITALS: BP 205/91; PULSE 82
--- NOTE | 2018-12-24 14:57 | OP ---
DATE OF OPERATION: 12/23/2018 PREOPERATIVE DIAGNOSIS: End-stage renal disease. POSTOPERATIVE DIAGNOSIS: End-stage renal disease. PROCEDURE: Insertion of Permacath. SURGEON: Gregory Rodríguez DO ANESTHESIA: Fractional. BLOOD LOSS: 10 mL. Patient is an 88-year-old male that comes in with an infected Permacath that was removed days ago and now his blood cultures are clean and he needs a new dialysis catheter placement. Patient's son-in-law was consented for the procedure understanding all risks, benefits, and alternatives, and the patient was then brought to the operating room. Once in the operating room, laid on the operating table in a supine manner. Area of the right neck and chest were prepped and draped in sterile surgical manner. Under ultrasound guidance, we visualized the right internal jugular vein, and 10 mL of lidocaine 1% was injected there. We then, took our micropuncture needle and punctured the right internal jugular vein under ultrasound guidance. Micropuncture wire was inserted, and micropuncture sheath was inserted. We then placed a 0.035 floppy guidewire under fluoroscopy. We then injected 10 mL of lidocaine 1% above and below the clavicle. We then took a number 11 blade and made a 1-cm incision. We then took a 15 blade and made a 1-cm incision below the clavicle. We then tunneled the Permacath up to the puncture site. We then took our breakaway sheath over the guidewire into the vein under fluoroscopy, and the cannula and guidewire were then removed. We then placed our catheter into the sheath, and the sheath was ripped away, as the catheter was placed inside the vein. Neck of the catheter was nice and smooth. Tip of the catheter was located inside the right atrium. We then elida back on each port of the catheter, and there was good flow. Heparinized saline was injected, and 2000 units of IV heparin was injected into each port. We then used 4-0 Biosyn, and 2 simple stitches were placed at the puncture site, 3-0 nylon was used, and the catheter was attached to the skin. BIOPATCH, 4 x 4's, Steri-Strips, and Tegaderm were placed. Patient tolerated the procedure with no complications. Patient was transferred to PACU in stable condition where a chest x-ray will be obtained. GREGORY RODRÍGUEZ DO MODEL BUILDER/[id number]
--- NOTE | 2018-12-24 15:39 | PN ---
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 Pt seen and examined at the bedside no acute complaints no fever, chills, sob, cp, abd pain, N/V/D s/p permcath placement yesterday and HD earlier this am with 2 unit prbc transfusion Vital Signs Temperature 98.4 F 12/24/18 12:43 Pulse Rate 82 12/24/18 14:53 Respiratory Rate 20 12/24/18 12:43 Blood Pressure 205/91 H 12/24/18 14:53 O2 Sat by Pulse Oximetry (%) 95 12/24/18 00:22 Intake & Output 12/21/18 12/22/18 12/23/18 12/24/18 23:59 23:59 23:59 23:59 Intake Total 150 370 550 140 Balance 150 370 550 140 Weight 44.906 kg 43.998 kg NAD awake and alert neck supple, no JVD RRR, No M/R CTA soft NT/ND No LE edema CBC, BMP 12/23/18 05:18 12/23/18 05:18 Current Medications Amlodipine Besylate (Norvasc -) 5 mg PO DAILY [facility] Atenolol (Tenormin -) 25 mg PO DAILY [facility] Diphenhydramine HCl (Benadryl -) 25 mg PO Q8H PRN PRN Reason: FOR ITCHING Last Admin: 12/24/18 12:04 Dose: 25 mg Epoetin Kolby (Procrit -) 10,000 unit IVPUSH MOWEFR [facility] Last Admin: 12/24/18 11:15 Dose: 10,000 unit Heparin Sodium (Porcine) (Heparin -) 5,000 unit SQ BID [facility] Last Admin: 12/24/18 12:06 Dose: 5,000 unit Sodium Chloride (Normal Saline -) 250 mls @ 3,000 mls/hr IV PRN PRN PRN Reason: Hypotension during Dialysis Losartan Potassium (Cozaar -) 50 mg PO DAILY [facility] Last Admin: 12/24/18 12:24 Dose: 50 mg Ranitidine HCl (Zantac Oral Solution -) 150 mg PO DAILY [facility] Last Admin: 12/24/18 12:06 Dose: 150 mg Sevelamer Carbonate (Renvela -) 1,600 mg PO TIDCM [facility] Last Admin: 04/24/19 12:04 Dose: 1,600 mg Tamsulosin HCl (Flomax -) 0.8 mg PO DAILY@0830 [facility] Last Admin: 12/24/18 12:05 Dose: 0.8 mg Torsemide (Demadex -) 40 mg PO DAILY [facility] Last Admin: 12/24/18 12:06 Dose: 40 mg 88 year old [place] gentleman with ESRD on HD, hypertension, DM who presented from outpatient dialysis with fever, chills and tachycardia and found to have sepsis syndrome with suspected catheter related infection. #Fever/Sepsis r/o catheter related infection #ESRD on HD #Hypertension #DM #Chronic Anemia s/p new tunneled HD catheter placement will need Vancomycin with HD until 01-17, his was communicated to his outpatient HD unit will monitor levels Blood cultures grewMRSA, repeat cultures 12/20 w/o growth as of yet Vascular surgery following, will need AVG/AVF placed as an a outpatient will give HORACIO SC 3x weekly for now while not getting HD Continue torsemide daily restarted on Losartan 50mg daily as BP is above goal discharge planning to rehab Thank you Steven Carvajal DO
[2018-12-25] MEDS ORDERED: amLODIPine BESYLATE 5 MG TABLET (FP) PO SCH (10:00)
[2018-12-25] MEDS ORDERED: ATENOLOL 25 MG TABLET (FP) PO SCH (10:00)
[2018-12-26 01:08] LABS: HBSAG SCREEN Negative (Negative); HEP A AB, IGM Negative (Negative); HEP B CORE AB, TOT Negative (Negative)
== END 2018-12-24 18:49 | DRG 314 ==
LOC: JER 11:46 → JERBED 13:20 → J5S 15:57
PROVIDERS: ADMIT Internal Medicine; ATTEND Internal Medicine
PROC: 0WP Anatomical Regions, General, Removal (ICD-10-PCS; principal; 2018-12-18)
PROC: 05HM33Z Insertion of Infusion Device into Right Internal Jugular Vein, Percutaneous Approach (ICD-10-PCS; 2018-12-23)
PROC: 30233N1 Transfusion of Nonautologous Red Blood Cells into Peripheral Vein, Percutaneous Approach (ICD-10-PCS; 2018-12-23)
PROC: 5A1D70Z Performance of Urinary Filtration, Intermittent, Less than 6 Hours Per Day (ICD-10-PCS; 2018-12-24)
DX: T82.7XXA Infection and inflammatory reaction due to other cardiac and vascular devices, implants and grafts, initial encounter (principal); A41.9 Sepsis, unspecified organism; N18.6 End stage renal disease; G93.41 Metabolic encephalopathy; E43 Unspecified severe protein-calorie malnutrition; I12.0 Hypertensive chronic kidney disease with stage 5 chronic kidney disease or end stage renal disease; D64.9 Anemia, unspecified; E11.22 Type 2 diabetes mellitus with diabetic chronic kidney disease; Z99.2 Dependence on renal dialysis; E78.5 Hyperlipidemia, unspecified; R00.0 Tachycardia, unspecified; D72.829 Elevated white blood cell count, unspecified
CPT/HCPCS: 36415; 36430; 70450-TC; 71045-TC-FY; 76000-TC-FY; 80048; 80053; 81003; 82803; 82962; 83605; 83735; 84100; 84484; 85025; 85610; 85730; 86704; 86706; 86708; 86803; 86850; 86900; 86901; 86922; 87040; 87070; 87086; 87186; 87205; 87340; 87804; 93005; 93010; 93306-TC; 94760; 99283-25; G0480; J0131; J0885; J1644; P9038; P9058

== ENCOUNTER 2019-02-04 05:17 | Inpatient (IN) | payer OTHER ==
--- NOTE | 2019-02-04 05:43 | PDOC ---
Medical Decision Making - Medical Decision Making 02/04/19 05:42 Patient seen by the advanced practice provider under my direct supervision. Ancillary testing reviewed as necessary. I agree with plan as outlined by the advanced practice provider. *DC/Admit/Observation/Transfer Diagnosis at time of Disposition: Displacement of vascular dialysis catheter - Discharge Dispostion Condition at time of disposition: Fair - Referrals Referrals: Ranjan Vela [Primary Care Provider] - - Patient Instructions - Post Discharge Activity
[2019-02-04] MEDS ORDERED: TORSEMIDE 20 MG TABLET (FP) PO ONE (05:56)
[2019-02-04] MEDS ORDERED: ATENOLOL 25 MG TABLET (FP) PO ONE (05:56)
[2019-02-04] MEDS ORDERED: amLODIPine BESYLATE 10 MG TABLET (FP) PO ONE (05:56)
--- NOTE | 2019-02-04 06:01 | PDOC ---
History of Present Illness - General Chief Complaint: Dialysis Shunt Problem Stated Complaint: CATHETER PROBLEM Time Seen by Provider: 02/04/19 05:38 History Source: Patient Exam Limitations: No Limitations - History of Present Illness Initial Comments: 02/04/19 05:57 HISTORY OF PRESENT ILLNESS: This is an 88-year-old male past medical history of GERD, hypertension, hyperlipidemia, BPH, type 2 diabetes, ESRD on HD T-T-S was [facility] replacement of dialysis catheter. While doing rounds a long term patient was found to have his tunneled dialysis catheter present next to him in the bed. No recent travel or sick contacts. PAST MEDICAL HISTORY: see HPI SURGICAL HISTORY: Denies ALLERGIES: No known drug allergies REVIEW OF SYSTEMS General/Constitutional: Denies fever or chills. Denies weakness, weight change. HEENT: Denies change in vision. Denies ear pain or discharge. Denies sore throat. Cardiovascular: Denies chest pain or shortness of breath. Respiratory: Denies cough, wheezing, or hemoptysis. Gastrointestinal: Denies nausea, vomiting, diarrhea or constipation. Denies rectal bleeding. Genitourinary: Denies dysuria, frequency, or change in urination. Musculoskeletal: Denies joint or muscle swelling or pain. Denies neck or back pain. Skin and breasts: Denies rash or easy bruising. Neurologic: Denies headache, vertigo, loss of consciousness, or loss of sensation. Psychiatric: Denies depression or anxiety. Endocrine: Denies increased thirst. Denies abnormal weight change. Hematologic/Lymphatic: see HPI Allergic/Immunologic: Denies hives or skin allergy. Denies latex allergy. PHYSICAL EXAM General Appearance: Cachetic. No apparent distress, no intoxication. HEENT: EOMI, PERRLA, normal ENT inspection, normal voice, TMs normal, pharynx normal. No conjunctival pallor. No photophobia, scleral icterus. Dry MM. Neck: Supple. Trachea midline. No tenderness, rigidity, carotid bruit, stridor , lymphadenopathy, or thyromegaly. Respiratory/Chest: Lungs CTAB. No shortness of breath, chest tenderness, respiratory distress, accessory muscle use. No crackles, rales, rhonchi, stridor , wheezing, dullness Cardiovascular: RRR. S1, S2. No JVD, bradycardia, tachycardia. +4 holosystolic murmur loudest at right 2nd ICS. Vascular Pulses: Dorsalis-Pedis (R): 2+, Dorsalis-Pedis (L): 2+ Musculoskeletal/Extremities: Normal inspection. FROM of all extremities, normal capillary refill. Pelvis Stable. No CVA tenderness. No tenderness to extremities, pedal edema, swelling, erythema or deformity. Integumentary: Appropriate color, dry, warm. No cyanosis, erythema, jaundice or rash. Tenting present. 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 Fully oriented, alert. Appropriate mood/affect. Motor strength 5/5. No appreciable EOM palsy, facial droop or sensory deficit. 02/04/19 06:02 Past History - Past Medical History Allergies/Adverse Reactions: Allergies Allergy/AdvReac Type Severity Reaction Status Date / Time No Known Allergies Allergy Verified 02/04/19 06:03 Home Medications: Ambulatory Orders Amlodipine Besylate [Norvasc -] 10 mg PO DAILY 30 Days #30 tablet 08/27/18 Atenolol [Tenormin -] 25 mg PO DAILY 30 Days #30 tablet 08/27/18 Guaifenesin [Mucinex -] 600 mg PO BID 30 Days #60 tablet.er 08/27/18 Insulin Sliding Scale [Novolog Vial Sliding Scale -] 1 vial SQ ACHS units 08/27 Ranitidine Oral Solution [Zantac Oral Solution -] 150 mg PO DAILY #1 cup Sevelamer Carbonate [Renvela -] 800 mg PO TIDCM 30 Days #90 tab 08/27/18 Tamsulosin HCl [Flomax -] 0.8 mg PO DAILY@0830 cap.er.24h 08/27/18 Torsemide [Demadex -] 40 mg PO DAILY 30 Days #30 tablet 08/27/18 Vancomycin/0.9 % Sod Chloride [Vanco 1 Gram/150 ml-0.9% NaCl] 1 gm IV Q48H #30 plast..bag 12/24/18 Anemia: No Asthma: No Cancer: No CVA: No COPD: No CHF: No Diabetes: Yes GI Disorders: Yes (diverticulosis) Disorders: Yes (bph dyalisis on mon-wed-fri) HTN: Yes Hypercholesterolemia: Yes Liver Disease: No Seizures: No Thyroid Disease: No - Surgical History Abdominal Surgery: No Appendectomy: No Cardiac Surgery: No Cholecystectomy: No Lung Surgery: No Neurologic Surgery: No Orthopedic Surgery: No - Immunization History Immunization Up to Date: Yes - Suicide/Smoking/Psychosocial Hx Smoking History: Unknown if ever smoked Have you smoked in the past 12 months: No Hx Alcohol Use: No Drug/Substance Use Hx: No Substance Use Type: None Hx Substance Use Treatment: No ED Treatment Course - LABORATORY CBC & Chemistry Diagram: 02/04/19 06:30 02/04/19 06:30 Medical Decision Making - Medical Decision Making 02/04/19 06:01 A/P: 88-year-old male for vas catheter placement Preprocedure labs Hep-Lock Contact interventional radiology for tunneled dialysis catheter placement Patient hypertensive with a systolic blood pressure 206. I will prescribe the patient usual morning medications atenolol 25 mg, Norvasc 10 mg and torsemide 20 mg orally 02/04/19 06:04 02/04/19 07:02 PT/INR are unremarkable. CBC and chemistries are pending at this time. Patient signed out to DEEP Jay for continued evaluation. *DC/Admit/Observation/Transfer Diagnosis at time of Disposition: Displacement of vascular dialysis catheter Qualifiers: Encounter type: initial encounter Qualified Code(s): T82.42XA - Displacement of vascular dialysis catheter, initial encounter - Discharge Dispostion Condition at time of disposition: Fair - Referrals - Patient Instructions - Post Discharge Activity
[2019-02-04] MEDS ORDERED: amLODIPine BESYLATE 5 MG TABLET (FP) ONE (06:08)
[2019-02-04] MEDS ORDERED: ATENOLOL 25 MG TABLET (FP) ONE (06:08)
[2019-02-04 06:38] LABS: BASO % 1.1 % (0-2.0); EOS % 14.6 % (0-4.5); HEMATOCRIT 23.6 % (35.4-49); HEMOGLOBIN 7.7 GM/dL (11.7-16.9); LYMPH % 7.4 % (8-40); MCH 26.4 pg (25.7-33.7); MCHC 32.4 g/dl (32.0-35.9); MEAN CELL VOLUME 81.3 fl (80-96); MEAN PLT VOLUME 8.4 fl (7.5-11.1); NEUT % 69.9 % (42.8-82.8); PLATELET COUNT 119 K/MM3 (134-434); RDW 20.4 % (11.9-15.9); WHITE BLOOD COUNT 6.9 K/mm3 (4.0-10.0)
[2019-02-04 06:59] LABS: INR 1.15 (0.83-1.09); PROTHROMBIN TIME (PATIENT) 13.6 SEC (9.7-13.0)
[2019-02-04 07:04] LABS: ALBUMIN 2.8 g/dl (3.4-5.0); BILIRUBIN,TOTAL 0.8 mg/dL (0.2-1); CALCIUM 8.8 mg/dL (8.5-10.1); CREATININE 4.2 mg/dL (0.55-1.3); POTASSIUM 3.7 mmol/L (3.5-5.1); TOT PROT 7.3 g/dl (6.4-8.2)
--- NOTE | 2019-02-04 07:41 | PDOC ---
*Physical Exam - Vital Signs Last Vital Signs Temp Pulse Resp BP Pulse Ox 98.0 F 57 L 18 162/71 100 02/04/19 05:17 02/04/19 07:00 02/04/19 07:00 02/04/19 07:00 02/04/19 07:00 - Physical Exam General Appearance: Yes: Appropriately Dressed. No: Apparent Distress HEENT: positive: Normal Voice Neck: positive: Supple Respiratory/Chest: positive: Lungs Clear, Normal Breath Sounds. negative: Respiratory Distress Gastrointestinal/Abdominal: positive: Soft Integumentary: positive: Dry, Warm ED Treatment Course - LABORATORY CBC & Chemistry Diagram: 02/04/19 06:30 02/04/19 06:30 - ADDITIONAL ORDERS Additional order review: Laboratory Results 02/04/19 02/04/19 06:30 06:30 PT with INR 13.60 H INR 1.15 H Sodium 137 Potassium 3.7 Chloride 100 Carbon Dioxide 29 Anion Gap 8 BUN 31 H Creatinine 4.2 H Est GFR (CKD-EPI)AfAm 13.87 Est GFR (CKD-EPI)NonAf 11.97 Random Glucose 125 H Calcium 8.8 Total Bilirubin 0.8 AST 40 H ALT 70 H Alkaline Phosphatase 306 H Total Protein 7.3 Albumin 2.8 L 02/04/19 06:30 RBC 2.90 L MCV 81.3 MCHC 32.4 RDW 20.4 H MPV 8.4 Neutrophils % 69.9 Lymphocytes % 7.4 L D Monocytes % 7.0 Eosinophils % 14.6 H Basophils % 1.1 - Medications Given in the ED: ED Medications Discontinued Medications Generic Name Dose Route Start Last Admin Trade Name Andrey PRN Reason Stop Dose Admin Amlodipine Besylate 10 mg 02/04/19 05:56 02/04/19 06:25 Norvasc - PO 02/04/19 05:57 10 mg ONCE ONE Administration Atenolol 25 mg 02/04/19 05:56 02/04/19 06:25 Tenormin - PO 02/04/19 05:57 25 mg ONCE ONE Administration Torsemide 20 mg 02/04/19 05:56 02/04/19 07:00 Demadex - PO 02/04/19 05:57 20 mg ONCE ONE Administration Medical Decision Making - Medical Decision Making 02/04/19 07:38 She signed out to me at 7 AM Patient is an 88-year-old male with multiple comorbidities including ESRD on HD T/T/S, [facility] permacath after catheter was found next to patient in bed in facility. Labs unremarkable. Pending consult with vascular for replacement of catheter 02/04/19 08:[address] Valencia of vascular, who had replaced patient's permacath in December of this year. States last time he saw patient was 12/2018 when performed vein mapping in anticipation of creation of an AVF in the near future. Wants patient admitted and states he will replace permacath in the a.m. *DC/Admit/Observation/Transfer Diagnosis at time of Disposition: Displacement of vascular dialysis catheter Qualifiers: Encounter type: initial encounter Qualified Code(s): T82.42XA - Displacement of vascular dialysis catheter, initial encounter - Discharge Dispostion Condition at time of disposition: Fair Decision to Admit order: Yes - Referrals Referrals: Ranjan Vela [Primary Care Provider] - - Patient Instructions - Post Discharge Activity
--- NOTE | 2019-02-04 10:24 | SPA.PREOP ---
- PRE-OP NOTE Dx: ESRD- Needs access Planned Procedure: Permacath placement Surgeon: rGegory Valencia Last Vital Signs Temp Pulse Resp BP Pulse Ox 98.0 F 57 L 18 162/71 100 02/04/19 05:17 02/04/19 07:00 02/04/19 07:00 02/04/19 07:00 02/04/19 07:00 Lab Results WBC 6.9 K/mm3 (4.0-10.0) 02/04/19 06:30 RBC 2.90 M/mm3 (4.00-5.60) L 02/04/19 06:30 Hgb 7.7 GM/dL (11.7-16.9) L 02/04/19 06:30 Hct 23.6 % (35.4-49) L 02/04/19 06:30 MCV 81.3 fl (80-96) 02/04/19 06:30 MCHC 32.4 g/dl (32.0-35.9) 02/04/19 06:30 RDW 20.4 % (11.9-15.9) H 02/04/19 06:30 Plt Count 119 K/MM3 (134-434) L 02/04/19 06:30 Sodium 137 mmol/L (136-145) 02/04/19 06:30 Potassium 3.7 mmol/L (3.5-5.1) 02/04/19 06:30 Chloride 100 mmol/L (98-107) 02/04/19 06:30 Carbon Dioxide 29 mmol/L (21-32) 02/04/19 06:30 Anion Gap 8 MMOL/L (8-16) 02/04/19 06:30 BUN 31 mg/dL (7-18) H 02/04/19 06:30 Creatinine 4.2 mg/dL (0.55-1.3) H 02/04/19 06:30 Random Glucose 125 mg/dL (74-106) H 02/04/19 06:30 Calcium 8.8 mg/dL (8.5-10.1) 02/04/19 06:30 INR 1.15 (0.83-1.09) H 02/04/19 06:30 - ASSESSMENT/PLAN 1. Make NPO after midnight except po meds 2. GI/DVT PPX 3. Medical optimization / clearance 4. Consent to be obtained by surgeon after risks, benefits and alternatives discussed with patient and or Health Care Proxy. Problem List - Problems (1) ESRD (end stage renal disease) on dialysis Code(s): N18.6 - END STAGE RENAL DISEASE; Z99.2 - DEPENDENCE ON RENAL DIALYSIS
--- NOTE | 2019-02-04 12:06 | HP ---
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 Cardiovascular: Yes: HTN Gastrointestinal: Yes: Hiatal Hernia Renal/: Yes: Renal Failure, Renal Inusuff, BPH Heme/Onc: Yes: Anemia, Thrombocytopenia Endocrine: Yes: Diabetes Mellitus - Smoking History Smoking history: Unknown if ever smoked Have you smoked in the past 12 months: No - Alcohol/Substance Use Hx Alcohol Use: No - Social History History of Recent Travel: No Home Medications - Allergies Allergies/Adverse Reactions: Allergies Allergy/AdvReac Type Severity Reaction Status Date / Time No Known Allergies Allergy Verified 02/04/19 06:03 - Home Medications Home Medications: Ambulatory Orders Amlodipine Besylate [Norvasc -] 10 mg PO DAILY 30 Days #30 tablet 08/27/18 Atenolol [Tenormin -] 25 mg PO DAILY 30 Days #30 tablet 08/27/18 Guaifenesin [Mucinex -] 600 mg PO BID 30 Days #60 tablet.er 08/27/18 Insulin Sliding Scale [Novolog Vial Sliding Scale -] 1 vial SQ ACHS units 08/27 Ranitidine Oral Solution [Zantac Oral Solution -] 150 mg PO DAILY #1 cup Sevelamer Carbonate [Renvela -] 800 mg PO TIDCM 30 Days #90 tab 08/27/18 Tamsulosin HCl [Flomax -] 0.8 mg PO DAILY@0830 cap.er.24h 08/27/18 Torsemide [Demadex -] 40 mg PO DAILY 30 Days #30 tablet 08/27/18 Vancomycin/0.9 % Sod Chloride [Vanco 1 Gram/150 ml-0.9% NaCl] 1 gm IV Q48H #30 plast..bag 12/24/18 Review of Systems - Review of Systems Constitutional: denies: Chills, Fever Respiratory: denies: SOB Physical Examination Vital Signs: Vital Signs Temperature 98.0 F 02/04/19 10:42 Pulse Rate 59 L 02/04/19 10:42 Respiratory Rate 18 02/04/19 10:42 Blood Pressure 158/69 02/04/19 10:42 O2 Sat by Pulse Oximetry (%) 97 02/04/19 10:42 Constitutional: Yes: No Distress, Calm Neck: Yes: Other (rt side of neck -- permacath open wound) Cardiovascular: Yes: Regular Rate and Rhythm Respiratory: Yes: Diminished Gastrointestinal: Yes: Normal Bowel Sounds, Soft. No: Tenderness Edema: No Labs: CBC, BMP 02/04/19 06:30 02/04/19 06:30 Problem List - Problems (1) Displacement of vascular dialysis catheter Code(s): T82.42XA - DISPLACEMENT OF VASCULAR DIALYSIS CATHETER, INIT ENCNTR Qualifiers: Encounter type: initial encounter Qualified Code(s): T82.42XA - Displacement of vascular dialysis catheter, initial encounter (2) Anemia Code(s): D64.9 - ANEMIA, UNSPECIFIED Qualifiers: Anemia type: due to chronic kidney disease Chronic kidney disease stage: on chronic dialysis Qualified Code(s): N18.6 - End stage renal disease; D63.1 - Anemia in chronic kidney disease; Z99.2 - Dependence on renal dialysis (3) ESRD (end stage renal disease) on dialysis Code(s): N18.6 - END STAGE RENAL DISEASE; Z99.2 - DEPENDENCE ON RENAL DIALYSIS Assessment/Plan Vascular eval scheduled for dialysis tomorrow-- will be getting permacath placed Renal eval on Vanco during dialysis for MRSA bacteremia continue with meds
[2019-02-04] MEDS: SEVELAMER CARBONATE 800 MG TAB (FP) PO SCH ×2 (12:56→16:58)
[2019-02-05] MEDS: TAMSULOSIN HCL 0.4 MG CAP PO SCH ×2 (07:59→09:08)
[2019-02-05] MEDS: SEVELAMER CARBONATE 800 MG TAB (FP) PO SCH ×2 (07:59→17:45)
[2019-02-05] MEDS ORDERED: ATENOLOL 25 MG TABLET (FP) PO SCH (10:00)
[2019-02-05] MEDS ORDERED: amLODIPine BESYLATE 10 MG TABLET (FP) PO SCH (10:00)
[2019-02-05] MEDS ORDERED: TORSEMIDE 20 MG TABLET (FP) PO SCH (10:00)
[2019-02-05] MEDS ORDERED: SODIUM CHLORIDE 0.9% P/F 10 ML VIAL IJ ONE (10:49)
[2019-02-05] MEDS ORDERED: PROPOFOL 20 ML ONE (10:49)
[2019-02-05] MEDS ORDERED: SUCCINYLCHOLINE CHLORIDE 200 MG/10 ML SYRINGE ONE (10:49)
[2019-02-05] MEDS ORDERED: ceFAZolin SODIUM 1 GM VIAL ONE (10:49)
[2019-02-05] MEDS ORDERED: MIDAZOLAM HCL 2 MG/2 ML SINGLE DOSE VIAL ONE (10:49)
[2019-02-05] MEDS ORDERED: LIDOCAINE HCL/PF 2% SDV 5ML VIAL ONE (10:49)
[2019-02-05] MEDS ORDERED: LIDOCAINE HCL 1%, 10 MG/ML (20ML VIAL) ONE (10:51)
[2019-02-05] MEDS ORDERED: HEPARIN NA (PORCINE) 5,000 UNITS/ML 1ML VIAL ONE (10:52)
[2019-02-05] MEDS ORDERED: LIDOCAINE HCL 1%, 10 MG/ML (50 mL VIAL) IJ ONE (11:40)
--- NOTE | 2019-02-05 11:55 | OP ---
Operative Note - Note: Operative Date: 02/05/19 Pre-Operative Diagnosis: ESRD Operation: Insertion of permacath Post-Operative Diagnosis: Same as Pre-op Surgeon: Gregory Valencia Anesthesia: Fractional Estimated Blood Loss (mls): 20 Operative Report Dictated: Yes
--- NOTE | 2019-02-05 11:59 | PN ---
Progress Note (short form) - Note Progress Note: Vascular Surgery S/P permacath Vein mapping done 01/21. Will book pt as outpt for permanent access in left arm. Prob left AVG insertion Gregory trejo DO
[2019-02-05] MEDS ORDERED: ONDANSETRON 4 MG/2 ML VIAL IVPUSH PRN (13:00)
[2019-02-05] MEDS ORDERED: SODIUM CHLORIDE 250 ML IV PRN (14:10)
[2019-02-05] MEDS ORDERED: EPOETIN ALFA 2,000 UNIT/1 ML VIAL IVPUSH ONE (14:10)
[2019-02-05] MEDS ORDERED: HEPARIN NA (PORCINE) 5,000 UNITS/ML 1ML VIAL IVPUSH ONE (14:10)
--- NOTE | 2019-02-05 14:29 | CONSULT ---
Consult - text type - Consultation Consultation Note: Renal Consult for ESRD on HD This is a 88 year old [place] gentleman with hx of ESRD on HD (TTS), Hx of + ANCA (no Tx due to age and co-morbid conditions), DM, Hypertension, Anemia who presented from [place] with dislodged dialysis cathter. Pt s/p insertion of new catheter this AM by vascular surgery. Pt is sleeping but arouseable, however did not provide HPI. Discussed case with daughter Deanna over the phone. PMhx: as above Allergies: NKDA Family hx: NC Social Hx: No T/A/D ROS: unable to obtain Vital Signs Temperature 97 F L 02/05/19 13:40 Pulse Rate 47 L 02/05/19 13:40 Respiratory Rate 18 02/05/19 13:40 Blood Pressure 131/42 L 02/05/19 13:40 O2 Sat by Pulse Oximetry (%) 100 02/05/19 13:40 Intake & Output 02/02/19 02/03/19 02/04/19 02/05/19 23:59 23:59 23:59 23:59 Intake Total 250 250 Output Total 20 Balance 250 230 Weight 46.266 kg 44.594 kg NAD, sleeping Neck supple No JVD RRR, no M/R CTA soft NT/ND no LE edema, clubbing or cyanosis CBC, BMP 02/04/19 06:30 02/04/19 06:30 Current Medications Amlodipine Besylate (Norvasc -) 10 mg PO DAILY REHANA Atenolol (Tenormin -) 25 mg PO DAILY REHANA Fentanyl (Sublimaze Injection -) 25 mcg IVPUSH [id number] PRN PRN Reason: PAIN-PACU ORDER X 4 DOSES ONLY Heparin Sodium (Porcine) (Heparin -) 500 unit IVPUSH ONCE ONE Stop: 02/05/19 14:11 Heparin Sodium (Porcine) (Heparin -) 500 unit IVPUSH Q1H REHANA Stop: 02/05/19 16:16 Sodium Chloride (Normal Saline -) 250 mls @ 3,000 mls/hr IV PRN PRN PRN Reason: Hypotension during Dialysis Stop: 02/06/19 14:10 Non-Formulary Medication (Vancomycin/0.9 % Sod Chloride [Vanco 1 Gram/150 Ml-0.9 % Nacl]) 1 gm IV Q48H REHANA Ondansetron HCl (Zofran Injection) 4 mg IVPUSH Q6H PRN PRN Reason: NAUSEA AND/OR VOMITING Sevelamer Carbonate (Renvela -) 800 mg PO TIDCM [facility] Tamsulosin HCl (Flomax -) 0.8 mg PO DAILY@0830 [facility] Torsemide (Demadex -) 40 mg PO DAILY [facility] 88 year old [place] gentleman with hx of ESRD on HD (TTS), Hx of + ANCA (no Tx due to age and co-morbid conditions), DM, Hypertension, Anemia who presented from [place] with dislodged dialysis cathter. #Dialysis catheter dysfunction now s/p replacement catheter #ESRD on HD (TTS) #Hypertension #DM #BPH #Lethargy likely due to sedation given during procedure Will arrange for HD today as inpatient via new catheter Will need to have AVG placement by vascular but can be done as an outpatient Monitor mental status post dialysis today continue atenolol and amlodipine, hold before dialysis will give Epogen with dialysis, no acute need for transfusion Thank you Steven Carvajal DO appreciate vascular intervention, new catheter placed.
--- NOTE | 2019-02-05 15:40 | PN ---
Progress Note (short form) - Note Progress Note: no distress for permacath placement Vital Signs - 24 hr 02/04/19 02/04/19 02/05/19 21:00 22:35 06:43 Temperature 98.6 F 97.6 F Pulse Rate 80 57 L Respiratory 20 20 20 Rate Blood Pressure 124/70 179/79 H O2 Sat by Pulse 99 Oximetry (%) 02/05/19 02/05/19 02/05/19 09:00 11:56 12:10 Temperature 97.4 F L 97 F L Pulse Rate 57 L 46 L 46 L Respiratory 19 14 26 H Rate Blood Pressure 176/78 H 113/56 L 127/57 L O2 Sat by Pulse 100 97 98 Oximetry (%) 02/05/19 02/05/19 02/05/19 12:25 12:40 12:55 Temperature Pulse Rate 47 L 48 L 48 L Respiratory 18 18 18 Rate Blood Pressure 126/49 L 120/46 L 139/47 L O2 Sat by Pulse 100 100 100 Oximetry (%) 02/05/19 02/05/19 02/05/19 13:10 13:25 13:40 Temperature 97 F L Pulse Rate 48 L 46 L 47 L Respiratory 18 18 18 Rate Blood Pressure 130/54 L 132/54 L 131/42 L O2 Sat by Pulse 100 100 100 Oximetry (%) 02/05/19 02/05/19 02/05/19 14:30 14:55 15:00 Temperature 97.1 F L 97.7 F 98.6 F Pulse Rate 52 L 52 L 58 L Respiratory 18 18 18 Rate Blood Pressure 138/41 L 148/68 128/64 O2 Sat by Pulse 100 Oximetry (%) 02/05/19 02/05/19 02/05/19 15:30 16:00 16:30 Temperature Pulse Rate 63 53 L 55 L Respiratory 18 18 18 Rate Blood Pressure 151/73 136/63 135/55 L O2 Sat by Pulse Oximetry (%) Current Medications Generic Name Dose Route Start Last Admin Trade Name Freq PRN Reason Stop Dose Admin Amlodipine Besylate 10 mg 02/06/19 10:00 Norvasc - PO DAILY REHANA Atenolol 25 mg 02/06/19 10:00 Tenormin - PO DAILY REHANA Fentanyl 25 mcg 02/05/19 13:00 Sublimaze Injection - IVPUSH [id number] PRN PAIN-PACU ORDER X 4 DOSES ONLY Sodium Chloride 250 mls @ 3,000 mls/hr 02/05/19 14:10 Normal Saline - IV 02/06/19 14:10 PRN PRN Hypotension during Dialysis Non-Formulary Medication 1 gm 02/07/19 12:00 Vancomycin/0.9 % Sod Chloride [Vanco 1 Gram/150 Ml-0.9% Nacl] IV Q48H REHANA Ondansetron HCl 4 mg 02/05/19 13:00 Zofran Injection IVPUSH Q6H PRN NAUSEA AND/OR VOMITING Sevelamer Carbonate 800 mg 02/05/19 12:30 Renvela - PO TIDCM REHANA Tamsulosin HCl 0.8 mg 02/06/19 08:30 Flomax - PO DAILY@0830 REHANA Torsemide 40 mg 02/06/19 10:00 Demadex - PO DAILY REHANA S1 S2 RRR Lungs clear Abd- soft, NT no edema PLAn for permacath placement on Iv vanco during HD for MRSA bacteremia Continue with meds Problem List - Problems (1) Displacement of vascular dialysis catheter Code(s): T82.42XA - DISPLACEMENT OF VASCULAR DIALYSIS CATHETER, INIT ENCNTR Qualifiers: Encounter type: initial encounter Qualified Code(s): T82.42XA - Displacement of vascular dialysis catheter, initial encounter (2) Anemia Code(s): D64.9 - ANEMIA, UNSPECIFIED Qualifiers: Anemia type: due to chronic kidney disease Chronic kidney disease stage: on chronic dialysis Qualified Code(s): N18.6 - End stage renal disease; D63.1 - Anemia in chronic kidney disease; Z99.2 - Dependence on renal dialysis (3) ESRD (end stage renal disease) on dialysis Code(s): N18.6 - END STAGE RENAL DISEASE; Z99.2 - DEPENDENCE ON RENAL DIALYSIS
[2019-02-05] MEDS: HEPARIN NA (PORCINE) 5,000 UNITS/ML 1ML VIAL IVPUSH SCH ×3 (16:07→17:30)
--- NOTE | 2019-02-06 00:31 | OP ---
DATE OF OPERATION: 02/05/2019 PREOPERATIVE DIAGNOSIS: End-stage renal disease. POSTOPERATIVE DIAGNOSIS: End-stage renal disease. PROCEDURE: Insertion of Perma-Cath. SURGEON: Gregory Rodríguez DO ANESTHESIA: Fractional. BLOOD LOSS: 20 mL. INDICATIONS: The patient is an 88-year-old male that came in from the dialysis unit after he went to dialysis yesterday and after that he pulled out his Perma-Cath. He came into the ER and was admitted. Patient's daughter was consented for the procedure understanding all risks, benefits, and alternatives. He was then taken to the operating room. DESCRIPTION OF PROCEDURE: Once in the operating room, laid on the operating room table in the supine manner, and the area of the right neck and chest were prepped and draped in a sterile surgical manner. Under ultrasound guidance, we visualized the right internal jugular vein, and 10 mL of lidocaine 1% was injected there. Using our Micropuncture needle, we punctured the right internal jugular vein under ultrasound guidance. Micropuncture wire was inserted. Micropuncture sheath was inserted. A 0.035 floppy guidewire was inserted. We then injected 10 mL of lidocaine 1% above and below the clavicle. We then used an 11 blade and made a 1-cm incision at the puncture site. We used a 15 blade, made a 1-cm incision below the clavicle. We then tunneled the Perma-Cath up to the puncture site. We then placed our breakaway sheath over the guidewire into the vein under fluoroscopy. Inner cannula and guidewire were removed. Catheter was placed inside the sheath. Sheath was broken away as the catheter was placed inside the vein. Neck of the catheter was nice and smooth. Tip of the catheter was located outside the right atrium. We then went ahead and elida back on each port of the catheter. There was good flow. Heparinized saline injected, 2000 units of IV heparin was injected into each port. Then 4-0 Biosyn was used, and 2 simple sutures were placed at the puncture site, 3-0 nylon was used, and the catheter was attached to the skin. Biopatch, Steri-Strips, 4 x 4's, Tegaderms were placed. Patient tolerated the procedure with no complication. Patient transferred to PACU in stable condition where a chest x-ray will be ordered. GREGORY RODRÍGUEZ DO PRODUCTION ASSEMBLY SUPERVISOR/[id number]
[2019-02-06] MEDS ORDERED: amLODIPine BESYLATE 10 MG TABLET (FP) PO ONE (05:53)
[2019-02-06] MEDS ORDERED: TAMSULOSIN HCL 0.4 MG CAP PO SCH (08:30)
[2019-02-06] MEDS: SEVELAMER CARBONATE 800 MG TAB (FP) PO SCH ×3 (08:53→13:46)
[2019-02-06] MEDS ORDERED: ATENOLOL 25 MG TABLET (FP) PO SCH ×2 (10:00→10:45)
[2019-02-06] MEDS ORDERED: TORSEMIDE 20 MG TABLET (FP) PO SCH (10:00)
[2019-02-06] MEDS ORDERED: amLODIPine BESYLATE 10 MG TABLET (FP) PO SCH (10:00)
--- NOTE | 2019-02-06 10:22 | DS ---
Physical Examination Vital Signs: Vital Signs Temperature 98.4 F 02/06/19 05:00 Pulse Rate 65 02/06/19 05:00 Respiratory Rate 16 02/06/19 05:00 Blood Pressure 188/63 H 02/06/19 05:00 O2 Sat by Pulse Oximetry (%) 96 02/05/19 21:00 Findings/Remarks: pt seen/ examined chart reviewed awake/ comfortable s/p Permacath placement yesterday and had dialysis Constitutional: Yes: No Distress, Calm Eyes: Yes: Conjunctiva Clear Neck: Yes: Supple Cardiovascular: Yes: Regular Rate and Rhythm Respiratory: Yes: Diminished Gastrointestinal: Yes: Soft Edema: No Psychiatric: Yes: Alert Labs: CBC, BMP 02/04/19 06:30 02/04/19 06:30 Discharge Summary Reason For Visit: DISPLACEMENT OF VASCULAR DIALYSIS CATHETER Current Active Problems Displacement of vascular dialysis catheter (Acute) Hospital Course: permacath placed avg as out pt Condition: Fair - Instructions Referrals: Gregory Valencia DO [Staff Physician] - Disposition: [facility] - Home Medications Comprehensive Discharge Medication List: Ambulatory Orders Amlodipine Besylate [Norvasc -] 10 mg PO DAILY 30 Days #30 tablet 08/27/18 Guaifenesin [Mucinex -] 600 mg PO BID 30 Days #60 tablet.er 08/27/18 Insulin Sliding Scale [Novolog Vial Sliding Scale -] 1 vial SQ ACHS units 08/27 Ranitidine Oral Solution [Zantac Oral Solution -] 150 mg PO DAILY #1 cup Sevelamer Carbonate [Renvela -] 800 mg PO TIDCM 30 Days #90 tab 08/27/18 Tamsulosin HCl [Flomax -] 0.8 mg PO DAILY@0830 cap.er.24h 08/27/18 Torsemide [Demadex -] 40 mg PO DAILY 30 Days #30 tablet 08/27/18 Vancomycin/0.9 % Sod Chloride [Vanco 1 Gram/150 ml-0.9% NaCl] 1 gm IV Q48H #30 plast..bag 12/24/18 Atenolol [Tenormin -] 25 mg PO BID tablet 02/06/19
[2019-02-06 14:43] VITALS: BP 147/56; PULSE 55; TEMP 97.5
--- NOTE | 2019-02-06 15:13 | PN ---
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 Pt seen and examined at the bedside awake, groggy but was sleeping but responsive and answering questions s/p HD yesterday for discharge back to [place] today Vital Signs Temperature 97.5 F L 02/06/19 14:40 Pulse Rate 55 L 02/06/19 14:40 Respiratory Rate 18 02/06/19 09:00 Blood Pressure 147/56 L 02/06/19 14:40 O2 Sat by Pulse Oximetry (%) 98 02/06/19 09:00 Intake & Output 02/03/19 02/04/19 02/05/19 02/06/19 23:59 23:59 23:59 23:59 Intake Total 250 653 450 Output Total 20 Balance 250 633 450 Weight 46.266 kg 44.594 kg 44.588 kg NAD, awake and alert RRR, no M/R CTA soft NT/ND no LE edema, clubbing or cyanosis CBC, BMP 02/04/19 06:30 02/04/19 06:30 Current Medications Amlodipine Besylate (Norvasc -) 10 mg PO DAILY [facility] Last Admin: 02/06/19 10:08 Dose: 10 mg Atenolol (Tenormin -) 25 mg PO DAILY [facility] Last Admin: 02/06/19 13:45 Dose: 25 mg Fentanyl (Sublimaze Injection -) 25 mcg IVPUSH [id number] PRN PRN Reason: PAIN-PACU ORDER X 4 DOSES ONLY Non-Formulary Medication (Vancomycin/0.9 % Sod Chloride [Vanco 1 Gram/150 Ml-0.9 % Nacl]) 1 gm IV Q48H [facility] Ondansetron HCl (Zofran Injection) 4 mg IVPUSH Q6H PRN PRN Reason: NAUSEA AND/OR VOMITING Sevelamer Carbonate (Renvela -) 800 mg PO TIDCM [facility] Last Admin: 02/06/19 13:46 Dose: 800 mg Tamsulosin HCl (Flomax -) 0.8 mg PO DAILY@0830 [facility] Last Admin: 02/06/19 08:53 Dose: 0.8 mg Torsemide (Demadex -) 40 mg PO DAILY [facility] Last Admin: 02/06/19 10:08 Dose: 40 mg 88 year old [place] gentleman with hx of ESRD on HD (TTS), Hx of + ANCA (no Tx due to age and co-morbid conditions), DM, Hypertension, Anemia who presented from [place] with dislodged dialysis cathter. #Dialysis catheter dysfunction now s/p replacement catheter #ESRD on HD (TTS) #Hypertension #DM #BPH #Lethargy likely due to sedation given during procedure for discharge today to [place] will get outpatient HD tomorrow at outpatient dialysis center will continue high dose HORACIO for anemia and Iron as needed Vascular follow up as outpatient for AVG placement Thank you Steven Carvajal DO
[2019-02-07 10:13] LABS: HBSAG SCREEN Negative (Negative); HEP A AB, IGM Negative (Negative); HEP B CORE AB, TOT Negative (Negative)
[2019-02-07 12:46] VITALS: BMI 17.9
== END 2019-02-06 18:17 | DRG 314 ==
LOC: JER 05:17 → JERBED 08:59 → J6S 11:11
PROVIDERS: ADMIT Internal Medicine; ATTEND Internal Medicine
PROC: 05HM33Z Insertion of Infusion Device into Right Internal Jugular Vein, Percutaneous Approach (ICD-10-PCS; 2019-02-05)
PROC: B513ZZA Fluoroscopy of Right Jugular Veins, Guidance (ICD-10-PCS; 2019-02-05)
PROC: 05PYX3Z Removal of Infusion Device from Upper Vein, External Approach (ICD-10-PCS; principal; 2019-02-05 14:45)
DX: T82.42XA Displacement of vascular dialysis catheter, initial encounter (principal); N18.6 End stage renal disease; I12.0 Hypertensive chronic kidney disease with stage 5 chronic kidney disease or end stage renal disease; R64 Cachexia; Z68.41 Body mass index [BMI] 40.0-44.9, adult; E11.22 Type 2 diabetes mellitus with diabetic chronic kidney disease; Y84.1 Kidney dialysis as the cause of abnormal reaction of the patient, or of later complication, without mention of misadventure at the time of the procedure; Y92.128 Other place in nursing home as the place of occurrence of the external cause; K21.9 Gastro-esophageal reflux disease without esophagitis; E78.5 Hyperlipidemia, unspecified; N40.0 Benign prostatic hyperplasia without lower urinary tract symptoms; Z99.2 Dependence on renal dialysis; K57.30 Diverticulosis of large intestine without perforation or abscess without bleeding; Z79.4 Long term (current) use of insulin; D63.1 Anemia in chronic kidney disease
CPT/HCPCS: 36415; 71045-TC-FY; 76000-TC-FY; 80053; 85025; 85610; 86704; 86706; 86708; 86803; 86850; 86900; 86901; 87340; 94760; 99282-25; J0885; J1644

== ENCOUNTER 2019-02-17 18:30 | Emergency (ER) | payer OTHER | END 2019-02-17 22:57 | disposition short-term general hospital (02) | LOC: JER 18:30 ==